=== PATIENT | male | born 1935 | race Caucasian/White ===

== ENCOUNTER → 2016-07-20 | Outpatient (CLI) | payer MEDICARE, OTHER ==
[~2016-07-20] VITALS: Ht 167.6 cm; Wt 78.9 kg
[~2016-07-20] MED LIST: ASPI-892 PO; B 12; CALC-697 PO; CATHETER FLUSH 10 ML SYR IV PRN; CEPH500C; CHOL100011 PO; CHOL20002 PO; CYAN10007 PO; DIPH50CA PO; EZET10TA5; FENO145T2 PO; FISH12002 PO; GARL10002 PO; GARL1500 PO; GARL400T13; GLIP5TAB13 PO; GLUC-144 PO; HCT25T PO; HYDR-3730 PO; HYDR-3812 PO; LISI10TA PO; LISI40TA PO; METF-380; METF-380 PO; METF500T4 PO; MTF500T PO; MULT-974 PO; MULT1TAB PO; MULTIVITAMIN; NAPR220C11 PO; NICOTINIC ACID PO; OMG1KC PO; POTA8CAP9 PO; REGADENOSON 0.4 MG/5 ML SYR (LEXISCAN) IV ONE; SIMV20TA3; SIMV40TA4 PO
--- OUTSIDE RECORDS SUMMARY | 2016-07-20 06:50 | XMS REPORT | Continuity of Care Document ---
Author Author 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 If you do not see the information that you expected, contact Release of Information in the Health Information Management department at [phone] for further assistance in locating additional records.[facility] Active Allergies and Adverse Reactions No Known Allergies Current Medications Prescription Sig. Disp. Refills Start End Date Status Date DOCOSAHEXANOIC ACID/EPA Take 1,200 mg by mouth Active (FISH OIL PO) twice daily. GLUCOSAMINE HCL/CHONDR LEONARDO Take 1 Tab by mouth Active A NA (OSTEO BI-FLEX PO) daily. HYDROcodone/acetaminophen Take 1 Tab by mouth every Active (NORCO) 5/325 mg tablet 8 hours as needed for Pain aspirin 81 mg chewable Chew 81 mg by mouth at Active tablet bedtime daily. Take with food. fenofibrate Take 145 mg by mouth Active nanocrystallized (TRICOR) daily. Take with food. 145 mg tablet glipiZIDE (GLUCOTROL) 5 Take 2.5 mg by mouth Active mg tablet twice daily. lisinopril (PRINIVIL, Take 40 mg by mouth Active ZESTRIL) 40 mg tablet daily. simvastatin (ZOCOR) 40 mg Take 40 mg by mouth at Active tablet bedtime daily. Garlic 1 mg cap Take 1 Cap by mouth Active daily. acetaminophen (TYLENOL) Take 325 mg by mouth Active 325 mg tablet every 4 hours as needed for Pain. metFORMIN (GLUCOPHAGE) Take 1,000 mg by mouth Active 500 mg tablet twice daily. vitamins, multiple tablet Take 1 Tab by mouth Active daily. calcium carbonate/vitamin Take 1 Tab by mouth Active D-3 (OSCAL-500+D) 1250 daily. Calcium Carb mg/200 unit tablet 1250mg delivers 500mg elemental Ca triamcinolone (NASACORT) Apply 2 Sprays to each Active 55 mcg nasal inhaler nostril as directed daily as needed. MULTIVITAMIN WITH IRON Take 1 Tab by mouth 07/05/19 Discontin (MULTIPLE VITAMINS WITH daily. 17 ued IRON PO) metFORMIN (GLUCOPHAGE) Take 1,000 mg by mouth 07/05/19 Discontin 1,000 mg tablet twice daily with meals. 17 ued calcium carbonate Take 1,250 mg by mouth 07/05/19 Discontin (OS-LEANDRO) 1250 mg tablet daily. 17 ued Active Problems Problem Noted Date Personal history of tobacco use 07/05/2016 Diabetes (HCC) Hypertension Low back pain Lung mass Claudication of both lower extremities (HCC) Spinal stenosis Most Recent Encounters Date Type Specialty Providers Description 08/03/2016 [facility] Jania Vargas MD Lung nodule Encounter 07/05/2016 PAC Office Anesthesiology Jania Vargas MD Lung nodule Visit 07/05/2016 Office Visit Cardiothoracic Surgery Jania Vargas MD Lung mass (Primary Dx); Essential hypertension; Type 2 diabetes mellitus without complication, without long-term current use of insulin (HCC); Family history of heart disease; Claudication of both lower extremities (HCC); Personal history of tobacco use; Abnormal blood creatinine level 07/05/2016 Anesthesia Candido Wilson MD Event 07/05/2016 Pre-Admit Anesthesiology Jania Vargas MD Lung nodule ( Primary Dx) Orders Only 07/05/2016 Prep for Case Cardiothoracic Surgery Jania Vargas MD 07/04/2016 Abstract Cardiothoracic Surgery Grace Torres, [place] Type 2 diabetes mellitus without complication, without long-term current use of insulin (HCC) (Primary Dx); Essential hypertension; Chronic low back pain, unspecified back pain laterality, with sciatica presence unspecified; Lung mass; Claudication of both lower extremities (HCC); Spinal stenosis, unspecified spinal region 07/03/2016 Ancillary Radiology Outpatient, Radiologist Diagnosis unknown Orders (Primary Dx) 06/30/2016 Telephone Cardiothoracic Surgery Jania Vargas MD Navigation Assessment 06/21/2016 Hospital Radiology Encounter 06/07/2016 Hospital Radiology Encounter Social History Tobacco Use Types Packs/Day Years Used Date Current Every Day Smoker Cigarettes 1.5 57 Smokeless Tobacco: Never Used Alcohol Use Drinks/Week oz/Week Comments Yes 7 Standard 4.2 drinks or equivalent Last Filed Vital Signs Vital Sign Reading Time Taken Blood Pressure 145/62 07/05/2016 12:01 PM SPECIAL EVENTS MANAGER Pulse 68 07/05/2016 11:43 AM SPECIAL EVENTS MANAGER Temperature 36.7 C (98 F) 07/05/2016 11:43 AM SPECIAL EVENTS MANAGER Respiratory Rate - - Height 1.676 m (5' 6") 07/05/2016 11:43 AM SPECIAL EVENTS MANAGER Weight 78.9 kg (173 lb 15.1 oz) 07/05/2016 11:43 AM SPECIAL EVENTS MANAGER Body Mass Index 28.09 07/05/2016 11:43 AM SPECIAL EVENTS MANAGER Oxygen Saturation 97% 07/05/2016 11:43 AM SPECIAL EVENTS MANAGER Plan of Care Date Type Specialty Providers Description 08/03/2016 Surgery Jania Vargas MD Video Assisted [address] Thoracoscopy, Left Lower [address] [place] [address] [phone] (Fax) Health Maintenance Due Date Last Done Comments Physical (Comprehensive) 01/03/1944 Exam Pertussis Vaccine 01/03/1948 Tetanus Vaccine 1954 Dilated Eye Exam 1955 Foot Exam 1955 Hba1c 1955 Microalbumin 1955 Shingles Vaccine 1997 Prevnar/Pneumovax (#1) 2002 Influenza Vaccine 02/25/2016 Results from Last 3 Months TYPE & SCREEN (NOT CROSSMATCH ELIGIBLE) (07/05/2016 11:57 AM) Component Value Range ABO/RH(D) O POS Antibody Screen NEG Blood Component Type RED CELL GROUP Specimen Blood, venous - Blood PTT (APTT) (07/05/2016 11:57 AM) Component Value Range APTT 29.5 24.0-40.0 SEC Specimen Blood PROTIME INR (PT) (07/05/2016 11:57 AM) Component Value Range INR 1.0 0.8-1.2 Specimen Blood COMPREHENSIVE METABOLIC PANEL (07/05/2016 11:57 AM) Component Value Range Sodium 132 (L) 137-147 MMOL/L Potassium 4.1 3.5-5.1 MMOL/L Chloride 104 98-110 MMOL/L Glucose 103 (H) 70-100 MG/DL Blood Urea Nitrogen 31 (H) 7-25 MG/DL Creatinine 1.75 (H) 0.4-1.24 MG/DL Calcium 10.1 8.5-10.6 MG/DL Total Protein 6.5 6.0-8.0 G/DL Total Bilirubin 0.3 0.3-1.2 MG/DL Albumin 3.8 3.5-5.0 G/DL Alk Phosphatase 31 25-110 U/L AST (SGOT) 24 7-40 U/L CO2 23 21-30 MMOL/L ALT (SGPT) 23 7-56 U/L Anion Gap 5 3-12 eGFR Non 38 (L)Comment: >60 mL/min The eGFR is not validated for use in drug dosing adjustments. Continue to use estimated creatinine clearance per dosing reference text. Please contact the Clinical Pharmacist for questions. eGFR 46 (L)Comment: >60 mL/min The eGFR is not validated for use in drug dosing adjustments. Continue to use estimated creatinine clearance per dosing reference text. Please contact the Clinical Pharmacist for questions. Specimen Blood CBC (07/05/2016 11:57 AM) Component Value Range White Blood Cells 11.6 (H) 4.5-11.0 K/UL RBC 5.20 4.4-5.5 M/UL Hemoglobin 14.9 13.5-16.5 GM/DL Hematocrit 45.9 40-50 % MCV 88.2 80-100 FL MCH 28.7 26-34 PG MCHC 32.6 32.0-36.0 G/DL RDW 14.4 11-15 % Platelet Count 250 150-400 K/UL MPV 8.6 7-11 FL Specimen Blood NM PET/CT EXTERNAL IMAGING (06/21/2016) Narrative This order has been auto finalized and does not contain a result. CT CHEST EXTERNAL IMAGING (06/07/2016) Narrative This order has been auto finalized and does not contain a result.
--- NOTE | 2016-07-20 11:19 | ECHOCARDIOGRAPHY REPORT ---
PROCEDURE PHYSICIAN: LADONNA GALVIN DATE OF PROCEDURE: 07/20/2016 TWO DIMENSIONAL ECHOCARDIOGRAM REPORT PRIMARY PHYSICIAN: OTHER PHYSICIAN: REFERRING PHYSICIAN: Dr. Ayala ORDERING PHYSICIAN: INDICATION FOR THE PROCEDURE: Peripheral arterial disease, hypertension MEASUREMENTS DERIVED VALUES LV DIAMETER (LAX) NORMALS NORMALS Diastolic 4.4 (3.6-5.2) Eject. Fract. 60% (60%+/-6%) Systolic (2.3-3.9) Diastolic Vol. % Shortening (0.22-0.42) Systolic Vol. Aortic Root IVS THICKNESS Diastolic 1. (0.6-1.1) LVPW THICKNESS Diastolic 1. (0.6-1.1) LA DIAMETER Systolic 4. (2.1-3.7) FINDINGS: 1. Technical quality is good. 2. The left ventricle is normal in size with normal contractility. Systolic function appeared to be normal. Estimated ejection fraction 60%. Diastolic dysfunction is suggested by Doppler. 3. The left atrium is in the upper normal limit in size. No clot or thrombus were seen within the left atrium. 4. The right atrium and right ventricle are normal in size. No clot or thrombus were seen within the right side. 5. Mitral valve is normal in morphology with mild mitral regurgitation noted by color Doppler flow. No mitral valve prolapse. No mitral valve stenosis. 6. Aortic valve is trileaflet with normal opening and closing pattern. No significant aortic stenosis or regurgitation was seen. 7. Tricuspid valve is normal in morphology with mild tricuspid regurgitation noted by color Doppler flow. Doppler across tricuspid valve estimated pulmonary artery pressure of 37+ right atrial pressure. 8. Pulmonic valve is functioning normally. 9. No pericardial effusion. CONCLUSION: 1. Normal left ventricular size and systolic function. Estimated ejection fraction 60%. Diastolic dysfunction is suggested by Doppler. 2. Mild mitral and tricuspid regurgitation. 3. Pulmonary hypertension with estimated pulmonary artery pressure of 40 to 45 mmHg. 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
[2016-07-20 13:21] VITALS: BP 186/73
--- NOTE | 2016-07-21 07:44 | STRESS TEST ---
PROCEDURE PHYSICIAN: LADONNA GALVIN DATE OF PROCEDURE: 07/20/2016 LEXISCAN MYOVIEW STRESS TEST REPORT: REFERRING PHYSICIAN: Dr. Ayala BASELINE HEART RATE: 60 BASELINE BLOOD PRESSURE: 186/73 BASELINE EKG: Sinus rhythm with no ischemic changes. IN SUMMARY: The patient was injected with 10.27 mCi of technetium 99 Myoview and the resting images were obtained. Then the patient received 0.4 mg of Lexiscan followed by 32.1 mCi of technetium 99 Myoview. Throughout the test, there were no EKG changes. The resting and stress images were reviewed and compared in the short axis, horizontal long axis, and vertical long axis views. Review of the images showed good radiotracer uptake, no significant ischemia or infarction. SSS is 2, SDS 2, TID value is 1. On the gated images, the left ventricle appeared to be normal size with normal contractility. Calculated ejection fraction 56%. IN CONCLUSION: 1. The patient tolerated Lexiscan well. 2. No ischemia or infarction on SPECT images. 3. Normal left ventricular size with normal contractility. Calculated ejection fraction 56%. 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
== END ==
LOC: CARD 06:46
PROVIDERS: ATTEND Internal Medicine Cardiovascular Disease
DX: I73.9 Peripheral vascular disease, unspecified (principal); I10 Essential (primary) hypertension; R91.8 Other nonspecific abnormal finding of lung field; Z72.0 Tobacco use
CPT/HCPCS: 78452; 93017; 93306

== ENCOUNTER 2016-08-31 05:50 | Outpatient (CLI) | payer MEDICARE, OTHER ==
[~2016-08-31] VITALS: Ht 167.6 cm; Wt 74.8 kg
[~2016-08-31 05:50] MED LIST changes: -AMIO200T2 PO; -CALC-697 PO; -HYDR-3730 PO; -HYDR-3812 PO; -L.AC1CAP6 PO; -METO-333 PO; -ONDA8TAB13 PO; -TRAM50TA2 PO
--- OUTSIDE RECORDS SUMMARY | 2016-08-31 05:55 | XMS REPORT | Continuity of Care Document ---
Author Author [facility] Organization [facility] Address Unknown Phone Unavailable Care Team Providers Care Cook Chill Technician Name Role Phone Yoana Ayala PCP [phone] Source Comments Some departments are not documenting in the electronic medical record. If you do not see the information that you expected, contact Release of Information in the Health Information Management department at [phone] for further assistance in locating additional records.[facility] Active Allergies and Adverse Reactions No Known [...] take 200 mg (1 tab) daily. Fish Oil-[place]-3 Fatty Take by mouth. Active Acids (FISH [...] carcinoma of lung, left (Primary Dx) 08/23/2016 [facility] Radiology Erin Fisher APRN Encounter 08/16/2016 Documentation Cardiothoracic Surgery Grace Torres RN 08/11/2016 Cancer Cardiothoracic Surgery Lucy Coomsb MD Conference 08/03/2016 [facility] Lucy Coombs MD Claudication of both [...] Taken Blood Pressure 126/52 08/23/2016 10:17 AM ADDICTION THERAPIST Pulse 61 08/23/2016 10:17 AM ADDICTION THERAPIST Temperature 36.7 C (98 F) 08/23/2016 10:17 AM ADDICTION THERAPIST Respiratory Rate - - Height 1.676 m (5' 6") 08/23/2016 10:17 AM ADDICTION THERAPIST Weight 75.388 kg (166 lb 3.2 oz) 08/23/2016 10:17 AM ADDICTION THERAPIST Body Mass Index 26.84 08/23/2016 10:17 AM ADDICTION THERAPIST Oxygen Saturation 95% 08/23/2016 10:17 AM ADDICTION THERAPIST Plan of Care Health Maintenance Due Date Last Done Comments Physical (Comprehensive) 01/03/1942 Exam Pertussis Vaccine 01/03/1946 Tetanus Vaccine 1954 Dilated Eye Exam 1955 Foot Exam 1955 Microalbumin 1955 Shingles Vaccine 1997 Prevnar/Pneumovax (#1) 2002 Hba1c 01/31/2017 08/03/2016 Influenza Vaccine 02/24/2017 Procedures from Last 3 Months Procedure Name Priority Date/Time Associated Diagnosis Comments TELEMETRY STRIPS-SCAN 08/19/2016 Results for this 9:16 AM ADDICTION THERAPIST procedure are in the results section. TELEMETRY STRIPS-SCAN 08/12/2016 Results for this 2:43 PM ADDICTION THERAPIST procedure are in the results section. ECG UNCONFIRMED-SCAN 08/12/2016 Results for this 2:15 PM ADDICTION THERAPIST procedure are in the results section. ECG UNCONFIRMED-SCAN 08/12/2016 Results for this 2:15 PM ADDICTION THERAPIST procedure are in the results section. ECG-SCAN 08/06/2016 Results for this 1:42 PM ADDICTION THERAPIST procedure are in the results section. CONSULT IV THERAPY TEAM Routine 08/06/2016 12:24 PM ADDICTION THERAPIST ANESTHESIA ARTERIAL LINE Routine 08/03/2016 Results for this INSERTION 10:38 AM ADDICTION THERAPIST procedure are in the results section. Results [...] - Tue Aug 23, 2016 10:01 AM ADDICTION THERAPIST Chest, 2 views. Clinical history: Status post [...] - Amanda Aug 11, 2016 11:51 AM ADDICTION THERAPIST Procedure: CHEST SINGLE VIEW Clinical Indication: Status [...] Results - MonAug 10, 2016 9:[address] Chest Clinical Indication: Pleural effusion. Technique: [...] - Tue Aug 09, 2016 12:31 PM ADDICTION THERAPIST CHEST IMMEDIATE POST PROCEDURE History: Male, 81 [...] SIDED CHEST TUBE PLACEMENT: CLINICAL INDICATION:Left Pneumothorax. LIFE SCIENCES DIRECTOR:Benjamin Liriano M.D. (fellow) and Dr. Jim Delgado [...] The needle was removed, and a 14 Andorran pigtail all purpose drainage catheter was advanced [...] Results - MonAug 08, 2016 12:16 PM ADDICTION THERAPIST LEFT SIDED CHEST TUBE PLACEMENT: CLINICAL INDICATION: Left Pneumothorax. LIFE SCIENCES DIRECTOR: Benjamin Liriano M.D. (fellow) and Dr. Jim [...] The needle was removed, and a 14 Andorran pigtail all purpose drainage catheter was advanced [...] Color,UA RED Turbidity,UA 2+ (A) CLEAR-CLEAR Specific [place]-Urine 1.017 1.003-1.035 pH,UA 6.0 5.0-8.0 Protein,UA 2+ [...] PM) Component Value Range PATHOLOGY REPORT [facility] [email or web address] Roxanne Chauhan MD, PhD, Director of Anatomic Pathology Department of Pathology and Laboratory Medicine [address] [place] [id number] Surgical Pathology Office: [phone] SURGICAL PATHOLOGY REPORT NAME: LORENZO MCMILLAN SURG PATH #: [id number] MR #: [id number] SPECIMEN CLASS: SR BILLING #: [id number] ALT ID #: LOCATION: [facility] DATE OF PROCEDURE: 08/03/2016 AGE: 81 SEX: [...] status and/or prior pathology. Pursuant to the Security Officer Supervisor Program at the [facility] Pathology Department, selected slides from this [...] 0.4cm The external surface is inked black. Toll Bridge Attendant sections of the specimen are submitted as [...] of Pathology and Laboratory Medicine of the [facility] ([employer]) in compliance with CLIA'88 regulations. Some of these tests rely on the use of "analyte specific reagents" and are subject to specific labeling requirements by the FDA. Known positive and negative control tissues demonstrate appropriate staining. This testing was developed by the Department of Pathology and Laboratory Medicine of the [facility]. It has not been cleared or approved by the FDA. The FDA has determined that such clearance or approval is not necessary. ANESTHESIA ARTERIAL LINE INSERTION (08/03/2016 10:38 AM) TAWNYA Szymanski 08/03/2016 10:38 AM Anesthesia Procedure: Arterial Line Placement A-LINE INSERTION Date/Time: 08/03/2016 9:40 AM Patient location: OR Indications: frequent labs and hemodynamic monitoring Staff Anesthesiologist: MACEY ADAM Resident/MEDICAL BILLING SPECIALIST/SRNA: TERRANCE BROCK Performed by: Resident/MEDICAL BILLING SPECIALIST/SRNA Preprocedure checklist performed: 2 patient identifiers, risks [...]
[2016-09-01] MEDS ORDERED: CALC-697 PO (09:18)
[2016-09-01] MEDS ORDERED: HYDR-3730 PO (10:29)
== END 2016-08-31 12:04 | disposition home or self-care (01) ==
LOC: PREOP 05:50
PROVIDERS: ATTEND Surgery Pediatric Surgery
DX: Z01.818 Encounter for other preprocedural examination (principal); Z11.2 Encounter for screening for other bacterial diseases; C34.92 Malignant neoplasm of unspecified part of left bronchus or lung
CPT/HCPCS: 87081

== ENCOUNTER → 2016-08-31 | Outpatient (CLI) | payer MEDICARE, OTHER ==
[~2016-08-31] MED LIST changes: +AMIO200T2 PO; -CATHETER FLUSH 10 ML SYR IV PRN; +L.AC1CAP6 PO; +METO-333 PO; +ONDA8TAB13 PO; -REGADENOSON 0.4 MG/5 ML SYR (LEXISCAN) IV ONE; +TRAM50TA2 PO
--- OUTSIDE RECORDS SUMMARY | 2016-08-31 10:50 | XMS REPORT | Continuity of Care Document ---
Author Author [facility] Organization [facility] Address Unknown Phone Unavailable Care Team Providers Care Customer Care Representative Name Role Phone Yoana Ayala PCP [phone] Source Comments Some departments are not documenting in the electronic medical record. If you do not see the information that you expected, contact Release of Information in the Health Information Management department at [phone] for further assistance in locating additional records.[facility] Active Allergies and Adverse Reactions No [...] take 200 mg (1 tab) daily. Fish Oil-[place]-3 Fatty Take by mouth. Active Acids (FISH [...] carcinoma of lung, left (Primary Dx) 08/23/2016 [facility] Radiology Erin Fisher APRN Encounter 08/16/2016 Documentation Cardiothoracic Surgery Grace Torres RN 08/11/2016 Cancer Cardiothoracic Surgery Lucy Coombs MD Conference 08/03/2016 [facility] Lucy Coombs MD Claudication of both [...] Taken Blood Pressure 126/52 08/23/2016 10:17 AM BOX OFFICE CLERK Pulse 61 08/23/2016 10:17 AM BOX OFFICE CLERK Temperature 36.7 C (98 F) 08/23/2016 10:17 AM BOX OFFICE CLERK Respiratory Rate - - Height 1.676 m (5' 6") 08/23/2016 10:17 AM BOX OFFICE CLERK Weight 75.388 kg (166 lb 3.2 oz) 08/23/2016 10:17 AM BOX OFFICE CLERK Body Mass Index 26.84 08/23/2016 10:17 AM BOX OFFICE CLERK Oxygen Saturation 95% 08/23/2016 10:17 AM BOX OFFICE CLERK Plan of Care Health Maintenance Due Date Last Done Comments Physical (Comprehensive) 01/03/1942 Exam Pertussis Vaccine 01/03/1948 Tetanus Vaccine 1954 Dilated Eye Exam 1955 Foot Exam 1955 Microalbumin 1955 Shingles Vaccine 1997 Prevnar/Pneumovax (#1) 2002 Hba1c 01/31/2017 08/03/2016 Influenza Vaccine 02/24/2017 Procedures from Last 3 Months Procedure Name Priority Date/Time Associated Diagnosis Comments TELEMETRY STRIPS-SCAN 08/19/2016 Results for this 9:16 AM BOX OFFICE CLERK procedure are in the results section. TELEMETRY STRIPS-SCAN 08/12/2016 Results for this 2:43 PM BOX OFFICE CLERK procedure are in the results section. ECG UNCONFIRMED-SCAN 08/12/2016 Results for this 2:15 PM BOX OFFICE CLERK procedure are in the results section. ECG UNCONFIRMED-SCAN 08/12/2016 Results for this 2:15 PM BOX OFFICE CLERK procedure are in the results section. ECG-SCAN 08/06/2016 Results for this 1:42 PM BOX OFFICE CLERK procedure are in the results section. CONSULT IV THERAPY TEAM Routine 08/06/2016 12:24 PM BOX OFFICE CLERK ANESTHESIA ARTERIAL LINE Routine 08/03/2016 Results for this INSERTION 10:38 AM BOX OFFICE CLERK procedure are in the results section. Results [...] - Tue Aug 23, 2016 10:01 AM BOX OFFICE CLERK Chest, 2 views. Clinical history: Status post [...] - Amanda Aug 11, 2016 11:51 AM BOX OFFICE CLERK Procedure: CHEST SINGLE VIEW Clinical Indication: Status [...] Results - MonAug 10, 2016 9:28 [address] B[address] OFFICE CL[address] CT Chest Clinical Indication: Pleural effusion. Technique: [...] - Tue Aug 09, 2016 12:31 PM BOX OFFICE CLERK CHEST IMMEDIATE POST PROCEDURE History: Male, 81 [...] pleural effusion. Left basilar atelectasis. Approved by Dion Maria M.D. on 08/09/2016 11:00 AM By [...] SIDED CHEST TUBE PLACEMENT: CLINICAL INDICATION:Left Pneumothorax. WAITER/WAITRESS TAVERN:Benjamin Liriano M.D. (fellow) and Dr. Jim Delgado [...] The needle was removed, and a 14 Sudanese pigtail all purpose drainage catheter was advanced [...] Results - MonAug 08, 2016 12:16 PM BOX OFFICE CLERK LEFT SIDED CHEST TUBE PLACEMENT: CLINICAL INDICATION: Left Pneumothorax. WAITER/WAITRESS TAVERN: Benjamin Liriano M.D. (fellow) and Dr. Jim [...] The needle was removed, and a 14 Sudanese pigtail all purpose drainage catheter was advanced [...] Color,UA RED Turbidity,UA 2+ (A) CLEAR-CLEAR Specific [place]-Urine 1.017 1.003-1.035 pH,UA 6.0 5.0-8.0 Protein,UA 2+ [...] PM) Component Value Range PATHOLOGY REPORT THE [facility] [email or web address] Roxanne Chauhan MD, PhD, Director of Anatomic Pathology Department of Pathology and Laboratory Medicine [address] [place] [id number] Surgical Pathology Office: [phone] SURGICAL PATHOLOGY REPORT NAME: LORENZO MCMILLAN SURG PATH #: [id number] MR #: [id number] SPECIMEN CLASS: SR BILLING #: [id number] ALT ID #: LOCATION: [facility] DATE OF PROCEDURE: 08/03/2016 AGE: 81 SEX: [...] status and/or prior pathology. Pursuant to the Mend Worker Program at the [facility] Pathology Department, selected slides from this case [...] 0.4cm The external surface is inked black. Float Tender sections of the specimen are submitted as [...] of Pathology and Laboratory Medicine of the [facility] ([employer]) in compliance with CLIA'88 regulations. Some of these tests rely on the use of "analyte specific reagents" and are subject to specific labeling requirements by the FDA. Known positive and negative control tissues demonstrate appropriate staining. This testing was developed by the Department of Pathology and Laboratory Medicine of the [facility]. It has not been cleared or approved by the FDA. The FDA has determined that such clearance or approval is not necessary. ANESTHESIA ARTERIAL LINE INSERTION (08/03/2016 10:38 AM) TAWNYA Szymanski 08/03/2016 10:38 AM Anesthesia Procedure: Arterial Line Placement A-LINE INSERTION Date/Time: 08/03/2016 9:40 AM Patient location: OR Indications: frequent labs and hemodynamic monitoring Staff Anesthesiologist: MACEY ADAM Resident/AUDITING CODER/SRNA: TERRANCE BROCK Performed by: Resident/AUDITING CODER/SRNA Preprocedure checklist performed: 2 patient identifiers, risks [...]
--- NOTE | 2016-08-31 13:09 | Diagnostic Imaging Report ---
PROCEDURE: CT chest without contrast. TECHNIQUE: Multiple contiguous axial images were obtained through the chest without the use of intravenous contrast. INDICATION: Lung cancer. FINDINGS: The previous CT chest exam performed on 06/07/2016 noted a 1.5 cm spiculated nodule in the left lower lobe. The subsequent PET/CT exam of 06/21/2016 revealed that this nodule was markedly hypermetabolic with a maximum SUV of 9.5. There was no other hypermetabolic activity identified on the PET/CT. In the interval since the previous exam, the patient has undergone a thoroscopic surgical procedure. There are now surgical clips in the left infrahilar region, and the mass identified on the previous study in this area is no longer visualized. There is atelectasis/infiltrate and fluid partially obscuring the left lung base, however. Furthermore, just cephalad to the left infrahilar region and approximately 3 cm caudal to the gisella, there is now a 0.9 x 0.9 cm noncalcified nodule. This was not present on the prior exam, and it is possible that this could be neoplastic in nature. The left upper lung is generally clear. The small irregular parenchymal opacity in the medial aspect of the right upper lobe seen previously is again evident and no different. The right lung is otherwise unremarkable as well. The heart size is stable when compared to the prior exam. The aorta is not abnormally dilated. There is no mediastinal or hilar adenopathy noted, but this exam is limited in evaluation of adenopathy due to the absence of intravenous contrast. The thyroid gland is generally unremarkable. The bone window shows no sign of a fracture or of a destructive lesion. The sections through the upper abdomen fail to show any sign of an acute abnormality or of metastatic disease. IMPRESSION: 1. There are postsurgical changes involving the left lung base. The 1.5 cm spiculated mass in the left infrahilar region seen previously is no longer evident. This area is partially obscured by atelectasis/infiltrate and fluid, however. 2. Approximately 3 cm inferior to the gisella, there is a small roughly 1 cm nodular density in the medial aspect of the left upper lung. This was not present on the prior exam and is worrisome for neoplastic disease. If further imaging is desired, then a short-term (4-6 week) followup CT chest exam should be obtained. 3. There is no acute cardiopulmonary abnormality noted otherwise. 4. These results were discussed with Dr. Rosio Mendez. Dictated by: Dictated on workstation # [id number]
== END ==
LOC: RAD 10:46
PROVIDERS: ATTEND Internal Medicine Hematology & Oncology
DX: C34.92 Malignant neoplasm of unspecified part of left bronchus or lung (principal); R91.8 Other nonspecific abnormal finding of lung field
CPT/HCPCS: 71250

== ENCOUNTER 2016-09-01 08:31 | Day surgery (SDC) | payer MEDICARE, OTHER ==
[~2016-09-01] VITALS: Ht 167.6 cm; Wt 74.8 kg
--- OUTSIDE RECORDS SUMMARY | 2016-09-01 08:35 | XMS REPORT | Continuity of Care Document ---
Author Author [facility] Organization [facility] Address Unknown Phone Unavailable Care Team Providers Care Software Applications Architect Name Role Phone Yoana Ayala PCP [phone] Source Comments Some departments are not documenting in the electronic medical record. If you do not see the information that you expected, contact Release of Information in the Health Information Management department at [phone] for further assistance in locating additional records.[facility] Active Allergies and Adverse Reactions No Known [...] take 200 mg (1 tab) daily. Fish Oil-[place]-3 Fatty Take by mouth. Active Acids (FISH [...] carcinoma of lung, left (Primary Dx) 08/23/2016 [facility] Radiology Erin Fisher APRN Encounter 08/16/2016 Documentation Cardiothoracic Surgery Grace Torres RN 08/11/2016 Cancer Cardiothoracic Surgery Lucy Coombs MD Conference 08/03/2016 [facility] Lucy Coombs MD Claudication of both [...] Taken Blood Pressure 126/52 08/23/2016 10:17 AM WELDING MACHINE OPERATOR PLASMA ARC Pulse 61 08/23/2016 10:17 AM WELDING MACHINE OPERATOR PLASMA ARC Temperature 36.7 C (98 F) 08/23/2016 10:17 AM WELDING MACHINE OPERATOR PLASMA ARC Respiratory Rate - - Height 1.676 m (5' 6") 08/23/2016 10:17 AM WELDING MACHINE OPERATOR PLASMA ARC Weight 75.388 kg (166 lb 3.2 oz) 08/23/2016 10:17 AM WELDING MACHINE OPERATOR PLASMA ARC Body Mass Index 26.84 08/23/2016 10:17 AM WELDING MACHINE OPERATOR PLASMA ARC Oxygen Saturation 95% 08/23/2016 10:17 AM WELDING MACHINE OPERATOR PLASMA ARC Plan of Care Health Maintenance Due Date Last Done Comments Physical (Comprehensive) 01/03/1942 Exam Pertussis Vaccine 01/03/1948 Tetanus Vaccine 1954 Dilated Eye Exam 1955 Foot Exam 1955 Microalbumin 1955 Shingles Vaccine 1997 Prevnar/Pneumovax (#1) 2002 Hba1c 01/31/2017 08/03/2016 Influenza Vaccine 02/24/2017 Procedures from Last 3 Months Procedure Name Priority Date/Time Associated Diagnosis Comments TELEMETRY STRIPS-SCAN 08/19/2016 Results for this 9:16 AM WELDING MACHINE OPERATOR PLASMA ARC procedure are in the results section. TELEMETRY STRIPS-SCAN 08/12/2016 Results for this 2:43 PM WELDING MACHINE OPERATOR PLASMA ARC procedure are in the results section. ECG UNCONFIRMED-SCAN 08/12/2016 Results for this 2:15 PM WELDING MACHINE OPERATOR PLASMA ARC procedure are in the results section. ECG UNCONFIRMED-SCAN 08/12/2016 Results for this 2:15 PM WELDING MACHINE OPERATOR PLASMA ARC procedure are in the results section. ECG-SCAN 08/06/2016 Results for this 1:42 PM WELDING MACHINE OPERATOR PLASMA ARC procedure are in the results section. CONSULT IV THERAPY TEAM Routine 08/06/2016 12:24 PM WELDING MACHINE OPERATOR PLASMA ARC ANESTHESIA ARTERIAL LINE Routine 08/03/2016 Results for this INSERTION 10:38 AM WELDING MACHINE OPERATOR PLASMA ARC procedure are in the results section. Results [...] - Tue Aug 23, 2016 10:01 AM WELDING MACHINE OPERATOR PLASMA ARC Chest, 2 views. Clinical history: Status post [...] - Amanda Aug 11, 2016 11:51 AM WELDING MACHINE OPERATOR PLASMA ARC Procedure: CHEST SINGLE VIEW Clinical Indication: Status [...] Results - MonAug 10, 2016 9:28 AM WELDING MACHINE OPERATOR PLASMA ARC CT Chest Clinical Indication: Pleural effusion. Technique: [...] - Tue Aug 09, 2016 12:31 PM WELDING MACHINE OPERATOR PLASMA ARC CHEST IMMEDIATE POST PROCEDURE History: Male, 81 [...] SIDED CHEST TUBE PLACEMENT: CLINICAL INDICATION:Left Pneumothorax. MEDICAL RECORDS SECRETARY:Benjamin Liriano M.D. (fellow) and Dr. Jim Delgado [...] The needle was removed, and a 14 [place]ic pigtail all purpose drainage catheter was advanced [...] Results - MonAug 08, 2016 12:16 PM WELDING MACHINE OPERATOR PLASMA ARC LEFT SIDED CHEST TUBE PLACEMENT: CLINICAL INDICATION: Left Pneumothorax. MEDICAL RECORDS SECRETARY: Benjamin Liriano M.D. (fellow) and Dr. Jim [...] The needle was removed, and a 14 [place]ic pigtail all purpose drainage catheter was advanced [...] Color,UA RED Turbidity,UA 2+ (A) CLEAR-CLEAR Specific [place]-Urine 1.017 1.003-1.035 pH,UA 6.0 5.0-8.0 Protein,UA 2+ [...] PM) Component Value Range PATHOLOGY REPORT THE [facility] [email or web address] Roxanne Chauhan MD, PhD, Director of Anatomic Pathology Department of Pathology and Laboratory Medicine [address] [place] [phone] Surgical Pathology Office: [phone] SURGICAL PATHOLOGY REPORT NAME: LORENZO MCMILLAN SURG PATH #: [id number] MR #: [id number] SPECIMEN CLASS: SR BILLING #: [id number] ALT ID #: LOCATION: [facility] DATE OF PROCEDURE: 08/03/2016 AGE: 81 [...] status and/or prior pathology. Pursuant to the Car Supplier Program at the [facility] Pathology Department, selected slides from this [...] 0.4cm The external surface is inked black. Video Journalist sections of the specimen are submitted as [...] of Pathology and Laboratory Medicine of the [facility] ([employer]) in compliance with CLIA'88 regulations. Some of these tests rely on the use of "analyte specific reagents" and are subject to specific labeling requirements by the FDA. Known positive and negative control tissues demonstrate appropriate staining. This testing was developed by the Department of Pathology and Laboratory Medicine of the [facility]. It has not been cleared or approved by the FDA. The FDA has determined that such clearance or approval is not necessary. ANESTHESIA ARTERIAL LINE INSERTION (08/03/2016 10:38 AM) TAWNYA Szymanski 08/03/2016 10:38 AM Anesthesia Procedure: Arterial Line Placement A-LINE INSERTION Date/Time: 08/03/2016 9:40 AM Patient location: OR Indications: frequent labs and hemodynamic monitoring Staff Anesthesiologist: MACEY DAAM Resident/NUTRITION WORKER/SRNA: TERRANCE BROCK Performed by: Resident/NUTRITION WORKER/SRNA Preprocedure checklist performed: 2 patient identifiers, risks [...]
--- OUTSIDE RECORDS SUMMARY | 2016-09-01 08:36 | XMS REPORT | Continuity of Care Document ---
Author Author [facility] Organization [facility] Address Unknown Phone Unavailable Care Team Providers Care Timber Spotter Name Role Phone Yoana Ayala PCP [phone] Source Comments Some departments are not documenting in the electronic medical record. If you do not see the information that you expected, contact Release of Information in the Health Information Management department at [phone] for further assistance in locating additional records.[facility] [...] take 200 mg (1 tab) daily. Fish Oil-[place]-3 Fatty Take by mouth. Active Acids (FISH [...] carcinoma of lung, left (Primary Dx) 08/23/2016 [facility] Radiology Erin Fisehr APRN Encounter 08/16/2016 Documentation Cardiothoracic Surgery Grace Torres RN 08/11/2016 Cancer Cardiothoracic Surgery Lucy Coombs MD Conference 08/03/2016 [facility] Lucy Coombs MD Claudication of both [...] Taken Blood Pressure 126/52 08/23/2016 10:17 AM CENTER MEDICAL AND LAB DIRECTOR Pulse 61 08/23/2016 10:17 AM CENTER MEDICAL AND LAB DIRECTOR Temperature 36.7 C (98 F) 08/23/2016 10:17 AM CENTER MEDICAL AND LAB DIRECTOR Respiratory Rate - - Height 1.676 m (5' 6") 08/23/2016 10:17 AM CENTER MEDICAL AND LAB DIRECTOR Weight 75.388 kg (166 lb 3.2 oz) 08/23/2016 10:17 AM CENTER MEDICAL AND LAB DIRECTOR Body Mass Index 26.84 08/23/2016 10:17 AM CENTER MEDICAL AND LAB DIRECTOR Oxygen Saturation 95% 08/23/2016 10:17 AM CENTER MEDICAL AND LAB DIRECTOR Plan of Care Health Maintenance Due Date Last Done Comments Physical (Comprehensive) 01/03/1942 Exam Pertussis Vaccine 01/03/1948 Tetanus Vaccine 1954 Dilated Eye Exam 1955 Foot Exam 1955 Microalbumin 1955 Shingles Vaccine 1997 Prevnar/Pneumovax (#1) 2002 Hba1c 01/31/2017 08/03/2016 Influenza Vaccine 02/24/2017 Procedures from Last 3 Months Procedure Name Priority Date/Time Associated Diagnosis Comments TELEMETRY STRIPS-SCAN 08/19/2016 Results for this 9:16 AM CENTER MEDICAL AND LAB DIRECTOR procedure are in the results section. TELEMETRY STRIPS-SCAN 08/12/2016 Results for this 2:43 PM CENTER MEDICAL AND LAB DIRECTOR procedure are in the results section. ECG UNCONFIRMED-SCAN 08/12/2016 Results for this 2:15 PM CENTER MEDICAL AND LAB DIRECTOR procedure are in the results section. ECG UNCONFIRMED-SCAN 08/12/2016 Results for this 2:15 PM CENTER MEDICAL AND LAB DIRECTOR procedure are in the results section. ECG-SCAN 08/06/2016 Results for this 1:42 PM CENTER MEDICAL AND LAB DIRECTOR procedure are in the results section. CONSULT IV THERAPY TEAM Routine 08/06/2016 12:24 PM CENTER MEDICAL AND LAB DIRECTOR ANESTHESIA ARTERIAL LINE Routine 08/03/2016 Results for this INSERTION 10:38 AM CENTER MEDICAL AND LAB DIRECTOR procedure are in the results section. Results [...] - Tue Aug 23, 2016 10:01 AM CENTER MEDICAL AND LAB DIRECTOR Chest, 2 views. Clinical history: Status post [...] - Amanda Aug 11, 2016 11:51 AM CENTER MEDICAL AND LAB DIRECTOR Procedure: CHEST SINGLE VIEW Clinical Indication: Status [...] Results - MonAug 10, 2016 9:28 AM CENTER MEDICAL AND LAB DIRECTOR CT Chest Clinical Indication: Pleural effusion. Technique: [...] - Tue Aug 09, 2016 12:31 PM CENTER MEDICAL AND LAB DIRECTOR CHEST IMMEDIATE POST PROCEDURE History: Male, 81 [...] SIDED CHEST TUBE PLACEMENT: CLINICAL INDICATION:Left Pneumothorax. AUTOMOTIVE MANUFACTURER:Benjamin Liriano M.D. (fellow) and Dr. Jim Delagdo M.D.. MEDICATIONS: Versed 2 mg IV, morphine [...] The needle was removed, and a 14 [place] pigtail all purpose drainage catheter was advanced [...] Results - MonAug 08, 2016 12:16 PM CENTER MEDICAL AND LAB DIRECTOR LEFT SIDED CHEST TUBE PLACEMENT: CLINICAL INDICATION: Left Pneumothorax. AUTOMOTIVE MANUFACTURER: Benjamin Liriano M.D. (fellow) and Dr. Jim [...] The needle was removed, and a 14 [place] pigtail all purpose drainage catheter was advanced [...] Color,UA RED Turbidity,UA 2+ (A) CLEAR-CLEAR Specific [place]-Urine 1.017 1.003-1.035 pH,UA 6.0 5.0-8.0 Protein,UA 2+ [...] PM) Component Value Range PATHOLOGY REPORT [facility] www.[email or web address] Roxanne Chauhan MD, PhD, Director of Anatomic Pathology Department of Pathology and Laboratory Medicine [address] [place] [phone] Surgical Pathology Office: [phone] SURGICAL PATHOLOGY REPORT NAME: LORENZO MCMILLAN SURG PATH #: [id number] MR #: [id number] SPECIMEN CLASS: SR BILLING #: [id number] ALT ID #: LOCATION: [facility] DATE OF PROCEDURE: 08/03/2016 AGE: 81 SEX: [...] status and/or prior pathology. Pursuant to the Sludge Filtration Operator Program at the [facility] Pathology Department, selected slides from this [...] 0.4cm The external surface is inked black. Hepatology Physician sections of the specimen are submitted as [...] of Pathology and Laboratory Medicine of the [facility] ([employer]) in compliance with CLIA'88 regulations. Some of these tests rely on the use of "analyte specific reagents" and are subject to specific labeling requirements by the FDA. Known positive and negative control tissues demonstrate appropriate staining. This testing was developed by the Department of Pathology and Laboratory Medicine of the [facility]. It has not been cleared or approved by the FDA. The FDA has determined that such clearance or approval is not necessary. ANESTHESIA ARTERIAL LINE INSERTION (08/03/2016 10:38 AM) TAWNYA Szymanski 08/03/2016 10:38 AM Anesthesia Procedure: Arterial Line Placement A-LINE INSERTION Date/Time: 08/03/2016 9:40 AM Patient location: OR Indications: frequent labs and hemodynamic monitoring Staff Anesthesiologist: MACEY ADAM Resident/MATHEMATICS LECTURER/SRNA: TERRANCE BROCK Performed by: Resident/MATHEMATICS LECTURER/SRNA Preprocedure checklist performed: 2 patient identifiers, risks [...]
[2016-09-01] MEDS ORDERED: ceFAZolin 1 GM/NS 50 ML IVPB IV ONE ×2 (08:45)
[2016-09-01] MEDS ORDERED: LIDOCAINE/EPI 1%-1:100,000 (XYLOCAINE) 20ML ONE (09:16)
[2016-09-01] MEDS ORDERED: HEParin (CENTRAL IV FLUSH) 500 UNIT/5 ML SYR ONE (09:16)
[2016-09-01] MEDS ORDERED: CALC-697 PO (09:18)
[2016-09-01] MEDS ORDERED: LACTATED RINGERS 1,000 ML IV PRN (09:25)
--- NOTE | 2016-09-01 09:31 | Progress Note-Pre Operative ---
Pre-Operative Progress Note H&P Reviewed The H&P was reviewed, patient examined and no changes noted. Date H&P Reviewed: Sep 01, 2016 Time H&P Reviewed: 09:00 Pre-Operative Diagnosis: left lung cancer DELMIS FARFAN MD Sep 01, 2016 9:31 am
[2016-09-01 09:36] VITALS: BP 141/90
[2016-09-01] MEDS ORDERED: HYDROcodone/APAP 5 MG/325 MG (LORTAB) TAB PO ONE (09:45)
[2016-09-01] MEDS ORDERED: ONDANSETRON 4 MG/2 ML (SDV) Z0FRAN IVP PRN (09:45)
[2016-09-01] MEDS ORDERED: ACETAMINOPHEN 325 MG TABLET/CAPLET (TYLENOL) PO PRN (09:45)
[2016-09-01] MEDS ORDERED: morphine INJ 10 MG/ML 1ML (SYR OR VIAL) IVP PRN (09:45)
[2016-09-01] MEDS ORDERED: proPOfol 200 MG/20 ML (DIPRIVAN) VIAL IV ONE (10:19)
--- NOTE | 2016-09-01 10:27 | Progress Note-Post Operative ---
Post-Operative Progess Note Ct Scan Special Procedures Technologist adelfo mills SMALL CRAFT OPERATOR Pre-Operative Diagnosis left lung cancer Post-Operative Diagnosis same Post-Op Procedure Note Date of Procedure: Sep 01, 2016 Name of Procedure: right subclavian groshong implantable catheter placement under flouroscopy Anesthesia Type general LMA Estimated blood loss (mL): DELMIS Vaughn MD Sep 01, 2016 10:27 am
[2016-09-01] MEDS ORDERED: HYDR-3730 PO (10:29)
[2016-09-01] MEDS ORDERED: LACTATED RINGERS 1,000 ML IV ONE (10:31)
[2016-09-01] MEDS ORDERED: SEVOFLURANE (ULTANE) 15 ML INHAL SOLN ONE (10:31)
--- NOTE | 2016-09-01 10:31 | Discharge Inst-Surgical ---
D/C Lap Instructions-NAHEED New, Converted, or Re-Newed RX: RX on Chart Follow Up PRN. OK to access and use port at any time. Activity as tolerated No driving for 24 hours No [address] while on pain medications Incentive Spirometry use every 2 hours while awake Regular Diet Symptoms to Report: Fever over 101 degree F, Nausea/Vomiting Infection Signs and Symptoms to report: Increased redness, Foul odor of wound, Increased drainage Bathing instructions: May shower Operative Area Clean/Dry; Keep incision clean/dry If any problems/questions: Contact your physician or go to Emergency Room DELMIS FARFAN MD Sep 01, 2016 10:31 am
[2016-09-01 11:10] VITALS: BP 142/56
[2016-09-01 11:40] VITALS: BP 136/62
--- NOTE | 2016-09-01 11:40 | Diagnostic Imaging Report ---
INDICATION: Postop Study compared to 10/15/15. FINDINGS: There is elevation of the left hemidiaphragm with new medial left basilar opacity associated with some left lung volume loss. This is likely atelectasis at least partially involving the left lower lobe. Followup to confirm its reexpansion recommended. A subclavian catheter via the right has its tip near the cavoatrial junction with no pneumothorax. IMPRESSION: New left basilar opacity associated with volume loss likely left lower lobe atelectasis. Followup recommended. Catheter placed in good position. No pneumothorax. Dictated by: Dictated on workstation # [id number]
[2016-09-01 12:05] VITALS: BP 145/81
--- NOTE | 2016-09-01 12:47 | OPERATIVE REPORT ---
PROCEDURE PHYSICIAN: DELMIS MONREAL DATE OF PROCEDURE: 09/01/2016 ATTENDING PRIMARY CARE PHYSICIAN: Dr. 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 POSTOPERATIVE DIAGNOSIS: Left lung squamous cell cancer. PROCEDURE: Right subclavian Groshong implantable catheter placement under fluoroscopy. SURGEON: Dr. Monreal. AUTOMOTIVE GENERAL MANAGER: Claudio Ozuna APRN. ANESTHESIA: General laryngeal mask airway. ESTIMATED BLOOD LOSS: Minimal. FINDINGS: Catheter tip at superior vena caval/right atrial junction. DISPOSITION: The patient tolerated the procedure well. BRIEF HISTORY: Mr. Osmin Mcmillan is a 81-year-old male who was found to have a left upper lobe nodule, which had been followed. There is a new one identified at the left lower lobe as well. He had a PET scan done where the left lower lobe was found to be hypermetabolic. He then underwent a left lower lobe lobectomy 08/03/2016. Of the pathology specimen it appears that one of 11 ipsilateral mediastinal lymph nodes were positive and the cell type was a squamous cell lung cancer. He has been seen by oncology and will undergo chemotherapy and will require a Groshong implantable catheter. PROCEDURE: The patient was brought to the operating room, laid supine on the table. After adequate IV pain and sedative medications and general laryngeal mask airway intubation, the chest and neck were prepped and draped in standard surgical fashion. 0.5% Marcaine with epinephrine was then used to anesthetize the overlying skin in the left subclavian region. The left subclavian vein was then cannulated withdrawing of venous blood. The guidewire was then inserted using fluoroscopy. Cannulating needle removed and a skin incision made using a 15 blade. The dilator and sheath were then introduced over the guidewire. The dilator and guidewire were then removed and the Groshong implantable catheter was then placed under fluoroscopy until the tip of the catheter was at the superior vena caval/right atrial junction. The sheath was then removed. The inner wire within the catheter was then removed and the catheter cut down to size and a port placed onto the catheter. The right chest subcutaneous reservoir was then created. The skin incision was extended laterally using a 15 blade. A plane was then created between the anterior pectoral fascia as well as the subcutaneous tissue using electrocautery as well as blunt dissection. Good hemostasis was observed. The port was then placed into this reservoir and sutured to the fascia using interrupted 3-0 Vicryl sutures. The subcutaneous tissue was then reapproximated using 3-0 Vicryl interrupted sutures. Skin was closed using 4-0 Monocryl running subcuticular suture. The wound was then cleaned and covered Dermabond. The port was accessed and marci venous blood and heparinized saline pushed in without any resistance. The patient tolerated the procedure well. We will get postprocedure chest x-ray. Once confirmation of placement is verified, the port may be accessed and used at any time. Job ID: [id number] Dictated Date: 09/01/2016 10:36:00 Medical Economics Consultant Date: 09/01/2016 12:36:01 / winter
--- NOTE | 2016-09-01 21:07 | Diagnostic Imaging Report ---
INDICATION: Groshong catheter placement. EXAMINATION: Fluoroscopic assistance was provided for Dr. Monreal during his Groshong catheter placement procedure. 13.3 seconds of fluoroscopy time was utilized. FINDINGS: A single spot film of the thorax was obtained. The tip of the catheter seems to overlie the midportion of the superior vena cava. IMPRESSION: Fluoroscopic assistance was provided for Dr. Monreal during his Groshong catheter placement procedure. A followup chest exam is pending for further evaluation. Dictated by: Dictated on workstation # [id number]
== END 2016-09-01 12:05 | disposition home or self-care (01) ==
LOC: SDC 08:31
PROVIDERS: ATTEND Surgery Pediatric Surgery
DX: C34.92 Malignant neoplasm of unspecified part of left bronchus or lung (principal); E11.9 Type 2 diabetes mellitus without complications; Z79.84 Long term (current) use of oral hypoglycemic drugs
CPT/HCPCS: 71010; 82962

== ENCOUNTER → 2016-09-26 | Outpatient (CLI) | payer MEDICARE, OTHER ==
[~2016-09-26] MED LIST changes: +AMIO200T2 PO; +CALC-697 PO; +CATHETER FLUSH 10 ML SYR IV PRN; +HYDR-3730 PO; +HYDR-3812 PO; +IOHEXOL 350 MG/ML 100 ML (OMNIPAQUE 350) VIAL IV ONE; +L.AC1CAP6 PO; +METO-333 PO; +NS 100 ML (IVPB) BAG IV ONE; +ONDA8TAB13 PO; +TRAM50TA2 PO
--- NOTE | 2016-09-26 16:02 | Diagnostic Imaging Report ---
PROCEDURE: CT chest without contrast. TECHNIQUE: Multiple contiguous axial images were obtained through the chest without the use of intravenous contrast. INDICATION: Lung cancer. COMPARISON: The previous CT chest exam performed on 08/31/2016 noted a 0.9 x 0.9 cm noncalcified nodular density along the medial aspect of the left infrahilar region roughly 3 cm caudal to the gisella. It was not certain whether this finding was neoplastic in nature. That density is not evident on this study. This could have been a small focus of pneumonia/atelectasis which has subsequently resolved in the interval since the prior exam. FINDINGS: The scar formation and postsurgical changes involving the left lung seen previously are again evident and essentially no different. There is no parenchymal lung mass visualized on the left. The right lung remains generally clear. There is a 2 mm nodule in the right midlung (image 26 of 72). This finding was visible on the prior exam and does not seem to have changed. I suspect that this is a benign process. The heart size is within normal limits and stable when compared to the prior study. The aorta is not abnormally dilated. There is no mediastinal or hilar adenopathy although this exam is limited in evaluation of adenopathy due to the absence of intravenous contrast. Thyroid gland is unremarkable. The sections through the upper abdomen fail to show any sign of an acute abnormality. The 2 cm parapelvic cyst on the right kidney noted previously is again evident and no different. Bone windows show no evidence for fracture or for destructive lesion. IMPRESSION: 1. The small parenchymal density in the left lung base seen previously is no longer evident. 2. The postsurgical changes involving the left lung are again visualized and unchanged. There is no acute cardiopulmonary abnormality noted. Dictated by: Dictated on workstation # [id number]
== END ==
LOC: RAD 14:00
PROVIDERS: ATTEND Internal Medicine Hematology & Oncology
DX: R93.8 Abnormal findings on diagnostic imaging of other specified body structures (principal); C34.32 Malignant neoplasm of lower lobe, left bronchus or lung
CPT/HCPCS: 71250

== ENCOUNTER 2016-10-15 21:20 | Emergency (ER) | payer MEDICARE, OTHER ==
[~2016-10-15] VITALS: Ht 167.6 cm; Wt 74.8 kg
[~2016-10-15 21:20] MED LIST changes: -AMIO200T2 PO; -CATHETER FLUSH 10 ML SYR IV PRN; -HYDR-3812 PO; -IOHEXOL 350 MG/ML 100 ML (OMNIPAQUE 350) VIAL IV ONE; -L.AC1CAP6 PO; -METO-333 PO; -NS 100 ML (IVPB) BAG IV ONE; -ONDA8TAB13 PO; -TRAM50TA2 PO
--- NOTE | 2016-10-15 21:43 | ED General ---
General Chief Complaint: General Problems/Pain Stated Complaint: GENERAL PAIN Nursing Triage Note: patient reports L side pain since after a fall. patient reports also having surgery on his lung in june Nursing Sepsis Screen: No Definite Risk Source of Information: Patient Exam Limitations: No Limitations History of Present Illness Time Seen by Provider: 21:42 Initial Comments Patient lost his balance and fell ago. He fell backward. Since then he has been having left-sided chest pain. It is worse with moving, breathing or coughing. Allergies and Home Medications Allergies Coded Allergies: No Known Drug Allergies (Unverified , 08/31/16) Home Medications Aspirin 81 Mg Tablet.dr, 81 MG PO DAILY, (Reported) Calcium Carbonate/Vitamin D3 1 Each Tablet, 1 EACH PO, (Reported) Fenofibrate,Micronized 145 Mg Tablet, 145 MG PO DAILY, (Reported) Fish Oil/Borage/Flax/Om3,6,9#1 1,200 Mg Capsule, 1,200 MG PO BID, (Reported) Glipizide 5 Mg Tablet, 2.5 MG PO BID, (Reported) Glucosamine HCl/Chondr Glez A Na 1 Each Tablet, 1 EACH PO BID, (Reported) Hydrochlorothiazide 25 Mg Tab, 25 MG PO DAILY, (Reported) Hydrocodone/Acetaminophen 1 Each Tablet, 1 EACH PO Q4H, #35 Prescribed by: DELMIS FARFAN on 09/01/16 1029 Lisinopril 40 Mg Tablet, 40 MG PO DAILY, (Reported) Metformin HCl 500 Mg Tablet, 1,000 MG PO BID, (Reported) TAKE 2 (500MG) TABS Multivitamin 1 Each Tablet, 1 EACH PO DAILY, (Reported) Simvastatin 40 Mg Tablet, 40 MG PO HS, (Reported) Constitutional: no symptoms reported Respiratory: No short of breath Cardiovascular: chest pain Skin: no symptoms reported All Other Systems Reviewed Negative Unless Noted: Yes Past Tcezeyt-Ypxheh-Vmhvlp Hx Patient Social History Alcohol Use: Occasionally Uses Recreational Drug Use: No Smoking Status: Former Smoker Type Used: Cigarettes Recent Foreign Travel: No Contact w/Someone Who Travel: No Recent Infectious Disease Expo: No Recent Hopitalizations: No Immunizations Up To Date Date of Pneumonia Vaccine: Jul 07, 2014 Date of Influenza Vaccine: Apr 04, 2016 Seasonal Allergies Seasonal Allergies: No Surgeries HX Surgeries: Yes (SEVERAL SKIN CA REMOVED, HEMORRHOIDECTOMY, LEFT LOWER LOBECTOMY) Surgeries: Appendectomy Respiratory Hx Respiratory Disorders: Yes (LUNG CA) Cardiovascular Hx Cardiac Disorders: Yes Cardiac Disorders: High Cholesterol, Hypertension Neurological Hx Neurological Disorders: Yes Neurological Disorders: TIA Reproductive System Hx Reproductive Disorders: No Sexually Transmitted Disease: No HIV/AIDS: No Genitourinary Hx Genitourinary Disorders: No Gastrointestinal Hx Gastrointestinal Disorders: Yes Gastrointestinal Disorders: Chronic Constipation, Chronic Diarrhea Musculoskeletal Hx Musculoskeletal Disorders: Yes Musculoskeletal Disorders: Back Injury, Chronic Back Pain Endocrine Hx Endocrine Disorders: Yes Endocrine Disorders: Diabetes, Non-Insulin dep HEENT HX ENT Disorders: Yes (GLASSES) Loss of Vision: Bilateral Hearing Impairment: Denies Cancer Hx Cancer: Yes Cancer: Lung, Skin Psychosocial Hx Psychiatric Problems: No Integumentary HX Skin/Integumentary Disorder: Yes (SKIN CA) Blood Transfusions Hx Blood Disorders: No Adverse Reaction to a Blood Tr: No Reviewed Nursing Assessment Reviewed/Agree w Nursing PMH: Yes Physical Exam Vital Signs Vital Sign - Last 12Hours 10/15/16 21:29 Temp 98.7 Pulse 65 Resp 20 B/P (MAP) 163/77 Pulse Ox 96 Capillary Refill : Less Than 3 Seconds General Appearance: No Apparent Distress, WD/WN Eyes: Bilateral Eye EOMI, Bilateral Eye Normal Inspection, Bilateral Eye PERRL HEENT: Pharynx Normal Neck: Supple Respiratory: Lungs Clear, Normal Breath Sounds, Other (point tenderness at left costosternal junction, no bruising, no crepitance) Cardiovascular: Regular Rate, Rhythm Gastrointestinal: Soft Back: Normal Inspection Extremity: Normal Inspection Neurologic/Psychiatric: Alert, No Motor/Sensory Deficits Progress/Results/Core Measures Results/Orders My Orders Orders - AVILA RICKS MD Ribs/Unilateral With Chest (10/15/16 21:40) Vital Signs/I&O Vital Sign - Last 12Hours 10/15/16 21:29 Temp 98.7 Pulse 65 Resp 20 B/P (MAP) 163/77 Pulse Ox 96 Blood Pressure Mean: 105 Diagnostic Imaging Comments X-ray shows nothing acute Departure Impression Impression: Primary Impression: Chest wall contusion Disposition: 01 HOME, SELF-CARE Condition: Stable Departure-Patient Inst. Decision time for Depature: 22:38 Referrals: RAPHAEL ROJAS MD (PCP/Family) Primary Care Physician Patient Instructions: CHEST CONTUSION AVILA RICKS MD Oct 15, 2016 21:43
[2016-10-15] MEDS ORDERED: HYDR-3812 PO (22:40)
[2016-10-15] MEDS ORDERED: HYDROcodone/APAP 5 MG/325 MG (LORTAB) TAB PO ONE (22:45)
[2016-10-15 22:51] VITALS: BP 148/61
--- NOTE | 2016-10-16 09:20 | Diagnostic Imaging Report ---
INDICATION: Left upper rib pain. FINDINGS: PA chest and 3 oblique views of the left ribs do not show any displaced fractures. There is no effusion or pneumothorax. IMPRESSION: Negative chest and left ribs. Dictated by: Dictated on workstation # [id number]
== END 2016-10-15 22:51 | disposition home or self-care (01) ==
LOC: EDUNIT# 21:20 → ER 21:23
DX: S20.212A Contusion of left front wall of thorax, initial encounter (principal); I10 Essential (primary) hypertension; E11.9 Type 2 diabetes mellitus without complications; Z79.84 Long term (current) use of oral hypoglycemic drugs; Z79.2 Long term (current) use of antibiotics; Z79.899 Other long term (current) drug therapy; Z87.891 Personal history of nicotine dependence; W19.XXXA Unspecified fall, initial encounter; Y99.8 Other external cause status
CPT/HCPCS: 71101; 99281

== ENCOUNTER 2016-11-01 10:36 | Outpatient (RCR) | payer MEDICARE, OTHER ==
--- OUTSIDE RECORDS SUMMARY | 2016-08-24 09:33 | XMS REPORT | Continuity of Care Document ---
Author Author [facility] Organization [facility] Address Unknown Phone Unavailable Care Team Providers Care Human Resources Designate Name Role Phone Yoana Ayala PCP [phone] Source Comments Some departments are not documenting in the electronic medical record. If you do not see the information that you expected, contact Release of Information in the Health Information Management department at [phone] for further assistance in locating additional records.[facility] Active Allergies and Adverse Reactions No Known Allergies Current Medications Prescription Sig. Disp. Refills Start End Date Status Date GLUCOSAMINE HCL/CHONDR LEONARDO Take 1 Tab by mouth Active A NA (OSTEO BI-FLEX PO) daily. aspirin 81 mg chewable Chew 81 mg [...] by mouth at Active tablet bedtime daily. metFORMIN (GLUCOPHAGE) Take 1,000 mg by mouth Active 500 mg tablet twice daily. vitamins, multiple tablet Take 1 Tab by mouth Active daily. calcium carbonate/vitamin Take 1 Tab by mouth Active D-3 (OSCAL-500+D) 1250 daily. Calcium Carb mg/200 unit tablet 1250mg delivers 500mg elemental Ca triamcinolone (NASACORT) Apply 2 Sprays to each Active 55 mcg nasal inhaler nostril as directed daily as needed. acidophilus-pectin, Take 1 Cap by mouth Active citrus (PROBIOTIC daily. ACIDOPHILUS-PECTIN) 100 million cell-10 mg cap milk of magnesia (CONC) Take 10 mL by mouth twice 360 mL 08/11/19 Active 2,400 mg/10 mL oral daily as needed for 17 suspension Heartburn or Constipation. senna/docusate Take 2 Tabs by mouth 90 Tab 1 08/11/19 Active (SENOKOT-S) 8.6/50 mg twice daily. 17 tablet HYDROcodone/acetaminophen Take 1-2 Tabs by mouth 45 Tab 0 08/11/19 Active (NORCO) 5/325 mg tablet every 4 hours as needed 17 for Pain Earliest Fill Date: 08/11/16 acetaminophen (TYLENOL) Take 1-2 Tabs by mouth 0 08/11/19 Active 325 mg tablet every 4 hours as needed 17 for Pain. *Maximum Tylenol dose 4000gm in 24 hours.* traMADol (ULTRAM) 50 mg Take 1 Tab by mouth every 30 Tab 0 08/11/19 Active tablet 8 hours as needed. 17 guaiFENesin LA (MUCINEX) Take 1 Tab by mouth twice 180 Tab 0 08/11/19 Active 600 mg tablet daily. 17 tamsulosin (FLOMAX) 0.4 Take 1 Cap by mouth daily 30 Cap 3 08/11/19 Active mg capsule after breakfast. Do not 17 crush, chew or open capsules. Take 30 minutes following the same meal each day. hydroCHLOROthiazide Take 0.5 Tabs by mouth 30 Tab 3 08/11/19 Active (HYDRODIURIL) 12.5 mg daily. 17 tablet amiodarone (CORDARONE) Take 400 mg (2 tabs) 90 Tab 3 08/11/19 Active 200 mg tablet twice daily x1 day. Then 17 take 200 mg (1 tab) twice daily x1 week. Then take 200 mg (1 tab) daily. Fish Oil-Wellington-3 Fatty Take by mouth. Active Acids (FISH OIL) 360-1,200 mg cap alum/mag hydroxide/simeth Take 30 mL by mouth every Active (MYLANTA, MAALOX PLUS) 4 hours as needed. 200/200/20 mg/5 mL susp oral suspension DOCOSAHEXANOIC ACID/EPA Take 1,200 mg by mouth 08/23/19 Discontin (FISH OIL PO) twice daily. 17 ued HYDROcodone/acetaminophen Take 1 Tab by mouth every 08/11/19 Discontin (NORCO) 5/325 mg tablet 8 hours as needed for 17 ued Pain Garlic 1 mg cap Take 1 Cap by mouth 08/11/19 Discontin daily. 17 ued acetaminophen (TYLENOL) Take 325-650 mg by mouth 08/11/19 Discontin 325 mg tablet every 4 hours as needed 17 ued for Pain. amiodarone (PACERONE) 400 Take 1 Tab by mouth twice 90 Tab 3 08/11/19 08/11/19 Discontin mg tablet daily. Take with food. 17 17 ued amiodarone (CORDARONE) Take 1 Tab by mouth twice 90 Tab 3 08/13/19 08/11/19 Discontin 200 mg tablet daily. Take with food. 17 17 ued amiodarone (CORDARONE) Take 1 Tab by mouth 90 Tab 3 08/20/19 Discontin 200 mg tablet daily. Take with food. 17 17 ued Active Problems Problem Noted Date CKD (chronic kidney disease) stage 3, GFR 30-59 ml/min 08/17/2016 Elevated serum creatinine 08/05/2016 Personal history of tobacco use 07/05/2016 Diabetes (HCC) Hypertension Low back pain Claudication of both lower extremities (HCC) Spinal stenosis Resolved Problems Problem Noted Date Resolved Date Urinary retention 08/10/2016 08/11/2016 Lung mass 08/11/2016 Most Recent Encounters Date Type Specialty Providers Description 08/23/2016 Office Visit Cardiothoracic Surgery Lucy Coombs MD Squamous cell carcinoma of lung, left (Primary Dx) 08/23/2016 [facility] Radiology Erin Fisher APRN Arrived Encounter 08/16/2016 Documentation Cardiothoracic Surgery Grace Torres RN 08/11/2016 Cancer Cardiothoracic Surgery Lucy Coombs MD Conference 08/03/2016 [facility] Lucy Coombs MD Claudication of both - Encounter lower extremities (HCC) 08/11/2016 08/03/2016 Surgery Lucy Coombs MD Video Assisted Thoracoscopy, Left Lower Lobectomy 07/05/2016 PAC Office Anesthesiology Lucy Coombs MD Lung nodule Visit 07/05/2016 Office Visit Cardiothoracic Surgery Lucy Coombs MD Lung mass (Primary Dx); Essential hypertension; Type 2 diabetes mellitus without complication, without long-term current use of insulin (HCC); Family history of heart disease; Claudication of both lower extremities (HCC); Personal history of tobacco use; Abnormal blood creatinine level 07/05/2016 Anesthesia Candido Wilson MD Event 07/05/2016 Pre-Admit Anesthesiology Lucy Coombs MD Lung nodule ( Primary Dx) Orders Only 07/05/2016 Prep for Case Cardiothoracic Surgery Lucy Coombs MD 07/04/2016 Abstract Cardiothoracic Surgery Grace Torres, [...] Orders (Primary Dx) 06/30/2016 Telephone Cardiothoracic Surgery Lucy Coombs MD Navigation Assessment 06/21/2016 Hospital Radiology Encounter 06/07/2016 Hospital Radiology Encounter Social History Tobacco Use Types Packs/Day Years Used Date Former Smoker Cigarettes 1.5 57 Quit: 07/10/2016 Smokeless Tobacco: Never Used Alcohol Use Drinks/Week oz/Week Comments Yes 7 Standard 4.2 drinks or equivalent Last Filed Vital Signs Vital Sign Reading Time Taken Blood Pressure 126/52 08/23/2016 10:17 AM CHILD DAY CARE PROVIDER Pulse 61 08/23/2016 10:17 AM CHILD DAY CARE PROVIDER Temperature 36.7 C (98 F) 08/23/2016 10:17 AM CHILD DAY CARE PROVIDER Respiratory Rate - - Height 1.676 m (5' 6") 08/23/2016 10:17 AM CHILD DAY CARE PROVIDER Weight 75.388 kg (166 lb 3.2 oz) 08/23/2016 10:17 AM CHILD DAY CARE PROVIDER Body Mass Index 26.84 08/23/2016 10:17 AM CHILD DAY CARE PROVIDER Oxygen Saturation 95% 08/23/2016 10:17 AM CHILD DAY CARE PROVIDER Plan of Care Health Maintenance Due Date Last Done Comments Physical (Comprehensive) 01/03/1942 Exam Pertussis Vaccine 01/03/1948 Tetanus Vaccine 1954 Dilated Eye Exam 1955 Foot Exam 1955 Microalbumin 1955 Shingles Vaccine 1997 Prevnar/Pneumovax (#1) 2002 Hba1c 01/31/2017 08/03/2016 Influenza Vaccine 02/24/2017 Procedures from Last 3 Months Procedure Name Priority Date/Time Associated Diagnosis Comments TELEMETRY STRIPS-SCAN 08/19/2016 Results for this 9:16 AM CHILD DAY CARE PROVIDER procedure are in the results section. TELEMETRY STRIPS-SCAN 08/12/2016 Results for this 2:43 PM CHILD DAY CARE PROVIDER procedure are in the results section. ECG UNCONFIRMED-SCAN 08/12/2016 Results for this 2:15 PM CHILD DAY CARE PROVIDER procedure are in the results section. ECG UNCONFIRMED-SCAN 08/12/2016 Results for this 2:15 PM CHILD DAY CARE PROVIDER procedure are in the results section. ECG-SCAN 08/06/2016 Results for this 1:42 PM CHILD DAY CARE PROVIDER procedure are in the results section. CONSULT IV THERAPY TEAM Routine 08/06/2016 12:24 PM CHILD DAY CARE PROVIDER ANESTHESIA ARTERIAL LINE Routine 08/03/2016 Results for this INSERTION 10:38 AM CHILD DAY CARE PROVIDER procedure are in the results section. Results from Last 3 Months CHEST 2 VIEWS (08/23/2016 9:47 AM)Only the most recent of 4 results within the time period is included. Impressions 1. Decrease in size of left pleural effusion since 08/11/2016, which may be partially loculated in the left lower lung field. Improved aeration throughout the left lung with mild residual atelectasis. 2. Linear gas density along the anterior lung field on the lateral view, nonspecific but may be from residual loculated anterior gas fluid collection. CT chest recommended for further evaluation if clinically indicated. Finalized by ROBERTO URIBE M.D. on 08/23/2016 9:58 AM. Dictated by ROBERTO URIBE M.D. on 08/23/2016 9:49 AM. Narrative Chest, 2 views. Clinical history: Status post left VATS with left lower lobectomy. Lung nodule. Comparison: Chest x-ray on 08/11/2016. Findings: Previous left lower lobectomy with elevation of the left hemidiaphragm. Heart size and pulmonary vasculature are within normal limits. Atherosclerotic calcification at the aortic arch. Decrease in size of small left pleural effusion, which may be partially loculated in the left lower lung field. Improved aeration throughout the left lung with mild residual left basilar atelectasis. Linear gas density along the anterior lung coleman on the lateral view, nonspecific but may be from residual loculated anterior gas fluid collection. Right lung is relatively clear. Thoracic spondylosis. No pneumothorax. Procedure Note Interface, Radiant Results - Tue Aug 23, 2016 10:01 AM CHILD DAY CARE PROVIDER Chest, 2 views. Clinical history: Status post left VATS with left lower lobectomy. Lung nodule. Comparison: Chest x-ray on 08/11/2016. Findings: Previous left lower lobectomy with elevation of the left hemidiaphragm. Heart size and pulmonary vasculature are within normal limits. Atherosclerotic calcification at the aortic arch. Decrease in size of small left pleural effusion, which may be partially loculated in the left lower lung field. Improved aeration throughout the left lung with mild residual left basilar atelectasis. Linear gas density along the anterior lung coleman on the lateral view, nonspecific but may be from residual loculated anterior gas fluid collection. Right lung is relatively clear. Thoracic spondylosis. No pneumothorax. IMPRESSION 1. Decrease in size of left pleural effusion since 08/11/2016, which may be partially loculated in the left lower lung field. Improved aeration throughout the left lung with mild residual atelectasis. 2. Linear gas density along the anterior lung field on the lateral view, nonspecific but may be from residual loculated anterior gas fluid collection. CT chest recommended for further evaluation if clinically indicated. Finalized by ROBERTO URIBE M.D. on 08/23/2016 9:58 AM. Dictated by ROBERTO URIBE M.D. on 08/23/2016 9:49 AM. TELEMETRY STRIPS-SCAN (08/19/2016 9:16 AM) Narrative Ordered by an unspecified provider. TELEMETRY STRIPS-SCAN (08/12/2016 2:43 PM) Narrative Ordered by an unspecified provider. ECG UNCONFIRMED-SCAN (08/12/2016 2:15 PM) Narrative Ordered by an unspecified provider. ECG UNCONFIRMED-SCAN (08/12/2016 2:15 PM) Narrative Ordered by an unspecified provider. POC GLUCOSE (08/11/2016 11:28 AM)Only the most recent of 39 results within the time period is included. Component Value Range Glucose, POC 176 (H) 70-100 MG/DL CHEST SINGLE VIEW (08/11/2016 6:04 AM)Only the most recent of 12 results within the time period is included. Impressions 1. Interval removal of left pigtail drain with no pneumothorax. 2. Persistent left lower lobe opacification likely atelectasis with pleural effusion. Approved by Robert Garcia M.D. on 08/11/2016 9:31 AM By my electronic signature, I attest that I have personally reviewed the images for this examination and formulated the interpretations and opinions expressed in this report Finalized by Lino Barney M.D. on 08/11/2016 11:48 AM. Dictated by Robert Garcia M.D. on 08/11/2016 8:07 AM. Narrative Procedure: CHEST SINGLE VIEW Clinical Indication: Status post LL lobectomy, chest tube placement. Comparison: Chest radiograph August 10, 2016 Lino Barney M.D. has personally reviewed these images and formulated the interpretations and opinions expressed this report. FINDINGS: Interval removal of left pigtail drain. The heart size is normal. The pulmonary vasculature is unremarkable. Left thoracic volume loss associated with known prior lobectomy. There is no pneumothorax. Persistent left lower lobe opacification likely atelectasis with loculated pleural effusion. Mild right basilar atelectasis. Procedure Note Interface, Radiant Results - Amanda Aug 11, 2016 11:51 AM CHILD DAY CARE PROVIDER Procedure: CHEST SINGLE VIEW Clinical Indication: Status post LL lobectomy, chest tube placement. Comparison: Chest radiograph August 10, 2016 Lino Barney M.D. has personally reviewed these images and formulated the interpretations and opinions expressed this report. FINDINGS: Interval removal of left pigtail drain. The heart size is normal. The pulmonary vasculature is unremarkable. Left thoracic volume loss associated with known prior lobectomy. There is no pneumothorax. Persistent left lower lobe opacification likely atelectasis with loculated pleural effusion. Mild right basilar atelectasis. IMPRESSION 1. Interval removal of left pigtail drain with no pneumothorax. 2. Persistent left lower lobe opacification likely atelectasis with pleural effusion. Approved by Robert Garcia M.D. on 08/11/2016 9:31 AM By my electronic signature, I attest that I have personally reviewed the images for this examination and formulated the interpretations and opinions expressed in this report Finalized by Lino Barney M.D. on 08/11/2016 11:48 AM. Dictated by Robert Garcia M.D. on 08/11/2016 8:07 AM. CBC (08/10/2016 9:30 AM)Only the most recent of 6 results within the time period is included. Component Value Range White Blood Cells 10.7 4.5-11.0 K/UL RBC 4.61 4.4-5.5 M/UL Hemoglobin 13.3 (L) 13.5-16.5 GM/DL Hematocrit 39.3 (L) 40-50 % MCV 85.4 80-100 FL MCH 29.0 26-34 PG MCHC 33.9 32.0-36.0 G/DL RDW 14.4 11-15 % Platelet Count 303 150-400 K/UL MPV 8.6 7-[address] CHEST WO CONTRAST (08/10/2016 9:05 AM) Impressions 1. The left pleural drain does not definitely lie within the left pleural space and a moderate loculated left pleural effusion persists. If drainage of the pleural fluid is desired, repositioning of the pleural drain is recommended. 2. Left lower lobectomy changes with suture and scarring/atelectasis in the left hilar region and left lower lung. No definite residual left lung nodule is appreciated. CT surveillance is suggested. 3. No thoracic lymphadenopathy. 4. There are several small right lung nodules which remain stable and indeterminate. Follow-up chest CT in 6 months is recommended to assess for stability. 5. Left lower lobe interstitial infiltrate may represent postoperative hemorrhage/inflammation, or possibly pneumonia. 6. Small right pleural effusion. Finalized by Jf Cantrell M.D. on 08/10/2016 9:25 AM. Dictated by Jf Cantrell M.D. on 08/10/2016 9:[address] Chest Clinical Indication: Pleural effusion. Technique: Multiple contiguous axial CT images were obtained through the chest without IV contrast.Post processing coronal and sagittal reconstruction images were made from the axial images. Comparison: Outside chest CT dated June 07, 2016. Findings: Axilla, Mediastinum and Jessica: No lymphadenopathy. Heart and Great Vessels: The heart size is normal. There is no pericardial effusion. Lungs and Pleura: Scarring and suture is now seen in the left lower lung with left lower lobectomy changes noted. Consolidation is seen about the left hilum. Interstitial infiltrate is seen throughout the aerated portions of the left lower lung. There is also a moderate loculated left pleural effusion with associated atelectasis. A pleural drain is seen anteriorly which may lie within the paracardial fat, and does not definitely communicate with the pleural space. Trace amount of left pleural gas is also noted, likely related to recent surgery. A small irregular groundglass nodular opacity is again seen in the right upper lobe measuring 0.9 cm on series 3, image 17 which is unchanged. Another tiny nodule is stable in the right upper lobe on image 19. Two tiny right middle lobe nodules are also stable as seen on image 42. There is a small right pleural effusion and right basilar atelectasis. Chest Wall and Osseous Structures: No destructive osseous lesions. Subcutaneous gas is seen in the left chest wall. Visualized Upper Abdomen: There is a stable small right upper pole parapelvic renal cyst. Procedure Note Interface, Radiant Results - MonAug 10, 2016 9:28 AM CHILD DAY CARE PROVIDER CT Chest Clinical Indication: Pleural effusion. Technique: Multiple contiguous axial CT images were obtained through the chest without IV contrast. Post processing coronal and sagittal reconstruction images were made from the axial images. Comparison: Outside chest CT dated June 07, 2016. Findings: Axilla, Mediastinum and Jesscia: No lymphadenopathy. Heart and Great Vessels: The heart size is normal. There is no pericardial effusion. Lungs and Pleura: Scarring and suture is now seen in the left lower lung with left lower lobectomy changes noted. Consolidation is seen about the left hilum. Interstitial infiltrate is seen throughout the aerated portions of the left lower lung. There is also a moderate loculated left pleural effusion with associated atelectasis. A pleural drain is seen anteriorly which may lie within the paracardial fat, and does not definitely communicate with the pleural space. Trace amount of left pleural gas is also noted, likely related to recent surgery. A small irregular groundglass nodular opacity is again seen in the right upper lobe measuring 0.9 cm on series 3, image 17 which is unchanged. Another tiny nodule is stable in the right upper lobe on image 19. Two tiny right middle lobe nodules are also stable as seen on image 42. There is a small right pleural effusion and right basilar atelectasis. Chest Wall and Osseous Structures: No destructive osseous lesions. Subcutaneous gas is seen in the left chest wall. Visualized Upper Abdomen: There is a stable small right upper pole parapelvic renal cyst. IMPRESSION 1. The left pleural drain does not definitely lie within the left pleural space and a moderate loculated left pleural effusion persists. If drainage of the pleural fluid is desired, repositioning of the pleural drain is recommended. 2. Left lower lobectomy changes with suture and scarring/atelectasis in the left hilar region and left lower lung. No definite residual left lung nodule is appreciated. CT surveillance is suggested. 3. No thoracic lymphadenopathy. 4. There are several small right lung nodules which remain stable and indeterminate. Follow-up chest CT in 6 months is recommended to assess for stability. 5. Left lower lobe interstitial infiltrate may represent postoperative hemorrhage/inflammation, or possibly pneumonia. 6. Small right pleural effusion. Finalized by Jf Cantrell M.D. on 08/10/2016 9:25 AM. Dictated by Jf Cantrell M.D. on 08/10/2016 9:12 AM. BASIC METABOLIC PANEL (08/09/2016 9:17 AM)Only the most recent of 9 results within the time period is included. Component Value Range Sodium 133 (L) 137-147 MMOL/L Potassium 4.5 3.5-5.1 MMOL/L Chloride 99 98-110 MMOL/L CO2 27 21-30 MMOL/L Anion Gap 7 3-12 Glucose 172 (H) 70-100 MG/DL Blood Urea Nitrogen 33 (H) 7-25 MG/DL Creatinine 1.41 (H) 0.4-1.24 MG/DL Calcium 9.6 8.5-10.6 MG/DL eGFR Non 48 (L)Comment: >60 mL/min The eGFR is not validated for use in drug dosing adjustments. Continue to use estimated creatinine clearance per dosing reference text. Please contact the Clinical Pharmacist for questions. eGFR 59 (L)Comment: >60 mL/min The eGFR is not validated for use in drug dosing adjustments. Continue to use estimated creatinine clearance per dosing reference text. Please contact the Clinical Pharmacist for questions. Specimen Blood CHEST IMMEDIATE POST PROCEDURE (08/08/2016 10:54 AM) Impressions Left thoracostomy tube placement with interval resolution of left pneumothorax and improvement in left pleural effusion. Left basilar atelectasis. Approved by Dino Maria M.D. on 08/09/2016 11:00 AM By my electronic signature, I attest that I have personally reviewed the images for this examination and formulated the interpretations and opinions expressed in this report Finalized by Lino Barney M.D. on 08/09/2016 12:27 PM. Dictated by Dino Maria M.D. on 08/09/2016 8:44 AM. Narrative CHEST IMMEDIATE POST PROCEDURE History:Male, 81 years old.Post chest tube. Comparison: August 08, 2016 Findings: Interval placement of a left-sided thoracostomy tube. There has been interval resolution of left pneumothorax and improvement in the left pleural effusion with persistent adjacent atelectasis. Small amount of subcutaneous gas is noted again within the left chest wall. Heart is normal in size. The pulmonary vasculature is within normal limits. Procedure Note Interface, Radiant Results - Tue Aug 09, 2016 12:31 PM CHILD DAY CARE PROVIDER CHEST IMMEDIATE POST PROCEDURE History: Male, 81 years old. Post chest tube. Comparison: August 08, 2016 Findings: Interval placement of a left-sided thoracostomy tube. There has been interval resolution of left pneumothorax and improvement in the left pleural effusion with persistent adjacent atelectasis. Small amount of subcutaneous gas is noted again within the left chest wall. Heart is normal in size. The pulmonary vasculature is within normal limits. IMPRESSION Left thoracostomy tube placement with interval resolution of left pneumothorax and improvement in left pleural effusion. Left basilar atelectasis. Approved by Dino Maria M.D. on 08/09/2016 11:00 AM By my electronic signature, I attest that I have personally reviewed the images for this examination and formulated the interpretations and opinions expressed in this report Finalized by Lino Barney M.D. on 08/09/2016 12:27 PM. Dictated by Dino Maria M.D. on 08/09/2016 8:44 AM. IR ASPIRATION/DRAIN (08/08/2016 10:29 AM) Impressions IMPRESSION:Successful placement of a left chest tube for pneumothorax. PLAN:Drainage catheter to Pleurovac. Approved by Benjamin Liriano M.D. on 08/08/2016 12:01 PM IJim M.D., the attending radiologist, was present for the procedure, personally reviewed the images, and formulated the interpretations and opinions expressed in this report. @TT By my electronic signature, I attest that I have personally reviewed the images for this examination and formulated the interpretations and opinions expressed in this report Finalized by Dyllan Delgado M.D. on 08/08/2016 12:12 PM. Dictated by Benjamin Liriano M.D. on 08/08/2016 11:55 AM. Narrative LEFT SIDED CHEST TUBE PLACEMENT: CLINICAL INDICATION:Left Pneumothorax. FAN BLADE TRUER:Benjamin Liriano M.D. (fellow) and Dr. Jim Delgado M.D.. MEDICATIONS: Versed 2 mg IV, morphine 100 mg IV. COMPLICATIONS: None immediate. TECHNIQUE: The left anterior hemithorax was prepped and draped in the usual sterile fashion.At the midclavicular line in the rib interspace between the third and fourth ribs anteriorly, the soft tissues were anesthetized using lidocaine.An 18-gauge micropuncture needle was used to access the pleural air collection.An 0.035" Amplatz wire was advanced through the needle under ultrasound guidance. The needle was removed, and a 14 Surinamese pigtail all purpose drainage catheter was advanced over the wire.The catheter was placed to a Pleurovac drainage system. The catheter was secured with 2-0 Ethilon suture and an occlusive, sterile dressing applied. The patient tolerated the procedure well. FINDINGS:Following aspiration of air after accessing anterior apical pneumothorax, successful placement of pigtail chest tube. Procedure Note Interface, Radiant Results - MonAug 08, 2016 12:16 PM CHILD DAY CARE PROVIDER LEFT SIDED CHEST TUBE PLACEMENT: CLINICAL INDICATION: Left Pneumothorax. FAN BLADE TRUER: Benjamin Liriano M.D. (fellow) and Dr. Jim Delgado M.D.. MEDICATIONS: Versed 2 mg IV, morphine 100 mg IV. COMPLICATIONS: None immediate. TECHNIQUE: The left anterior hemithorax was prepped and draped in the usual sterile fashion. At the midclavicular line in the rib interspace between the third and fourth ribs anteriorly, the soft tissues were anesthetized using lidocaine. An 18-gauge micropuncture needle was used to access the pleural air collection. An 0.035" Amplatz wire was advanced through the needle under ultrasound guidance. The needle was removed, and a 14 Surinamese pigtail all purpose drainage catheter was advanced over the wire. The catheter was placed to a Pleurovac drainage system. The catheter was secured with 2-0 Ethilon suture and an occlusive, sterile dressing applied. The patient tolerated the procedure well. FINDINGS: Following aspiration of air after accessing anterior apical pneumothorax, successful placement of pigtail chest tube. IMPRESSION IMPRESSION: Successful placement of a left chest tube for pneumothorax. PLAN: Drainage catheter to Pleurovac. Approved by Benjamin Liriano M.D. on 08/08/2016 12:01 PM I, Jim Delgado M.D., the attending radiologist, was present for the procedure, personally reviewed the images, and formulated the interpretations and opinions expressed in this report. @TT By my electronic signature, I attest that I have personally reviewed the images for this examination and formulated the interpretations and opinions expressed in this report Finalized by Dyllan Delgado M.D. on 08/08/2016 12:12 PM. Dictated by Benjamin Liriano M.D. on 08/08/2016 11:55 AM. ECG-SCAN (08/06/2016 1:42 PM) Narrative Ordered by an unspecified provider. MAGNESIUM (08/06/2016 4:49 AM)Only the most recent of 2 results within the time period is included. Component Value Range Magnesium 1.8 1.6-2.6 mg/dL Specimen Blood UA REFLEX CULTURE LABEL (08/05/2016 2:44 PM) Component Value Range UA Reflex Culture LAB LABEL Specimen Urine URINALYSIS MICROSCOPIC REFLEX TO CULTURE (08/05/2016 2:44 PM) Component Value Range WBCs,UA 20-50 0-2 /HPF RBCs,UA 20-50 0-3 /HPF Comment,UA Urine submitted for reflex culture if criteria are met:WBC>10, positive nitrite and/or positive leukocyte esterase. If quantity is not sufficient, an addendum will follow. MucousUA TRACE Squamous Epithelial Cells 0-2 0-5 Specimen Urine URINALYSIS DIPSTICK REFLEX TO CULTURE (08/05/2016 2:44 PM) Component Value Range Color,UA RED Turbidity,UA 2+ (A) CLEAR-CLEAR Specific [place]-Urine 1.017 1.003-1.035 pH,UA 6.0 5.0-8.0 Protein,UA 2+ (A) NEG-NEG Glucose,UA NEG NEG-NEG Ketones,UA NEG NEG-NEG Bilirubin,UA NEG NEG-NEG Blood,UA 3+ (A) NEG-NEG Urobilinogen,UA NORMAL NORM-NORMAL Nitrite,UA NEG NEG-NEG Leukocytes,UA 1+ (A) NEG-NEG Urine Ascorbic Acid, UA NEG NEG-NEG Specimen Urine CULTURE-URINE W/SENSITIVITY (08/05/2016 2:44 PM) Component Value Range Battery Name URINE CULTURE Specimen Description URINE Special Requests NONE Culture NO GROWTH Report Status FINAL 08/07/2016 Specimen Urine SODIUM-URINE RANDOM (08/04/2016 5:53 PM) Component Value Range Sodium, Random 31 MMOL/L Specimen Urine CREATININE-URINE RANDOM (08/04/2016 5:53 PM) Component Value Range Creatinine, Random 114 MG/DL Specimen Urine PATHOLOGY INTEROPERATIVE REPORT SCAN (08/03/2016 4:44 PM) Narrative Ordered by an unspecified provider. HEMOGLOBIN A1C (08/03/2016 1:50 PM) Component Value Range Hemoglobin A1C 6.4 (H)Comment: 4.0-6.0 % The ADA recommends that most patients with type 1 and type 2 diabetes maintain an A1c level <7%. Specimen Blood SURGICAL PATHOLOGY (08/03/2016 12:45 PM) Component Value Range PATHOLOGY REPORT [facility] [email or web address] Roxanne Chauhan MD, PhD, Director of Anatomic Pathology Department of Pathology and Laboratory Medicine [address] [place] [id number] Surgical Pathology Office: [phone] SURGICAL PATHOLOGY REPORT NAME: LORENZO MCMILLAN SURG PATH #: [id number] MR #: [id number] SPECIMEN CLASS: SR BILLING #: [id number] ALT ID #: LOCATION: [facility] DATE OF PROCEDURE: 08/03/2016 AGE: 81 SEX: M DATE RECEIVED: 08/03/2016 : 1935 TIME RECEIVED: 12:45 PHYSICIAN: LUCY COOMBS MD DATE OF REPORT: 08/05/2016 COPY TO: DATE OF PRINTIN08/05/2016 ################################################## ###################### Final Diagnosis: A. Lung and lymph nodes (7), "left lower lobe", lobectomy: Lung: Poorly differentiated carcinoma, consistent with squamous cell carcinoma. See comment. Lymph nodes: Metastatic carcinoma in 1 of 7 peribronchial lymph nodes (1/7). Noncaseating granulomas. B. Lymph node (1), "left lung level 9 lymph node", biopsy: There is no evidence of malignancy in one lymph node (0/1). Noncaseating granuloma. C. Lymph node (1), "left lung level 10A lymph node", biopsy: There is no evidence of malignancy in one lymph node (0/1). D. Lymph node (1), "left lung level 10B lymph node", biopsy: There is no evidence of malignancy in one lymph node (0/1). E. Lymph node (1), "left lung level 11A lymph node", biopsy: There is no evidence of malignancy in one lymph node (0/1). F. Lymph node (1), "left lung level 7 lymph node", biopsy: There is no evidence of malignancy in one lymph node (0/1). G. Lymph node (1), "left lung level 5 lymph node", biopsy: There is no evidence of malignancy in one lymph node (0/1). H. Lymph node (1), "left lung level 11B lymph node", biopsy: There is no evidence of malignancy in one lymph node (0/1). Noncaseating granulomas. See comment. Comment: Immunohistochemical stains performed on block A4 show the tumor cells are positive for CK5/6, p63, CK7, and negative for TTF-1, CK20, and Napsin, supporting the above diagnosis. Special stains performed on block H1 are negative for acid-fast bacilli (AFB) and fungal organisms (GMS). LUNG: Resection CAP Version: Lung 3.4.0.0 Specimen Lobe(s) of lung (specify): Procedure Lobectomy Specimen Laterality Left Tumor Site Lower lobe Tumor Size Greatest dimension: 2.9 cm Additional dimensions: 2.4 x 2.4 cm Tumor Focality Unifocal Histologic Type Squamous cell carcinoma Histologic Grade G3: Poorly differentiated Visceral Pleura Invasion Not identified Tumor Extension Not identified Margins If all margins uninvolved by invasive carcinoma: Distance of invasive carcinoma from closest margin: 21 mm Treatment Effect Not applicable Tumor Associated Atelectasis or Obstructive Pneumonitis Not identified Lymph-Vascular Invasion Not identified Pathologic Staging (pTNM) pT1b N1 Mn/a Primary Tumor (pT) pT1b: Tumor greater than 2 cm, but 3 cm or less in greatest dimension, surrounded by lung or visceral pleura, without bronchoscopic evidence of invasion more proximal than the lobar bronchus (ie, not in the main bronchus) Regional Lymph Nodes (pN) pN1: Metastasis in ipsilateral peribronchial and/or ipsilateral hilar lymph nodes, and intrapulmonary nodes, including involvement by direct extension Number of Lymph Nodes Examined Specify: 14 Number of Lymph Nodes Involved Specify: 1 Specify stations examined: Levels 5, 7, 9, 10A, 10B, 11A, 11B Specify stations involved: Peribronchial Extranodal Extension Not applicable Distant Metastasis (pM) (required only if confirmed pathologically in this case) Not applicable Additional Pathologic Findings None identified Ancillary Studies Not performed The pathologic stage assigned here should be regarded as provisional, as it reflects only current pathologic data and does not incorporate full knowledge of the patient's clinical status and/or prior pathology. Pursuant to the Neurology Epilepsy Physician Program at the [facility] Pathology Department, selected slides from this case have been concurrently reviewed by the following pathologist: Dr. Ben Cisneros, who agrees with the final diagnosis. Attestation: By this signature, I attest that I have personally formulated the final interpretation expressed in this report and that the above diagnosis is based upon my examination of the slides and/or other material indicated in this report. +++Electronically Signed Out By+++ leb/08/04/2016 Interpreted by: Leydi Calderon M.D. Resident 08/05/2016 ################################################## ###################### Material Received: A: left lower lobe B: left lung level 9 lymph node C: left lung level 10A lymph node D: left lung level 10B lymph node E: left lung level 11A lymph node F: left lung level 7 lymph node G: left lung level 5 lymph node H: left lung level 11B lymph node History: 81-year-old male with history of lung nodule. Gross Description: A. Fixative: Fresh Labeled: "left lower lobe" Weight: 222 gram Measurement: 20.4 x 11.5 x 5.6 cm Pleural surface: Arango-pink, red-purple and spongy; there is a defect over the nodule measuring 2.4 cm Tumor: 2.9 x 2.4 x 2.4 cm Tumor from pleura: 0.4 cm Tumor from bronchus: 0.1cm to nearest bronchus, 2.1 cm to bronchial and vascular resection margin. Uninvolved lung parenchyma: Arango-pink and spongy Hilar lymph nodes: Yes, multiple ranging from 0.3 x 0.3 x 0.2 cm to 0.6 x 0.6x 0.4cm The external surface is inked black. Secretary Administrative Assistant sections of the specimen are submitted as follows: A1FS Frozen section remnant of mass. A2 Bronchial and vascular margins. A3 Mass to inked pleura. A4-A5 Mass to bronchi. A6-A7 Mass to surrounding lung parenchyma. A8-A10 Remainder of the mass. A11 Uninvolved parenchyma. A12 Hilar lymph nodes. (ads) B. Received in saline, labeled with the patient's name and "left lung level 9 lymph node" is a 0.2 x 0.2 x 0.1 cm brown-black possible lymph node. The specimen is entirely submitted in cassette B1. (ads) C. Received in saline, labeled with the patient's name and "left lung level 10 A lymph node" is a 1.3 x 0.6 x 0.4 cm brown-black possible lymph node. The specimen is entirely submitted in cassette C1. (ads) D. Received in saline, labeled with the patient's name and "left lung level 10 B lymph node" is a 0.9 x 0.7 x 0.6 cm brown-black possible lymph node. The specimen is entirely submitted in cassette D1. (ads) E. Received in saline, labeled with the patient's name and "left lung level 11 A lymph node" is a brown-black possible lymph node measuring 0.7 x 0.6 x 0.6 cm. The specimen is entirely submitted in cassette E1. (ads) F. Received in saline, labeled with the patient's name and "left lung level 7 lymph node" is a 0.6 x 0.4 x 0.4 cm yellow arango possible lymph node. The specimen is entirely submitted in cassette F1. (ads) G. Received in saline, labeled with the patient's name and "level 5 lymph node" are 2 brown-black possible lymph nodes measuring 0.9 x 0.6 x 0.6 cm - 1.1 x 0.7 x 0.6 cm. The specimen is entirely submitted in cassette G1. (ads) H. Received in saline, labeled with the patient's name and "left lung level 11 B lymph node" is a brown-black possible lymph node measuring 1.4 x 0.7 x 0.6 cm. The specimen is entirely submitted in cassette H1. (ads) as/08/03/2016 Danisha Dickey M.D. Resident Intraoperative Consultation: A1FS, lung, "left lower lobe", excision: Non-small cell carcinoma-margins free. Elizabeth Vazquez M.D. If immunohistochemical stains and/or in situ hybridization are cited in this report, the performance characteristics were determined by the Department of Pathology and Laboratory Medicine of the [facility] ([employer]) in compliance with CLIA'88 regulations. Some of these tests rely on the use of "analyte specific reagents" and are subject to specific labeling requirements by the FDA. Known positive and negative control tissues demonstrate appropriate staining. This testing was developed by the Department of Pathology and Laboratory Medicine of the [facility]. It has not been cleared or approved by the FDA. The FDA has determined that such clearance or approval is not necessary. ANESTHESIA ARTERIAL LINE INSERTION (08/03/2016 10:38 AM) TAWNYA Szymanski 08/03/2016 10:38 AM Anesthesia Procedure: Arterial Line Placement A-LINE INSERTION Date/Time: 08/03/2016 9:40 AM Patient location: OR Indications: frequent labs and hemodynamic monitoring Staff Anesthesiologist: MACEY ADAM Resident/VOLUNTEER PATIENT REPRESENTATIVE/SRNA: TERRANCE BROCK Performed by: Resident/VOLUNTEER PATIENT REPRESENTATIVE/SRNA Preprocedure checklist performed: 2 patient identifiers, risks & benefits discussed, patient evaluated, timeout performed, consent obtained and patient being monitored Sterile technique: - Proper hand washing - Cap, mask - Sterile gloves - Skin prep for antisepsis Arterial Line Procedure Patient sedated: yes (see MAR) Sedation type: general; Artery prepped with chlorhexidine; skin prep agent completely dried prior to procedure. Location: radial artery Technique: palpation and anatomical landmarks Needle gauge: 20 G Number of attempts: 1 Procedure Outcome Catheter secured with adhesive dressing applied Events: no complications noted during insertion and skin intact, warm, and dry Observation: pt tolerated well TYPE & CROSSMATCH (08/03/2016 8:03 AM) Component Value Range Units Ordered 0 Crossmatch Expires 08/06/2016 Record Check FOUND ABO/RH(D) O POS Antibody Screen NEG Electronic Crossmatch YES Specimen Blood TYPE & SCREEN (NOT CROSSMATCH ELIGIBLE) (07/05/2016 [...] the Clinical Pharmacist for questions. Specimen Blood NM PET/CT EXTERNAL IMAGING (06/21/2016) Narrative This order has been auto finalized and does not contain a result. CT CHEST EXTERNAL IMAGING (06/07/2016) Narrative This order has been auto finalized and does not contain a result.
[2016-08-24 10:03] LABS: BASOPHILS % (AUTO) 0 % (0-10); EOSINOPHILS # (AUTO) 0.1 10^3/uL (0.0-0.3); EOSINOPHILS % (AUTO) 1 % (0-10); LYMPHOCYTES # (AUTO) 1.7 X 10^3 (1.0-4.0); LYMPHOCYTES % (AUTO) 23 % (12-44); MEAN CORPUSCULAR HEMOGLOBIN 28 PG (25-34); MEAN CORPUSCULAR HGB CONC 33 G/DL (32-36); MEAN CORPUSCULAR VOLUME 86 FL (80-99); MEAN PLATELET VOLUME 9.8 FL (7.4-10.4); MONOCYTES # (AUTO) 0.9 X 10^3 (0.0-1.0); MONOCYTES % (AUTO) 12 % (0-12); NEUTROPHILS # (AUTO) 4.5 X 10^3 (1.8-7.8); NEUTROPHILS % (AUTO) 64 % (42-75); PLATELET COUNT 369 10^3/uL (130-400); RED BLOOD COUNT 4.63 10^6/uL (4.35-5.85); RED CELL DISTRIBUTION WIDTH 14.6 % (10.0-14.5); WHITE BLOOD COUNT 7.1 10^3/uL (4.3-11.0)
[2016-08-24 10:32] LABS: ALBUMIN 3.4 G/DL (3.2-4.5); BILIRUBIN,TOTAL 0.3 MG/DL (0.1-1.0); CALCIUM 9.4 MG/DL (8.5-10.1); CREATININE SERUM 1.78 MG/DL (0.60-1.30); POTASSIUM 4.9 MMOL/L (3.6-5.0); TOTAL PROTEIN 6.1 G/DL (6.4-8.2)
[2016-09-05 10:01] LABS: BASOPHILS % (AUTO) 0 % (0-10); EOSINOPHILS % (AUTO) 0 % (0-10); LYMPHOCYTES # (AUTO) 1.3 X 10^3 (1.0-4.0); LYMPHOCYTES % (AUTO) 8 % (12-44); MEAN CORPUSCULAR HEMOGLOBIN 28 PG (25-34); MEAN CORPUSCULAR HGB CONC 33 G/DL (32-36); MEAN CORPUSCULAR VOLUME 85 FL (80-99); MONOCYTES # (AUTO) 0.1 X 10^3 (0.0-1.0); MONOCYTES % (AUTO) 1 % (0-12); NEUTROPHILS # (AUTO) 14.9 X 10^3 (1.8-7.8); NEUTROPHILS % (AUTO) 91 % (42-75); PLATELET COUNT 319 10^3/uL (130-400); RED BLOOD COUNT 4.51 10^6/uL (4.35-5.85); RED CELL DISTRIBUTION WIDTH 14.7 % (10.0-14.5); WHITE BLOOD COUNT 16.3 10^3/uL (4.3-11.0)
[2016-09-05 10:31] LABS: CALCIUM 9.1 MG/DL (8.5-10.1); CREATININE SERUM 2.03 MG/DL (0.60-1.30); POTASSIUM 4.9 MMOL/L (3.6-5.0)
[2016-09-12 10:01] LABS: BASOPHILS % (AUTO) 0 % (0-10); EOSINOPHILS % (AUTO) 0 % (0-10); LYMPHOCYTES # (AUTO) 0.8 X 10^3 (1.0-4.0); LYMPHOCYTES % (AUTO) 8 % (12-44); MEAN CORPUSCULAR HEMOGLOBIN 28 PG (25-34); MEAN CORPUSCULAR HGB CONC 33 G/DL (32-36); MEAN CORPUSCULAR VOLUME 85 FL (80-99); MEAN PLATELET VOLUME 10.6 FL (7.4-10.4); MONOCYTES % (AUTO) 0 % (0-12); NEUTROPHILS # (AUTO) 9.9 X 10^3 (1.8-7.8); NEUTROPHILS % (AUTO) 92 % (42-75); PLATELET COUNT 318 10^3/uL (130-400); RED BLOOD COUNT 4.21 10^6/uL (4.35-5.85); RED CELL DISTRIBUTION WIDTH 14.9 % (10.0-14.5); WHITE BLOOD COUNT 10.8 10^3/uL (4.3-11.0)
[2016-09-12 10:25] LABS: CALCIUM 8.9 MG/DL (8.5-10.1); CREATININE SERUM 1.52 MG/DL (0.60-1.30); POTASSIUM 4.8 MMOL/L (3.6-5.0)
[2016-09-19 10:06] LABS: BASOPHILS % (AUTO) 0 % (0-10); EOSINOPHILS % (AUTO) 0 % (0-10); LYMPHOCYTES # (AUTO) 0.8 X 10^3 (1.0-4.0); LYMPHOCYTES % (AUTO) 16 % (12-44); MEAN CORPUSCULAR HEMOGLOBIN 28 PG (25-34); MEAN CORPUSCULAR HGB CONC 33 G/DL (32-36); MEAN CORPUSCULAR VOLUME 85 FL (80-99); MEAN PLATELET VOLUME 10.3 FL (7.4-10.4); MONOCYTES % (AUTO) 1 % (0-12); NEUTROPHILS # (AUTO) 4.4 X 10^3 (1.8-7.8); NEUTROPHILS % (AUTO) 83 % (42-75); PLATELET COUNT 319 10^3/uL (130-400); RED BLOOD COUNT 4.17 10^6/uL (4.35-5.85); RED CELL DISTRIBUTION WIDTH 15.3 % (10.0-14.5); WHITE BLOOD COUNT 5.3 10^3/uL (4.3-11.0)
[2016-09-19 10:45] LABS: CALCIUM 8.8 MG/DL (8.5-10.1); CREATININE SERUM 1.66 MG/DL (0.60-1.30); POTASSIUM 4.5 MMOL/L (3.6-5.0)
[2016-09-26 13:39] LABS: BASOPHILS # (AUTO) 0.1 10^3/uL (0.0-0.1); BASOPHILS % (AUTO) 1 % (0-10); EOSINOPHILS # (AUTO) 0.2 10^3/uL (0.0-0.3); EOSINOPHILS % (AUTO) 3 % (0-10); LYMPHOCYTES # (AUTO) 1.8 X 10^3 (1.0-4.0); LYMPHOCYTES % (AUTO) 30 % (12-44); MEAN CORPUSCULAR HEMOGLOBIN 28 PG (25-34); MEAN CORPUSCULAR HGB CONC 33 G/DL (32-36); MEAN CORPUSCULAR VOLUME 85 FL (80-99); MEAN PLATELET VOLUME 9.7 FL (7.4-10.4); MONOCYTES # (AUTO) 0.6 X 10^3 (0.0-1.0); MONOCYTES % (AUTO) 9 % (0-12); NEUTROPHILS # (AUTO) 3.4 X 10^3 (1.8-7.8); NEUTROPHILS % (AUTO) 57 % (42-75); PLATELET COUNT 365 10^3/uL (130-400); RED BLOOD COUNT 4.06 10^6/uL (4.35-5.85); RED CELL DISTRIBUTION WIDTH 15.7 % (10.0-14.5); WHITE BLOOD COUNT 5.9 10^3/uL (4.3-11.0)
[2016-09-26 14:11] LABS: CALCIUM 9.2 MG/DL (8.5-10.1); CREATININE SERUM 1.85 MG/DL (0.60-1.30); POTASSIUM 5.1 MMOL/L (3.6-5.0)
[2016-10-03 13:55] LABS: BASOPHILS # (AUTO) 0.1 10^3/uL (0.0-0.1); BASOPHILS % (AUTO) 1 % (0-10); EOSINOPHILS # (AUTO) 0.1 10^3/uL (0.0-0.3); EOSINOPHILS % (AUTO) 2 % (0-10); LYMPHOCYTES % (AUTO) 25 % (12-44); MEAN CORPUSCULAR HEMOGLOBIN 28 PG (25-34); MEAN CORPUSCULAR HGB CONC 32 G/DL (32-36); MEAN CORPUSCULAR VOLUME 87 FL (80-99); MONOCYTES # (AUTO) 1.1 X 10^3 (0.0-1.0); MONOCYTES % (AUTO) 13 % (0-12); NEUTROPHILS # (AUTO) 4.9 X 10^3 (1.8-7.8); NEUTROPHILS % (AUTO) 60 % (42-75); PLATELET COUNT 339 10^3/uL (130-400); RED BLOOD COUNT 3.77 10^6/uL (4.35-5.85); RED CELL DISTRIBUTION WIDTH 16.8 % (10.0-14.5); WHITE BLOOD COUNT 8.2 10^3/uL (4.3-11.0)
[2016-10-03 14:24] LABS: ALBUMIN 3.2 G/DL (3.2-4.5); BILIRUBIN,TOTAL 0.2 MG/DL (0.1-1.0); CALCIUM 8.4 MG/DL (8.5-10.1); CREATININE SERUM 1.48 MG/DL (0.60-1.30); MAGNESIUM 1.5 MG/DL (1.8-2.4); POTASSIUM 4.4 MMOL/L (3.6-5.0); TOTAL PROTEIN 5.5 G/DL (6.4-8.2)
[2016-10-10 14:15] LABS: BASOPHILS % (AUTO) 0 % (0-10); EOSINOPHILS # (AUTO) 0.1 10^3/uL (0.0-0.3); EOSINOPHILS % (AUTO) 1 % (0-10); LYMPHOCYTES # (AUTO) 1.6 X 10^3 (1.0-4.0); LYMPHOCYTES % (AUTO) 14 % (12-44); MEAN CORPUSCULAR HEMOGLOBIN 28 PG (25-34); MEAN CORPUSCULAR HGB CONC 32 G/DL (32-36); MEAN CORPUSCULAR VOLUME 87 FL (80-99); MEAN PLATELET VOLUME 10.2 FL (7.4-10.4); MONOCYTES # (AUTO) 0.6 X 10^3 (0.0-1.0); MONOCYTES % (AUTO) 5 % (0-12); NEUTROPHILS # (AUTO) 8.7 X 10^3 (1.8-7.8); NEUTROPHILS % (AUTO) 79 % (42-75); PLATELET COUNT 318 10^3/uL (130-400); RED BLOOD COUNT 3.75 10^6/uL (4.35-5.85); RED CELL DISTRIBUTION WIDTH 16.8 % (10.0-14.5)
[2016-10-10 14:48] LABS: CREATININE SERUM 1.88 MG/DL (0.60-1.30); MAGNESIUM 1.6 MG/DL (1.8-2.4); POTASSIUM 4.7 MMOL/L (3.6-5.0)
[2016-10-17 13:57] LABS: BASOPHILS % (AUTO) 1 % (0-10); EOSINOPHILS # (AUTO) 0.2 10^3/uL (0.0-0.3); EOSINOPHILS % (AUTO) 4 % (0-10); LYMPHOCYTES # (AUTO) 1.2 X 10^3 (1.0-4.0); LYMPHOCYTES % (AUTO) 24 % (12-44); MEAN CORPUSCULAR HEMOGLOBIN 28 PG (25-34); MEAN CORPUSCULAR HGB CONC 32 G/DL (32-36); MEAN CORPUSCULAR VOLUME 87 FL (80-99); MEAN PLATELET VOLUME 9.7 FL (7.4-10.4); MONOCYTES # (AUTO) 0.4 X 10^3 (0.0-1.0); MONOCYTES % (AUTO) 8 % (0-12); NEUTROPHILS # (AUTO) 3.3 X 10^3 (1.8-7.8); NEUTROPHILS % (AUTO) 64 % (42-75); PLATELET COUNT 277 10^3/uL (130-400); RED CELL DISTRIBUTION WIDTH 17.1 % (10.0-14.5); WHITE BLOOD COUNT 5.2 10^3/uL (4.3-11.0)
[2016-10-17 14:23] LABS: CALCIUM 8.4 MG/DL (8.5-10.1); CREATININE SERUM 1.59 MG/DL (0.60-1.30); MAGNESIUM 1.3 MG/DL (1.8-2.4); POTASSIUM 4.2 MMOL/L (3.6-5.0)
[2016-10-24 11:33] LABS: BASOPHILS # (AUTO) 0.1 10^3/uL (0.0-0.1); BASOPHILS % (AUTO) 1 % (0-10); EOSINOPHILS # (AUTO) 0.2 10^3/uL (0.0-0.3); EOSINOPHILS % (AUTO) 2 % (0-10); LYMPHOCYTES # (AUTO) 1.7 X 10^3 (1.0-4.0); LYMPHOCYTES % (AUTO) 20 % (12-44); MEAN CORPUSCULAR HEMOGLOBIN 28 PG (25-34); MEAN CORPUSCULAR HGB CONC 32 G/DL (32-36); MEAN CORPUSCULAR VOLUME 87 FL (80-99); MEAN PLATELET VOLUME 9.5 FL (7.4-10.4); MONOCYTES # (AUTO) 0.6 X 10^3 (0.0-1.0); MONOCYTES % (AUTO) 7 % (0-12); NEUTROPHILS # (AUTO) 5.9 X 10^3 (1.8-7.8); NEUTROPHILS % (AUTO) 70 % (42-75); PLATELET COUNT 418 10^3/uL (130-400); RED CELL DISTRIBUTION WIDTH 17.7 % (10.0-14.5); WHITE BLOOD COUNT 8.4 10^3/uL (4.3-11.0)
[2016-10-24 12:04] LABS: CREATININE SERUM 1.64 MG/DL (0.60-1.30); POTASSIUM 4.6 MMOL/L (3.6-5.0)
[2016-10-24 12:05] LABS: CALCIUM 10.1 MG/DL (8.5-10.1); MAGNESIUM 1.2 MG/DL (1.8-2.4)
[~2016-11-01] VITALS: Ht 167.6 cm; Wt 74.8 kg
[~2016-11-01 10:36] MED LIST changes: +CARBOPLATIN IV SCH; +D5W IV SCH; +FAMOTIDINE 20MG/2ML IV (CANCER CTR) IV SCH; +HYDR-3812 PO; +LORazepam 0.5 MG (ATIVAN) TABLET CANCER CTR PO PRN; +MAGNESIUM SULFATE IV ONE; +MAGNESIUM SULFATE IV SCH; +NORMAL SALINE IV SCH; +NS IV 1000 ML (CANCER CTR) IV SCH; +ONDANSETRON 16 MG, DEXAMETHASONE 10 MG/NS 50 ML IVPB IV SCH; +PACLITAXEL 120 MG in NORMAL SALINE (CANCER CENTER) 250 ML IV SCH; +PACLITAXEL IV SCH; +SODIUM CHLORIDE IV ONE; +SODIUM CHLORIDE IV SCH; +diphenhydrAMINE 25 MG TAB (BENADRYL) CANCER CENTER PO SCH; +diphenhydrAMINE 50 MG/ML INJ (CANCER CENTER) IV PRN
[2016-11-01 11:04] LABS: BASOPHILS # (AUTO) 0.1 10^3/uL (0.0-0.1); BASOPHILS % (AUTO) 1 % (0-10); EOSINOPHILS # (AUTO) 0.1 10^3/uL (0.0-0.3); EOSINOPHILS % (AUTO) 2 % (0-10); LYMPHOCYTES # (AUTO) 1.1 X 10^3 (1.0-4.0); LYMPHOCYTES % (AUTO) 15 % (12-44); MEAN CORPUSCULAR HEMOGLOBIN 28 PG (25-34); MEAN CORPUSCULAR HGB CONC 33 G/DL (32-36); MEAN CORPUSCULAR VOLUME 86 FL (80-99); MEAN PLATELET VOLUME 9.7 FL (7.4-10.4); MONOCYTES # (AUTO) 0.9 X 10^3 (0.0-1.0); MONOCYTES % (AUTO) 13 % (0-12); NEUTROPHILS # (AUTO) 5.2 X 10^3 (1.8-7.8); NEUTROPHILS % (AUTO) 70 % (42-75); PLATELET COUNT 329 10^3/uL (130-400); RED BLOOD COUNT 3.76 10^6/uL (4.35-5.85); WHITE BLOOD COUNT 7.3 10^3/uL (4.3-11.0)
[2016-11-01 11:13] LABS: MAGNESIUM 1.5 MG/DL (1.8-2.4)
[2016-11-01] MEDS ORDERED: PACLITAXEL 110 MG in NORMAL SALINE (CANCER CENTER) 250 ML IV SCH (12:00)
[2016-11-01 12:44] LABS: ALBUMIN 3.2 G/DL (3.2-4.5); BILIRUBIN,TOTAL 0.4 MG/DL (0.1-1.0); CALCIUM 9.4 MG/DL (8.5-10.1); CREATININE SERUM 1.58 MG/DL (0.60-1.30); POTASSIUM 4.3 MMOL/L (3.6-5.0); TOTAL PROTEIN 5.8 G/DL (6.4-8.2)
[2016-11-05] MEDS ORDERED: TRAM50TA2 PO (07:59)
[2016-11-05] MEDS ORDERED: L.AC1CAP6 PO (07:59)
[2016-11-05] MEDS ORDERED: ONDA8TAB13 PO (07:59)
[2016-11-05] MEDS ORDERED: AMIO200T2 PO (07:59)
[2016-11-05] MEDS ORDERED: HYDR-3812 PO (08:07)
[2016-11-05] MEDS ORDERED: METO-333 PO (08:09)
[2016-11-07] MEDS ORDERED: METO-270 PO (13:49)
[2016-11-07] MEDS ORDERED: FENO145T20 PO (13:49)
[2016-11-07] MEDS ORDERED: CALC1TAB29 PO (13:49)
[2016-11-07] MEDS ORDERED: ONDA8TAB12 PO (13:49)
[2016-11-07] MEDS ORDERED: LISI40TA PO (13:49)
[2016-11-07] MEDS ORDERED: HYDR-3729 PO (13:49)
[2016-11-07] MEDS ORDERED: ATOR40TA70 PO (13:49)
== END 2016-11-22 | disposition home or self-care (01) ==
LOC: ONC 10:36
PROVIDERS: ATTEND Internal Medicine Hematology & Oncology
DX: Z51.11 Encounter for antineoplastic chemotherapy (principal); C34.32 Malignant neoplasm of lower lobe, left bronchus or lung; E11.22 Type 2 diabetes mellitus with diabetic chronic kidney disease; I12.9 Hypertensive chronic kidney disease with stage 1 through stage 4 chronic kidney disease, or unspecified chronic kidney disease; N18.9 Chronic kidney disease, unspecified; I73.9 Peripheral vascular disease, unspecified; R94.5 Abnormal results of liver function studies; M48.06 Spinal stenosis, lumbar region; Z87.891 Personal history of nicotine dependence; Z79.899 Other long term (current) drug therapy
CPT/HCPCS: 36415; 36591; 80048; 80053; 83036; 83735; 84153; 85025; 96368; 96375; 96413; 96417; 99213; 99214

== ENCOUNTER 2016-11-05 02:28 | Observation (INO) | payer MEDICARE, OTHER ==
[~2016-11-05] VITALS: Ht 167.6 cm; Wt 73.7 kg
[~2016-11-05 02:28] MED LIST changes: -CARBOPLATIN IV SCH; -D5W IV SCH; -FAMOTIDINE 20MG/2ML IV (CANCER CTR) IV SCH; -LORazepam 0.5 MG (ATIVAN) TABLET CANCER CTR PO PRN; -MAGNESIUM SULFATE IV ONE; -MAGNESIUM SULFATE IV SCH; -NORMAL SALINE IV SCH; -NS IV 1000 ML (CANCER CTR) IV SCH; -ONDANSETRON 16 MG, DEXAMETHASONE 10 MG/NS 50 ML IVPB IV SCH; -PACLITAXEL 120 MG in NORMAL SALINE (CANCER CENTER) 250 ML IV SCH; -PACLITAXEL IV SCH; -SODIUM CHLORIDE IV ONE; -SODIUM CHLORIDE IV SCH; -diphenhydrAMINE 25 MG TAB (BENADRYL) CANCER CENTER PO SCH; -diphenhydrAMINE 50 MG/ML INJ (CANCER CENTER) IV PRN
[2016-11-05] MEDS ORDERED: NS IV 500 ML 500 ML IV ONE (02:57)
[2016-11-05 03:02] LABS: BASOPHILS % (AUTO) 0 % (0-10); EOSINOPHILS % (AUTO) 0 % (0-10); LYMPHOCYTES # (AUTO) 1.1 X 10^3 (1.0-4.0); LYMPHOCYTES % (AUTO) 13 % (12-44); MEAN CORPUSCULAR HEMOGLOBIN 27 PG (25-34); MEAN CORPUSCULAR HGB CONC 32 G/DL (32-36); MEAN CORPUSCULAR VOLUME 85 FL (80-99); MEAN PLATELET VOLUME 9.7 FL (7.4-10.4); MONOCYTES # (AUTO) 0.2 X 10^3 (0.0-1.0); MONOCYTES % (AUTO) 2 % (0-12); NEUTROPHILS # (AUTO) 7.4 X 10^3 (1.8-7.8); NEUTROPHILS % (AUTO) 85 % (42-75); PLATELET COUNT 291 10^3/uL (130-400); RED BLOOD COUNT 3.68 10^6/uL (4.35-5.85); RED CELL DISTRIBUTION WIDTH 16.7 % (10.0-14.5); WHITE BLOOD COUNT 8.8 10^3/uL (4.3-11.0)
--- NOTE | 2016-11-05 03:08 | ED Fall/Injury ---
General Chief Complaint: Upper Extremity Stated Complaint: RT SHOULDER PAIN Nursing Triage Note: patient reports R shoulder hurting, patient reports falling often. Source: patient, family Exam Limitations: no limitations History of Present Illness Time seen by provider: 02:33 Initial Comments Here by EMS with report of right shoulder pain. Per the , he has been Progressively weak and they both admit to a few falls recently. He has lung cancer and had partial pneumonectomy in June and has recently started chemotherapy. Did hit his head with a fall tonight. Complains of pain at the area just distal to the shoulder joint. Denies breathing problems currently. No fever or chills. Occurred: this evening Severity: moderate Injuries/Pain Location: head, upper extremity Context: lost balance Loss of Consciousness: no loss of consciousness Associated Symptoms (Fall): No Abdominal Pain, No Chest Pain, No Confusion, No Headache, No Muscle Spasms, No Nausea/Vomiting, No Neck Pain Allergies and Home Medications Allergies Coded Allergies: No Known Drug Allergies (Unverified , 08/31/16) Home Medications Aspirin 81 Mg Tablet.dr, 81 MG PO DAILY, (Reported) Calcium Carbonate/Vitamin D3 1 Each Tablet, 1 EACH PO, (Reported) Fenofibrate,Micronized 145 Mg Tablet, 145 MG PO DAILY, (Reported) Fish Oil/Borage/Flax/Om3,6,9#1 1,200 Mg Capsule, 1,200 MG PO BID, (Reported) Glipizide 5 Mg Tablet, 2.5 MG PO BID, (Reported) Glucosamine HCl/Chondr Glez A Na 1 Each Tablet, 1 EACH PO BID, (Reported) Hydrochlorothiazide 25 Mg Tab, 25 MG PO DAILY, (Reported) Hydrocodone/Acetaminophen 1 Each Tablet, 1 EACH PO Q4H, #35 Prescribed by: DELMIS FARFAN on 09/01/16 1029 Hydrocodone/Acetaminophen 1 Each Tablet, 1 EACH PO Q4H PRN for PAIN, #14 Prescribed by: AVILA RICKS on 10/15/16 2240 Lisinopril 40 Mg Tablet, 40 MG PO DAILY, (Reported) Metformin HCl 500 Mg Tablet, 1,000 MG PO BID, (Reported) TAKE 2 (500MG) TABS Multivitamin 1 Each Tablet, 1 EACH PO DAILY, (Reported) Simvastatin 40 Mg Tablet, 40 MG PO HS, (Reported) Constitutional: see HPI, No chills, No fever, weakness Eyes: No Symptoms Reported Ears, Nose, Mouth, Throat: no symptoms reported Respiratory: No cough, No short of breath, wheezing Cardiovascular: No chest pain, No edema Gastrointestinal: No abdominal pain, diarrhea (loose stool tonight), No nausea , No vomiting Genitourinary: no symptoms reported Musculoskeletal: no symptoms reported Skin: no symptoms reported Psychiatric/Neurological: See HPI, Denies Headache, Weakness All Other Systems Reviewed Negative Unless Noted: Yes Past Eraqqcc-Gsdjuy-Ilnjwe Hx Patient Social History Alcohol Use: Regular Use Recreational Drug Use: No Smoking Status: Current Someday Smoker Type Used: Cigarettes Recent Foreign Travel: No Contact w/Someone Who Travel: No Recent Infectious Disease Expo: No Recent Hopitalizations: No Immunizations Up To Date Date of Pneumonia Vaccine: Jul 07, 2014 Date of Influenza Vaccine: Apr 04, 2016 Seasonal Allergies Seasonal Allergies: No Surgeries HX Surgeries: Yes (SEVERAL SKIN CA REMOVED, HEMORRHOIDECTOMY, LEFT LOWER LOBECTOMY) Surgeries: Appendectomy Respiratory Hx Respiratory Disorders: Yes (LUNG CA) Cardiovascular Hx Cardiac Disorders: Yes Cardiac Disorders: High Cholesterol, Hypertension Neurological Hx Neurological Disorders: Yes Neurological Disorders: TIA Reproductive System Hx Reproductive Disorders: No Sexually Transmitted Disease: No HIV/AIDS: No Genitourinary Hx Genitourinary Disorders: No Gastrointestinal Hx Gastrointestinal Disorders: Yes Gastrointestinal Disorders: Chronic Constipation, Chronic Diarrhea Musculoskeletal Hx Musculoskeletal Disorders: Yes Musculoskeletal Disorders: Back Injury, Chronic Back Pain Endocrine Hx Endocrine Disorders: Yes Endocrine Disorders: Diabetes, Non-Insulin dep HEENT HX ENT Disorders: Yes (GLASSES) Loss of Vision: Bilateral Hearing Impairment: Denies Cancer Hx Cancer: Yes Cancer: Lung, Skin Psychosocial Hx Psychiatric Problems: No Integumentary HX Skin/Integumentary Disorder: Yes (SKIN CA) Blood Transfusions Hx Blood Disorders: No Adverse Reaction to a Blood Tr: No Reviewed Nursing Assessment Reviewed/Agree w Nursing PMH: Yes Family Medical History Significant Family History: No Pertinent Family Hx Physical Exam Vital Signs Vital Sign - Last 12Hours 11/05/16 02:31 Temp 98.2 Pulse 71 Resp 18 B/P (MAP) 178/84 Pulse Ox 94 O2 Delivery Room Air Capillary Refill : Less Than 3 Seconds General Appearance: WD/WN, no apparent distress HEENT: PERRL/EOMI, pharynx normal Neck: full range of motion, supple Cardiovascular: regular rate, rhythm, no murmur Respiratory: no respiratory distress, No accessory muscle use, wheezing (a few scattered) Peripheral Pulses: 2+ Dorsalis Pedis (R), 2+ Left Dors-Pedis (L), 2+ Radial Pulses (R), 2+ Radial Pulses (L) Gastrointestinal: non tender, soft Back: normal inspection, no CVA tenderness, no vertebral tenderness Extremities: no pedal edema, other (tender to the area of the proximal humerus and right shoulder.) Neurologic/Psychiatric: alert, oriented x 3 Skin: normal color, warm/dry Jeanine Coma Score Best Eye Response: (4) Open Spontaneously Best Verbal Response: (5) Oriented Best Motor Response: (6) Obeys Commands Progress/Results/Core Measures Results/Orders Lab Results Laboratory Tests Test 11/05/16 02:50 11/05/16 03:45 Range/Units White Blood Count 8.8 4.3-11.0 10^3/uL Red Blood Count 3.68 L 4.35-5.85 10^6/uL Hemoglobin 10.1 L 13.3-17.7 G/DL Hematocrit 31 L 40-54 % Mean Corpuscular Volume 85 80-99 FL Mean Corpuscular Hemoglobin 27 25-34 PG Mean Corpuscular Hemoglobin Concent 32 32-36 G/DL Red Cell Distribution Width 16.7 H 10.0-14.5 % Platelet Count 291 130-400 10^3/uL Mean Platelet Volume 9.7 7.4-10.4 FL Neutrophils (%) (Auto) 85 H 42-75 % Lymphocytes (%) (Auto) 13 12-44 % Monocytes (%) (Auto) 2 0-12 % Eosinophils (%) (Auto) 0 0-10 % Basophils (%) (Auto) 0 0-10 % Neutrophils # (Auto) 7.4 1.8-7.8 X 10^3 Lymphocytes # (Auto) 1.1 1.0-4.0 X 10^3 Monocytes # (Auto) 0.2 0.0-1.0 X 10^3 Eosinophils # (Auto) 0.0 0.0-0.3 10^3/uL Basophils # (Auto) 0.0 0.0-0.1 10^3/uL Sodium Level 134 L 135-145 MMOL/L Potassium Level 4.9 3.6-5.0 MMOL/L Chloride Level 103 98-107 MMOL/L Carbon Dioxide Level 21 21-32 MMOL/L Anion Gap 10 5-14 MMOL/L Blood Urea Nitrogen 38 H 7-18 MG/DL Creatinine 1.48 H 0.60-1.30 MG/DL Estimat Glomerular Filtration Rate 46 BUN/Creatinine Ratio 26 Glucose Level 133 H 70-105 MG/DL Calcium Level 9.4 8.5-10.1 MG/DL Magnesium Level 1.6 L 1.8-2.4 MG/DL Total Bilirubin 0.4 0.1-1.0 MG/DL Aspartate Amino Transf (AST/SGOT) 29 5-34 U/L Alanine Aminotransferase (ALT/SGPT) 44 0-55 U/L Alkaline Phosphatase 55 40-136 U/L Total Protein 5.7 L 6.4-8.2 G/DL Albumin 3.1 L 3.2-4.5 G/DL Urine Color YELLOW Urine Clarity CLEAR Urine pH 6 5-9 Urine Specific [place] 1.010 L 1.016-1.022 Urine Protein 2+ H NEGATIVE Urine Glucose (UA) NEGATIVE NEGATIVE Urine Ketones NEGATIVE NEGATIVE Urine Nitrite NEGATIVE NEGATIVE Urine Bilirubin NEGATIVE NEGATIVE Urine Urobilinogen NORMAL NORMAL MG/DL Urine Leukocyte Esterase 1+ H NEGATIVE Urine RBC (Auto) NEGATIVE NEGATIVE Urine RBC NONE /HPF Urine WBC 0-2 /HPF Urine Squamous Epithelial Cells RARE /HPF Urine Crystals NONE /LPF Urine Bacteria TRACE /HPF Urine Casts PRESENT /LPF Urine Hyaline Casts RARE /LPF Urine Mucus SMALL H /LPF Urine Culture Indicated NO My Orders Orders - JEANETTE PUGH MD Cbc With Automated Diff (11/05/16 02:57) Comprehensive Metabolic Panel (11/05/16 02:57) Magnesium (11/05/16 02:57) Ua Culture If Indicated (11/05/16 02:57) Saline Lock/Iv-Start (11/05/16 02:57) Ns Iv 500 Ml (Sodium Chloride 0.9%) (11/05/16 02:57) Chest Pa/Lat (2 View) (11/05/16 02:57) Shoulder, Right, 3 Views (11/05/16 02:57) Ct Head Wo (11/05/16 02:57) Medications Given in ED Current Medications Medications Dose Ordered Sig/Humberto Route Start Time Stop Time Status Last Admin Dose Admin Sodium Chloride 500 ml @ 0 mls/hr Q0M ONCE IV 11/05/16 02:57 11/05/16 02:59 DC 11/05/16 03:43 0 MLS/HR Vital Signs/I&O Vital Sign - Last 12Hours 11/05/16 02:31 Temp 98.2 Pulse 71 Resp 18 B/P (MAP) 178/84 Pulse Ox 94 O2 Delivery Room Air Blood Pressure Mean: 115 Progress Note : Progress Note Seen and evaluated. CT head, chest x-ray, right shoulder x-ray, labs, UA and normal saline 500 mL bolus ordered. Monitor patient. 0409: Patient is requiring 2 person assist to get up to help urinate. Patient is still very weak. He lives alone with his who is very frail. No significant findings noted on labs the patient remains very weak and presents a danger to self at home. I did discuss the case with Dr. Owen. We will put him in the hospital in observation status and continue evaluation. Patient and family both requested and were very appreciative of the admission. Diagnostic Imaging Diagonstic Imaging: CT Plain Films/CT/US/NM/MRI: head Comments No evidence acute infarct, hemorrhage, mass or edema. Chronic small vessel ischemic disease and sinus changes. Reviewed: Reviewed Night Corby Study Diagonstic Imaging: Xray Plain Films/CT/US/NM/MRI: chest Comments No acute findings. Reviewed: Reviewed by Me Diagonstic Imaging: Xray Plain Films/CT/US/NM/MRI: other (right shoulder) Comments No acute findings Reviewed: Reviewed by Me Departure Communication Time/Spoke to Admitting Phy: 04:09 Impression Impression: Primary Impression: Weakness Additional Impression: Lung cancer Qualified Codes: C34.32 - Malignant neoplasm of lower lobe, left bronchus or lung Disposition: 09 ADMITTED INPATIENT Condition: Stable Decision to Admit Reason: Admit from ER (General) Decision to Admit/Date: November 05, 2016 Time/Decision to Admit Time: 04:09 Departure-Patient Inst. Referrals: RAPHAEL ROJAS MD (PCP/Family) Primary Care Physician JEANETTE PUGH MD November 05, 2016 03:07
[2016-11-05 03:19] LABS: ALBUMIN 3.1 G/DL (3.2-4.5); BILIRUBIN,TOTAL 0.4 MG/DL (0.1-1.0); CALCIUM 9.4 MG/DL (8.5-10.1); CREATININE SERUM 1.48 MG/DL (0.60-1.30); MAGNESIUM 1.6 MG/DL (1.8-2.4); POTASSIUM 4.9 MMOL/L (3.6-5.0); TOTAL PROTEIN 5.7 G/DL (6.4-8.2)
[2016-11-05 03:51] LABS: BILIRUBIN,URINE NEGATIVE (NEGATIVE); KETONES,URINE NEGATIVE (NEGATIVE); LEUKOCYTE ESTERASE ,URINE 1+ (NEGATIVE); NITRITE,URINE NEGATIVE (NEGATIVE); PH,URINE 6 (5-9); PROTEIN,URINE 2+ (NEGATIVE); UROBILINOGEN,URINE NORMAL (NORMAL)
[2016-11-05 04:00] LABS: HYALINE CASTS, URINE RARE /LPF; SQUAMOUS EPITHELIAL CELL,UR RARE /HPF; WBC,URINE 0-2 /HPF
[2016-11-05] MEDS ORDERED: NS IV 1000 ML 1,000 ML ONE (04:56)
[2016-11-05] MEDS: NS IV 1000 ML 1,000 ML IV SCH ×2 (05:10→18:45)
[2016-11-05] MEDS ORDERED: fentaNYL INJECTION 100 MCG/2 ML AMP IV PRN (07:00)
[2016-11-05] MEDS: inSUlin (REGULAR) HUMAN 1 UNIT/0.01 ML (CHARGE PER UNIT) SC SCH ×4 (07:39→21:27)
--- NOTE | 2016-11-05 07:45 | Diagnostic Imaging Report ---
INDICATION: Fall, pain. COMPARISON: Radiograph of the chest dated September 25, 2015 TECHNIQUE: 4 radiographs of the right shoulder are obtained dated November 05, 2016 FINDINGS: A right-sided Port-A-Cath is in place. There is widening of the right acromioclavicular joint. This appears new since the prior radiographs of the chest from October 15, 2015. However, this was present on the prior exam from September 01, 2016. Mild osteophyte formation about the acromioclavicular joint. No acute fracture or dislocation. No destructive osseous process. Visualized right lung is clear. No suspicious radiopaque foreign body. IMPRESSION: Stable widening of the right acromioclavicular joint and scattered degenerative changes without acute osseous abnormality. Dictated by: Dictated on workstation # [id number]
--- NOTE | 2016-11-05 07:50 | Diagnostic Imaging Report ---
INDICATION: Falls, pain COMPARISON: October 15, 2016 TECHNIQUE: Two radiographs of the chest dated November 05, 2016 FINDINGS: Right-sided Port-A-Cath is again identified with the distal tip at the cavoatrial junction. The cardiac silhouette is within normal limits of size. No significant pulmonary vascular congestion. Mild left basilar opacities are noted with slight obscuration of the medial left hemidiaphragm. Otherwise, the lungs appear clear. No significant pleural effusion. No pneumothorax. Scattered osseous degenerative changes without acute osseous abnormality. IMPRESSION: Mild left basilar atelectasis and/or pneumonitis with partial obscuration of the medial left hemidiaphragm. Dictated by: Dictated on workstation # [id number]
--- NOTE | 2016-11-05 07:54 | Diagnostic Imaging Report ---
PROCEDURE: CT head without contrast. TECHNIQUE: Multiple contiguous axial images were obtained through the brain without the use of intravenous contrast. DATE: November 05, 2016. COMPARISON: None. INDICATION: 81-year-old male, history of falls. FINDINGS: There is proportional prominence of the ventricles and CSF spaces consistent with at least moderate cerebral volume loss. There are areas of reduced attenuation in the. Ventricular and subcortical white matter most compatible with changes of chronic small vessel ischemic disease although not specific. There is no mass effect or midline shift. There is no acute intracranial hemorrhage. There is no abnormal extra-axial fluid collection. There is mucosal thickening of the right maxillary sinus. IMPRESSION: 1. No identified acute intracranial abnormality. 2. At least moderate cerebral volume loss with changes of chronic small vessel ischemic disease. Dictated by: Dictated on workstation # [id number]
[2016-11-05] MEDS ORDERED: TRAM50TA2 PO (07:59)
[2016-11-05] MEDS ORDERED: AMIO200T2 PO (07:59)
[2016-11-05] MEDS ORDERED: L.AC1CAP6 PO (07:59)
[2016-11-05] MEDS ORDERED: ONDA8TAB13 PO (07:59)
[2016-11-05 08:00] VITALS: BP 141/87
[2016-11-05] MEDS ORDERED: HYDR-3812 PO (08:07)
[2016-11-05] MEDS ORDERED: METO-333 PO (08:09)
[2016-11-05 12:00] VITALS: BP 174/76
--- NOTE | 2016-11-05 15:56 | History & Physicial ---
History of Present Illness History of Present Illness Reason for visit/HPI This is a 81 year old male with lung cancer who underwent a pneumonectomy earlier in the year and has recently started chemotherapy. Per his , he has been becoming weaker with more falls. He had a fall prior to arrival hitting his head as well as his right shoulder. In the emergency room, he complained of right shoulder pain. His CT scan of his head was negative and his right shoulder x-ray showed no fracture. It was decided to admit him for observation and PT and possibly consider rehab. Date of Admission November 05, 2016 at 04:30 I consulted on this patient on 11/05/16 15:49 Attending Physician Trish Ayala MD Admitting Physician Trish Ayala MD Consult Allergies and Home Medications Allergies Coded Allergies: No Known Drug Allergies (Unverified , 08/31/16) Home Medications Amiodarone HCl 200 Mg Tablet, 200 MG PO DAILY, (Reported) Aspirin 81 Mg Tablet.dr, 81 MG PO DAILY, (Reported) Calcium Carbonate/Vitamin D3 1 Each Tablet, 1 EACH PO, (Reported) Fenofibrate,Micronized 145 Mg Tablet, 145 MG PO DAILY, (Reported) Fish Oil/Borage/Flax/Om3,6,9#1 1,200 Mg Capsule, 1,200 MG PO BID, (Reported) Glipizide 5 Mg Tablet, 2.5 MG PO BID, (Reported) Glucosamine HCl/Chondr Glez A Na 1 Each Tablet, 1 EACH PO BID, (Reported) Hydrocodone/Acetaminophen 1 Each Tablet, 1-2 EACH PO Q4H PRN for PAIN for 90 Days, #14 Prescribed by: AUSTIN PARKER on 11/05/16 0807 L.acidoph & Paracasei,B.lactis 1 Each Capsule, 1 EACH PO DAILY, (Reported) Lisinopril 40 Mg Tablet, 40 MG PO DAILY, (Reported) Metformin HCl 500 Mg Tablet, 1,000 MG PO BID, (Reported) TAKE 2 (500MG) TABS Metoprolol Tartrate 25 Mg Tablet, 25 MG PO DAILY, (Reported) Multivitamin 1 Each Tablet, 1 EACH PO DAILY, (Reported) Ondansetron 8 Mg Tab.rapdis, 8 MG PO Q8H, (Reported) Simvastatin 40 Mg Tablet, 40 MG PO HS, (Reported) Tramadol HCl 50 Mg Tablet, 50 MG PO TID PRN for PAIN-BREAKTHROUGH, (Reported) Past Nfxzzey-Dfgwko-Fafzlg Hx Patient Social History Alcohol Use: Denies Use Recreational Drug Use: No Smoking Status: Former Smoker Type Used: Cigarettes Physical Abuse Screen: No Sexual Abuse: No Recent Foreign Travel: No Contact w/other who traveled: No Recent Hopitalizations: No Recent Infectious Disease Expo: No Immunizations Up To Date Date of Pneumonia Vaccine: Jul 07, 2014 Date of Influenza Vaccine: Apr 04, 2016 Seasonal Allergies Seasonal Allergies: No Surgeries HX Surgeries: Yes (SEVERAL SKIN CA REMOVED, HEMORRHOIDECTOMY, LEFT LOWER LOBECTOMY) Surgeries: Appendectomy Respiratory Hx Respiratory Disorders: Yes (LUNG CA) Cardiovascular Hx Cardiovascular Disorders: Yes Cardiac Disorders: High Cholesterol, Hypertension Neurological Hx Neurological Disorders: Yes Neurological Disorders: TIA Reproductive System Hx Reproductive Disorders: No Sexually Transmitted Disease: No HIV/AIDS: No Genitourinary Hx Genitourinary Disorders: No Gastrointestinal Hx Gastrointestinal Disorders: Yes Gastrointestinal Disorders: Chronic Constipation, Chronic Diarrhea Musculoskeletal Hx Musculoskeletal Disorders: Yes Musculoskeletal Disorders: Back Injury, Chronic Back Pain Endocrine Hx Endocrine Disorders: Yes Endocrine Disorders: Diabetes, Non-Insulin dep HEENT HX ENT Disorders: Yes (GLASSES) Loss of Vision: Bilateral Hearing Impairment: Hard of Hearing Cancer Hx Cancer: Yes Cancer: Lung, Skin Psychosocial Hx Psychiatric Problems: No Integumentary HX Skin/Integumentary Disorder: Yes (SKIN CA) Blood Transfusions Hx Blood Disorders: No Adverse Reaction to a Blood Tr: No Reviewed Nursing Assessment Reviewed/Agree w Nursing PMH: Yes Family Medical History Significant Family History: No Pertinent Family Hx Family Hx: Diabetes mellitus 19 FATHER G8 BROTHER FH: skin cancer 19 FATHER Constitutional: weakness EENTM: No blurred vision, No dental problems, No double vision, No ear discharge, No ear pain, No epistaxis, No eye pain, No hearing loss, No hoarseness, No mouth pain, No mouth swelling, No no symptoms reported, No nose congestion, No nose pain, No other, No see HPI, No tearing, No throat pain, No throat swelling, No vision loss Respiratory: No no symptoms reported, No see HPI, No cough, No dyspnea on exertion, No hemoptysis, No orthopnea, No phlegm, No short of breath, No stridor , No wheezing, No other Cardiovascular: No no symptoms reported, No see HPI, No chest pain, No edema, No Hx of Intervention, No palpitations, No syncope, No vascular heart diseas, No other Gastrointestinal: No RUQ, No LUQ, No RLQ, No LLQ, No no symptoms reported, No see HPI, No abdominal pain, No constipation, No diarrhea, No dysphagia, No hematemesis, No heartburn, No jaundice, No loss of appetite, No melena, No nausea, No vomiting, No other Genitourinary: No no symptoms reported, No see HPI, No decreased output, No discharge, No dysuria, No frequency, No hematuria, No hesitancy, No incontinence , No nocturia, No pain, No other Musculoskeletal: joint pain (right shoulder), muscle weakness Psychiatric/Neurological: Weakness Physical Exam Vital Signs Vital Sign - Last 12Hours 11/05/16 02:31 Temp 98.2 Pulse 71 Resp 18 B/P (MAP) 178/84 Pulse Ox 94 O2 Delivery Room Air Capillary Refill : Less Than 3 Seconds General Appearance: No Apparent Distress HEENT: Pharynx Normal Neck: Supple Respiratory: Lungs Clear Cardiovascular: Regular Rate, Rhythm, Systolic Murmur Gastrointestinal: Normal Bowel Sounds, Non Tender, Soft Rectal: Deferred Back: No CVA Tenderness Extremity: Non Tender, No Calf Tenderness, No Pedal Edema Neurologic/Psychiatric: Alert, Oriented x3, Motor Weakness (diffuse) Skin: Normal Color, Warm/Dry Assessment/Plan Assessment and Plan 1. Worsening Weakness with Falls--admit and start PT and consider rehab 2. Right shoulder pain--some arthritis on x-ray but likely just contusion from recent fall 3. Lung Cancer--on chemotherapy 4. Hypertension--restart home meds 5. Renal Insufficiency--gentle hydration and monitor BUN/Cr Problems: Clinical Quality Measures DVT/VTE Risk/Contraindication: Risk Factor Score Per Nursin RFS Level Per Nursing on Admit: 3=High PALLAVI ESPOSITO DO November 05, 2016 15:56
[2016-11-05 16:03] VITALS: BP 170/72
[2016-11-05] MEDS: metFORMIN 500 MG (GLUCOPHAGE) TAB PO SCH (16:40)
[2016-11-05 20:02] VITALS: BP 173/70
[2016-11-05] MEDS: HYDROcodone/APAP 5 MG/325 MG (LORTAB) TAB PO PRN (20:05)
[2016-11-05] MEDS: GLUCOSAMINE SULFATE 1000 MG PO SCH (21:27)
[2016-11-06] VITALS: BP 173/81
[2016-11-06 04:00] VITALS: BP 160/88
[2016-11-06] MEDS: inSUlin (REGULAR) HUMAN 1 UNIT/0.01 ML (CHARGE PER UNIT) SC SCH ×4 (05:42→21:29)
[2016-11-06] MEDS: metFORMIN 500 MG (GLUCOPHAGE) TAB PO SCH ×2 (06:43→16:43)
[2016-11-06 08:00] VITALS: BP 174/88
[2016-11-06] MEDS: GLUCOSAMINE SULFATE 1000 MG PO SCH ×2 (08:11→21:32)
[2016-11-06] MEDS: ASPIRIN E.C. 81 MG (ECOTRIN) TAB PO SCH (08:11)
[2016-11-06] MEDS: AMIODARONE 200 MG (CORDARONE) TAB PO SCH (08:11)
[2016-11-06] MEDS: LACTOBACILLUS Acidoph/Bulgar (LACTINEX/FLORANEX) TAB PO SCH (08:12)
[2016-11-06] MEDS: meTOprolol TARTRATE 25 MG (LOPRESSOR) TABLET PO SCH (08:12)
[2016-11-06] MEDS: MULTIVIT W/MINERALS TAB (THERAGRAN M) PO SCH (08:12)
[2016-11-06] MEDS: lisINopril 20 MG (ZESTRIL) TAB PO SCH (08:12)
[2016-11-06] MEDS: NS IV 1000 ML 1,000 ML IV SCH (08:13)
[2016-11-06] MEDS ORDERED: RT-ALBUTEROL/IPRATROPIUM 3 ML (DUONEB) VIAL INH SCH (10:00)
--- NOTE | 2016-11-06 10:02 | Progress Note (SOAP) ---
Subjective Subjective/Events-last exam Fwup weakness with falls, acute renal insufficiency, lung cancer, hypertension, right shoulder pain. Complains of weak and tired. Objective Exam Vital Signs Date Time Temp Pulse Resp B/P (MAP) Pulse Ox O2 Delivery O2 Flow Rate FiO2 11/06/16 08:00 97.4 88 18 174/88 96 11/06/16 04:00 99.1 80 20 160/88 94 11/06/16 00:00 98.8 69 20 173/81 95 11/05/16 20:02 99.4 85 18 173/70 96 11/05/16 16:03 98.8 78 20 170/72 97 11/05/16 12:00 97.2 76 18 174/76 95 I & O 11/06/16 07:00 Intake Total 2420 ml Balance 2420 ml Capillary Refill : Less Than 3 Seconds General Appearance: No Apparent Distress Respiratory: Lungs Clear, Decreased Breath Sounds Cardiovascular: Regular Rate, Rhythm, Systolic Murmur Gastrointestinal: normal bowel sounds, non tender, soft Extremity: Non Tender, No Calf Tenderness, No Pedal Edema Neurologic/Psychiatric: Alert, Oriented x3 Results Lab Laboratory Tests 11/05/16 11:09: Glucometer 257H 11/05/16 15:40: Glucometer 197H 11/05/16 20:46: Glucometer 230H 11/06/16 05:39: Glucometer 119H Assessment/Plan Assessment/Plan Assess & Plan/Chief Complaint 1. Weakness with Falls--start PT and proceed with rehab evaluation 2. Hypertension--home meds restarted 3. Acute Renal Insufficiency--decrease IVF rate, recheck Cr in AM 4. Right Shoulder Pain--stable 5. Lung Cancer with complaint of shortness of air/wheezing--no wheezing on exam --will start SVNs with duoneb and IS Clinical Quality Measures DVT/VTE Risk/Contraindication: Risk Factor Score Per Nursin RFS Level Per Nursing on Admit: 3=High PALLAVI ESPOSITO DO November 06, 2016 10:02 am
[2016-11-06] MEDS: RT-ALBUTEROL/IPRATROPIUM 3 ML (DUONEB) VIAL INH PRN ×3 (10:35→21:16)
[2016-11-06 12:00] VITALS: BP 185/78
[2016-11-06 16:02] VITALS: BP 170/78
[2016-11-06 20:00] VITALS: BP 124/70
[2016-11-06] MEDS: HYDROcodone/APAP 5 MG/325 MG (LORTAB) TAB PO PRN (21:31)
[2016-11-07] VITALS (7 sets, daily range): BP systolic 105–179; BP diastolic 60–80
[2016-11-07] MEDS: NS IV 1000 ML 1,000 ML IV SCH (03:44)
[2016-11-07] MEDS: inSUlin (REGULAR) HUMAN 1 UNIT/0.01 ML (CHARGE PER UNIT) SC SCH ×4 (06:07→21:14)
[2016-11-07] MEDS: metFORMIN 500 MG (GLUCOPHAGE) TAB PO SCH ×2 (06:22→17:16)
[2016-11-07 06:35] LABS: BASOPHILS % (AUTO) 0 % (0-10); EOSINOPHILS # (AUTO) 0.1 10^3/uL (0.0-0.3); EOSINOPHILS % (AUTO) 1 % (0-10); LYMPHOCYTES % (AUTO) 15 % (12-44); MEAN CORPUSCULAR HEMOGLOBIN 28 PG (25-34); MEAN CORPUSCULAR HGB CONC 33 G/DL (32-36); MEAN CORPUSCULAR VOLUME 85 FL (80-99); MEAN PLATELET VOLUME 9.8 FL (7.4-10.4); MONOCYTES # (AUTO) 0.3 X 10^3 (0.0-1.0); MONOCYTES % (AUTO) 4 % (0-12); NEUTROPHILS # (AUTO) 5.6 X 10^3 (1.8-7.8); NEUTROPHILS % (AUTO) 80 % (42-75); PLATELET COUNT 311 10^3/uL (130-400); RED BLOOD COUNT 3.33 10^6/uL (4.35-5.85); RED CELL DISTRIBUTION WIDTH 16.2 % (10.0-14.5)
[2016-11-07 06:50] LABS: ANION GAP 6 MMOL/L (5-14); BLOOD UREA NITROGEN 20 MG/DL (7-18); BUN/CREATININE RATIO 17; CALCIUM 8.5 MG/DL (8.5-10.1); CARBON DIOXIDE 22 MMOL/L (21-32); CHLORIDE 110 MMOL/L (98-107); CREATININE SERUM 1.16 MG/DL (0.60-1.30); GFR ESTIMATED > 60; GLUCOSE 143 MG/DL (70-105); POTASSIUM 4.1 MMOL/L (3.6-5.0); SODIUM 138 MMOL/L (135-145)
[2016-11-07] MEDS: RT-ALBUTEROL/IPRATROPIUM 3 ML (DUONEB) VIAL INH PRN ×2 (08:55→19:34)
--- NOTE | 2016-11-07 09:25 | Progress Note (SOAP) ---
Subjective Subjective/Events-last exam PT COMPLAINS OF CONTINUED WEAKNESS, COUGH, DYSPNEA ON EXERTION. FAMILY WONDERING ABOUT REPEATING THE CHEST CT SCAN SINCE HE IS AN INPATIENT AND WILL NEED THIS CT SCAN DONE IN ABOUT 10 DAYS. Review of Systems General: Fatigue, Malaise HEENT: No Head Aches Pulmonary: Dyspnea, Cough Cardiovascular: No: Chest Pain, Palpitations Gastrointestinal: No: Abdominal Pain, Constipation, Nausea Genitourinary: No Dysuria Neurological: Weakness, No: Confusion Objective Exam Vital Signs Date Time Temp Pulse Resp B/P (MAP) Pulse Ox O2 Delivery O2 Flow Rate FiO2 11/07/16 08:00 101.0 90 36 179/78 92 11/07/16 04:00 98.5 67 18 160/80 96 11/07/16 00:00 98.4 84 16 158/66 95 11/06/16 21:16 95 11/06/16 20:00 98.4 91 18 124/70 94 11/06/16 17:32 93 11/06/16 16:02 98.6 63 18 170/78 95 11/06/16 12:00 97.2 63 18 185/78 97 11/06/16 10:35 95 I & O 11/07/16 07:00 Intake Total 2080 ml Balance 2080 ml Capillary Refill : Less Than 3 Seconds General Appearance: WD/WN, Mild Distress HEENT: PERRL/EOMI, Pharynx Normal Neck: Full Range of Motion, Supple Respiratory: Decreased Breath Sounds, Wheezing Cardiovascular: Regular Rate, Rhythm Gastrointestinal: normal bowel sounds, non tender, soft, no organomegaly, no pulsatile mass Extremity: Normal Capillary Refill, Non Tender, No Calf Tenderness, No Pedal Edema Neurologic/Psychiatric: Alert, Oriented x3, associate sales manager II-XII Norm as Tested Skin: Warm/Dry Lymphatic: No Adenopathy Results Lab Laboratory Tests 11/06/16 11:23: Glucometer 227H 11/06/16 15:40: Glucometer 130H 11/06/16 21:16: Glucometer 194H 11/07/16 05:43: Glucometer 148H 11/07/16 06:23: White Blood Count 7.0, Red Blood Count 3.33L, Hemoglobin 9.4L, Hematocrit 28L, Mean Corpuscular Volume 85, Mean Corpuscular Hemoglobin 28, Mean Corpuscular Hemoglobin Concent 33, Red Cell Distribution Width 16.2H, Platelet Count 311, Mean Platelet Volume 9.8, Neutrophils (%) (Auto) 80H, Lymphocytes (%) (Auto) 15 , Monocytes (%) (Auto) 4, Eosinophils (%) (Auto) 1, Basophils (%) (Auto) 0, Neutrophils # (Auto) 5.6, Lymphocytes # (Auto) 1.0, Monocytes # (Auto) 0.3, Eosinophils # (Auto) 0.1, Basophils # (Auto) 0.0, Sodium Level 138, Potassium Level 4.1, Chloride Level 110H, Carbon Dioxide Level 22, Anion Gap 6, Blood Urea Nitrogen 20H, Creatinine 1.16, Estimat Glomerular Filtration Rate > 60, BUN /Creatinine Ratio 17, Glucose Level 143H, Calcium Level 8.5 Assessment/Plan Assessment/Plan Assess & Plan/Chief Complaint LUNG CANCER COPD WEAKNESS FALLING EPISODES AT HOME ARF LUNG CANCER WITH COPD - REPEAT CT SCAN, MONITOR SYMPTOMS, CONTINUE WITH BREATHING TREATMENTS, SUPPORTIVE CARE, AND WILL CONSIDER CONSULTATION TO ONCOLOGIST DEPENDING ON CT SCAN. WEAKNESS - WITH FALLING EPISODES AT HOME - PHYSICAL THERAPY TO EVAL PATIENT - WILL ALSO HAVE HIM EVALUATED FOR INPATIENT REHAB HE MAY QUALIFY FOR ADMISSION AND THERAPY. FAMILY REPORTS THAT THEY WILL NOT HAVE HIM GO BACK TO A [facility] DUE TO HOW HE WAS TREATED AT THE LAST FACILITY. ARF - IMPROVED. Clinical Quality Measures DVT/VTE Risk/Contraindication: Risk Factor Score Per Nursin RFS Level Per Nursing on Admit: 3=High RAPHAEL ROJAS MD November 07, 2016 09:25
[2016-11-07] MEDS: GLUCOSAMINE SULFATE 1000 MG PO SCH ×2 (09:28→21:14)
[2016-11-07] MEDS: ASPIRIN E.C. 81 MG (ECOTRIN) TAB PO SCH (09:29)
[2016-11-07] MEDS: LACTOBACILLUS Acidoph/Bulgar (LACTINEX/FLORANEX) TAB PO SCH (09:29)
[2016-11-07] MEDS: meTOprolol TARTRATE 25 MG (LOPRESSOR) TABLET PO SCH (09:29)
[2016-11-07] MEDS: MULTIVIT W/MINERALS TAB (THERAGRAN M) PO SCH (09:29)
[2016-11-07] MEDS: AMIODARONE 200 MG (CORDARONE) TAB PO SCH (09:30)
[2016-11-07] MEDS: lisINopril 20 MG (ZESTRIL) TAB PO SCH (09:30)
[2016-11-07] MEDS: HYDROcodone/APAP 5 MG/325 MG (LORTAB) TAB PO PRN (09:30)
--- NOTE | 2016-11-07 09:43 | Physical Therapy Evaluation ---
PT Evaluation-General Medical Diagnosis Admission Date November 05, 2016 at 04:30 Medical Diagnosis: lung cancer Onset Date: November 05, 2016 Therapy Diagnosis Therapy Diagnosis: generalized weakness and debility Height/Weight Height (Feet): 5 Height (Inches): 6.00 Weight (Pounds): 162 Weight (Ounces): 7.0 Precautions Precautions/Isolations: Fall Prevention, Standard Precautions Referral Physician: Lexie Reason for Referral: Evaluation/Treatment Medical History Pertinent Medical History: DM, HTN, Renal Insufficiency, Smoking (current everyday) Additional Medical History current everyday smoker; lung cancer diagnosis ~ 5 months ago Current History EMS with right shoulder pain after a fall; progressive weakness since taken chemo. Reviewed History: Yes Social History Home: Single Level Current Living Status: Spouse Entry Into Home: Stairs With Railing PT Steps Into Home: 5 Prior/Core FIM Prior Level of Function Functional [place] Measure 0=Not Assessed/NA 4=Minimal Assistance 1=Total Assistance 5=Supervision or Setup 2=Maximal Assistance 6=Modified [place] 3=Moderate Assistance 7=Complete [place] Bed Mobility: 6 Transfers (B,C,W/C) (FIM): 6 Gait: [address]; uses cane with ambulation PT Evaluation-Current Subjective Patient reluctantly agrees to PT. Patient states he is tired and wants to be "left alone". Pain Numeric Pain Scale: 5-Moderate Pain Location: Medial, Upper, Lower Location Body Site: Back Pain Description: Pressure Pt/Family Goals return to home with spouse Objective Patient Orientation: Normal For Age Problem Solving: Fair Attachments: IV ROM/Strength ROM Lower Extremities bilateral LE WFL Strenght Lower Extremities right knee flexion/extension 4-/5; hip flexion 4-/5; ankle dorsi/plantarflexion 4-/5 left knee flexion/extension 4+/5; hip flexion 4+/5; ankle dorsi/plantarflexion 4 +/5 Integumentary/Posture Integumentary refer to nursing notes Bowel Incontinence: No Bladder Incontinence: Yes Posture WNL Neuromuscular (Tone, Coordination, Reflexes) diminished coordination due to fatigued disposition Sensory Vision: Functional Hearing: Functional Sensation Right Lower Extremit: Impaired Sensation Left Lower Extremity: Impaired Transfers Functional [place] Measure 0=Not Assessed/NA 4=Minimal Assistance 1=Total Assistance 5=Supervision or Setup 2=Maximal Assistance 6=Modified [place] 3=Moderate Assistance 7=Complete [place] Transfers (B, C, W/C) (FIM): 4 Scootin Rollin Supine to/from Sit: 5 Sit to/from Stand: 4 CGA with gait belt use for FWW Gait Mode of Locomotion: Walk Anticipated Mode of Locomotion: Walk Gait (FIM): 4 Distance (FIM): 3=150 ft Distance: 150' Gait Level of Assist: 4 Gait Persons Needed: 1 Gait Assistive Device: FWW Comments/Gait Description very slow, unsteady gait sequence with 3 episodes of LOB with PT correction with use of gait belt Balance Sitting Static: Fair Sitting Dynamic: Fair Standing Static: Fair Standing Dynamic: Fair Treatment Ambulate with FWW CGA x 150' with skilled verbal instruction for body placement in FWW and fair balance. Patient requires time to complete all gross motor skills due to fatigue. Assessment/Needs 81 y.o. male, will benefit from skilled PT to address functional strength and mobility to improve current LOF. Patient is very limited with functional mobility due to overall weakness/fatigue and motivation. Rehab Potential: Guarded Post Rehab Potential-Barriers: lung cancer/compliance PT Fdc Goals Photographic Spotter Goals PT Photographic Spotter Goals Time Frame: November 21, 2016 Transfers (B,C,W/C) (FIM): 6 Gait (FIM): 6 Gait distance (FIM): 3=150 ft Distance: 250' Gait Level of Assist: 6 Gait Assistive Device: None, FWW Stairs (FIM): 2 # of Steps: 5 Stairs Level Of Assist: 5 PT Plan Problem List Problem List: Activity Tolerance, Functional Strength, Safety, Balance, Gait, Transfer Treatment/Plan Treatment Plan: Continue Plan of Care Treatment Plan: Bed Mobility, Education, Functional Activity Amanda, Functional Strength, Gait, Safety, Therapeutic Exercise, Transfers Treatment Duration: November 21, 2016 # of days/week 6 Visits Per Week: 6-11 Pt/Family Agrees w/Plan: Yes Safety Risks/Education Patient Education: Safety Issues Teaching Recipient: Patient, Family Teaching Methods: Discussion Response to Teaching: Verbalize Understanding Discharge Recommendations Therapy D/C Recommendations: Home w/ Family Support, Halfway (TCU/NH) Equpiment Recommendations-D/C: Front Wheeled Walker Time/GCodes Time In: 906 Time Out: 931 Total Billed Treatment Time: 25 Total Billed Treatment 1 visit EVH 10 min GT 15 min G Codes Necessary: Yes PT/OT Therapy GCodes Therapy Functional Limitation: Physical Therapy Test(s)/Tool used to determine: Level of Assistance Scale Functional Limitation-Current Charge Code: LINDA Modifier: CK Functional Limitation-Goal Charge Code: VICENTA Modifier: MCKINLEY SMITH PT November 07, 2016 09:43
--- NOTE | 2016-11-07 13:21 | Physical Therapy Daily Note ---
PT Daily Note-Current Subjective Patient is in recliner and agrees to PT. Pain Numeric Pain Scale: 0-No Pain Location: No Pain Reported Mental Status Patient Orientation: Person, Place, Situation Transfers Functional [place] Measure 0=Not Assessed/NA 4=Minimal Assistance 1=Total Assistance 5=Supervision or Setup 2=Maximal Assistance 6=Modified [place] 3=Moderate Assistance 7=Complete IndependenceIRFPAI Quality Coding Scale 6 Independent with activity with or without an assistive device 5 Patient requires set up or clean up by helper. Patient completes activity by themselves 4 Supervision or touching assist (CGA). [place] provide cues , steadying assist 3 The helper provides less than half the effort to complete the activity 2 The helper provides more than half the effort to complete the activity 1 Dependent. The helper does all the effort to complete an activity 7 Patient refused to complete or attempt activity 9 The patient did not perform the activity before the current illness or injury 88 Not attempted due to Medical conditions or safety concerns Transfers (B, C, W/C) (FIM): 5 Scootin Sit to/from Stand: 5 Gait Training Gait (FIM): 4 Distance (FIM): 3=150 ft Distance: 325' Gait Level of Assist: 4 Gait Persons Needed: 1 Gait Assistive Device: FWW very slow, unsteady gait sequence. Patient appears very lethargic and fatigued. Assessment Patient is up in recliner with family present. PT to increase activity as tolerated by patient. Family states, patient is to have CT this p.m. to determine is cancer has "spread". PT Detention Goals Detention Goals PT Cripple Worker Goals Time Frame: November 21, 2016 Transfers (B,C,W/C) (FIM): 6 Gait (FIM): 6 Gait distance (FIM): 3=150 ft Distance: 250' Gait Level of Assist: 6 Gait Assistive Device: None, FWW Stairs (FIM): 2 # of Steps: 5 Stairs Level Of Assist: 5 PT Plan Treatment/Plan Treatment Plan: Continue Plan of Care Treatment Plan: Bed Mobility, Education, Functional Activity Amanda, Functional Strength, Gait, Safety, Therapeutic Exercise, Transfers Treatment Duration: November 21, 2016 Visits Per Week: 6-11 Time/GCodes Time In: 1300 Time Out: 1315 Total Billed Treatment Time: 15 Total Billed Treatment 1 visit GT 15 min PT/OT Therapy GCodes Therapy Functional Limitation: Physical Therapy Test(s)/Tool used to determine: Level of Assistance Scale Functional Limitation-Current Charge Code: MOBCUR Modifier: CK Functional Limitation-Goal Charge Code: MOBGOAL Modifier: MCKINLEY SMITH PT November 07, 2016 13:21
[2016-11-07] MEDS ORDERED: IOHEXOL 350 MG/ML 150 ML (OMNIPAQUE 350) VIAL IV ONE (13:45)
[2016-11-07] MEDS ORDERED: NS 100 ML (IVPB) BAG IV ONE (13:45)
[2016-11-07] MEDS ORDERED: LISI40TA PO (13:49)
[2016-11-07] MEDS ORDERED: METO-270 PO (13:49)
[2016-11-07] MEDS ORDERED: HYDR-3729 PO (13:49)
[2016-11-07] MEDS ORDERED: FENO145T20 PO (13:49)
[2016-11-07] MEDS ORDERED: ONDA8TAB12 PO (13:49)
[2016-11-07] MEDS ORDERED: CALC1TAB29 PO (13:49)
[2016-11-07] MEDS ORDERED: ATOR40TA70 PO (13:49)
--- NOTE | 2016-11-07 14:44 | Diagnostic Imaging Report ---
PROCEDURE: CT angiography of the chest with contrast. TECHNIQUE: Multiple contiguous axial images were obtained through the chest after uneventful bolus administration of intravenous contrast. Reconstructed CTA MIP acquisitions were also performed. INDICATION: Previous lung resection, left lower lobe for carcinoma one month ago. Hemoptysis. Weakness. Comparison with 09/26/2016. FINDINGS: There has been development of diffuse alveolar infiltrate throughout the left upper lobe and lingula. Mild infiltrate also present in the left lower lobe along the lung base anteriorly. The right lung is well aerated with mild patchy infiltrate noted along the anterolateral aspect of the right lower lobe and along the fissure in the right upper lobe. Small nodule previously measured in the anterior aspect of the right upper lobe is unchanged measuring approximately 2 mm. There is good opacification of the aorta and pulmonary arteries. Aorta is densely calcified. No evidence of aneurysm. Pulmonary arteries are well opacified with no filling defects. No mediastinal or hilar adenopathy of pathologic size. There has been development of small left pleural effusion. IMPRESSION: 1. Development of considerable infiltrate in the left upper lobe and lingula. Mild alveolar infiltrate in the left lower lobe. Also mild patchy infiltrate in the right upper and lower lobe. 2. Development of small left basilar effusion. These findings may well be secondary to aspiration pneumonia. Dictated by: Dictated on workstation # [id number]
--- NOTE | 2016-11-07 16:25 | Occupational Therapy Eval ---
OT Evaluation-General/PLF Medical Diagnosis Admission Date November 05, 2016 at 05:05 Medical Diagnosis: lung cancer, weakness, recent falls Onset Date: November 05, 2016 Therapy Diagnosis Therapy Diagnosis: weakness, decr self care, decr funct mobility, decr activity tolerance Height/Weight Height (Feet): 5 Height (Inches): 6.00 Weight (Pounds): 162 Weight (Ounces): 7.0 Precautions Precautions/Isolations: Fall Prevention, Standard Precautions Safety Interventions: Reorient-PRN Referral Physician: Lexie Referral Reason: Evaluation/Treatment Medical History Pertinent Medical History: DM, HTN, Renal Insufficiency, Smoking (current everyday) Additional Medical History Lung cancer, with partial pneumonectomy in June 2016, recent chemotherapy. Skin cancer, TIA after surgery in June, with weakness L side, chronic constipation, chronic diarrhea. Old rotator cuff injury R with possible reinjury with fall. Current History Admitted through ED with weakness, R shoulder pain, recent fall, lung CA with surgery and chemotherapy Reviewed History: Yes Social History Home: Single Level (mobile home) Current Living Status: Spouse Entry Into Home: Stairs With Railing Steps Into Home: 5 ADL-Prior Level of Function ADL PLOF Comments Pt and family reported that he previously could manage most of his own ADLs. His helped him get in and out of the shower (he has a shower chair but does not use it). He can drive but hasn't driven more that about 3 clocks since his surgery. 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. Drive Self: Yes (limited) OT Current Status Subjective Pt seen in room, up in recliner, agreeable to OT. Reported pain R shoulder 5-6 at times. Appearance Alert, cooperative. Has some unusual tremors or movements with UEs. Mental Status/Objective Patient Orientation: Person, Place, Time (Knew year with cues), Situation Attachments: IV Current Glasses/Contacts: Yes Hearing Aids: No ("No, but I need them!") Dentures/Partials: Yes (partial) Hand Dominance: Right Upper Extremity ROM Grossly WFL except R shoulder flexion/abd unable to do against gravity past about 60 degrees Upper Extremity Sensation Pt reported occasional numbness in hands Upper Extremity Strength Grossly 4/5 except R shoulder 3-/5 (can hold position once placed) ADL-Treatment ADL-Current Pt was able to set up his own lunch. Has been up out of chair with CGA, FWW with PT. Did not use ADL for ambulation prior to admission Functional [place] Measure 0=Not Assessed/NA 4=Minimal Assistance 1=Total Assistance 5=Supervision or Setup 2=Maximal Assistance 6=Modified [place] 3=Moderate Assistance 7=Complete IndependenceIRFPAI Quality Coding Scale 6 Independent with activity with or without an assistive device 5 Patient requires set up or clean up by helper. Patient completes activity by themselves 4 Supervision or touching assist (CGA). [place] provide cues , steadying assist 3 The helper provides less than half the effort to complete the activity 2 The helper provides more than half the effort to complete the activity 1 Dependent. The helper does all the effort to complete an activity 7 Patient refused to complete or attempt activity 9 The patient did not perform the activity before the current illness or injury 88 Not attempted due to Medical conditions or safety concerns Education OT Patient Education: Purpose of tx/functional activities, Rehab process Teaching Recipient: Patient, Family Teaching Methods: Discussion Response to Teaching: Verbalize Understanding OT Hot Tar Roofer Helper Goals Hot Tar Roofer Helper Goals Time Frame: Nov 28, 2016 Eating (FIM): 6 Grooming(FIM): 6 Bathing(FIM): 6 Upper Body Dressing(FIM): 6 Lower Body Dressing(FIM): 6 Toileting(FIM): 6 Toilet/Commode Transfer(FIM): 6 Shower Transfer(FIM): 6 Additional Goals: 2-Verbalize Understanding, 3-ImproveStrength/Amanda 1=Demonstrate adherence to instructed precautions during ADL tasks. 2=Patient will verbalize/demonstrate understanding of assistive devices/ modifications for ADL. 3=Patient will improve strength/tolerance for activity to enable patient to perform ADL's. OT Education/Plan Problem List/Assessment Assessment: Decreased Activ Tolerance, Decreased UE Strength, Impaired Funct Balance, Impaired Self-Care Skills, Restricted Funct UE ROM Pt would benefit from skilled OT to increase his independence in basic self care to allow him to safely return home with family and decrease caregiver burden. Discharge Recommendations Plan/Recommendations: Continue POC Treatment Plan/Plan of Care Treatment,Training & Education: Yes Patient would benefit from OT for education, treatment and training to promote independence in ADL's, mobility, safety and/or upper extremity function for ADL' s. Plan of Care: ADL Retraining, Functional Mobility, UE Funct Exercise/Act, UE Neuromus Re-Ed/Coord Treatment Duration: Nov 28, 2016 # of days/week 5 Visits Per Week: 5 Agreement: Yes Rehab Potential: Fair Time/GCodes Start Time: 14:20 Stop Time: 14:40 Total Time Billed (hr/min): 20 Billed Treatment Time visit, 20 minutes evaluation moderate intensity PT/OT Therapy GCodes Therapy Functional Limitation: Occupational Therapy Functional Limitation-Current Charge Code: SELFCUR Modifier: CK Functional Limitation-Goal Charge Code: SELFGOAL Modifier: BERNARDA CHEUNG OT November 07, 2016 16:25
[2016-11-08] MEDS: NS IV 1000 ML 1,000 ML IV SCH (00:16)
[2016-11-08 03:58] VITALS: BP 132/62
[2016-11-08 05:15] LABS: MEAN PLATELET VOLUME 9.7 FL (7.4-10.4); RED BLOOD COUNT 3.09 10^6/uL (4.35-5.85); RED CELL DISTRIBUTION WIDTH 16.4 % (10.0-14.5); WHITE BLOOD COUNT 7.9 10^3/uL (4.3-11.0)
[2016-11-08] MEDS: inSUlin (REGULAR) HUMAN 1 UNIT/0.01 ML (CHARGE PER UNIT) SC SCH (05:19)
[2016-11-08 05:37] LABS: ALBUMIN 2.6 G/DL (3.2-4.5); BILIRUBIN,TOTAL 0.3 MG/DL (0.1-1.0); CALCIUM 8.6 MG/DL (8.5-10.1); CREATININE SERUM 1.17 MG/DL (0.60-1.30); POTASSIUM 4.2 MMOL/L (3.6-5.0); TOTAL PROTEIN 4.9 G/DL (6.4-8.2)
[2016-11-08] MEDS: metFORMIN 500 MG (GLUCOPHAGE) TAB PO SCH (06:38)
[2016-11-08 08:00] VITALS: BP 182/84
[2016-11-08] MEDS: ASPIRIN E.C. 81 MG (ECOTRIN) TAB PO SCH (08:19)
[2016-11-08] MEDS: lisINopril 20 MG (ZESTRIL) TAB PO SCH (08:19)
[2016-11-08] MEDS: LACTOBACILLUS Acidoph/Bulgar (LACTINEX/FLORANEX) TAB PO SCH (08:19)
[2016-11-08] MEDS: AMIODARONE 200 MG (CORDARONE) TAB PO SCH (08:19)
[2016-11-08] MEDS: MULTIVIT W/MINERALS TAB (THERAGRAN M) PO SCH (08:20)
[2016-11-08] MEDS: GLUCOSAMINE SULFATE 1000 MG PO SCH (08:20)
[2016-11-08] MEDS: HYDROcodone/APAP 5 MG/325 MG (LORTAB) TAB PO PRN (08:20)
[2016-11-08] MEDS ORDERED: CEFEPIME 2 GM/NS 50 ML IVPB IV SCH ×2 (09:00)
--- NOTE | 2016-11-08 09:24 | Discharge Summary ---
Diagnosis/Chief Complaint Date of Admission November 05, 2016 at 05:05 Date of Discharge Admission Diagnosis Admission Diagnosis 1. Worsening Weakness with Falls--admit and start PT and consider rehab 2. Right shoulder pain--some arthritis on x-ray but likely just contusion from recent fall 3. Lung Cancer--on chemotherapy 4. Hypertension--restart home meds 5. Renal Insufficiency--gentle hydration and monitor BUN/Cr Discharge Summary Discharge Physical Examination Allergies: Coded Allergies: No Known Drug Allergies (Unverified , 08/31/16) Vitals & I&Os Vital Signs Date Time Temp Pulse Resp B/P (MAP) Pulse Ox O2 Delivery O2 Flow Rate FiO2 11/08/16 08:00 98.6 73 20 182/84 93 11/05/16 02:31 Room Air Hospital Course Pending Labs Laboratory Tests 11/08/16 05:00: White Blood Count 7.9, Red Blood Count 3.09, Hemoglobin 8.6, Hematocrit 26, Mean Corpuscular Volume 85, Mean Corpuscular Hemoglobin 28, Mean Corpuscular Hemoglobin Concent 33, Red Cell Distribution Width 16.4, Platelet Count 295, Mean Platelet Volume 9.7, Sodium Level 137, Potassium Level 4.2, Chloride Level 110, Carbon Dioxide Level 21, Anion Gap 6, Blood Urea Nitrogen 23, Creatinine 1.17, Estimat Glomerular Filtration Rate 60, BUN/Creatinine Ratio 20, Glucose Level 143, Calcium Level 8.6, Total Bilirubin 0.3, Aspartate Amino Transf (AST/ SGOT) 43, Alanine Aminotransferase (ALT/SGPT) 56, Alkaline Phosphatase 49, Total Protein 4.9, Albumin 2.6 11/08/16 05:08: Glucometer 151 Discharge Instructions to patient/family Please see electonic discharge instructions given to patient. Discharge Medications Reviewed and agree with Discharge Medication list on patient's Discharge Instruction sheet Clinical Quality Measures DVT/VTE Risk/Contraindication: Risk Factor Score Per Nursin RFS Level Per Nursing on Admit: 3=High RAPHAEL ROJAS MD November 08, 2016 09:24
[2016-11-08 10:15] VITALS: BP 148/72
== END 2016-11-08 09:24 ==
LOC: EDUNIT# 02:28 → ER 02:29 → 4TH 04:30 → UNDOADMOB 04:30 → 4TH 05:05 → ENPENDDIS 11-08 09:30
PROVIDERS: ADMIT Family Medicine; ATTEND Family Medicine
DX: S40.011A Contusion of right shoulder, initial encounter (principal); M19.011 Primary osteoarthritis, right shoulder; N28.9 Disorder of kidney and ureter, unspecified; R91.8 Other nonspecific abnormal finding of lung field; C34.32 Malignant neoplasm of lower lobe, left bronchus or lung; I10 Essential (primary) hypertension; E11.9 Type 2 diabetes mellitus without complications; R29.6 Repeated falls; Z79.84 Long term (current) use of oral hypoglycemic drugs; Z79.82 Long term (current) use of aspirin; Z79.899 Other long term (current) drug therapy; Z87.891 Personal history of nicotine dependence; Z90.2 Acquired absence of lung [part of]; W01.0XXA Fall on same level from slipping, tripping and stumbling without subsequent striking against object, initial encounter; Y92.009 Unspecified place in unspecified non-institutional (private) residence as the place of occurrence of the external cause; Y99.8 Other external cause status
CPT/HCPCS: 36415; 70450; 71020; 71275; 73030; 80048; 80053; 81000; 82962; 83735; 85025; 85027; 94640; 94664; 94760; 96360; G0378

== ENCOUNTER 2016-11-08 09:44 | Inpatient (IN) | payer MEDICARE, OTHER ==
[~2016-11-08] VITALS: Ht 170.2 cm; Wt 73.2 kg
[~2016-11-08 09:44] MED LIST changes: +AMIO200T2 PO; +ATOR40TA70 PO; +CALC1TAB29 PO; +FENO145T20 PO; +HYDR-3729 PO; +L.AC1CAP6 PO; +METO-270 PO; +METO-333 PO; +ONDA8TAB12 PO; +ONDA8TAB13 PO; +TRAM50TA2 PO
--- NOTE | 2016-11-08 11:39 | Physical Therapy Evaluation ---
PT Evaluation-General Medical Diagnosis Admission Date November 08, 2016 at 10:48 Medical Diagnosis: lung cancer Onset Date: November 05, 2016 Therapy Diagnosis Therapy Diagnosis: impaired mobility, strength, balance, endurance Height/Weight Height (Feet): 5 Height (Inches): 6.00 Weight (Pounds): 162 Weight (Ounces): 7.0 Referral Physician: Osbaldo Reason for Referral: Evaluation/Treatment Medical History Pertinent Medical History: DM, HTN, Renal Insufficiency, Smoking Additional Medical History current everyday smoker; lung cancer diagnosis ~ 5 months ago Current History EMS with right shoulder pain after a fall; progressive weakness since taken chemo. Reviewed History: Yes Social History Home: Single Level Current Living Status: Spouse Entry Into Home: Stairs With Railing PT Steps Into Home: 5 one railing, uses a wall on the other side Prior/Core FIM Prior Level of Function Functional [place] Measure 0=Not Assessed/NA 4=Minimal Assistance 1=Total Assistance 5=Supervision or Setup 2=Maximal Assistance 6=Modified [place] 3=Moderate Assistance 7=Complete [place] Bed Mobility: 6 Transfers (B,C,W/C) (FIM): 6 Gait: 6 uses single point cane PT Evaluation-Current Subjective Patient in bed sleeping pre tx, agrees reluctantly to PT. Patient has been admitted to rehab and PT will transport him down there during his evaluation. Patient has no complaints of pain. Pt/Family Goals "to get out of here" Objective Patient Orientation: Person, Place, Situation Attachments: IV ROM/Strength ROM Lower Extremities WNL Strenght Lower Extremities left lower extremity (hip flexion 4/5, knee flexion 5/5, knee extension 5/5, dorsiflexion 5/5), right lower extremity (hip flexion 4/5, knee flexion 4/5, knee extension 4/5, dorsiflexion 4/5) Integumentary/Posture Bowel Incontinence: No Bladder Incontinence: No Neuromuscular (Tone, Coordination, Reflexes) Patient has decreased coordination of the right leg observed during ambulation Sensory Vision: Wears Glasses Hearing: Impaired Sensation Right Lower Extremit: Intact Sensation Left Lower Extremity: Intact Sensation Lower Extremities Patient has no complaints of numbness or tingling in his legs. Transfers Functional [place] Measure 0=Not Assessed/NA 4=Minimal Assistance 1=Total Assistance 5=Supervision or Setup 2=Maximal Assistance 6=Modified [place] 3=Moderate Assistance 7=Complete IndependenceIRFPAI Quality Coding Scale 6 Independent with activity with or without an assistive device 5 Patient requires set up or clean up by helper. Patient completes activity by themselves 4 Supervision or touching assist (CGA). [place] provide cues , steadying assist 3 The helper provides less than half the effort to complete the activity 2 The helper provides more than half the effort to complete the activity 1 Dependent. The helper does all the effort to complete an activity 7 Patient refused to complete or attempt activity 9 The patient did not perform the activity before the current illness or injury 88 Not attempted due to Medical conditions or safety concerns Transfers (B, C, W/C) (FIM): 4 Scootin Rollin Roll Left to Right (QC): 4 Supine to/from Sit: 5 Sit to/from Stand: 4 Sit to Lying (QC): 4 Lying to Sitting/Side of Bed(Q: 4 Sit to Stand (QC): 4 Car Transfer (QC): 88 Patient performs bed mobility with SBA and transfers with CGA, he is unsteady immediately upon standing but has not lost his balance at this time, patient needs cues for hand placement Gait Does the Patient Walk?: Yes Mode of Locomotion: Walk Anticipated Mode of Locomotion: Walk Gait (FIM): 4 Walk 10 feet (QC): 4 Walk 50 ft with 2 Turns(QC): 4 Walk 150 ft (QC): 4 Walking 10ft/uneven surface-QC: 4 Distance: 200'x2, 150' Gait Level of Assist: 4 Gait Persons Needed: 1 Gait Assistive Device: FWW Comments/Gait Description Patient can ambulate 200' with a rolling walker with CGA (including 50' with at least 2 turns of 90 degrees and 10' over an uneven surface). He is unsteady and his right leg tends to drift to midline and occasionally he will lean to the right side and the left wheels of the walker with come off the floor. They quickly go back down and as of yet patient has not lost his balance without recovering himself. Wheelchair Training Does the Pt Use a Wheelchair?: No Stairs Stairs (FIM): 1 #of Steps: 1 Level of Assist: 4 1 Step (curb) (QC): 4 4 Steps (QC): 88 Assistive Device: Walker 12 Steps (QC): 88 CGA, cues for foot placement Balance Sitting Static: Good Sitting Dynamic: Good Standing Static: Poor Standing Dynamic: Poor Picking up an Object (QC): 88 Special Test Comments Tinetti Assessment Tool score 14/28. Assessment/Needs Patient has impairments in mobility, endurance, strength, and balance. He has weakness mostly in the right leg and his score of 14/28 on the Tinetti puts him at a high fall risk. Rehab Potential: Fair PT Short Term Goals Short Term Goals Time Frame: November 15, 2016 Transfers (B,C,W/C) (FIM): 5 Gait (FIM): 5 Gait Distance Comment: 300' Gait Level of Assist: 5 Gait Assistive Device: FWW PT Retirement Goals Retirement Goals PT Retirement Goals Time Frame: Nov 29, 2016 Transfers (B,C,W/C) (FIM): 6 Sit to Lying (QC): 6 Lying-Sitting on Side/Bed(QC): 6 Sit to Stand (QC): 6 Rollin Roll Left to Right (QC): 6 Car Transfer (QC): 4 Gait (FIM): 6 Distance: 400' Walk 10 feet (QC): 6 Walk 10ft-Uneven Surface(QC): 6 Walk 50ft with 2 Turns (QC): 6 Walk 150 ft (QC): 6 Gait Assistive Device: FWW Stairs (FIM): 5 # of Steps: 12 1 Step (curb) (QC): 4 4 Steps (QC): 4 12 Steps (QC): 4 Stairs Level Of Assist: 5 Picking up an Object (QC): 4 PT Plan Problem List Problem List: Activity Tolerance, Functional Strength, Safety, Balance, Gait, Transfer, Bed Mobility Treatment/Plan Treatment Plan: Continue Plan of Care Treatment Plan: Bed Mobility, Education, Functional Activity Amanda, Functional Strength, Group Therapy, Gait, Safety, Therapeutic Exercise, Transfers Treatment Duration: Nov 29, 2016 # of days/week 5-6 Visits Per Week: 10-11 Minutes/Day (M-F): 60-90 Minutes/Day (Sat/Glez): 15-30 Pt/Family Agrees w/Plan: Yes Safety Risks/Education Patient Education: Gait Training, Transfer Techniques, Steps, Correct Positioning, Safety Issues Teaching Recipient: Patient Teaching Methods: Demonstration, Discussion Response to Teaching: Reinforcement Needed Discharge Recommendations Plan Patient will perform bed mobility and transfer training, balance and endurance training, functional strengthening, stair training, gait training, and education , to improve functional mobility and independence at home. Therapy D/C Recommendations: Home w/ Family Support, Long Term (TCU/NH) Time/GCodes Time In: 1040 Time Out: 1140 Total Billed Treatment Time: 60 Total Billed Treatment 1 visit YASEMIN 15' FA 15' GT 30' ANGELINA GALAVIZ PT November 08, 2016 11:39
[2016-11-08 12:21] VITALS: BP 143/76
--- NOTE | 2016-11-08 13:28 | ST Cognitive Linguistic Eval ---
Speech Evaluation-General Medical Diagnosis Debility s/p Lobectomy (Lung CA) Onset Date: November 05, 2016 Therapy Diagnosis Therapy Diagnosis: Cognitive Linguistic Function Grossly WNL Precautions Precautions/Isolations: Fall Prevention, Standard Precautions Referral Referring Physician: Dr. Curly Roblero Cognitive Linguistic Evaluation Medical History Pertinent Medical History: DM, HTN, Renal Insufficiency, Smoking Reviewed History: Yes Social History Current Living Status: Spouse Speech PLF-Current Status Prior Level of Function The patient (and family members present) denied prior challenges with language, cognition, or speech. Additionally the patient (and family members) did not report observation of changes in language, cognition, or speech following the patient's recent procedure. Per patient, he is currently functioning at baseline level (family agrees with this statement). Subjective The patient was recently admitted to [facility] with a diagnosis of debility following a lobectomy (secondary to lung cancer). The patient greeted the clinician appropriately and agreed to participate in the cognitive linguistic evaluation. Language Eval: Auditory Comprehends Simple Yes/No Ques: Functional Indent/Objects Multiple [place]: Functional Ident/Pics in Multiple [place]: Functional Follows 1-Step Commands: Functional (a) Follows Complex Directions: Functional Follows General Conversations: Functional Language Eval: Verbal Language Completes Spontaneous Greeting: Functional Produces Auto, Serial Info: Functional Imitates Simple Words/Phrases: Functional Word Finding: Mild Requests Basic Needs: Functional States Basic Personal Info: Functional Cognitive Patient Orientation The patient is oriented to month, location, and city. The patient required mild verbal prompting for identification of day and date. Objective Cognitive Domain Attention: WNL Memory: Mild Problem Solving: Functional Objective Impression The patient demonstrated cognitive linguistic skills grossly within normal limits and appropriate for completion of ADL's. Communication/Social Cognition Comprehension: 5 Expression: 5 Social Interaction: 6 Problem Solvin Memory: 4 Speech Patient Assess Expression of Ideas/Wants: Expression (4) Understanding [place] Content: Understands (4) Brief Interview-Mental Status: Yes Repetition of Three Words: Three (3) Temporal Orientation: Year: Correct (3) Temporal Orientation: Month: Accurate within 5 days(2) Temporal Orientation: Day: Incorrect or No Answer(0) Recall : Wear to say "Sock": No, could not recall (0) Recall : Color: No, could not recall (0) Recall : Bed: Yes,after cueing (1) Speech-Plan Treatment Plan Speech Therapy Treatment Plan: Discontinue ST Evaluation, only. Rehab Potential: Fair Safety Risks/Education Teaching Recipient: Patient, Family, Significant Other Teaching Methods: Discussion Response to Teaching: Verbalize Understanding Education Topics Provided: Results, Recommendations, Plan of Care Time Speech Therapy Time In: 11:40 Speech Therapy Time Out: 11:55 Total Billed Time: 15 Billed Treatment Time 1, KATHERYN BO November 08, 2016 13:28
--- NOTE | 2016-11-08 13:42 | Occupational Therapy Eval ---
OT Evaluation-General/PLF Medical Diagnosis Admission Date November 08, 2016 at 10:48 Medical Diagnosis: lung cancer, weakness, falls Onset Date: November 05, 2016 Therapy Diagnosis Therapy Diagnosis: weakness, decr self care, decr funct mobility, decr activity tolerance Height/Weight Height (Feet): 5 Height (Inches): 7.00 Weight (Pounds): 165 Weight (Ounces): 0.0 Precautions Precautions/Isolations: Fall Prevention, Standard Precautions Weight Bear Status Location Restriction: LE Bilateral Referral Physician: Osbaldo Referral Reason: Evaluation/Treatment Medical History Pertinent Medical History: DM, HTN, Renal Insufficiency, Smoking Additional Medical History Lung cancer, with partial pneumonectomy in June 2016, recent chemotherapy. Skin cancer, TIA after surgery in June, with L sided weakness, chronic constipation, chronic diarrhea. Old rotator cuff injury R with possible reinjury with fall. Current History Admitted through ED with weakness, R shoulder pain, recent fall, lung CA with surgery and chemotherapy. Pt said he quit smoking a month ago Reviewed History: Yes Social History Home: Single Level (mobile home) Current Living Status: Spouse Entry Into Home: Stairs With Railing Steps Into Home: 5 ADL-Prior Level of Function ADL PLOF Comments Pt and family reported that he previously could manage most of his own ADLs. His helps him get in and out of the shower (he has a shower chair but does not use it). he can drive but hasn't driven more than about 3 blocks since his surgery. 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 Did not use a device for ambulation prior to hospitalization DME/Equipment: Bath Chair Drive Self: Yes (limited) OT Current Status Subjective Pt seen in room, in bed, agreeable to OT. No pain reported specifically, just fatigue. Appearance Alert, cooperative, fatigued and needs very frequent recovery periods Mental Status/Objective Patient Orientation: Person, Place, Situation (generalities) With cues, knew it was 2016 but not the month Attachments: Central Line, IV Current Glasses/Contacts: Yes ("No, but I need them!") Hearing Aids: No (?No, but I need them!") Dentures/Partials: Yes (partial) Hand Dominance: Right Upper Extremity ROM Grossly WFL except R shoulder flex/abd -unable to move against gravity past about 60 degrees Upper Extremity Coordination Fine motor coordination impaired with buttons Upper Extremity Sensation pt reported occasional numbness in hands Upper Extremity Strength Grossly 4/5 except R shoulder 3-/5 (can hold position once placed) ADL-Treatment ADL-Current Pt picked a scab off L knee after being encouraged to leave it alone. Attempted to pick scab on dorsum of L hand Functional [place] Measure 0=Not Assessed/NA 4=Minimal Assistance 1=Total Assistance 5=Supervision or Setup 2=Maximal Assistance 6=Modified [place] 3=Moderate Assistance 7=Complete IndependenceIRFPAI Quality Coding Scale 6 Independent with activity with or without an assistive device 5 Patient requires set up or clean up by helper. Patient completes activity by themselves 4 Supervision or touching assist (CGA). [place] provide cues , steadying assist 3 The helper provides less than half the effort to complete the activity 2 The helper provides more than half the effort to complete the activity 1 Dependent. The helper does all the effort to complete an activity 7 Patient refused to complete or attempt activity 9 The patient did not perform the activity before the current illness or injury 88 Not attempted due to Medical conditions or safety concerns Eating (FIM): 5 (Setup. Can get food to his mouth and hold utensils) Eating (QC): 5 (setup) Grooming (FIM): 5 (Washed face and hands with setup during shower) Bathing (FIM): 5 (Able to wash and dry all parts with SBA when standing, supervision. Cues to wash feet. Frequent LOB toward L when sitting EOB, nathaniel when crossing legs to wash feet) Shower/Bathe Self (QC): 4 (supervision) Upper Body Dressing (FIM): 5 (Setup. SBA when standing to put shirt on. Some difficulty with buttons on shirt but could fasten them) Upper Body Dressing (QC): 4 (SBA, supervision) Lower Body Dressing (FIM): 5 (setup, SBA for standing. LOB toward L side when crossing legs to put socks on, supervision. Could not unfasten button on pants but able to put them on. Stood to step out of pants with no LOB but attempted to balance with rolling bedside table) Lower Body Dressing (QC): 4 (SBA, supervision) On/Off Footwear (QC): 4 (SBA, supervision) Transfers (B, C, W/C) (FIM): 5 (SBA sit to stand and stand to sit from EOB.) All ADLs took longer than usual due to frequent recovery periods lasting 2-3 minutes due to short of air and fatigue. Needed to lie down at least once Education OT Patient Education: Purpose of tx/functional activities, Rehab process, Safety issues, Transfer techniques Teaching Recipient: Patient Teaching Methods: Demonstration, Discussion Response to Teaching: Verbalize Understanding, Return Demonstration, Reinforcement Needed OT Short Term Goals Short Term Goals Time Frame: November 22, 2016 Lower Body Dressing(FIM): 5 Shower Transfer(FIM): 5 Additional Short Term Goals: 2-Verbalize Understanding, 3-ImproveStrength/Amanda 1=Demonstrate adherence to instructed precautions during ADL tasks. 2=Patient will verbalize/demonstrate understanding of assistive devices/ modifications for ADL. 3=Patient will improve strength/tolerance for activity to enable patient to perform ADL's. OT Manager Leasing Goals [facility] Goals Time Frame: Nov 29, 2016 Eating (FIM): 6 Eating (QC): 6 Groomin Oral Hygiene (QC): 6 Bathing(FIM): 6 Shower/Bathe Self (QC): 6 Upper Body Dressing(FIM): 6 Upper Body Dressing (QC): 6 Lower Body Dressing(FIM): 6 Lower Body Dressing (QC): 6 On/Off Footwear (QC): 6 Toileting(FIM): 6 Toileting Hygiene (QC): 6 Toilet/Commode Transfer(FIM): 6 Toilet/Commode Transfer (QC): 6 Shower Transfer(FIM): 6 Additional Goals: 2-Verbalize Understanding, 3-ImproveStrength/Amanda 1=Demonstrate adherence to instructed precautions during ADL tasks. 2=Patient will verbalize/demonstrate understanding of assistive devices/ modifications for ADL. 3=Patient will improve strength/tolerance for activity to enable patient to perform ADL's. OT Education/Plan Problem List/Assessment Assessment: Decreased Activ Tolerance, Decreased UE Strength, Impaired Coordination, Impaired Funct Balance, Impaired Self-Care Skills Pt would benefit from skilled OT to increase his independence with basic self care to allow him to safely return home to live with his and to decrease caregiver burden. Discharge Recommendations Plan/Recommendations: Continue POC Barriers to Progress side effects from chemotherapy Target Placement home Treatment Plan/Plan of Care Treatment,Training & Education: Yes Patient would benefit from OT for education, treatment and training to promote independence in ADL's, mobility, safety and/or upper extremity function for ADL' s. Plan of Care: ADL Retraining, Functional Mobility, Group Exercise/Act as Ind ( education, exercise, activ tolerance, socialization, funct activities), UE Funct Exercise/Act, UE Neuromus Re-Ed/Coord Treatment Duration: Nov 29, 2016 # of days/week 5-6 Visits Per Week: 10-11 Minutes/Day (M-F): 75-90 Minutes/Day (Sat/Glez): PRN Agreement: Yes Rehab Potential: Fair Time/GCodes Start Time: 12:40 (1325) Stop Time: 13:25 Total Time Billed (hr/min): 45 Billed Treatment Time visit, evaluation medium intensity 15 minutes, ADL 30 minutes BERNARDA GTZ OT November 08, 2016 13:42
--- NOTE | 2016-11-08 14:05 | Occupational Ther Daily Note ---
OT Current Status-Daily Note Subjective Pt alert, lying in bed. Pt agreed to therapy. No c/o pain at this time. Mental Status/Objective Patient Orientation: Person, Place, Time, Situation Functional [place] Measure 0=Not Assessed/NA 4=Minimal Assistance 1=Total Assistance 5=Supervision or Setup 2=Maximal Assistance 6=Modified [place] 3=Moderate Assistance 7=Complete [place] Attachments: IV ADL-Treatment Pt used bed rails and HOB slightly elevated for pt to go from supine to sitting EOB. Pt ambulated to bathroom then stood at sink to complete grooming skills. Pt was able to stand at sink with close SBA, 1 LOB. Pt fatigued and required a rest break. Pt then stood at toilet to urinate, voided on pant leg. Pt turned around and sat on toilet using grabbars and FWW. Pt then doffed pants and donned new ones with SBA to hike pants over hips. Pt required recovery breaks after threading each leg through pants. Pt ambulated to sink to wash hands. Pt demonstrated frustration and required cues to ambulate with FWW, he would push away and attempt to grab onto other surfaces. Pt then ambulated back to room and transferred into bed with SBA. Functional [place] Measure 0=Not Assessed/NA 4=Minimal Assistance 1=Total Assistance 5=Supervision or Setup 2=Maximal Assistance 6=Modified [place] 3=Moderate Assistance 7=Complete IndependenceIRFPAI Quality Coding Scale 6 Independent with activity with or without an assistive device 5 Patient requires set up or clean up by helper. Patient completes activity by themselves 4 Supervision or touching assist (CGA). [place] provide cues , steadying assist 3 The helper provides less than half the effort to complete the activity 2 The helper provides more than half the effort to complete the activity 1 Dependent. The helper does all the effort to complete an activity 7 Patient refused to complete or attempt activity 9 The patient did not perform the activity before the current illness or injury 88 Not attempted due to Medical conditions or safety concerns Grooming (FIM): 4 Oral Hygiene (QC): 5 Lower Body Dressing (FIM): 5 Lower Body Dressing (QC): 4 Toileting (FIM): 5 Toileting Hygiene (QC): 4 Toilet/Commode Transfer (FIM): 5 Other Treatment Pt educated on energy conservation techniques during UE exercises and breathing techniques. Pt quickly frustrated when he didn't get it the first time. Pt demonstrated good ROM though pain and tightness in R shldr. Pt stated that he has tub/shower at home with some grabbars. After therapy, pt lying in bed with call light/phone in reach. All needs met in room. Education OT Patient Education: Energy conservation Teaching Recipient: Patient Teaching Methods: Demonstration, Discussion Response to Teaching: Verbalize Understanding, Reinforcement Needed OT Short Term Goals Short Term Goals Transfers (B,C,W/C) (FIM): 5 1=Demonstrate adherence to instructed precautions during ADL tasks. 2=Patient will verbalize/demonstrate understanding of assistive devices/ modifications for ADL. 3=Patient will improve strength/tolerance for activity to enable patient to perform ADL's. OT Detention Goals Detention Goals Eating (FIM): 6 Toileting(FIM): 6 1=Demonstrate adherence to instructed precautions during ADL tasks. 2=Patient will verbalize/demonstrate understanding of assistive devices/ modifications for ADL. 3=Patient will improve strength/tolerance for activity to enable patient to perform ADL's. OT Education/Plan Discharge Recommendations Plan/Recommendations: Continue POC Treatment Plan/Plan of Care Patient would benefit from OT for education, treatment and training to promote independence in ADL's, mobility, safety and/or upper extremity function for ADL' s. Treatment Duration: Nov 29, 2016 Visits Per Week: 10-11 Rehab Potential: Fair Time/GCodes Start Time: 13:25 Stop Time: 14:10 Total Time Billed (hr/min): 45 Billed Treatment Time 1 visit-ADL 2 (35 min) FA 1 (10min) ISABELA CAM November 08, 2016 14:05
--- NOTE | 2016-11-08 14:33 | Physical Therapy Daily Note ---
PT Daily Note-Current Subjective Patient in bed pre tx, agrees to PT, no complaints of pain. Appearance Patient sitting on the edge of the bed post tx with another healthcare worker, family in the room. Mental Status Patient Orientation: Person, Place, Situation Attachments: IV Transfers Functional [place] Measure 0=Not Assessed/NA 4=Minimal Assistance 1=Total Assistance 5=Supervision or Setup 2=Maximal Assistance 6=Modified [place] 3=Moderate Assistance 7=Complete IndependenceIRFPAI Quality Coding Scale 6 Independent with activity with or without an assistive device 5 Patient requires set up or clean up by helper. Patient completes activity by themselves 4 Supervision or touching assist (CGA). [place] provide cues , steadying assist 3 The helper provides less than half the effort to complete the activity 2 The helper provides more than half the effort to complete the activity 1 Dependent. The helper does all the effort to complete an activity 7 Patient refused to complete or attempt activity 9 The patient did not perform the activity before the current illness or injury 88 Not attempted due to Medical conditions or safety concerns Transfers (B, C, W/C) (FIM): 4 Scootin Rollin Supine to/from Sit: 5 Sit to/from Stand: 4 cues for hand placement when sitting or standing Gait Training Gait (FIM): 4 Distance: 150'x2 Gait Level of Assist: 4 Gait Persons Needed: 1 Gait Assistive Device: FWW poor coordination, patient did have one instance of tipping the walker to the right but no LOB Exercises NuStep Minutes: 10 NuStep Workload: 4 Treatments bed mobility and transfers, ambulation, functional strengthening Assessment Current Status: Fair Progress improving endurance PT Short Term Goals Short Term Goals Time Frame: November 15, 2016 Gait (FIM): 5 Gait Distance Comment: 300' Gait Level of Assist: 5 Gait Assistive Device: FWW PT Correction Goals Correction Goals PT Medical Doctor Goals Time Frame: Nov 29, 2016 Transfers (B,C,W/C) (FIM): 6 Sit to Lying (QC): 6 Lying-Sitting on Side/Bed(QC): 6 Sit to Stand (QC): 6 Rollin Roll Left to Right (QC): 6 Car Transfer (QC): 4 Gait (FIM): 6 Distance: 400' Walk 10 feet (QC): 6 Walk 10ft-Uneven Surface(QC): 6 Walk 50ft with 2 Turns (QC): 6 Walk 150 ft (QC): 6 Gait Assistive Device: FWW Stairs (FIM): 5 # of Steps: 12 1 Step (curb) (QC): 4 4 Steps (QC): 4 12 Steps (QC): 4 Stairs Level Of Assist: 5 Picking up an Object (QC): 4 PT Plan Problem List Problem List: Activity Tolerance, Functional Strength, Safety, Balance, Gait, Transfer, Bed Mobility, ROM Treatment/Plan Treatment Plan: Continue Plan of Care Treatment Plan: Bed Mobility, Education, Functional Activity Amanda, Functional Strength, Group Therapy, Gait, Safety, Therapeutic Exercise, Transfers Treatment Duration: Nov 29, 2016 Visits Per Week: 10-11 Minutes/Day (M-F): 60-90 Minutes/Day (Sat/Glez): 15-30 Safety Risks/Education Patient Education: Gait Training, Transfer Techniques, Correct Positioning, Safety Issues Teaching Recipient: Patient Teaching Methods: Demonstration, Discussion Response to Teaching: Reinforcement Needed Time/GCodes Time In: 1410 Time Out: 1430 Total Billed Treatment Time: 20 Total Billed Treatment 1 visit GT 20' ANGELINA GALAVIZ PT November 08, 2016 14:33
[2016-11-08] MEDS: ONDANSETRON 8 MG (ZOFRAN) ORAL DISSOLVE TAB PO SCH (16:56)
[2016-11-08] MEDS: OMEGA 3 (FISH OIL) 1000 MG CAP PO SCH (16:57)
[2016-11-08] MEDS: glipiZIDE 5 MG (GLUCOTROL) TAB PO SCH (16:57)
[2016-11-08] MEDS: HYDROcodone/APAP 5 MG/325 MG (LORTAB) TAB PO PRN (16:58)
[2016-11-08] MEDS: inSUlin (REGULAR) HUMAN 1 UNIT/0.01 ML (CHARGE PER UNIT) SC SCH ×2 (16:58→20:50)
[2016-11-08] MEDS: metFORMIN 500 MG (GLUCOPHAGE) TAB PO SCH (17:00)
[2016-11-08 18:31] VITALS: BP 127/71
[2016-11-08] MEDS: FENOFIBRATE 134 MG (LOFIBRA) CAPSULE PO SCH (20:24)
[2016-11-08] MEDS: GLUCOSAMINE 1000 MG PO SCH (20:24)
[2016-11-08] MEDS: ATORVASTATIN 40 MG (LIPITOR) TABLET PO SCH (20:24)
[2016-11-08] MEDS ORDERED: NON-FORMULARY MEDICATION 1 EA EA PO SCH ×2 (21:00)
--- NOTE | 2016-11-08 21:35 | HISTORY AND PHYSICAL ---
DATE OF SERVICE: 11/08/2016 CHIEF COMPLAINT: Difficulty with walking. 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 The patient was admitted to [facility]. Therapy has begun and patient was felt to be appropriate for inpatient rehabilitation unit. Currently he is min assist for ambulation with a walker. He has limited endurance. He requires assistance for his ADLs and mobility skills. He is Min assist for dressing He is set up for eating. He has a supportive family, and had been independent prior to this, and living with his family in [place], [place]. His PCP is Dr. Ayala. PAST MEDICAL HISTORY: Stage IV lung CA, status post left lower lobe lobectomy and chemotherapy, hypercholesterolemia, hypertension, TIA, chronic constipation, chronic back pain, diabetes mellitus, skin cancer. PAST SURGICAL HISTORY: As per above and appendectomy, skin cancer excision, hemorrhoidectomy. ALLERGIES: No known medication allergies. FAMILY HISTORY: Noncontributory. SOCIAL HISTORY: Retired, has supportive family. He had a CT of the head on 11/05/2016, showing no acute intracranial abnormality. CT of the chest and thorax on 11/07/2016, showed considerable infiltrate in the left upper lobe and lingula, development of small left base pleural effusion. The patient is placed on IV antibiotics for presumably for pneumonia. REVIEW OF SYSTEMS: A 10-point review of systems is significant for numbness, weakness in the legs, shortness of breath, chronic back pain. MEDICATIONS: Amiodarone 300 mg p.o. daily, ASA 81 mg p.o. daily, lisinopril 40 mg p.o. daily, Toprol 25 mg p.o. daily, cefepime IV daily, calcium and vitamin D 600 mg p.o. daily, multivitamins with minerals 1000 p.o. daily, Lipitor 40 mg p.o. nightly, Low Fiber 134 mg p.o. nightly, metformin 1000 mg p.o. b.i.d., fish oil 1000 mg p.o. b.i.d. with meals, glipizide 2.5 mg p.o. b.i.d., Zofran 8 mg p.o. q. 8 hours, sliding scale insulin regimen A, DuoNeb treatments q. 2 hours p.r.n. shortness of breath, Lortab generic 5/325 one to two tablets p.o. q. 4 hours p.r.n. moderate pain, tramadol 50 mg p.o. t.i.d. p.r.n. mild pain. PHYSICAL EXAMINATION: GENERAL: An elderly male appearing stated age, lying in bed, no acute distress. VITAL SIGNS: Temperature is 99.2, pulse 71, respirations 18, blood pressure 143/76, O2 sat 95%. HEENT: Vision, speech, hearing grossly intact, no oral lesions noted. NECK: Supple without mass. HEART: Regular rate and rhythm. LUNGS: A few crackles at left base. ABDOMEN: Soft, nontender, bowel sounds present. EXTREMITIES: No leg edema. No calf tenderness. MUSCULOSKELETAL: The patient has functional passive range of motion of all 4 extremities. NEUROLOGIC: The patient has good strength RLE and 4/5 strength prox LLE and 5/ 5 distal. Both upper extremities with functional parts room clerk strength. Both uppper limbs grossly 4/5 with the exception of rt shoulder 3/5 . Fine motor coordination impaired in Both Upper limbs. Sensation is grossly intact, transiently reports some numbness in his feet and hands. He has impaired dynamic standing balance.He has impaired coordination in the rt leg with ambulation.Cognition groosly intact IMPRESSION: 1. Ambulatory dysfunction secondary to chemotherapy induced polyneuropathy with weakness, numbness in legs. 2. Stage IV lung cancer status post lobectomy, status post chemotherapy on outpatient basis. 3. Pneumonia, under treatment. 4. Hypertension, controlled on medication. 5. Chronic back pain on meds. 6. Diabetes mellitus, controlled on medication. 7. Shoulder pain PLAN: The patient will have a comprehensive program of inpatient rehabilitation with goal of maximizing level of function independence prior to discharge home with family. The patient will have PT and OT 90 minutes per day each discipline, 5 days a week for 2 weeks for gait, strength, conditioning, balance, ADLs,energy conservation as well as family, caregiver training as necessary, adaptive equipment training as necessary. Speech therapy to do cognitive assessment and treat as indicated. Rehabilitation nursing to assist with bowel, bladder, skin care, medication administration, pain management. oil well services superintendent to assist with discharge planning, community re-entry. Followup with Dr. Ayala and medical oncology as per their schedule. Estimated length of stay 2 weeks. PROGNOSIS: Prognosis appears good, at least short term for a goal of discharging home with family, modified independent to supervision for ADLs and mobility skills. DIET: Regular. CODE STATUS: To be determined-Patient requests DNR status. SCDs for DVT prophylaxis, incentive spirometry q. 2 hours, respiratory therapy to assist with O2 administration and maintain sats more than 92%. Patient placed on 15 hours therapy per 7-day schedule due to his chemotherapy induced polyneuropathy and respiratory insufficiency and other comorbidities. Job ID: [id number] DocumentID: [id number] Dictated Date: 11/08/2016 14:30:53 Director Of Child Welfare Services Date: 11/08/2016 15:54:26 Dictated By: JAREK MOCK MD MTDD
[2016-11-09] MEDS: ONDANSETRON 8 MG (ZOFRAN) ORAL DISSOLVE TAB PO SCH ×3 (00:49→17:03)
[2016-11-09] MEDS: HYDROcodone/APAP 5 MG/325 MG (LORTAB) TAB PO PRN ×3 (01:30→14:43)
[2016-11-09] MEDS: inSUlin (REGULAR) HUMAN 1 UNIT/0.01 ML (CHARGE PER UNIT) SC SCH ×4 (05:21→20:55)
[2016-11-09 05:34] VITALS: BP 125/61
[2016-11-09] MEDS: metFORMIN 500 MG (GLUCOPHAGE) TAB PO SCH ×2 (06:44→17:02)
[2016-11-09] MEDS: CALCIUM CARB + VIT D 600 MG (CALCARB + D) TAB PO SCH (06:44)
[2016-11-09] MEDS: OMEGA 3 (FISH OIL) 1000 MG CAP PO SCH ×2 (06:44→17:02)
[2016-11-09] MEDS: MULTIVIT W/MINERALS TAB (THERAGRAN M) PO SCH (06:44)
[2016-11-09] MEDS: glipiZIDE 5 MG (GLUCOTROL) TAB PO SCH ×2 (06:44→17:02)
[2016-11-09] MEDS: RT-ALBUTEROL/IPRATROPIUM 3 ML (DUONEB) VIAL INH PRN (07:41)
[2016-11-09] MEDS: CEFEPIME INJECTION 2,000 MG in NS (IVPB) 50 ML IV SCH (08:20)
[2016-11-09] MEDS: AMIODARONE 200 MG (CORDARONE) TAB PO SCH (08:20)
[2016-11-09] MEDS: ASPIRIN E.C. 81 MG (ECOTRIN) TAB PO SCH (08:20)
[2016-11-09] MEDS: lisINopril 20 MG (ZESTRIL) TAB PO SCH (08:20)
[2016-11-09] MEDS ORDERED: NON-FORMULARY MEDICATION 1 EA EA PO SCH (09:00)
--- NOTE | 2016-11-09 09:28 | PM&R Post Admission Assessment ---
Post Admission Physician Asses The preadmission screen agrees with the post admission assessment that the patient is a good candidate for inpatient rehabilitation. The patient will have a comprehensive program of inpatient rehabilitation with a goal of maximizing level of functional independence prior to discharge home with family. The patient will have PT/OT ninety minutes per day, each discipline, five days a week for 2 weeks for gait strengthening, conditioning, balance, ADLs, any patient/family/caregiver training necessary. Speech therapy to do cognitive assessment and treat as indicted. Rehabilitation nursing to assist with bowel, bladder, skin, wound care, medication administration, pain management. Staffing Mgr to assist with discharge planning, community reentry. SCD's for DVT prophylaxis. He appears to be well motivated to participate in three hours of therapy a day. He should be able to tolerate three hours of therapy a day from a medical standpoint. He should benefit from the three hours of therapy a day. He has a reasonable discharge plan, reasonable discharge rehabilitation goals and a supportive family. He has various comorbidities that need to be closely monitored with medications and treatments adjusted on a daily basis as needed. These include: Pneumonia Stage IV Lung CA DM Chronic back pain Chemotherapy induced Polyneuropathy with weakness and numbness Barriers to discharge for this patient who had been independent prior to this are for him to be modified independent to supervision for ADLs and mobility skills prior to discharge home with [family], so as to lessen the burden of the caregivers. Risks for this patient include: 1. Fall 2. Fracture 3. DVT 4. Pulmonary embolism 5. Wound infection 6. Skin breakdown 7. Contractures 8. Poorly controlled pain 9. Urinary retention 10. UTI 11. Worsening Respiratory infection 12. Aspiration 13. Worsening Neuropathy 14. Poorly controlled DM Estimated Length of Stay: 14 days Prognosis: Rehab prognosis (SHORT TERM) appears good for goal of discharge home with family modified independent to supervision for ADLs and mobility skills. JAREK MOCK MD November 09, 2016 09:28
--- NOTE | 2016-11-09 10:01 | Occupational Ther Daily Note ---
OT Current Status-Daily Note Subjective Pt. does not report pain, but does state, "I'm just so tired. All I want to do is sleep." Appearance Pt. in bed when OT enters room. Declines showering but agrees to spongebathe and dress. Mental Status/Objective Patient Orientation: Person, Place Functional [place] Measure 0=Not Assessed/NA 4=Minimal Assistance 1=Total Assistance 5=Supervision or Setup 2=Maximal Assistance 6=Modified [place] 3=Moderate Assistance 7=Complete [place] ADL-Treatment Functional [place] Measure 0=Not Assessed/NA 4=Minimal Assistance 1=Total Assistance 5=Supervision or Setup 2=Maximal Assistance 6=Modified [place] 3=Moderate Assistance 7=Complete IndependenceIRFPAI Quality Coding Scale 6 Independent with activity with or without an assistive device 5 Patient requires set up or clean up by helper. Patient completes activity by themselves 4 Supervision or touching assist (CGA). [place] provide cues , steadying assist 3 The helper provides less than half the effort to complete the activity 2 The helper provides more than half the effort to complete the activity 1 Dependent. The helper does all the effort to complete an activity 7 Patient refused to complete or attempt activity 9 The patient did not perform the activity before the current illness or injury 88 Not attempted due to Medical conditions or safety concerns Grooming (FIM): 5 (Pt. requires SBA to brush teeth. This task takes him time, as he continues to stop and rest throughout it.) Oral Hygiene (QC): 4 Bathing (FIM): 4 (Pt. needs constant CGA in stance to wash abhishek areas.) Shower/Bathe Self (QC): 4 Upper Body (FIM): 3 (Mod assist to doff/don shirt. Pt. had difficulty getting one arm into shirt, and buttoning buttons.) Upper Body Dressing (QC): 3 Lower Body Dressing (FIM): 3 (Pt. is able to doff underwear, pants, and socks. Requires assist to don socks, and to pull up pants over hips.) Lower Body Dressing (QC): 3 On/Off Footwear (QC): 2 (Pt. can take off socks by using the opposite foot, but needs assist to put them on.) Toileting (FIM): 4 (Pt. requires CGA in stance at toilet to urinate. Noted that pt. urinated all over the floor and toilet.) Transfers (B, C, W/C) (FIM): 4 Pt. demonstrates decreased activity tolerance with most tasks. Very lethargic and wants frequent rest breaks. Requires CGA in stance and ambulation due to fatigue. Somewhat "wobbly" with movements. Pt. educated on activity schedule for the day. Verbalizes understanding of need for rehab. Education OT Patient Education: Correct positioning, Modified ADL techniques, Progress toward Goal/Update tx plan, Purpose of tx/functional activities, Reviewed precautions, Rehab process, Transfer techniques Teaching Recipient: Patient Teaching Methods: Demonstration, Discussion Response to Teaching: Verbalize Understanding, Return Demonstration OT Short Term Goals Short Term Goals Time Frame: November 22, 2016 Lower Body Dressing(FIM): 5 Shower Transfer(FIM): 5 Additional Short Term Goals: 2-Verbalize Understanding, 3-ImproveStrength/Amanda 1=Demonstrate adherence to instructed precautions during ADL tasks. 2=Patient will verbalize/demonstrate understanding of assistive devices/ modifications for ADL. 3=Patient will improve strength/tolerance for activity to enable patient to perform ADL's. OT Residential Goals Driver'S License Reviewing Officer Goals Time Frame: Nov 29, 2016 Eating (FIM): 6 Eating (QC): 6 Groomin Oral Hygiene (QC): 6 Bathing(FIM): 6 Shower/Bathe Self (QC): 6 Upper Body Dressing(FIM): 6 Upper Body Dressing (QC): 6 Lower Body Dressing(FIM): 6 Lower Body Dressing (QC): 6 On/Off Footwear (QC): 6 Toileting(FIM): 6 Toileting Hygiene (QC): 6 Toilet/Commode Transfer(FIM): 6 Toilet/Commode Transfer (QC): 6 Shower Transfer(FIM): 6 Additional Goals: 2-Verbalize Understanding, 3-ImproveStrength/Amanda 1=Demonstrate adherence to instructed precautions during ADL tasks. 2=Patient will verbalize/demonstrate understanding of assistive devices/ modifications for ADL. 3=Patient will improve strength/tolerance for activity to enable patient to perform ADL's. OT Education/Plan Problem List/Assessment Assessment: Decreased Activ Tolerance, Decreased Safety Aware, Decreased UE Strength, Dependent Transfers, Impaired Bed Mobility, Impaired Funct Balance, Impaired I ADL's, Impaired Self-Care Skills Pt would benefit from skilled OT to increase his independence with basic self care to allow him to safely return home to live with his and to decrease caregiver burden. Discharge Recommendations Plan/Recommendations: Continue POC Therapy D/C Recommendations: Home w/ Family Support, Occupational Therapy Home Care, Scheduled Assistance Barriers to Progress Weakness and lethargy Treatment Plan/Plan of Care Treatment,Training & Education: Yes Patient would benefit from OT for education, treatment and training to promote independence in ADL's, mobility, safety and/or upper extremity function for ADL' s. Plan of Care: ADL Retraining, Functional Mobility, Group Exercise/Act as Ind ( education, exercise, activ tolerance, socialization, funct activities), UE Funct Exercise/Act, UE Neuromus Re-Ed/Coord Treatment Duration: Nov 29, 2016 Visits Per Week: 10-11 Minutes/Day (M-F): 75-90 Minutes/Day (Sat/Glez): PRN Agreement: Yes Rehab Potential: Fair Time/GCodes Start Time: 08:45 Stop Time: 09:45 Total Time Billed (hr/min): 60 Billed Treatment Time 1, ADL x 4 CLIFFORD MCNALLY OT November 09, 2016 10:01
--- NOTE | 2016-11-09 11:05 | Physical Therapy Daily Note ---
PT Daily Note-Current Subjective Pt. asleep in bed on his side , difficult to awaken and very lethargic when he did awaken. Daughter present and supportive. C/o being sleepy only Pain Numeric Pain Scale: 0-No Pain Mental Status Patient Orientation: Person Transfers Functional [place] Measure 0=Not Assessed/NA 4=Minimal Assistance 1=Total Assistance 5=Supervision or Setup 2=Maximal Assistance 6=Modified [place] 3=Moderate Assistance 7=Complete IndependenceIRFPAI Quality Coding Scale 6 Independent with activity with or without an assistive device 5 Patient requires set up or clean up by helper. Patient completes activity by themselves 4 Supervision or touching assist (CGA). [place] provide cues , steadying assist 3 The helper provides less than half the effort to complete the activity 2 The helper provides more than half the effort to complete the activity 1 Dependent. The helper does all the effort to complete an activity 7 Patient refused to complete or attempt activity 9 The patient did not perform the activity before the current illness or injury 88 Not attempted due to Medical conditions or safety concerns Transfers (B, C, W/C) (FIM): 4 Scootin Rollin Supine to/from Sit: 4 Sit to/from Stand: 4 Bed to/from Chair: 4 pt. staggers a bit with TRFs and needs cuing for safety and use of hands Gait Training Does the Patient Walk?: Yes Gait (FIM): 2 Distance (FIM): 9=038-88 ft Gait Level of Assist: 4 Gait Persons Needed: 1 Gait Assistive Device: FWW pt. c/o of some dizziness, during gait pt. nearly lifts FWW off the ground instead of wt bearing into it. crossovers noted and general weakness and need for min assist and short bouts of gait for safety Exercises Supine Ex: Bridging, Ankle pumps, Quad Set, Rolling, Glut sets, Heel Slides, Short Arc Quads, Scooting, Straight leg raise, Hip abd/add Supine Reps: 12 Seated Therapy Exercises: Sit to stand Seated Reps: 10 NuStep Minutes: 10 NuStep Workload: 2 Treatments pt. needed redirection for all . slow response Assessment Current Status: Fair Progress PT Short Term Goals Short Term Goals Time Frame: November 15, 2016 Gait (FIM): 5 Gait Distance Comment: 300' Gait Level of Assist: 5 Gait Assistive Device: FWW PT Fdc Goals Fdc Goals PT Fdc Goals Time Frame: Nov 29, 2016 Transfers (B,C,W/C) (FIM): 6 Sit to Lying (QC): 6 Lying-Sitting on Side/Bed(QC): 6 Sit to Stand (QC): 6 Rollin Roll Left to Right (QC): 6 Car Transfer (QC): 4 Gait (FIM): 6 Distance: 400' Walk 10 feet (QC): 6 Walk 10ft-Uneven Surface(QC): 6 Walk 50ft with 2 Turns (QC): 6 Walk 150 ft (QC): 6 Gait Assistive Device: FWW Stairs (FIM): 5 # of Steps: 12 1 Step (curb) (QC): 4 4 Steps (QC): 4 12 Steps (QC): 4 Stairs Level Of Assist: 5 Picking up an Object (QC): 4 PT Plan Treatment/Plan Treatment Plan: Continue Plan of Care Treatment Plan: Bed Mobility, Education, Functional Activity Amanda, Functional Strength, Group Therapy, Gait, Safety, Therapeutic Exercise, Transfers Treatment Duration: Nov 29, 2016 Visits Per Week: 10-11 Minutes/Day (M-F): 60-90 Minutes/Day (Sat/Glez): 15-30 Safety Risks/Education Patient Education: Gait Training, Transfer Techniques, Correct Positioning, Safety Issues Teaching Recipient: Patient Teaching Methods: Demonstration, Discussion Response to Teaching: Reinforcement Needed Time/GCodes Time In: 1000 Time Out: 1100 Total Billed Treatment Time: 60 Total Billed Treatment 1,FA20m,GT15m,EX25m G Codes Necessary: ESTHELA Dalton MIXING PLANT OPERATOR November 09, 2016 11:05
--- NOTE | 2016-11-09 14:30 | Physical Therapy Daily Note ---
PT Daily Note-Current Subjective Pts and daughter present. states she opes he gets strong enough to go on an [employer] cruise. Pt. requests to go to bathroom to urinate but stands at toilet using hand held urinal. c/o many times during Rx that he is so very tired and could just sleep all day and all night Pain Numeric Pain Scale: 0-No Pain Transfers Functional [place] Measure 0=Not Assessed/NA 4=Minimal Assistance 1=Total Assistance 5=Supervision or Setup 2=Maximal Assistance 6=Modified [place] 3=Moderate Assistance 7=Complete IndependenceIRFPAI Quality Coding Scale 6 Independent with activity with or without an assistive device 5 Patient requires set up or clean up by helper. Patient completes activity by themselves 4 Supervision or touching assist (CGA). [place] provide cues , steadying assist 3 The helper provides less than half the effort to complete the activity 2 The helper provides more than half the effort to complete the activity 1 Dependent. The helper does all the effort to complete an activity 7 Patient refused to complete or attempt activity 9 The patient did not perform the activity before the current illness or injury 88 Not attempted due to Medical conditions or safety concerns emphasis this pm on sup to sit TRFs as it has been noted that pt. uses rocking momentum to rock up from supine vs sidelying. Pt demonstrated x3 that he can roll to side and come up using UEs to push etc..Sit to stand needs cues for using UEs properly on arms of chair etc Gait Training Does the Patient Walk?: Yes Gait (FIM): 4 Distance (FIM): 3=150 ft (x2) Gait Level of Assist: 4 Gait Persons Needed: 1 Gait Assistive Device: FWW pt. has tendency to take corners with narrow PATRICK, picking FWW up off floor on 2 wheels and unsafely with cross over stepping requiring min to mod to recover from some LOB Exercises Supine Ex: Ankle pumps, Quad Set, Rolling, Heel Slides, Scooting, Straight leg raise, Hip abd/add Supine Reps: 12 Assessment Current Status: Fair Progress so very fatigued, puts off rx secondary to frequent rest breaks PT Short Term Goals Short Term Goals Time Frame: November 15, 2016 Gait (FIM): 5 Gait Distance Comment: 300' Gait Level of Assist: 5 Gait Assistive Device: FWW PT Animal Husbandry Professor Goals Animal Husbandry Professor Goals PT Animal Husbandry Professor Goals Time Frame: Nov 29, 2016 Transfers (B,C,W/C) (FIM): 6 Sit to Lying (QC): 6 Lying-Sitting on Side/Bed(QC): 6 Sit to Stand (QC): 6 Rollin Roll Left to Right (QC): 6 Car Transfer (QC): 4 Gait (FIM): 6 Distance: 400' Walk 10 feet (QC): 6 Walk 10ft-Uneven Surface(QC): 6 Walk 50ft with 2 Turns (QC): 6 Walk 150 ft (QC): 6 Gait Assistive Device: FWW Stairs (FIM): 5 # of Steps: 12 1 Step (curb) (QC): 4 4 Steps (QC): 4 12 Steps (QC): 4 Stairs Level Of Assist: 5 Picking up an Object (QC): 4 PT Plan Treatment/Plan Treatment Plan: Continue Plan of Care Treatment Plan: Bed Mobility, Education, Functional Activity Amanda, Functional Strength, Group Therapy, Gait, Safety, Therapeutic Exercise, Transfers Treatment Duration: Nov 29, 2016 Visits Per Week: 10-11 Minutes/Day (M-F): 60-90 Minutes/Day (Sat/Glez): 15-30 Safety Risks/Education Patient Education: Gait Training, Transfer Techniques Teaching Recipient: Patient Teaching Methods: Demonstration, Discussion Response to Teaching: Reinforcement Needed Time/GCodes Time In: 1355 Time Out: 1425 Total Billed Treatment Time: 30 Total Billed Treatment 1,GT15,FA15 G Codes Necessary: ESTHELA Dalton DRAFTER DIRECTIONAL SURVEY November 09, 2016 14:30
--- NOTE | 2016-11-09 14:55 | Occupational Ther Daily Note ---
OT Current Status-Daily Note Subjective No pain reported. Appearance Pt. up in recliner. Agrees to work with OT. Mental Status/Objective Patient Orientation: Person, Place Functional [place] Measure 0=Not Assessed/NA 4=Minimal Assistance 1=Total Assistance 5=Supervision or Setup 2=Maximal Assistance 6=Modified [place] 3=Moderate Assistance 7=Complete [place] ADL-Treatment Functional [place] Measure 0=Not Assessed/NA 4=Minimal Assistance 1=Total Assistance 5=Supervision or Setup 2=Maximal Assistance 6=Modified [place] 3=Moderate Assistance 7=Complete IndependenceIRFPAI Quality Coding Scale 6 Independent with activity with or without an assistive device 5 Patient requires set up or clean up by helper. Patient completes activity by themselves 4 Supervision or touching assist (CGA). [place] provide cues , steadying assist 3 The helper provides less than half the effort to complete the activity 2 The helper provides more than half the effort to complete the activity 1 Dependent. The helper does all the effort to complete an activity 7 Patient refused to complete or attempt activity 9 The patient did not perform the activity before the current illness or injury 88 Not attempted due to Medical conditions or safety concerns Other Treatment Pt. agrees to bilateral UE strengthening tasks. OT brings in armbike to room. Pt. sits in chair, and is able to complete 5 minutes on armbike. Never becomes short of breath, but takes a break. Completes another 5 minutes with several rest break. Spoke with daughter in depth regarding pt's progress. Daughter states that she hopes for him to regain strength and endurance, but understands that he may not. All needs are met in pt's room, and daughter comes back into room. Education OT Patient Education: Correct positioning, Exercise program, Modified ADL techniques Teaching Recipient: Patient Teaching Methods: Demonstration, Discussion Response to Teaching: Verbalize Understanding, Return Demonstration OT Short Term Goals Short Term Goals Time Frame: November 22, 2016 Lower Body Dressing(FIM): 5 Shower Transfer(FIM): 5 Additional Short Term Goals: 2-Verbalize Understanding, 3-ImproveStrength/Amanda 1=Demonstrate adherence to instructed precautions during ADL tasks. 2=Patient will verbalize/demonstrate understanding of assistive devices/ modifications for ADL. 3=Patient will improve strength/tolerance for activity to enable patient to perform ADL's. OT Division Head Goals Division Head Goals Time Frame: Nov 29, 2016 Eating (FIM): 6 Eating (QC): 6 Groomin Oral Hygiene (QC): 6 Bathing(FIM): 6 Shower/Bathe Self (QC): 6 Upper Body Dressing(FIM): 6 Upper Body Dressing (QC): 6 Lower Body Dressing(FIM): 6 Lower Body Dressing (QC): 6 On/Off Footwear (QC): 6 Toileting(FIM): 6 Toileting Hygiene (QC): 6 Toilet/Commode Transfer(FIM): 6 Toilet/Commode Transfer (QC): 6 Shower Transfer(FIM): 6 Additional Goals: 2-Verbalize Understanding, 3-ImproveStrength/Amanda 1=Demonstrate adherence to instructed precautions during ADL tasks. 2=Patient will verbalize/demonstrate understanding of assistive devices/ modifications for ADL. 3=Patient will improve strength/tolerance for activity to enable patient to perform ADL's. OT Education/Plan Problem List/Assessment Assessment: Decreased Activ Tolerance, Decreased UE Strength, Dependent Transfers, Impaired Coordination, Impaired Funct Balance, Impaired I ADL's, Impaired Self-Care Skills, Restricted Funct UE ROM Pt would benefit from skilled OT to increase his independence with basic self care to allow him to safely return home to live with his and to decrease caregiver burden. Discharge Recommendations Plan/Recommendations: Continue POC Therapy D/C Recommendations: Home w/ Family Support, Scheduled Assistance Treatment Plan/Plan of Care Treatment,Training & Education: Yes Patient would benefit from OT for education, treatment and training to promote independence in ADL's, mobility, safety and/or upper extremity function for ADL' s. Plan of Care: ADL Retraining, Functional Mobility, Group Exercise/Act as Ind ( education, exercise, activ tolerance, socialization, funct activities), UE Funct Exercise/Act, UE Neuromus Re-Ed/Coord Treatment Duration: Nov 29, 2016 Visits Per Week: 10-11 Minutes/Day (M-F): 75-90 Minutes/Day (Sat/Glez): PRN Agreement: Yes Rehab Potential: Fair Time/GCodes Start Time: 11:20 Stop Time: 11:50 Total Time Billed (hr/min): 30 Billed Treatment Time 1, EX x 2 CLIFFORD MCNALLY OT November 09, 2016 14:55
[2016-11-09 17:28] VITALS: BP 135/70
--- NOTE | 2016-11-09 19:08 | PM & R (SOAP) Progress Note ---
Subjective Subjective/Events-last exam Patient was seen in his room earlier today Adjusting well to unit but fatiques easily.Patient min assist for transfers and Dressing Reports some tingling in hands.Accuchecks noted Review of Systems Neurological: Incoordination, Numbness, Weakness Objective Exam Last Set of Vital Signs Vital Signs Date Time Temp Pulse Resp B/P (MAP) Pulse Ox O2 Delivery O2 Flow Rate FiO2 11/09/16 17:28 99.0 72 135/70 93 11/09/16 05:34 18 Capillary Refill : I&O Bad tableGeneral: Alert, Oriented X3, Cooperative, No Acute Distress HEENT: Atraumatic, PERRLA, EOMI, Mucous Memb Moist/[place] Neck: Supple, No JVD Lungs: Other (few crackles left base) Heart: Regular Rate Abdomen: Normal Bowel Sounds, Soft, No Tenderness Extremities: No Edema Skin: Other (skin tear rt forearm) Neuro: Other (Tingling in hands Limited AROM rt shoulder to 90- degrees decreased coordination rt leg with gait Strength RLE 4/5 Left 4/5 proximal and 5 /5 distal) Results Lab Laboratory Tests 11/08/16 16:10: Glucometer 164H 11/08/16 20:37: Glucometer 128H 11/09/16 04:48: Glucometer 93 11/09/16 10:49: Glucometer 154H 11/09/16 15:45: Glucometer 132H Assessment/Plan Assessment 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 JAREK MOCK MD November 09, 2016 19:08
[2016-11-09] MEDS: ATORVASTATIN 40 MG (LIPITOR) TABLET PO SCH (21:39)
[2016-11-09] MEDS: FENOFIBRATE 134 MG (LOFIBRA) CAPSULE PO SCH (21:39)
[2016-11-09] MEDS: GLUCOSAMINE 1000 MG PO SCH (21:40)
[2016-11-10] MEDS: ONDANSETRON 8 MG (ZOFRAN) ORAL DISSOLVE TAB PO SCH ×3 (00:03→15:32)
[2016-11-10 05:47] LABS: BASOPHILS % (AUTO) 0 % (0-10); EOSINOPHILS # (AUTO) 0.1 10^3/uL (0.0-0.3); EOSINOPHILS % (AUTO) 2 % (0-10); LYMPHOCYTES # (AUTO) 1.2 X 10^3 (1.0-4.0); LYMPHOCYTES % (AUTO) 17 % (12-44); MEAN CORPUSCULAR HEMOGLOBIN 28 PG (25-34); MEAN CORPUSCULAR HGB CONC 32 G/DL (32-36); MEAN CORPUSCULAR VOLUME 86 FL (80-99); MEAN PLATELET VOLUME 9.8 FL (7.4-10.4); MONOCYTES # (AUTO) 0.6 X 10^3 (0.0-1.0); MONOCYTES % (AUTO) 8 % (0-12); NEUTROPHILS % (AUTO) 72 % (42-75); PLATELET COUNT 356 10^3/uL (130-400); RED BLOOD COUNT 3.23 10^6/uL (4.35-5.85); RED CELL DISTRIBUTION WIDTH 16.5 % (10.0-14.5); WHITE BLOOD COUNT 6.9 10^3/uL (4.3-11.0)
[2016-11-10 06:00] VITALS: BP 134/72
[2016-11-10] MEDS: inSUlin (REGULAR) HUMAN 1 UNIT/0.01 ML (CHARGE PER UNIT) SC SCH ×4 (06:04→21:36)
[2016-11-10 06:08] LABS: ALBUMIN 2.7 G/DL (3.2-4.5); BILIRUBIN,TOTAL 0.4 MG/DL (0.1-1.0); CALCIUM 9.1 MG/DL (8.5-10.1); CREATININE SERUM 1.4 MG/DL (0.60-1.30); POTASSIUM 4.3 MMOL/L (3.6-5.0); TOTAL PROTEIN 5.2 G/DL (6.4-8.2)
[2016-11-10] MEDS: glipiZIDE 5 MG (GLUCOTROL) TAB PO SCH ×2 (07:00→17:26)
[2016-11-10] MEDS: OMEGA 3 (FISH OIL) 1000 MG CAP PO SCH ×2 (07:01→17:27)
[2016-11-10] MEDS: CALCIUM CARB + VIT D 600 MG (CALCARB + D) TAB PO SCH (07:01)
[2016-11-10] MEDS: metFORMIN 500 MG (GLUCOPHAGE) TAB PO SCH ×2 (07:01→17:26)
[2016-11-10] MEDS: MULTIVIT W/MINERALS TAB (THERAGRAN M) PO SCH (07:01)
[2016-11-10] MEDS: HYDROcodone/APAP 5 MG/325 MG (LORTAB) TAB PO PRN (08:29)
[2016-11-10] MEDS: AMIODARONE 200 MG (CORDARONE) TAB PO SCH (08:30)
[2016-11-10] MEDS: lisINopril 20 MG (ZESTRIL) TAB PO SCH (08:30)
[2016-11-10] MEDS: CEFEPIME INJECTION 2,000 MG in NS (IVPB) 50 ML IV SCH (08:30)
[2016-11-10] MEDS: ASPIRIN E.C. 81 MG (ECOTRIN) TAB PO SCH (08:30)
--- NOTE | 2016-11-10 09:45 | Physical Therapy Daily Note ---
PT Daily Note-Current Subjective Patient in bed pre tx, agrees to PT, states he just has some mild discomfort in his right shoulder. Appearance Patient in recliner post tx with legs elevated, has nurse call, phone, tray, all needs met. Mental Status Patient Orientation: Person, Place, Situation Attachments: IV Transfers Functional [place] Measure 0=Not Assessed/NA 4=Minimal Assistance 1=Total Assistance 5=Supervision or Setup 2=Maximal Assistance 6=Modified [place] 3=Moderate Assistance 7=Complete IndependenceIRFPAI Quality Coding Scale 6 Independent with activity with or without an assistive device 5 Patient requires set up or clean up by helper. Patient completes activity by themselves 4 Supervision or touching assist (CGA). [place] provide cues , steadying assist 3 The helper provides less than half the effort to complete the activity 2 The helper provides more than half the effort to complete the activity 1 Dependent. The helper does all the effort to complete an activity 7 Patient refused to complete or attempt activity 9 The patient did not perform the activity before the current illness or injury 88 Not attempted due to Medical conditions or safety concerns Transfers (B, C, W/C) (FIM): 4 Scootin Rollin Supine to/from Sit: 5 Sit to/from Stand: 4 Patient needs cues for safety and hand placement, will try to pull up from walker every time when standing. Gait Training Gait (FIM): 4 Distance: 150', 75'x2 Gait Level of Assist: 4 Gait Persons Needed: 1 Gait Assistive Device: FWW Slow, patient fatigues quickly, needs occasional standing or sitting rest breaks. Patient is pretty unsteady and will occasionally lose balance to the right needing min assist to correct. Exercises Seated Therapy Exercises: Ankle pumps, Hip flexion Seated Reps: 20 LAQ alternating for 5 min NuStep Minutes: 15 NuStep Workload: 4 Treatments bed mobility and transfers, ambulation, functional strengthening Assessment Current Status: Fair Progress Patient fatigues very quickly, needs rest breaks often. PT Short Term Goals Short Term Goals Time Frame: November 15, 2016 Gait (FIM): 5 Gait Distance Comment: 300' Gait Level of Assist: 5 Gait Assistive Device: FWW PT Editorial Cartoonist Goals Editorial Cartoonist Goals PT [facility] Goals Time Frame: Nov 29, 2016 Transfers (B,C,W/C) (FIM): 6 Sit to Lying (QC): 6 Lying-Sitting on Side/Bed(QC): 6 Sit to Stand (QC): 6 Rollin Roll Left to Right (QC): 6 Car Transfer (QC): 4 Gait (FIM): 6 Distance: 400' Walk 10 feet (QC): 6 Walk 10ft-Uneven Surface(QC): 6 Walk 50ft with 2 Turns (QC): 6 Walk 150 ft (QC): 6 Gait Assistive Device: FWW Stairs (FIM): 5 # of Steps: 12 1 Step (curb) (QC): 4 4 Steps (QC): 4 12 Steps (QC): 4 Stairs Level Of Assist: 5 Picking up an Object (QC): 4 PT Plan Problem List Problem List: Activity Tolerance, Functional Strength, Safety, Balance, Gait, Transfer, Bed Mobility Treatment/Plan Treatment Plan: Continue Plan of Care Treatment Plan: Bed Mobility, Education, Functional Activity Amanda, Functional Strength, Group Therapy, Gait, Safety, Therapeutic Exercise, Transfers Treatment Duration: Nov 29, 2016 Visits Per Week: 10-11 Minutes/Day (M-F): 60-90 Minutes/Day (Sat/Glez): 15-30 Safety Risks/Education Patient Education: Gait Training, Transfer Techniques, Correct Positioning, Safety Issues Teaching Recipient: Patient Teaching Methods: Demonstration, Discussion Response to Teaching: Reinforcement Needed Time/GCodes Time In: 845 Time Out: 945 Total Billed Treatment Time: 60 Total Billed Treatment 1 visit GT 30' EX 30' ANGELINA GALAVIZ PT November 10, 2016 09:45
--- NOTE | 2016-11-10 11:35 | PM & R (SOAP) Progress Note ---
Subjective Subjective/Events-last exam Patient was seen in his room earlier today Patients spouse reports urinary frequency and foul smelling urine and requests U/A.Patient min to mod assist depending on fatique level Current meds reviewed.Discussed case with RN U/A to be obtained Review of Systems Genitourinary: Frequency Objective Exam Last Set of Vital Signs Vital Signs Date Time Temp Pulse Resp B/P (MAP) Pulse Ox O2 Delivery O2 Flow Rate FiO2 11/10/16 06:00 98.4 74 20 134/72 94 Capillary Refill : I&O Intake and Output 11/10/16 00:00 Intake Total 1175 ml Output Total 800 ml Balance 375 ml Intake Oral 1175 ml Output Urine Total 800 ml General: Alert, Oriented X3, Cooperative, No Acute Distress HEENT: Atraumatic, PERRLA, EOMI, Mucous Memb Moist/[place] Neck: Supple, No JVD Lungs: Other (few crackles left base) Heart: Regular Rate Abdomen: Normal Bowel Sounds, Soft, No Tenderness Extremities: No Edema Skin: Other (skin tear rt forearm) Neuro: Other (Tingling in hands Limited AROM rt shoulder to 90- degrees decreased coordination rt leg with gait Strength RLE 4/5 Left 4/5 proximal and 5 /5 distal) Results Lab Laboratory Tests 11/08/16 16:10: Glucometer 164H 11/08/16 20:37: Glucometer 128H 11/09/16 04:48: Glucometer 93 11/09/16 10:49: Glucometer 154H 11/09/16 15:45: Glucometer 132H 11/09/16 20:30: Glucometer 155H 11/10/16 05:34: Glucometer 96 11/10/16 05:35: White Blood Count 6.9, Red Blood Count 3.23L, Hemoglobin 8.9L, Hematocrit 28L, Mean Corpuscular Volume 86, Mean Corpuscular Hemoglobin 28, Mean Corpuscular Hemoglobin Concent 32, Red Cell Distribution Width 16.5H, Platelet Count 356, Mean Platelet Volume 9.8, Neutrophils (%) (Auto) 72, Lymphocytes (%) (Auto) 17, Monocytes (%) (Auto) 8, Eosinophils (%) (Auto) 2, Basophils (%) (Auto) 0, Neutrophils # (Auto) 5.0, Lymphocytes # (Auto) 1.2, Monocytes # (Auto) 0.6, Eosinophils # (Auto) 0.1, Basophils # (Auto) 0.0, Sodium Level 136, Potassium Level 4.3, Chloride Level 108H, Carbon Dioxide Level 23, Anion Gap 5, Blood Urea Nitrogen 20H, Creatinine 1.40H, Estimat Glomerular Filtration Rate 49, BUN/ Creatinine Ratio 14, Glucose Level 94, Calcium Level 9.1, Total Bilirubin 0.4, Aspartate Amino Transf (AST/SGOT) 58H, Alanine Aminotransferase (ALT/SGPT) 86H, Alkaline Phosphatase 51, Total Protein 5.2L, Albumin 2.7L 11/10/16 10:56: Glucometer 141H Assessment/Plan Assessment 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 Check U/A-See orders. JAREK MOCK MD November 10, 2016 11:35
--- NOTE | 2016-11-10 12:36 | Occupational Ther Daily Note ---
OT Current Status-Daily Note Subjective Pt alert, sitting in recliner. Pt's in room. Pt agreed to therapy. No c/ o pain at this time. Mental Status/Objective Patient Orientation: Person, Place, Time, Situation Functional [place] Measure 0=Not Assessed/NA 4=Minimal Assistance 1=Total Assistance 5=Supervision or Setup 2=Maximal Assistance 6=Modified [place] 3=Moderate Assistance 7=Complete [place] [facility] ADL-Treatment CGA to ambulate with FWW into bathroom. CGA using shower bench, grabbar and FWW to transfer into shower. Pt is easily SOA and needs frequent recovery breaks throughout ADLs. Pt tends to want to stand up in shower, DUM[place] attempted to educate pt that he would conserve energy to sit and complete bathing. CGA for bathing due to pt wanting to stand throughout shower. Pt was able to dry self. After set up, pt was able to don all clothing except socks. As ADLs progressed pt became more SOA and required longer recovery breaks. Pt ambulated to sit EOB with CGA using FWW then attempted to don socks, became frustrated when unable to complete. After therapy, pt lying in bed with call light/phone in reach. All needs met in room. Functional [place] Measure 0=Not Assessed/NA 4=Minimal Assistance 1=Total Assistance 5=Supervision or Setup 2=Maximal Assistance 6=Modified [place] 3=Moderate Assistance 7=Complete IndependenceIRFPAI Quality Coding Scale 6 Independent with activity with or without an assistive device 5 Patient requires set up or clean up by helper. Patient completes activity by themselves 4 Supervision or touching assist (CGA). [place] provide cues , steadying assist 3 The helper provides less than half the effort to complete the activity 2 The helper provides more than half the effort to complete the activity 1 Dependent. The helper does all the effort to complete an activity 7 Patient refused to complete or attempt activity 9 The patient did not perform the activity before the current illness or injury 88 Not attempted due to Medical conditions or safety concerns Bathing (FIM): 4 Bathing Location: L Arm, R Arm, L Upper Leg, R Upper Leg, L Lower Leg ( including foot), R Lower Leg (including foot), Chest, Abdomen, Buttocks, Perineal Area Upper Body (FIM): 5 Lower Body Dressing (FIM): 4 Transfers (B, C, W/C) (FIM): 4 Shower Transfer(FIM): 4 Pt tended to get frustrated quickly when he fatigued or could not complete tasks. Pt is able to complete bed mobility by self. Education OT Patient Education: Energy conservation Teaching Recipient: Patient Teaching Methods: Discussion Response to Teaching: Reinforcement Needed OT Short Term Goals Short Term Goals Time Frame: November 22, 2016 Lower Body Dressing(FIM): 5 Shower Transfer(FIM): 5 Additional Short Term Goals: 2-Verbalize Understanding, 3-ImproveStrength/Amanda 1=Demonstrate adherence to instructed precautions during ADL tasks. 2=Patient will verbalize/demonstrate understanding of assistive devices/ modifications for ADL. 3=Patient will improve strength/tolerance for activity to enable patient to perform ADL's. OT Communications Tower Technician Goals Jail Goals Time Frame: Nov 29, 2016 Eating (FIM): 6 Eating (QC): 6 Groomin Oral Hygiene (QC): 6 Bathing(FIM): 6 Shower/Bathe Self (QC): 6 Upper Body Dressing(FIM): 6 Upper Body Dressing (QC): 6 Lower Body Dressing(FIM): 6 Lower Body Dressing (QC): 6 On/Off Footwear (QC): 6 Toileting(FIM): 6 Toileting Hygiene (QC): 6 Toilet/Commode Transfer(FIM): 6 Toilet/Commode Transfer (QC): 6 Shower Transfer(FIM): 6 Additional Goals: 2-Verbalize Understanding, 3-ImproveStrength/Amanda 1=Demonstrate adherence to instructed precautions during ADL tasks. 2=Patient will verbalize/demonstrate understanding of assistive devices/ modifications for ADL. 3=Patient will improve strength/tolerance for activity to enable patient to perform ADL's. OT Education/Plan Problem List/Assessment Pt would benefit from skilled OT to increase his independence with basic self care to allow him to safely return home to live with his and to decrease caregiver burden. Discharge Recommendations Plan/Recommendations: Continue POC Treatment Plan/Plan of Care Patient would benefit from OT for education, treatment and training to promote independence in ADL's, mobility, safety and/or upper extremity function for ADL' s. Plan of Care: ADL Retraining, Functional Mobility, Group Exercise/Act as Ind ( education, exercise, activ tolerance, socialization, funct activities), UE Funct Exercise/Act, UE Neuromus Re-Ed/Coord Treatment Duration: Nov 29, 2016 Visits Per Week: 10-11 Minutes/Day (M-F): 75-90 Minutes/Day (Sat/Glez): PRN Agreement: Yes Rehab Potential: Fair Time/GCodes Start Time: 11:45 Stop Time: 12:45 Total Time Billed (hr/min): 60 Billed Treatment Time 1 visit-ADL 4 (60 min) ISABELA CAM November 10, 2016 12:36
--- NOTE | 2016-11-10 13:10 | Occupational Ther Daily Note ---
OT Current Status-Daily Note Subjective Pt.'s spouse states that he was up all night trying to "pee." States that she got no sleep as well, and that he was unable to go. States that she feels that he might have a UTI. Reported this to nursing. Appearance Pt. up in chair. Agrees to treatment. Mental Status/Objective Patient Orientation: Person Functional [place] Measure 0=Not Assessed/NA 4=Minimal Assistance 1=Total Assistance 5=Supervision or Setup 2=Maximal Assistance 6=Modified [place] 3=Moderate Assistance 7=Complete [place] ADL-Treatment Functional [place] Measure 0=Not Assessed/NA 4=Minimal Assistance 1=Total Assistance 5=Supervision or Setup 2=Maximal Assistance 6=Modified [place] 3=Moderate Assistance 7=Complete IndependenceIRFPAI Quality Coding Scale 6 Independent with activity with or without an assistive device 5 Patient requires set up or clean up by helper. Patient completes activity by themselves 4 Supervision or touching assist (CGA). [place] provide cues , steadying assist 3 The helper provides less than half the effort to complete the activity 2 The helper provides more than half the effort to complete the activity 1 Dependent. The helper does all the effort to complete an activity 7 Patient refused to complete or attempt activity 9 The patient did not perform the activity before the current illness or injury 88 Not attempted due to Medical conditions or safety concerns Other Treatment Pt. stood out of chair with CGA. Ambulated with wheeled walker to therapy gym. Required CGA, as pt. was somewhat "wobbly" and would veer off on his walker. Required increased time to ambulate to the gym,as he would stop to rest. Once in gym, pt. completed 10 minutes on the armbike to increase overall strength and endurance. This fatigued pt, and it was noted several times during session that he would close his eyes and stop pedaling. When asked if he was tired, he states that he is very tired. Ambulated back to room. All needs met back in chair. OT to come back later to assist him with shower. Education OT Patient Education: Correct positioning, Exercise program, Progress toward Goal/Update tx plan, Purpose of tx/functional activities, Reviewed precautions, Rehab process, Transfer techniques Teaching Recipient: Patient Teaching Methods: Demonstration, Discussion Response to Teaching: Verbalize Understanding, Return Demonstration OT Short Term Goals Short Term Goals Time Frame: November 22, 2016 Lower Body Dressing(FIM): 5 Shower Transfer(FIM): 5 Additional Short Term Goals: 2-Verbalize Understanding, 3-ImproveStrength/Amanda 1=Demonstrate adherence to instructed precautions during ADL tasks. 2=Patient will verbalize/demonstrate understanding of assistive devices/ modifications for ADL. 3=Patient will improve strength/tolerance for activity to enable patient to perform ADL's. OT Alf Goals Process Control Operator Goals Time Frame: Nov 29, 2016 Eating (FIM): 6 Eating (QC): 6 Groomin Oral Hygiene (QC): 6 Bathing(FIM): 6 Shower/Bathe Self (QC): 6 Upper Body Dressing(FIM): 6 Upper Body Dressing (QC): 6 Lower Body Dressing(FIM): 6 Lower Body Dressing (QC): 6 On/Off Footwear (QC): 6 Toileting(FIM): 6 Toileting Hygiene (QC): 6 Toilet/Commode Transfer(FIM): 6 Toilet/Commode Transfer (QC): 6 Shower Transfer(FIM): 6 Additional Goals: 2-Verbalize Understanding, 3-ImproveStrength/Amanda 1=Demonstrate adherence to instructed precautions during ADL tasks. 2=Patient will verbalize/demonstrate understanding of assistive devices/ modifications for ADL. 3=Patient will improve strength/tolerance for activity to enable patient to perform ADL's. OT Education/Plan Problem List/Assessment Assessment: Decreased Activ Tolerance, Decreased Safety Aware, Dependent Transfers, Impaired Cognition, Impaired Funct Balance, Impaired I ADL's, Impaired Self-Care Skills Pt would benefit from skilled OT to increase his independence with basic self care to allow him to safely return home to live with his and to decrease caregiver burden. Discharge Recommendations Plan/Recommendations: Continue POC Therapy D/C Recommendations: Home w/ Family Support, Scheduled Assistance Treatment Plan/Plan of Care Treatment,Training & Education: Yes Patient would benefit from OT for education, treatment and training to promote independence in ADL's, mobility, safety and/or upper extremity function for ADL' s. Plan of Care: ADL Retraining, Functional Mobility, Group Exercise/Act as Ind ( education, exercise, activ tolerance, socialization, funct activities), UE Funct Exercise/Act, UE Neuromus Re-Ed/Coord Treatment Duration: Nov 29, 2016 Visits Per Week: 10-11 Minutes/Day (M-F): 75-90 Minutes/Day (Sat/Glez): PRN Agreement: Yes Rehab Potential: Fair Time/GCodes Start Time: 10:25 Stop Time: 10:55 Total Time Billed (hr/min): 30 Billed Treatment Time 1, EX x 2 CLIFFORD MCNALLY OT November 10, 2016 13:10
[2016-11-10 18:34] VITALS: BP 169/67
[2016-11-10 18:56] LABS: BILIRUBIN,URINE NEGATIVE (NEGATIVE); KETONES,URINE 1+ (NEGATIVE); LEUKOCYTE ESTERASE ,URINE 1+ (NEGATIVE); NITRITE,URINE NEGATIVE (NEGATIVE); PH,URINE 5 (5-9); PROTEIN,URINE 2+ (NEGATIVE); UROBILINOGEN,URINE NORMAL (NORMAL)
[2016-11-10] MEDS: ATORVASTATIN 40 MG (LIPITOR) TABLET PO SCH (20:45)
[2016-11-10] MEDS: GLUCOSAMINE 1000 MG PO SCH (20:45)
[2016-11-10] MEDS: FENOFIBRATE 134 MG (LOFIBRA) CAPSULE PO SCH (20:45)
--- NOTE | 2016-11-10 22:10 | Individualized Plan of Care ---
Individualized Plan of Care Rehab Nursing IPOC Order Admission Date November 08, 2016 at 10:48 Current Orders Orders Ua Culture If Indicated (11/10/16 18:37) Patient Visit (11/10/16 ) Gait Training, Ea 15 Min (11/10/16 ) Exercise Therap, Ea 15 Min (11/10/16 ) Patient Visit (11/10/16 ) Gait Training, Ea 15 Min (11/10/16 ) Toilet every (bladder): (hrs): 2 hours while awake prn PT IPOC Problem List: Activity Tolerance, Functional Strength, Safety, Balance, Gait, Transfer, Bed Mobility Treatment Plan: Continue Plan of Care Bed Mobility, Education, Functional Activity Amanda, Functional Strength, Group Therapy, Gait, Safety, Therapeutic Exercise, Transfers Treatment Duration: Nov 29, 2016 Visits Per Week: 10-11 Minutes/Day (M-F): 60-90 Minutes/Day (Sat/Glez): 15-30 OT IPOC Problems: Decreased Activ Tolerance, Decreased Safety Aware, Dependent Transfers, Impaired Cognition, Impaired Funct Balance, Impaired I ADL's, Impaired Self-Care Skills OT Problems Pt would benefit from skilled OT to increase his independence with basic self care to allow him to safely return home to live with his and to decrease caregiver burden. 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 Pneumonia Urinary frequency Anemia Medical Issues: Bowel/Bladder Function, DVT Prophylaxis, Falls Precautions, Fluid/Electrolyte/Nutrition Balance, Infection Protection, Pain Management, Other (List) (as per above) Brief Synthesis of Preadmission Screen, Post-Admission Evaluation, and Therapy Evaluations: 81 yo male who developed Post chemo polyneuropathy with resulting weakness and numbness and falls associated with a decline of functional [place] Patient has Stage IV Lung CA and is s/p Lobectomy and Chemo followed by [facility].Patient request DNR status Patient has a supportive spouse and had been Independent until recently Just recently stopped smoking.PCP DR Ayala C/O Urinary frequency U/A negative Has DM with Blood glucoses controlled Currently receiving IV antibiotics for Pneumonia Medical Prognosis: Good(Short-Term) Anticipated Length of Stay: 11/29/16 Rehab Goals Modified Independent for adls and mobility skills Anticipated discharge destinat: Home with spouse and [facility] JAREK MOCK MD November 10, 2016 22:10
[2016-11-11] MEDS: ONDANSETRON 8 MG (ZOFRAN) ORAL DISSOLVE TAB PO SCH ×3 (00:14→16:33)
[2016-11-11] MEDS: HYDROcodone/APAP 5 MG/325 MG (LORTAB) TAB PO PRN (03:06)
[2016-11-11 05:00] VITALS: BP 144/66
[2016-11-11] MEDS: inSUlin (REGULAR) HUMAN 1 UNIT/0.01 ML (CHARGE PER UNIT) SC SCH ×4 (06:10→21:07)
[2016-11-11] MEDS: OMEGA 3 (FISH OIL) 1000 MG CAP PO SCH ×2 (06:48→18:06)
[2016-11-11] MEDS: metFORMIN 500 MG (GLUCOPHAGE) TAB PO SCH ×2 (06:49→18:06)
[2016-11-11] MEDS: glipiZIDE 5 MG (GLUCOTROL) TAB PO SCH ×2 (06:49→16:33)
[2016-11-11] MEDS: MULTIVIT W/MINERALS TAB (THERAGRAN M) PO SCH (06:49)
[2016-11-11] MEDS: CALCIUM CARB + VIT D 600 MG (CALCARB + D) TAB PO SCH (06:49)
[2016-11-11] MEDS: ASPIRIN E.C. 81 MG (ECOTRIN) TAB PO SCH (07:47)
[2016-11-11] MEDS: CEFEPIME INJECTION 2,000 MG in NS (IVPB) 50 ML IV SCH (07:47)
[2016-11-11] MEDS: AMIODARONE 200 MG (CORDARONE) TAB PO SCH (07:47)
[2016-11-11] MEDS: lisINopril 20 MG (ZESTRIL) TAB PO SCH (07:47)
[2016-11-11] MEDS: ONDANSETRON 4 MG (ZOFRAN) ORAL DISSOLVE TAB PO PRN ×2 (07:48→23:21)
--- NOTE | 2016-11-11 08:12 | PM & R (SOAP) Progress Note ---
Subjective Subjective/Events-last exam Patient was seen in his room this AM Slept [place] Endurance slowly improving Patient min assist for transfers Labs noted Objective Exam Last Set of Vital Signs Vital Signs Date Time Temp Pulse Resp B/P (MAP) Pulse Ox O2 Delivery O2 Flow Rate FiO2 11/11/16 07:09 93 11/11/16 05:00 99.1 80 18 144/66 Capillary Refill : I&O Intake and Output 11/11/16 00:00 Intake Total 800 ml Output Total 100 ml Balance 700 ml Intake Oral 800 ml Output Urine Total 100 ml # Voids 6 # Bowel Movements 1 General: Alert, Oriented X3, Cooperative, No Acute Distress HEENT: Atraumatic, PERRLA, EOMI, Mucous Memb Moist/[place] Neck: Supple, No JVD Lungs: Other (few crackles left base) Heart: Regular Rate Abdomen: Normal Bowel Sounds, Soft, No Tenderness Extremities: No Edema Skin: Other (skin tear rt forearm) Neuro: Other (Tingling in hands Limited AROM rt shoulder to 90- degrees decreased coordination rt leg with gait Strength RLE 4/5 Left 4/5 proximal and 5 /5 distal) Results Lab Laboratory Tests 11/08/16 16:10: Glucometer 164H 11/08/16 20:37: Glucometer 128H 11/09/16 04:48: Glucometer 93 11/09/16 10:49: Glucometer 154H 11/09/16 15:45: Glucometer 132H 11/09/16 20:30: Glucometer 155H 11/10/16 05:34: Glucometer 96 11/10/16 05:35: White Blood Count 6.9, Red Blood Count 3.23L, Hemoglobin 8.9L, Hematocrit 28L, Mean Corpuscular Volume 86, Mean Corpuscular Hemoglobin 28, Mean Corpuscular Hemoglobin Concent 32, Red Cell Distribution Width 16.5H, Platelet Count 356, Mean Platelet Volume 9.8, Neutrophils (%) (Auto) 72, Lymphocytes (%) (Auto) 17, Monocytes (%) (Auto) 8, Eosinophils (%) (Auto) 2, Basophils (%) (Auto) 0, Neutrophils # (Auto) 5.0, Lymphocytes # (Auto) 1.2, Monocytes # (Auto) 0.6, Eosinophils # (Auto) 0.1, Basophils # (Auto) 0.0, Sodium Level 136, Potassium Level 4.3, Chloride Level 108H, Carbon Dioxide Level 23, Anion Gap 5, Blood Urea Nitrogen 20H, Creatinine 1.40H, Estimat Glomerular Filtration Rate 49, BUN/ Creatinine Ratio 14, Glucose Level 94, Calcium Level 9.1, Total Bilirubin 0.4, Aspartate Amino Transf (AST/SGOT) 58H, Alanine Aminotransferase (ALT/SGPT) 86H, Alkaline Phosphatase 51, Total Protein 5.2L, Albumin 2.7L 11/10/16 10:56: Glucometer 141H 11/10/16 16:01: Glucometer 111H 11/10/16 17:15: Urine Color YELLOW, Urine Clarity CLEAR, Urine pH 5, Urine Specific [place] 1.020, Urine Protein 2+H, Urine Glucose (UA) NEGATIVE, Urine Ketones 1+H, Urine Nitrite NEGATIVE, Urine Bilirubin NEGATIVE, Urine Urobilinogen NORMAL, Urine Leukocyte Esterase 1+H, Urine RBC (Auto) NEGATIVE, Urine RBC NONE, Urine WBC 2-5 , Urine Crystals NONE, Urine Bacteria NONE, Urine Casts NONE, Urine Mucus TRACE , Urine Culture Indicated NO 11/10/16 21:36: Glucometer 111H 11/11/16 05:52: Glucometer 80 Assessment/Plan Assessment 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 Check U/A-See orders-done negative. JAREK MOCK MD November 11, 2016 08:12
--- NOTE | 2016-11-11 09:52 | Occupational Ther Daily Note ---
OT Current Status-Daily Note Subjective Pt lying in bed sleeping. Woke pt with name. Pt had difficulty waking. Pt stated he just wanted to sleep. stated that he had slept all night. No c/ o pain only fatigue. Mental Status/Objective Patient Orientation: Person, Place, Situation Functional [place] Measure 0=Not Assessed/NA 4=Minimal Assistance 1=Total Assistance 5=Supervision or Setup 2=Maximal Assistance 6=Modified [place] 3=Moderate Assistance 7=Complete [place] [facility] ADL-Treatment Pt had difficulty motivating self to get out of bed. Pt is able to go from supine to sitting EOB by self. Then ambulated with CGA using FWW to bathroom, 1 LOB. Pt stood at toilet with SBA and was able to void and complete toileting with SBA. Pt transferred to chair to sit in front of sink to complete ADLs. Pt took multiple recovery breaks during ADLs. Pt required recovery breaks after threading each leg into a pant leg. Pt stood at sink to complete grooming/oral care with SBA. Pt required assist to don shirt. Functional [place] Measure 0=Not Assessed/NA 4=Minimal Assistance 1=Total Assistance 5=Supervision or Setup 2=Maximal Assistance 6=Modified [place] 3=Moderate Assistance 7=Complete IndependenceIRFPAI Quality Coding Scale 6 Independent with activity with or without an assistive device 5 Patient requires set up or clean up by helper. Patient completes activity by themselves 4 Supervision or touching assist (CGA). [place] provide cues , steadying assist 3 The helper provides less than half the effort to complete the activity 2 The helper provides more than half the effort to complete the activity 1 Dependent. The helper does all the effort to complete an activity 7 Patient refused to complete or attempt activity 9 The patient did not perform the activity before the current illness or injury 88 Not attempted due to Medical conditions or safety concerns Grooming (FIM): 5 Bathing (FIM): 5 Upper Body (FIM): 4 Lower Body Dressing (FIM): 4 Toileting (FIM): 5 Transfers (B, C, W/C) (FIM): 4 Toilet/Commode Transfer (FIM): 5 Other Treatment Pt ambulated with CGA using FWW to therapy gym, 2 recovery breaks. Pt then completed arm bike duration 15 min at 5 hernández resistance with 2 breaks to increase strength and activity tolerance for daily functional tasks. Pt then completed resistive clothes pins to increase strength and dexterity in fingers. Pt fatigued quickly with each exercise and requires lengthy recovery breaks. After therapy, pt left in care of PT at therapy gym. All needs met. OT Short Term Goals Short Term Goals Time Frame: November 22, 2016 Lower Body Dressing(FIM): 5 Shower Transfer(FIM): 5 Additional Short Term Goals: 2-Verbalize Understanding, 3-ImproveStrength/Amanda 1=Demonstrate adherence to instructed precautions during ADL tasks. 2=Patient will verbalize/demonstrate understanding of assistive devices/ modifications for ADL. 3=Patient will improve strength/tolerance for activity to enable patient to perform ADL's. OT Group Home Goals Group Home Goals Time Frame: Nov 29, 2016 Eating (FIM): 6 Eating (QC): 6 Groomin Oral Hygiene (QC): 6 Bathing(FIM): 6 Shower/Bathe Self (QC): 6 Upper Body Dressing(FIM): 6 Upper Body Dressing (QC): 6 Lower Body Dressing(FIM): 6 Lower Body Dressing (QC): 6 On/Off Footwear (QC): 6 Toileting(FIM): 6 Toileting Hygiene (QC): 6 Toilet/Commode Transfer(FIM): 6 Toilet/Commode Transfer (QC): 6 Shower Transfer(FIM): 6 Additional Goals: 2-Verbalize Understanding, 3-ImproveStrength/Amanda 1=Demonstrate adherence to instructed precautions during ADL tasks. 2=Patient will verbalize/demonstrate understanding of assistive devices/ modifications for ADL. 3=Patient will improve strength/tolerance for activity to enable patient to perform ADL's. OT Education/Plan Problem List/Assessment Pt would benefit from skilled OT to increase his independence with basic self care to allow him to safely return home to live with his and to decrease caregiver burden. Discharge Recommendations Plan/Recommendations: Continue POC Treatment Plan/Plan of Care Patient would benefit from OT for education, treatment and training to promote independence in ADL's, mobility, safety and/or upper extremity function for ADL' s. Plan of Care: ADL Retraining, Functional Mobility, Group Exercise/Act as Ind ( education, exercise, activ tolerance, socialization, funct activities), UE Funct Exercise/Act, UE Neuromus Re-Ed/Coord Treatment Duration: Nov 29, 2016 Visits Per Week: 10-11 Minutes/Day (M-F): 75-90 Minutes/Day (Sat/Glez): PRN Agreement: Yes Rehab Potential: Fair Time/GCodes Start Time: 08:30 Stop Time: 10:00 Total Time Billed (hr/min): 90 Billed Treatment Time 1 visit-ADL 4 (60 min) EX 2 (30 min) ISABELA CAM November 11, 2016 09:52
--- NOTE | 2016-11-11 10:01 | Physical Therapy Daily Note ---
PT Daily Note-Current Subjective Agreeable to PT. Reports he feels tired. Mental Status Patient Orientation: Person, Confused, Place, Situation Transfers Functional [place] Measure 0=Not Assessed/NA 4=Minimal Assistance 1=Total Assistance 5=Supervision or Setup 2=Maximal Assistance 6=Modified [place] 3=Moderate Assistance 7=Complete IndependenceIRFPAI Quality Coding Scale 6 Independent with activity with or without an assistive device 5 Patient requires set up or clean up by helper. Patient completes activity by themselves 4 Supervision or touching assist (CGA). [place] provide cues , steadying assist 3 The helper provides less than half the effort to complete the activity 2 The helper provides more than half the effort to complete the activity 1 Dependent. The helper does all the effort to complete an activity 7 Patient refused to complete or attempt activity 9 The patient did not perform the activity before the current illness or injury 88 Not attempted due to Medical conditions or safety concerns Treatments Pt is CGa with bed mobility and transfers. Pt ambulated 150 ft x 2 with FWW with CGA, narrow PATRICK and unsteady at times, specifically with turning, requiring min assist to steady. Ambulation across a curb step and on uneven surface to emcompass 50 ft -- did this 3 reps with FWW with min assist for balance and safety. Pt toileted with CGA for static balance while standing and min assist with turning in his bathroom. Pt in bed after treatment with needs met. Assessment Current Status: Good Progress Unsteady gait with LOB episodes that require min assist to recover. Narrow PATRICK with gait noted. Pt has demonstrated improved dionisio and speed. PT Short Term Goals Short Term Goals Time Frame: November 15, 2016 Gait (FIM): 5 Gait Distance Comment: 300' Gait Level of Assist: 5 Gait Assistive Device: FWW PT Shelter Goals Shelter Goals PT Welding Machine Operator Ultrasonic Goals Time Frame: Nov 29, 2016 Transfers (B,C,W/C) (FIM): 6 Sit to Lying (QC): 6 Lying-Sitting on Side/Bed(QC): 6 Sit to Stand (QC): 6 Rollin Roll Left to Right (QC): 6 Car Transfer (QC): 4 Gait (FIM): 6 Distance: 400' Walk 10 feet (QC): 6 Walk 10ft-Uneven Surface(QC): 6 Walk 50ft with 2 Turns (QC): 6 Walk 150 ft (QC): 6 Gait Assistive Device: FWW Stairs (FIM): 5 # of Steps: 12 1 Step (curb) (QC): 4 4 Steps (QC): 4 12 Steps (QC): 4 Stairs Level Of Assist: 5 Picking up an Object (QC): 4 PT Plan Problem List Problem List: Activity Tolerance, Functional Strength, Safety, Balance, Gait, Transfer, Bed Mobility Treatment/Plan Treatment Plan: Continue Plan of Care Treatment Plan: Bed Mobility, Education, Functional Activity Amanda, Functional Strength, Group Therapy, Gait, Safety, Therapeutic Exercise, Transfers Treatment Duration: Nov 29, 2016 Visits Per Week: 10-11 Minutes/Day (M-F): 60-90 Minutes/Day (Sat/Glez): 15-30 Safety Risks/Education Patient Education: Safety Issues Teaching Recipient: Patient Teaching Methods: Discussion Response to Teaching: Reinforcement Needed Time/GCodes Time In: 1400 Time Out: 1430 Total Billed Treatment Time: 30 Total Billed Treatment This note is a late entry for 11/10/16 visit GT 30 ISABELA MORAN PT November 11, 2016 10:01
--- NOTE | 2016-11-11 11:02 | Physical Therapy Daily Note ---
PT Daily Note-Current Subjective Patient in chair in therapy gym pre tx, just got through with OT, has no complaints of pain. Appearance Patient BTB post tx with nurse call, phone, tray, family in the room. Mental Status Patient Orientation: Person, Place, Situation Transfers Functional [place] Measure 0=Not Assessed/NA 4=Minimal Assistance 1=Total Assistance 5=Supervision or Setup 2=Maximal Assistance 6=Modified [place] 3=Moderate Assistance 7=Complete IndependenceIRFPAI Quality Coding Scale 6 Independent with activity with or without an assistive device 5 Patient requires set up or clean up by helper. Patient completes activity by themselves 4 Supervision or touching assist (CGA). [place] provide cues , steadying assist 3 The helper provides less than half the effort to complete the activity 2 The helper provides more than half the effort to complete the activity 1 Dependent. The helper does all the effort to complete an activity 7 Patient refused to complete or attempt activity 9 The patient did not perform the activity before the current illness or injury 88 Not attempted due to Medical conditions or safety concerns Transfers (B, C, W/C) (FIM): 4 Scootin Rollin Supine to/from Sit: 6 Sit to/from Stand: 4 sit to stand CGA, needs cues for hand placement, will always pull up from walker to stand Gait Training Gait (FIM): 4 Distance: 200'x2, 150' Gait Level of Assist: 4 Gait Persons Needed: 1 Gait Assistive Device: FWW very slow, patient takes many standing rest breaks to catch his breath, attempted to use a single point cane but patient was having a lot of left hip and leg pain so he switched back to the walker Exercises Seated Therapy Exercises: Ankle pumps, Hip flexion Seated Reps: 20 LAQ alternating for 5 min NuStep Minutes: 15 NuStep Workload: 5 Treatments bed mobility and transfer training, gait training, functional strengthening Assessment Current Status: Fair Progress Patient needs many rest breaks due to fatigue. PT Short Term Goals Short Term Goals Time Frame: November 15, 2016 Gait (FIM): 5 Gait Distance Comment: 300' Gait Level of Assist: 5 Gait Assistive Device: FWW PT Manager Lvn Goals Manager Lvn Goals PT Manager Lvn Goals Time Frame: Nov 29, 2016 Transfers (B,C,W/C) (FIM): 6 Sit to Lying (QC): 6 Lying-Sitting on Side/Bed(QC): 6 Sit to Stand (QC): 6 Rollin Roll Left to Right (QC): 6 Car Transfer (QC): 4 Gait (FIM): 6 Distance: 400' Walk 10 feet (QC): 6 Walk 10ft-Uneven Surface(QC): 6 Walk 50ft with 2 Turns (QC): 6 Walk 150 ft (QC): 6 Gait Assistive Device: FWW Stairs (FIM): 5 # of Steps: 12 1 Step (curb) (QC): 4 4 Steps (QC): 4 12 Steps (QC): 4 Stairs Level Of Assist: 5 Picking up an Object (QC): 4 PT Plan Problem List Problem List: Activity Tolerance, Functional Strength, Safety, Balance, Gait, Transfer, Bed Mobility Treatment/Plan Treatment Plan: Continue Plan of Care Treatment Plan: Bed Mobility, Education, Functional Activity Amanda, Functional Strength, Group Therapy, Gait, Safety, Therapeutic Exercise, Transfers Treatment Duration: Nov 29, 2016 Visits Per Week: 10-11 Minutes/Day (M-F): 60-90 Minutes/Day (Sat/Glez): 15-30 Safety Risks/Education Patient Education: Gait Training, Transfer Techniques, Correct Positioning, Safety Issues Teaching Recipient: Patient Teaching Methods: Demonstration, Discussion Response to Teaching: Reinforcement Needed Time/GCodes Time In: 1000 Time Out: 1100 Total Billed Treatment Time: 60 Total Billed Treatment 1 visit GT 30' EX 30' ANGELINA GALVAIZ PT November 11, 2016 11:02
--- NOTE | 2016-11-11 14:04 | Therapy Group Daily Note ---
Therapy Daily Group Note Patient Education Topic Exercises (patient led exercises with written, illustrated cards) Exercises LE Seated Exercise, UE Exercise Other/Notes Patient ambulated with FWW CGA to and from Group activity. He required redirection and reinforcement to actively participated with Group Therapy and was was somewhat social with patients and staff. Patient was able to demonstrate and read the exercise cards to the Group as they performed each exercise. During the Group activity, PT educated the group on the benefits of exercise and mobility to promote healing and increase circulation. Start Time: 13:00 Stop Time: 13:40 Total Billed Treatment Time: 40 Total Billed Treatment 1 visit GRP 40 min MCKINLEY DOMÍNGUEZ PT November 11, 2016 14:04
--- NOTE | 2016-11-11 14:55 | Diagnostic Imaging Report ---
INDICATION: Fall one month ago. Pain. History of lungs CA. FINDINGS: AP pelvis shows SI joints symmetrical with moderate sclerosis bilaterally. Pubic symphysis is in good alignment. Femoral heads show normal articulation with moderate degenerative changes. This is more severe on the right. There is sclerosis with subcortical cystic change noted along the superior femoral head and the acetabulum. No fractures are demonstrated. There are no destructive bony lesions. There is noted advanced degenerative disc disease in the lumbosacral spine. IMPRESSION: Diffuse degenerative changes of the lumbosacral spine, SI joints, and hips. No acute abnormalities. Dictated by: Dictated on workstation # [id number]
[2016-11-11 18:00] VITALS: BP 159/74
[2016-11-11] MEDS: GLUCOSAMINE 1000 MG PO SCH (20:59)
[2016-11-11] MEDS: ATORVASTATIN 40 MG (LIPITOR) TABLET PO SCH (20:59)
[2016-11-11] MEDS: FENOFIBRATE 134 MG (LOFIBRA) CAPSULE PO SCH (20:59)
[2016-11-12] MEDS: ONDANSETRON 8 MG (ZOFRAN) ORAL DISSOLVE TAB PO SCH ×4 (00:12→23:04)
[2016-11-12 03:20] VITALS: BP 169/72
[2016-11-12] MEDS: inSUlin (REGULAR) HUMAN 1 UNIT/0.01 ML (CHARGE PER UNIT) SC SCH ×4 (05:45→21:00)
[2016-11-12] MEDS: OMEGA 3 (FISH OIL) 1000 MG CAP PO SCH ×2 (06:43→17:09)
[2016-11-12] MEDS: CALCIUM CARB + VIT D 600 MG (CALCARB + D) TAB PO SCH (06:43)
[2016-11-12] MEDS: metFORMIN 500 MG (GLUCOPHAGE) TAB PO SCH ×2 (06:43→17:09)
[2016-11-12] MEDS: MULTIVIT W/MINERALS TAB (THERAGRAN M) PO SCH (06:43)
[2016-11-12] MEDS: glipiZIDE 5 MG (GLUCOTROL) TAB PO SCH ×2 (06:43→17:09)
[2016-11-12] MEDS: lisINopril 20 MG (ZESTRIL) TAB PO SCH (08:55)
[2016-11-12] MEDS: AMIODARONE 200 MG (CORDARONE) TAB PO SCH (08:55)
[2016-11-12] MEDS: ASPIRIN E.C. 81 MG (ECOTRIN) TAB PO SCH (08:55)
[2016-11-12] MEDS: CEFEPIME INJECTION 2,000 MG in NS (IVPB) 50 ML IV SCH (08:57)
[2016-11-12] MEDS: HYDROcodone/APAP 5 MG/325 MG (LORTAB) TAB PO PRN ×2 (10:05→17:44)
[2016-11-12] MEDS ORDERED: LOPERAMIDE 2 MG (IMODIUM) CAP PO PRN (10:15)
--- NOTE | 2016-11-12 11:10 | Physical Therapy Daily Note ---
PT Daily Note-Current Subjective Pt. says he is "fair", agrees to therapy stating "I guess." Pt. has no c/o pain. Transfers Functional [place] Measure 0=Not Assessed/NA 4=Minimal Assistance 1=Total Assistance 5=Supervision or Setup 2=Maximal Assistance 6=Modified [place] 3=Moderate Assistance 7=Complete IndependenceIRFPAI Quality Coding Scale 6 Independent with activity with or without an assistive device 5 Patient requires set up or clean up by helper. Patient completes activity by themselves 4 Supervision or touching assist (CGA). [place] provide cues , steadying assist 3 The helper provides less than half the effort to complete the activity 2 The helper provides more than half the effort to complete the activity 1 Dependent. The helper does all the effort to complete an activity 7 Patient refused to complete or attempt activity 9 The patient did not perform the activity before the current illness or injury 88 Not attempted due to Medical conditions or safety concerns Transfers (B, C, W/C) (FIM): 6 Supine to/from Sit: 6 Sit to/from Stand: 6 Gait Training Does the Patient Walk?: Yes Gait (FIM): 4 Distance (FIM): 3=150 ft Distance: 250 ft Gait Level of Assist: 4 Gait Persons Needed: 1 Gait Assistive Device: FWW CGA needed, occasional min A due to occasional deviations in gait path and unsteadiness Treatments gait Assessment Current Status: Good Progress, Fair Progress Pt. has somber affect during session, unsteady during gait requiring CGA/ occasional min A. Pt. stopped briefly during gait but was able to continue without seated rest. Pt. returned to room in bed post session, call light in reach and all needs met. PT Short Term Goals Short Term Goals Time Frame: November 15, 2016 Gait (FIM): 5 Gait Distance Comment: 300' Gait Level of Assist: 5 Gait Assistive Device: FWW PT Neurology Stroke Physician Goals Shelter Goals PT Neurology Stroke Physician Goals Time Frame: Nov 29, 2016 Transfers (B,C,W/C) (FIM): 6 Sit to Lying (QC): 6 Lying-Sitting on Side/Bed(QC): 6 Sit to Stand (QC): 6 Rollin Roll Left to Right (QC): 6 Car Transfer (QC): 4 Gait (FIM): 6 Distance: 400' Walk 10 feet (QC): 6 Walk 10ft-Uneven Surface(QC): 6 Walk 50ft with 2 Turns (QC): 6 Walk 150 ft (QC): 6 Gait Assistive Device: FWW Stairs (FIM): 5 # of Steps: 12 1 Step (curb) (QC): 4 4 Steps (QC): 4 12 Steps (QC): 4 Stairs Level Of Assist: 5 Picking up an Object (QC): 4 PT Plan Treatment/Plan Treatment Plan: Continue Plan of Care Treatment Plan: Bed Mobility, Education, Functional Activity Amanda, Functional Strength, Group Therapy, Gait, Safety, Therapeutic Exercise, Transfers Treatment Duration: Nov 29, 2016 Visits Per Week: 10-11 Minutes/Day (M-F): 60-90 Minutes/Day (Sat/Glez): 15-30 Time/GCodes Time In: 930 Time Out: 945 Total Billed Treatment Time: 15 Total Billed Treatment 1, GT 15' FITZ SHELTON PT November 12, 2016 11:09
[2016-11-12 18:40] VITALS: BP 161/68
[2016-11-12] MEDS: FENOFIBRATE 134 MG (LOFIBRA) CAPSULE PO SCH (20:18)
[2016-11-12] MEDS: ATORVASTATIN 40 MG (LIPITOR) TABLET PO SCH (20:18)
[2016-11-12] MEDS: GLUCOSAMINE 1000 MG PO SCH (20:18)
[2016-11-13 06:15] VITALS: BP 168/74
[2016-11-13] MEDS: inSUlin (REGULAR) HUMAN 1 UNIT/0.01 ML (CHARGE PER UNIT) SC SCH ×4 (06:22→21:34)
[2016-11-13] MEDS: OMEGA 3 (FISH OIL) 1000 MG CAP PO SCH ×2 (06:22→16:37)
[2016-11-13] MEDS: CALCIUM CARB + VIT D 600 MG (CALCARB + D) TAB PO SCH (06:22)
[2016-11-13] MEDS: metFORMIN 500 MG (GLUCOPHAGE) TAB PO SCH (06:23)
[2016-11-13] MEDS: glipiZIDE 5 MG (GLUCOTROL) TAB PO SCH (06:23)
[2016-11-13] MEDS: MULTIVIT W/MINERALS TAB (THERAGRAN M) PO SCH (06:23)
[2016-11-13] MEDS: CEFEPIME INJECTION 2,000 MG in NS (IVPB) 50 ML IV SCH (07:43)
[2016-11-13] MEDS: ONDANSETRON 8 MG (ZOFRAN) ORAL DISSOLVE TAB PO SCH ×3 (07:43→23:10)
[2016-11-13] MEDS: AMIODARONE 200 MG (CORDARONE) TAB PO SCH (07:44)
[2016-11-13] MEDS: ASPIRIN E.C. 81 MG (ECOTRIN) TAB PO SCH (07:44)
[2016-11-13] MEDS: HYDROcodone/APAP 5 MG/325 MG (LORTAB) TAB PO PRN ×2 (07:44→20:45)
[2016-11-13] MEDS: lisINopril 20 MG (ZESTRIL) TAB PO SCH (07:44)
[2016-11-13] MEDS ORDERED: BISACODYL 10 MG SUPP (DULCOLAX) ONE (15:35)
[2016-11-13 17:41] VITALS: BP 165/75
[2016-11-13] MEDS: GLUCOSAMINE 1000 MG PO SCH (20:43)
[2016-11-13] MEDS: FENOFIBRATE 134 MG (LOFIBRA) CAPSULE PO SCH (20:43)
[2016-11-13] MEDS: ATORVASTATIN 40 MG (LIPITOR) TABLET PO SCH (20:43)
[2016-11-13] MEDS: CATHETER FLUSH 10 ML SYR IV PRN (20:49)
[2016-11-14 04:00] VITALS: BP 160/48
[2016-11-14] MEDS: inSUlin (REGULAR) HUMAN 1 UNIT/0.01 ML (CHARGE PER UNIT) SC SCH ×4 (05:16→20:33)
[2016-11-14] MEDS: MULTIVIT W/MINERALS TAB (THERAGRAN M) PO SCH (06:48)
[2016-11-14] MEDS: CALCIUM CARB + VIT D 600 MG (CALCARB + D) TAB PO SCH (06:48)
[2016-11-14] MEDS: OMEGA 3 (FISH OIL) 1000 MG CAP PO SCH ×2 (06:48→16:26)
[2016-11-14] MEDS: ASPIRIN E.C. 81 MG (ECOTRIN) TAB PO SCH (08:27)
[2016-11-14] MEDS: AMIODARONE 200 MG (CORDARONE) TAB PO SCH (08:27)
[2016-11-14] MEDS: lisINopril 20 MG (ZESTRIL) TAB PO SCH (08:27)
[2016-11-14] MEDS: CEFEPIME INJECTION 2,000 MG in NS (IVPB) 50 ML IV SCH (08:27)
[2016-11-14] MEDS: ONDANSETRON 8 MG (ZOFRAN) ORAL DISSOLVE TAB PO SCH ×3 (08:36→23:24)
--- NOTE | 2016-11-14 09:47 | Physical Therapy Daily Note ---
PT Daily Note-Current Subjective Patient in recliner pre tx, agrees to PT, states he has a general body ache. Appearance Patient in recliner post tx with nurse call, phone, tray, family in the room. Mental Status Patient Orientation: Person, Place, Situation Attachments: IV Transfers Functional [place] Measure 0=Not Assessed/NA 4=Minimal Assistance 1=Total Assistance 5=Supervision or Setup 2=Maximal Assistance 6=Modified [place] 3=Moderate Assistance 7=Complete IndependenceIRFPAI Quality Coding Scale 6 Independent with activity with or without an assistive device 5 Patient requires set up or clean up by helper. Patient completes activity by themselves 4 Supervision or touching assist (CGA). [place] provide cues , steadying assist 3 The helper provides less than half the effort to complete the activity 2 The helper provides more than half the effort to complete the activity 1 Dependent. The helper does all the effort to complete an activity 7 Patient refused to complete or attempt activity 9 The patient did not perform the activity before the current illness or injury 88 Not attempted due to Medical conditions or safety concerns Transfers (B, C, W/C) (FIM): 4 Sit to/from Stand: 4 Patient occasionally needs min assist when turning to sit due to balance impairments. He needs cues for hand placement during sit to stand because he will almost always pull up from the walker. He gets very angry at his when she tells him about this. Gait Training Gait (FIM): 4 Distance: 300', 200', 150' Gait Level of Assist: 4 Gait Persons Needed: 1 Gait Assistive Device: FWW Patient needs min assist due to balance impairments, he has very uncoordinated stepping and tipping walker to the right side. Occasionally he will have intense right shoulder pain, mostly likely due to rotator cuff. Stair Training Stair Training: Handrails/: 2 handrails Stairs (FIM): 2 #of Steps: 4 Stairs: Pattern: Reciprocal Level of Assist: 4 min assist, needs cues for step to pattern but he will not do it, unsafe without another person Exercises NuStep Minutes: 15 NuStep Workload: 4 Treatments transfers, ambulation, functional strengthening, stair training Assessment Current Status: Poor Progress Patient's balance seems to have not improved and maybe is a little worse. Unsafe transfers, high fall risk. Patient fatigues quickly and needs rest breaks often. PT Short Term Goals Short Term Goals Time Frame: November 15, 2016 Gait (FIM): 5 Gait Distance Comment: 300' Gait Level of Assist: 5 Gait Assistive Device: FWW PT Warehouse Material Handler Goals [place] Goals PT Warehouse Material Handler Goals Time Frame: Nov 29, 2016 Transfers (B,C,W/C) (FIM): 6 Sit to Lying (QC): 6 Lying-Sitting on Side/Bed(QC): 6 Sit to Stand (QC): 6 Rollin Roll Left to Right (QC): 6 Car Transfer (QC): 4 Gait (FIM): 6 Distance: 400' Walk 10 feet (QC): 6 Walk 10ft-Uneven Surface(QC): 6 Walk 50ft with 2 Turns (QC): 6 Walk 150 ft (QC): 6 Gait Assistive Device: FWW Stairs (FIM): 5 # of Steps: 12 1 Step (curb) (QC): 4 4 Steps (QC): 4 12 Steps (QC): 4 Stairs Level Of Assist: 5 Picking up an Object (QC): 4 PT Plan Problem List Problem List: Activity Tolerance, Functional Strength, Safety, Balance, Gait, Transfer Treatment/Plan Treatment Plan: Continue Plan of Care Treatment Plan: Bed Mobility, Education, Functional Activity Amanda, Functional Strength, Group Therapy, Gait, Safety, Therapeutic Exercise, Transfers Treatment Duration: Nov 29, 2016 Visits Per Week: 10-11 Minutes/Day (M-F): 60-90 Minutes/Day (Sat/Glez): 15-30 Safety Risks/Education Patient Education: Gait Training, Transfer Techniques, Steps, Correct Positioning, Safety Issues Teaching Recipient: Patient Teaching Methods: Demonstration, Discussion Response to Teaching: Reinforcement Needed Time/GCodes Time In: 845 Time Out: 945 Total Billed Treatment Time: 60 Total Billed Treatment 1 visit EX 15' GT 45' ANGELINA GALAVIZ PT November 14, 2016 09:47
[2016-11-14] MEDS: HYDROcodone/APAP 5 MG/325 MG (LORTAB) TAB PO PRN ×2 (09:50→19:15)
--- NOTE | 2016-11-14 09:53 | PM & R (SOAP) Progress Note ---
Subjective Subjective/Events-last exam Patient was seen in his room this AM Patient spouse has questions re f/u of treatment of Resp infection RN indicates that DR Ayala will be by to see Will check F/U CXR see orders Breath sounds diminished at left base but that is where he had Lobectomy for Stage IV Lung CA Patient min assist for transfers and gait. Review of Systems Pulmonary: Dyspnea Neurological: Weakness Objective Exam Last Set of Vital Signs Vital Signs Date Time Temp Pulse Resp B/P (MAP) Pulse Ox O2 Delivery O2 Flow Rate FiO2 11/14/16 06:54 98.0 11/14/16 04:00 67 20 160/48 92 Capillary Refill : I&O Intake and Output 11/14/16 00:00 Intake Total 1350 ml Balance 1350 ml Intake Oral 1350 ml # Voids 7 # Bowel Movements 1 General: Alert, Oriented X3, Cooperative, No Acute Distress HEENT: Atraumatic, PERRLA, EOMI, Mucous Memb Moist/[place] Neck: Supple, No JVD Lungs: Other ( diminished breath sounds left base) Heart: Regular Rate Abdomen: Normal Bowel Sounds, Soft, No Tenderness Extremities: No Edema Skin: Other (skin tear rt forearm) Neuro: Other (Tingling in hands Limited AROM rt shoulder to 90- degrees decreased coordination rt leg with gait Strength RLE 4/5 Left 4/5 proximal and 5 /5 distal) Results Lab Laboratory Tests 11/11/16 10:58: Glucometer 118H 11/11/16 16:20: Glucometer 79 11/11/16 21:04: Glucometer 166H 11/12/16 05:37: Glucometer 130H 11/12/16 11:43: Glucometer 125H 11/12/16 16:16: Glucometer 163H 11/12/16 20:45: Glucometer 196H 11/13/16 06:03: Glucometer 102 11/13/16 11:18: Glucometer 53*L 11/13/16 13:58: Glucometer 196H 11/13/16 16:31: Glucometer 180H 11/13/16 21:25: Glucometer 125H 11/14/16 04:26: Glucometer 107 Assessment/Plan Assessment 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 Check U/A-See orders-done negative. Next Team Conference 11/16/16 Dr Higginbotham covereing my service while I am away from 11/15/16 til 11/24/16 Recheck CXR -See orders JAREK MOCK MD November 14, 2016 09:53
--- NOTE | 2016-11-14 10:59 | Occupational Ther Daily Note ---
OT Current Status-Daily Note Subjective Pt alert, sitting in recliner. Pt's family present in room. Pt stated that he was tired and his stated that he wanted to go back to bed but she wouldn't let him. Pt agreed to therapy. No c/o pain. asked to [place] to keep track of pt's O2. Pt's O2 hasn't dropped lower than 90%. Mental Status/Objective Patient Orientation: Person, Place, Time, Situation Functional [place] Measure 0=Not Assessed/NA 4=Minimal Assistance 1=Total Assistance 5=Supervision or Setup 2=Maximal Assistance 6=Modified [place] 3=Moderate Assistance 7=Complete [place] PICC ADL-Treatment Pt declined having sponge bath or shower today. Pt did agree to grooming. Pt stood at sink to complete grooming, 1 LOB. Pt demonstrated SOA during task and required multiple recovery breaks, 1x laid head down on the sink. Functional [place] Measure 0=Not Assessed/NA 4=Minimal Assistance 1=Total Assistance 5=Supervision or Setup 2=Maximal Assistance 6=Modified [place] 3=Moderate Assistance 7=Complete IndependenceIRFPAI Quality Coding Scale 6 Independent with activity with or without an assistive device 5 Patient requires set up or clean up by helper. Patient completes activity by themselves 4 Supervision or touching assist (CGA). [place] provide cues , steadying assist 3 The helper provides less than half the effort to complete the activity 2 The helper provides more than half the effort to complete the activity 1 Dependent. The helper does all the effort to complete an activity 7 Patient refused to complete or attempt activity 9 The patient did not perform the activity before the current illness or injury 88 Not attempted due to Medical conditions or safety concerns Grooming (FIM): 4 (Had to be stabilized, not able to catch self with LOB.) Other Treatment Pt ambulated with FWW to therapy gym with CGA. Pt required 1 recovery break between room and therapy gym, O2 sats 90%. Pt complete arm bike duration 15 min at 10 hernández resistance with lengthy recovery breaks (4x's), O2 sats 96-98%. Arm bike complete to increase strength and activity tolerance for daily functional tasks. Pt then completed resistive pegs with 1/2# wt on each wrist. Pt took increased time to complete task, stating that he was falling asleep and that his R shldr hurt. Pt ambulated back to room, unsteady gait. After therapy, pt lying in bed with call light/phone in reach. All needs met in room. OT Short Term Goals Short Term Goals Time Frame: November 22, 2016 Lower Body Dressing(FIM): 5 Shower Transfer(FIM): 5 Additional Short Term Goals: 2-Verbalize Understanding, 3-ImproveStrength/Amanda 1=Demonstrate adherence to instructed precautions during ADL tasks. 2=Patient will verbalize/demonstrate understanding of assistive devices/ modifications for ADL. 3=Patient will improve strength/tolerance for activity to enable patient to perform ADL's. OT Business Analytics Analyst Goals Business Analytics Analyst Goals Time Frame: Nov 29, 2016 Eating (FIM): 6 Eating (QC): 6 Groomin Oral Hygiene (QC): 6 Bathing(FIM): 6 Shower/Bathe Self (QC): 6 Upper Body Dressing(FIM): 6 Upper Body Dressing (QC): 6 Lower Body Dressing(FIM): 6 Lower Body Dressing (QC): 6 On/Off Footwear (QC): 6 Toileting(FIM): 6 Toileting Hygiene (QC): 6 Toilet/Commode Transfer(FIM): 6 Toilet/Commode Transfer (QC): 6 Shower Transfer(FIM): 6 Additional Goals: 2-Verbalize Understanding, 3-ImproveStrength/Amanda 1=Demonstrate adherence to instructed precautions during ADL tasks. 2=Patient will verbalize/demonstrate understanding of assistive devices/ modifications for ADL. 3=Patient will improve strength/tolerance for activity to enable patient to perform ADL's. OT Education/Plan Problem List/Assessment Pt would benefit from skilled OT to increase his independence with basic self care to allow him to safely return home to live with his and to decrease caregiver burden. Discharge Recommendations Plan/Recommendations: Continue POC Treatment Plan/Plan of Care Patient would benefit from OT for education, treatment and training to promote independence in ADL's, mobility, safety and/or upper extremity function for ADL' s. Plan of Care: ADL Retraining, Functional Mobility, Group Exercise/Act as Ind ( education, exercise, activ tolerance, socialization, funct activities), UE Funct Exercise/Act, UE Neuromus Re-Ed/Coord Treatment Duration: Nov 29, 2016 Visits Per Week: 10-11 Minutes/Day (M-F): 75-90 Minutes/Day (Sat/Glez): PRN Agreement: Yes Rehab Potential: Fair Time/GCodes Start Time: 10:00 Stop Time: 11:30 Total Time Billed (hr/min): 90 Billed Treatment Time 1 visit-FA 2 (37 min) EX 4 (53 min) ISABELA CAM November 14, 2016 10:59
--- NOTE | 2016-11-14 14:16 | Diagnostic Imaging Report ---
PA and lateral views of the chest. INDICATION: Followup left lower lobe infiltrate. COMPARISON: Chest x-ray of 11/05/2016. FINDINGS: There is worsening of left lower lobe infiltrate with mild right lower lobe involvement. The left cardiac margin is obscured by infiltrate. There is suggestion of a small left effusion. No pneumothorax. The mediastinum and teagan appear unremarkable. IMPRESSION: Worsening predominantly left lower lobe infiltrates. Dictated by: Dictated on workstation # [id number]
--- NOTE | 2016-11-14 14:32 | Physical Therapy Daily Note ---
PT Daily Note-Current Subjective Patient in bed pre tx, agrees to PT, has pain of 6/10 in right shoulder. Appearance Patient in recliner post tx with nurse call, phone, tray, family in the room. Mental Status Patient Orientation: Person, Place, Situation Transfers Functional [place] Measure 0=Not Assessed/NA 4=Minimal Assistance 1=Total Assistance 5=Supervision or Setup 2=Maximal Assistance 6=Modified [place] 3=Moderate Assistance 7=Complete IndependenceIRFPAI Quality Coding Scale 6 Independent with activity with or without an assistive device 5 Patient requires set up or clean up by helper. Patient completes activity by themselves 4 Supervision or touching assist (CGA). [place] provide cues , steadying assist 3 The helper provides less than half the effort to complete the activity 2 The helper provides more than half the effort to complete the activity 1 Dependent. The helper does all the effort to complete an activity 7 Patient refused to complete or attempt activity 9 The patient did not perform the activity before the current illness or injury 88 Not attempted due to Medical conditions or safety concerns Transfers (B, C, W/C) (FIM): 4 Scootin Rollin Supine to/from Sit: 5 Sit to/from Stand: 4 Patient had some difficulty with supine to sit but he was able to perform it without assist Gait Training Gait (FIM): 4 Distance: 150'x2 Gait Level of Assist: 4 Gait Persons Needed: 1 Gait Assistive Device: FWW min assist due to balance and uncoordinated lower extremities Exercises Seated Therapy Exercises: Ankle pumps, Hip flexion, Hip abd/add Seated Reps: 20 LAQ alternating for 5 min with 2# ankle weights, seated hip abduction with RTB x20 Treatments bed mobility and transfers, ambulation, functional strengthening Assessment Current Status: Poor Progress no change in mobility PT Short Term Goals Short Term Goals Time Frame: November 15, 2016 Gait (FIM): 5 Gait Distance Comment: 300' Gait Level of Assist: 5 Gait Assistive Device: FWW PT Record Librarian Goals Record Librarian Goals PT Record Librarian Goals Time Frame: Nov 29, 2016 Transfers (B,C,W/C) (FIM): 6 Sit to Lying (QC): 6 Lying-Sitting on Side/Bed(QC): 6 Sit to Stand (QC): 6 Rollin Roll Left to Right (QC): 6 Car Transfer (QC): 4 Gait (FIM): 6 Distance: 400' Walk 10 feet (QC): 6 Walk 10ft-Uneven Surface(QC): 6 Walk 50ft with 2 Turns (QC): 6 Walk 150 ft (QC): 6 Gait Assistive Device: FWW Stairs (FIM): 5 # of Steps: 12 1 Step (curb) (QC): 4 4 Steps (QC): 4 12 Steps (QC): 4 Stairs Level Of Assist: 5 Picking up an Object (QC): 4 PT Plan Problem List Problem List: Activity Tolerance, Functional Strength, Safety, Balance, Gait, Transfer, Bed Mobility Treatment/Plan Treatment Plan: Continue Plan of Care Treatment Plan: Bed Mobility, Education, Functional Activity Amanda, Functional Strength, Group Therapy, Gait, Safety, Therapeutic Exercise, Transfers Treatment Duration: Nov 29, 2016 Visits Per Week: 10-11 Minutes/Day (M-F): 60-90 Minutes/Day (Sat/Glez): 15-30 Safety Risks/Education Patient Education: Gait Training, Transfer Techniques, Safety Issues Teaching Recipient: Patient Teaching Methods: Demonstration, Discussion Response to Teaching: Reinforcement Needed Time/GCodes Time In: 1400 Time Out: 1430 Total Billed Treatment Time: 30 Total Billed Treatment 1 visit EX 15' GT 15' ANGELINA GALAVIZ PT November 14, 2016 14:32
[2016-11-14 18:00] VITALS: BP 150/52
--- NOTE | 2016-11-14 18:36 | Consultation ---
History of Present Illness History of Present Illness Patient Consulted On(humberto/time) 11/14/16 18:36 Date of Admission Reason for Visit: pneumonia, weakness, lung cancer History of Present Illness PT IS A 81 Y/O MALE WHO IS KNOWN TO ME FROM CLINIC WITH DIAGNOSIS OF PNEUMONIA AND LUNG CANCER. HE WAS ADMITTED TO THE HOSPITAL UNDER OBSERVATION, THEN TRANSFERRED TO INPATIENT REHAB FOR STRENGTHENING AND THERAPIES. THE PATIENT REPORTS THAT HE FEELS A LITTLE BIT BETTER, BUT HAVING QUITE A BIT OF SHOULDER PAIN ON THE RIGHT. HIS DAUGHTERS ARE WONDERING IF HIS PNEUMONIA MAY BE DUE TO HIS LUNG CANCER WORSENING. HE HAS MENTIONED THAT IF THE CANCER IS WORSE, HE IS DONE WITH CHEMOTHERAPY AND WANTS TO "GO HOME TO " AND HIS FAMILY WOULD BE INTERESTED IN HOSPICE FOR THEIR FATHER IF THAT IS THE CASE. Allergies and Home Medications Allergies Coded Allergies: No Known Drug Allergies (Unverified , 11/08/16) Home Medications Amiodarone HCl 200 Mg Tablet, 200 MG PO DAILY, (Reported) Aspirin 81 Mg Tablet.dr, 81 MG PO DAILY, (Reported) Atorvastatin Calcium 40 Mg Tablet, 40 MG PO HS, (Reported) Calcium Carbonate/Vitamin D3 1 Each Tablet, 1 TAB PO DAILY, (Reported) Fenofibrate Nanocrystallized 145 Mg Tablet, 145 MG PO DAILY, (Reported) Fish Oil/Borage/Flax/Om3,6,9#1 1,200 Mg Capsule, 1,200 MG PO BID, (Reported) Glipizide 5 Mg Tablet, 2.5 MG PO BID, (Reported) TAKES 1/2 OF A (5 MG) TABLET Glucosamine HCl/Chondr Glez A Na 1 Each Tablet, 1 TAB PO HS, (Reported) Hydrocodone/Acetaminophen 1 Each Tablet, 1-2 TAB PO EVERY 4-6 HOURS PRN for PAIN -MODERATE, (Reported) Lisinopril 40 Mg Tablet, 40 MG PO DAILY, (Reported) Metformin HCl 500 Mg Tablet, 1,000 MG PO BID, (Reported) TAKE 2 (500MG) TABS Metoprolol Succinate 25 Mg Tab.er.24h, 25 MG PO DAILY, (Reported) Multivitamin 1 Each Tablet, 1 TAB PO DAILY, (Reported) Ondansetron HCl 8 Mg Tablet, 8 MG PO Q8H PRN for NAUSEA/VOMITING-1ST LINE, ( Reported) Tramadol HCl 50 Mg Tablet, 50 MG PO TID PRN for PAIN-BREAKTHROUGH, (Reported) Past Cjwrbrq-Thiyzy-Ukzjjf Hx Patient Social History Alcohol Use: Rarely Uses Recreational Drug Use: No Smoking Status: Former Smoker Type Used: Cigarettes Recent Foreign Travel: No Contact w/Someone Who Travel: No Recent Infectious Disease Expo: No Recent Hopitalizations: No Physical Abuse Screen: No Sexual Abuse: No Immunizations Up To Date PED Vaccines UTD: Yes Date of Pneumonia Vaccine: Jul 07, 2014 Date of Influenza Vaccine: Apr 04, 2016 Seasonal Allergies Seasonal Allergies: No Surgeries HX Surgeries: Yes (SEVERAL SKIN CA REMOVED, HEMORRHOIDECTOMY, LEFT LOWER LOBECTOMY) Surgeries: Appendectomy, Lobectomy (PARTIAL LEFT LOWER LOBE) Respiratory Hx Respiratory Disorders: Yes (LUNG CA) Respiratory Disorders: Asthma, COPD Cardiovascular Hx Cardiac Disorders: Yes Cardiac Disorders: High Cholesterol, Hypertension Neurological Hx Neurological Disorders: Yes Neurological Disorders: TIA Reproductive System Hx Reproductive Disorders: No Sexually Transmitted Disease: No HIV/AIDS: No Genitourinary Hx Genitourinary Disorders: No Gastrointestinal Hx Gastrointestinal Disorders: Yes Gastrointestinal Disorders: Chronic Constipation, Chronic Diarrhea Musculoskeletal Hx Musculoskeletal Disorders: Yes Musculoskeletal Disorders: Back Injury, Chronic Back Pain Endocrine Hx Endocrine Disorders: Yes Endocrine Disorders: Diabetes, Non-Insulin dep HEENT HX ENT Disorders: Yes (GLASSES) Loss of Vision: Bilateral Hearing Impairment: Hard of Hearing Cancer Hx Cancer: Yes Cancer: Lung, Skin Psychosocial Hx Psychiatric Problems: No Integumentary HX Skin/Integumentary Disorder: Yes (SKIN CA) Blood Transfusions Hx Blood Disorders: No Adverse Reaction to a Blood Tr: No Reviewed Nursing Assessment Reviewed/Agree w Nursing PMH: Yes Family Medical History Significant Family History: Heart Disease, Diabetes, Hypertension Family Medial History: Diabetes mellitus 19 FATHER G8 BROTHER FH: skin cancer 19 FATHER Review of Systems-General Constitutional: No chills, No fever, malaise, weakness EENTM: No hoarseness, No mouth pain, No mouth swelling, No throat pain, No throat swelling Respiratory: cough, dyspnea on exertion, short of breath Cardiovascular: No chest pain, No palpitations Gastrointestinal: No abdominal pain, No loss of appetite, No nausea, No vomiting Genitourinary: no symptoms reported Musculoskeletal: back pain, joint pain (RIGHT SHOULDER) Psychiatric/Neurological: Denies Anxiety, Denies Depressed All Other Systems Reviewed Negative Unless Noted: Yes Physical Exam-General Problems Physical Exam Vital Signs Vital Sign - Last 12Hours 11/08/16 12:21 Temp 99.2 Pulse 71 Resp 18 B/P (MAP) 143/76 Pulse Ox 95 Capillary Refill : General Appearance: WD/WN Eyes: Bilateral Eye EOMI, Bilateral Eye Normal Inspection, Bilateral Eye PERRL HEENT: PERRL/EOMI, pharynx normal Neck: non-tender, full range of motion, supple, normal inspection Respiratory: chest non-tender, decreased breath sounds, crackles Cardiovascular: regular rate, rhythm Gastrointestinal: normal bowel sounds, non tender, soft, no organomegaly, no pulsatile mass Rectal: deferred Back: normal inspection Extremities: normal capillary refill, other (TTP OVER ANTERIOR HEAD OF BICEP TENDON) Neurologic/Psychiatric: statistics manager II-XII nml as tested, no motor/sensory deficits, alert, normal mood/affect, oriented x 3 Skin: warm/dry Lymphatic: no adenopathy Assessment/Plan Assessment/Plan Admission Diagnosis/Plan PNEUMONIA LUNG CANCER COPD WEAKNESS FALLING EPISODES AT HOME ARF RIGHT SHOULDER PAIN PNEUMONIA WITH LUNG CANCER WITH COPD - REPEAT CT SCAN WAS INCONCLUSIVE, WILL NEED TO REPEAT THE SCAN ON 11/21, CHANGE ANTIBIOTICS TO LEVAQUIN TODAY, MONITOR SYMPTOMS, CONTINUE WITH BREATHING TREATMENTS, SUPPORTIVE CARE. WEAKNESS - WITH FALLING EPISODES AT HOME - PHYSICAL THERAPY TO CONTINUE WITH TREATMENT, STRENGTHENING WITH PLANS FOR PATIENT TO GO HOME WITH HIS FAMILY THE FAMILY REPORTS THAT THEY WILL NOT HAVE HIM GO BACK TO A RESIDENTIAL DUE TO HOW HE WAS TREATED AT THE LAST FACILITY. ARF - IMPROVED. - REPEAT LABS TOMORROW MORNING. RIGHT SHOULDER PAIN - CONTINUE WITH PAIN MEDICATIONS, AND USE VOLTAREN GEL TO SHOULDER. HE HAS MENTIONED THAT IF THE CANCER IS WORSE, HE IS DONE WITH CHEMOTHERAPY AND WANTS TO "GO HOME TO " AND HIS FAMILY WOULD BE INTERESTED IN HOSPICE FOR THEIR FATHER IF THAT IS THE CASE. Clinical Quality Measures DVT/VTE Risk/Contraindication: Risk Factor Score Per Nursin RFS Level Per Nursing on Admit: 3=High RAPHAEL ROJAS MD November 14, 2016 6:36 pm
[2016-11-14] MEDS ORDERED: LEVOFLOXACIN 500 MG/100 ML IV 100 ML IV SCH (18:45)
[2016-11-14] MEDS: CATHETER FLUSH 10 ML SYR IV PRN (19:30)
[2016-11-14] MEDS: LEVOFLOXACIN 750 MG/150 ML IV 150 ML IV SCH (19:30)
[2016-11-14] MEDS: DICLOFENAC 1% GEL 100 GM (VOLTAREN) TUBE TOP SCH (20:32)
[2016-11-14] MEDS: ATORVASTATIN 40 MG (LIPITOR) TABLET PO SCH (20:32)
[2016-11-14] MEDS: GLUCOSAMINE 1000 MG PO SCH (20:32)
[2016-11-14] MEDS: FENOFIBRATE 134 MG (LOFIBRA) CAPSULE PO SCH (20:32)
[2016-11-14] MEDS ORDERED: DICLOFENAC 1% GEL 100 GM (VOLTAREN) TUBE TOP SCH (21:00)
[2016-11-15 05:10] VITALS: BP 149/80
[2016-11-15] MEDS: inSUlin (REGULAR) HUMAN 1 UNIT/0.01 ML (CHARGE PER UNIT) SC SCH ×4 (05:13→20:45)
[2016-11-15] MEDS: MULTIVIT W/MINERALS TAB (THERAGRAN M) PO SCH (06:11)
[2016-11-15] MEDS: CALCIUM CARB + VIT D 600 MG (CALCARB + D) TAB PO SCH (06:11)
[2016-11-15] MEDS: LACTOBACILLUS Acidoph/Bulgar (LACTINEX/FLORANEX) TAB PO SCH ×3 (06:11→16:24)
[2016-11-15] MEDS: OMEGA 3 (FISH OIL) 1000 MG CAP PO SCH ×2 (06:11→16:24)
[2016-11-15 06:37] LABS: MEAN PLATELET VOLUME 9.3 FL (7.4-10.4); RED BLOOD COUNT 3.37 10^6/uL (4.35-5.85); RED CELL DISTRIBUTION WIDTH 16.8 % (10.0-14.5); WHITE BLOOD COUNT 4.2 10^3/uL (4.3-11.0)
[2016-11-15 07:00] LABS: ALBUMIN 2.5 G/DL (3.2-4.5); BILIRUBIN,TOTAL 0.4 MG/DL (0.1-1.0); CALCIUM 9.3 MG/DL (8.5-10.1); CREATININE SERUM 1.52 MG/DL (0.60-1.30); POTASSIUM 4.5 MMOL/L (3.6-5.0); TOTAL PROTEIN 5.3 G/DL (6.4-8.2)
[2016-11-15] MEDS: AMIODARONE 200 MG (CORDARONE) TAB PO SCH (08:40)
[2016-11-15] MEDS: HYDROcodone/APAP 5 MG/325 MG (LORTAB) TAB PO PRN ×2 (08:40→19:23)
[2016-11-15] MEDS: ASPIRIN E.C. 81 MG (ECOTRIN) TAB PO SCH (08:40)
[2016-11-15] MEDS: ONDANSETRON 8 MG (ZOFRAN) ORAL DISSOLVE TAB PO SCH ×2 (08:40→16:24)
[2016-11-15] MEDS: lisINopril 20 MG (ZESTRIL) TAB PO SCH (08:40)
[2016-11-15] MEDS: DICLOFENAC 1% GEL 100 GM (VOLTAREN) TUBE TOP SCH ×4 (08:41→20:31)
--- NOTE | 2016-11-15 08:58 | Physical Therapy Daily Note ---
PT Daily Note-Current Subjective Patient in recliner pre tx, agrees to PT reluctantly, patient is very tired, has no pain but states he is just kind of sore all over. Appearance Patient in recliner post tx with nurse call, phone, tray, all needs met. Mental Status Patient Orientation: Normal For Age Transfers Functional [place] Measure 0=Not Assessed/NA 4=Minimal Assistance 1=Total Assistance 5=Supervision or Setup 2=Maximal Assistance 6=Modified [place] 3=Moderate Assistance 7=Complete IndependenceIRFPAI Quality Coding Scale 6 Independent with activity with or without an assistive device 5 Patient requires set up or clean up by helper. Patient completes activity by themselves 4 Supervision or touching assist (CGA). [place] provide cues , steadying assist 3 The helper provides less than half the effort to complete the activity 2 The helper provides more than half the effort to complete the activity 1 Dependent. The helper does all the effort to complete an activity 7 Patient refused to complete or attempt activity 9 The patient did not perform the activity before the current illness or injury 88 Not attempted due to Medical conditions or safety concerns Transfers (B, C, W/C) (FIM): 4 Sit to/from Stand: 4 cues for hand placement, will often pull up from the walker to stand Gait Training Gait (FIM): 4 Distance: 150'x2 Gait Level of Assist: 4 Gait Persons Needed: 1 Gait Assistive Device: FWW min assist for balance, patient is very fatigued and needs many standing rest breaks to catch his breath Exercises Seated Therapy Exercises: Ankle pumps, Hip flexion, Hip abd/add Seated Reps: 20 LAQ alternating for 5 min, patient needed many rest breaks on the NuStep due to fatigue NuStep Minutes: 15 NuStep Workload: 5 Treatments transfers, ambulation, functional strengthening Assessment Current Status: Poor Progress no change in mobility, patient was very fatigued and required more time to rest and catch his breath this morning PT Short Term Goals Short Term Goals Time Frame: November 15, 2016 Gait (FIM): 5 Gait Distance Comment: 300' Gait Level of Assist: 5 Gait Assistive Device: FWW PT College [employer] Faculty Member Goals [employer] Faculty Member Goals PT Mcfp Goals Time Frame: Nov 29, 2016 Transfers (B,C,W/C) (FIM): 6 Sit to Lying (QC): 6 Lying-Sitting on Side/Bed(QC): 6 Sit to Stand (QC): 6 Rollin Roll Left to Right (QC): 6 Car Transfer (QC): 4 Gait (FIM): 6 Distance: 400' Walk 10 feet (QC): 6 Walk 10ft-Uneven Surface(QC): 6 Walk 50ft with 2 Turns (QC): 6 Walk 150 ft (QC): 6 Gait Assistive Device: FWW Stairs (FIM): 5 # of Steps: 12 1 Step (curb) (QC): 4 4 Steps (QC): 4 12 Steps (QC): 4 Stairs Level Of Assist: 5 Picking up an Object (QC): 4 PT Plan Problem List Problem List: Activity Tolerance, Functional Strength, Safety, Balance, Gait, Transfer, Bed Mobility Treatment/Plan Treatment Plan: Continue Plan of Care Treatment Plan: Bed Mobility, Education, Functional Activity Amanda, Functional Strength, Group Therapy, Gait, Safety, Therapeutic Exercise, Transfers Treatment Duration: Nov 29, 2016 Visits Per Week: 10-11 Minutes/Day (M-F): 60-90 Minutes/Day (Sat/Glez): 15-30 Safety Risks/Education Patient Education: Gait Training, Transfer Techniques, Correct Positioning, Safety Issues Teaching Recipient: Patient Teaching Methods: Demonstration, Discussion Response to Teaching: Reinforcement Needed Time/GCodes Time In: 800 Time Out: 900 Total Billed Treatment Time: 60 Total Billed Treatment 1 visit GT 30' EX 30' ANGELINA GALAVIZ PT November 15, 2016 08:58
--- NOTE | 2016-11-15 09:30 | Diagnostic Imaging Report ---
PA and lateral views of the chest. COMPARISON: 11/14/2016. INDICATION: Followup pneumonia and lung cancer. FINDINGS: Extensive left lower lobe infiltrates are seen similar to 11/14/2016. There is suggestion of mild improvement in the aeration of the left lower lobe laterally. The right lung also demonstrates improvement of aeration in the base. The heart size is normal. No effusion or pneumothorax. The mediastinum and teagan appear unremarkable. IMPRESSION: Extensive left lower lobe infiltrate improving compared to 11/14/2016. Dictated by: Dictated on workstation # [id number]
--- NOTE | 2016-11-15 12:56 | Occupational Ther Daily Note ---
OT Current Status-Daily Note Subjective Pt sitting in chair, states he is very tired today. Agrees to treatment with encouragement. Pt reports6/10 right shoulder pain. Mental Status/Objective Functional [place] Measure 0=Not Assessed/NA 4=Minimal Assistance 1=Total Assistance 5=Supervision or Setup 2=Maximal Assistance 6=Modified [place] 3=Moderate Assistance 7=Complete [place] ADL-Treatment Pt agrees to shower this morning. Sit to stand from chair with supervision. Gait to restroom with FWW, cues for safety. Transfer to walk in shower with CGA for balance, using grab bars. Pt doffed clothing with SBA and increased time. Seated bathing completed with hand held shower. Port covered during shower. Pt able to wash all areas with frequent rest breaks. Stood with CGA for balance while washing buttocks. Don pullover shirt with set up. Pt donned underwear and pants with CGA for balance during standing for pant hike. Don socks with set up. Pt stood at toilet to urinate. Able to manage clothing with SBA. Pt declined grooming at this time. Pt requires increased time for all ADL tasks. Frequent rest breaks taken secondary to fatigue. Transfer to EOB with CGA. Sit to supine with supervision. Functional [place] Measure 0=Not Assessed/NA 4=Minimal Assistance 1=Total Assistance 5=Supervision or Setup 2=Maximal Assistance 6=Modified [place] 3=Moderate Assistance 7=Complete IndependenceIRFPAI Quality Coding Scale 6 Independent with activity with or without an assistive device 5 Patient requires set up or clean up by helper. Patient completes activity by themselves 4 Supervision or touching assist (CGA). [place] provide cues , steadying assist 3 The helper provides less than half the effort to complete the activity 2 The helper provides more than half the effort to complete the activity 1 Dependent. The helper does all the effort to complete an activity 7 Patient refused to complete or attempt activity 9 The patient did not perform the activity before the current illness or injury 88 Not attempted due to Medical conditions or safety concerns Bathing (FIM): 4 (CGA) Shower/Bathe Self (QC): 4 Upper Body (FIM): 5 Upper Body Dressing (QC): 5 Lower Body Dressing (FIM): 4 Lower Body Dressing (QC): 4 (CGA) On/Off Footwear (QC): 5 Shower Transfer(FIM): 4 Other Treatment Pt completed bilateral UE activity to promote increased strength and activity tolerance. Pt completed graded clothespin task with bilateral hands with much increased time and frequent rest breaks. Pt has mild difficulty with max resistance clothespins, but does not require assist to complete task. Pt in bed with needs met and daughter present after session. OT Short Term Goals Short Term Goals Time Frame: November 22, 2016 Lower Body Dressing(FIM): 5 Shower Transfer(FIM): 5 Additional Short Term Goals: 2-Verbalize Understanding, 3-ImproveStrength/Amanda 1=Demonstrate adherence to instructed precautions during ADL tasks. 2=Patient will verbalize/demonstrate understanding of assistive devices/ modifications for ADL. 3=Patient will improve strength/tolerance for activity to enable patient to perform ADL's. OT Dosimetrist Goals Snf Goals Time Frame: Nov 29, 2016 Eating (FIM): 6 Eating (QC): 6 Groomin Oral Hygiene (QC): 6 Bathing(FIM): 6 Shower/Bathe Self (QC): 6 Upper Body Dressing(FIM): 6 Upper Body Dressing (QC): 6 Lower Body Dressing(FIM): 6 Lower Body Dressing (QC): 6 On/Off Footwear (QC): 6 Toileting(FIM): 6 Toileting Hygiene (QC): 6 Toilet/Commode Transfer(FIM): 6 Toilet/Commode Transfer (QC): 6 Shower Transfer(FIM): 6 Additional Goals: 2-Verbalize Understanding, 3-ImproveStrength/Amanda 1=Demonstrate adherence to instructed precautions during ADL tasks. 2=Patient will verbalize/demonstrate understanding of assistive devices/ modifications for ADL. 3=Patient will improve strength/tolerance for activity to enable patient to perform ADL's. OT Education/Plan Problem List/Assessment Pt would benefit from skilled OT to increase his independence with basic self care to allow him to safely return home to live with his and to decrease caregiver burden. Discharge Recommendations Plan/Recommendations: Continue POC Treatment Plan/Plan of Care Patient would benefit from OT for education, treatment and training to promote independence in ADL's, mobility, safety and/or upper extremity function for ADL' s. Plan of Care: ADL Retraining, Functional Mobility, Group Exercise/Act as Ind ( education, exercise, activ tolerance, socialization, funct activities), UE Funct Exercise/Act, UE Neuromus Re-Ed/Coord Treatment Duration: Nov 29, 2016 Visits Per Week: 10-11 Minutes/Day (M-F): 75-90 Minutes/Day (Sat/Glez): PRN Agreement: Yes Rehab Potential: Fair Time/GCodes Start Time: 09:30 Stop Time: 11:00 Total Time Billed (hr/min): 90 Billed Treatment Time 1 visit, ADLx4(65minutes), EXx2(25minutes) FUNMILAYO BAIRD OT November 15, 2016 12:56
--- NOTE | 2016-11-15 14:05 | Physical Therapy Daily Note ---
PT Daily Note-Current Subjective Patient and family agrees to PT. Pain Numeric Pain Scale: 0-No Pain Location: No Pain Reported Mental Status Patient Orientation: Confused Transfers Functional [place] Measure 0=Not Assessed/NA 4=Minimal Assistance 1=Total Assistance 5=Supervision or Setup 2=Maximal Assistance 6=Modified [place] 3=Moderate Assistance 7=Complete IndependenceIRFPAI Quality Coding Scale 6 Independent with activity with or without an assistive device 5 Patient requires set up or clean up by helper. Patient completes activity by themselves 4 Supervision or touching assist (CGA). [place] provide cues , steadying assist 3 The helper provides less than half the effort to complete the activity 2 The helper provides more than half the effort to complete the activity 1 Dependent. The helper does all the effort to complete an activity 7 Patient refused to complete or attempt activity 9 The patient did not perform the activity before the current illness or injury 88 Not attempted due to Medical conditions or safety concerns Transfers (B, C, W/C) (FIM): 5 Scootin Sit to/from Stand: 5 Sit to Stand (QC): 5 close SBA with gait belt in place for possible LOB Gait Training Does the Patient Walk?: Yes Gait (FIM): 4 Distance (FIM): 3=150 ft Distance: 300' x 3; 150' x 2 Walk 10 feet (QC): 4 Walk 50 ft with 2 Turns(QC): 4 Walk 150 ft (QC): 4 Walking 10ft/uneven surface-QC: 4 Gait Level of Assist: 4 Gait Persons Needed: 1 Gait Assistive Device: FWW multiple episodes LOB with inability to self correct; family present Assessment Patient requires recovery periods secondary to SOA and overall fatigue. PT Short Term Goals Short Term Goals Time Frame: November 15, 2016 Gait (FIM): 5 Gait Distance Comment: 300' Gait Level of Assist: 5 Gait Assistive Device: FWW PT Long-Term Goals Safety Officer Goals PT Safety Officer Goals Time Frame: Nov 29, 2016 Transfers (B,C,W/C) (FIM): 6 Sit to Lying (QC): 6 Lying-Sitting on Side/Bed(QC): 6 Sit to Stand (QC): 6 Rollin Roll Left to Right (QC): 6 Car Transfer (QC): 4 Gait (FIM): 6 Distance: 400' Walk 10 feet (QC): 6 Walk 10ft-Uneven Surface(QC): 6 Walk 50ft with 2 Turns (QC): 6 Walk 150 ft (QC): 6 Gait Assistive Device: FWW Stairs (FIM): 5 # of Steps: 12 1 Step (curb) (QC): 4 4 Steps (QC): 4 12 Steps (QC): 4 Stairs Level Of Assist: 5 Picking up an Object (QC): 4 PT Plan Treatment/Plan Treatment Plan: Continue Plan of Care Treatment Plan: Bed Mobility, Education, Functional Activity Amanda, Functional Strength, Group Therapy, Gait, Safety, Therapeutic Exercise, Transfers Treatment Duration: Nov 29, 2016 Visits Per Week: 10-11 Minutes/Day (M-F): 60-90 Minutes/Day (Sat/Glez): 15-30 Time/GCodes Time In: 1330 Time Out: 1400 Total Billed Treatment Time: 30 Total Billed Treatment 1 visit GT x 2 30 min MCKINLEY DOMÍNGUEZ PT November 15, 2016 14:05
[2016-11-15 18:23] VITALS: BP 119/50
[2016-11-15] MEDS: GLUCOSAMINE 1000 MG PO SCH (20:30)
[2016-11-15] MEDS: FENOFIBRATE 134 MG (LOFIBRA) CAPSULE PO SCH (20:30)
[2016-11-15] MEDS: ATORVASTATIN 40 MG (LIPITOR) TABLET PO SCH (20:30)
[2016-11-16] MEDS: ONDANSETRON 8 MG (ZOFRAN) ORAL DISSOLVE TAB PO SCH ×3 (00:40→16:00)
[2016-11-16 06:00] VITALS: BP 147/76
[2016-11-16] MEDS: OMEGA 3 (FISH OIL) 1000 MG CAP PO SCH ×2 (06:08→18:20)
[2016-11-16] MEDS: CALCIUM CARB + VIT D 600 MG (CALCARB + D) TAB PO SCH (06:08)
[2016-11-16] MEDS: MULTIVIT W/MINERALS TAB (THERAGRAN M) PO SCH (06:08)
[2016-11-16] MEDS: LACTOBACILLUS Acidoph/Bulgar (LACTINEX/FLORANEX) TAB PO SCH ×4 (06:08→18:20)
[2016-11-16] MEDS: inSUlin (REGULAR) HUMAN 1 UNIT/0.01 ML (CHARGE PER UNIT) SC SCH ×4 (06:33→20:43)
[2016-11-16] MEDS: RT-ALBUTEROL/IPRATROPIUM 3 ML (DUONEB) VIAL INH PRN (06:48)
--- NOTE | 2016-11-16 07:43 | Diagnostic Imaging Report ---
INDICATION: Shortness of air. Pneumonia. COMPARISON: 11/15/2016 FINDINGS: Frontal and lateral radiographic views of the chest were obtained and show stable aeration with infiltrate in the left mid and lower lung field. There appears to be associated small left effusion. Right lung is relatively clear. No large effusion is seen on the right. No pneumothorax is identified on either side. Cardiac silhouette and pulmonary vasculature are within normal limits. There is aortic atherosclerosis. Right subclavian Port-A-Cath is present with tip in the right atrium. IMPRESSION: 1. Stable exam of the chest showing left-sided infiltrates and probable small effusion. Continued followup is recommended. Dictated by: Dictated on workstation # [id number]
--- NOTE | 2016-11-16 09:16 | Physical Therapy Daily Note ---
PT Daily Note-Current Subjective Pt is side lying on L side upon arrival. Pt/sp reports sleeping better last night although pt is tired due to breathing tx and Xray already this morning. Pt reports feeling tired. Pt agrees to PT. Pain Location: No Pain Reported Mental Status Patient Orientation: Person, Place Transfers Functional [place] Measure 0=Not Assessed/NA 4=Minimal Assistance 1=Total Assistance 5=Supervision or Setup 2=Maximal Assistance 6=Modified [place] 3=Moderate Assistance 7=Complete IndependenceIRFPAI Quality Coding Scale 6 Independent with activity with or without an assistive device 5 Patient requires set up or clean up by helper. Patient completes activity by themselves 4 Supervision or touching assist (CGA). [place] provide cues , steadying assist 3 The helper provides less than half the effort to complete the activity 2 The helper provides more than half the effort to complete the activity 1 Dependent. The helper does all the effort to complete an activity 7 Patient refused to complete or attempt activity 9 The patient did not perform the activity before the current illness or injury 88 Not attempted due to Medical conditions or safety concerns Scootin Rollin Roll Left to Right (QC): 5 Supine to/from Sit: 5 Sit to/from Stand: 4 Sit to Stand (QC): 4 Weight Bearing Weight Bearing Restriction: Full Weight Bearing Location Restriction: LE Bilateral Gait Training Does the Patient Walk?: Yes Distance (FIM): 3=150 ft Distance: 225' Walk 10 feet (QC): 4 Walk 50 ft with 2 Turns(QC): 4 Walk 150 ft (QC): 4 Gait Level of Assist: 4 Gait Persons Needed: 1 Gait Assistive Device: FWW Pt drifts to the R while walking. Pt is Min A while walking due to needing support for balance/LOB although no falls. Pt fatigues easy. Wheelchair Training Does the Pt Use a Wheelchair?: No Exercises Seated Therapy Exercises: Ankle pumps, Long arc quads, Hip flexion, Kicking activity Seated Reps: 15 NuStep Minutes: 12 NuStep Workload: 5 Treatments Pt rolls from L to R in bed then transfers from Supine to EOB to Standing using FWW at SBA. Pt then ambulates using FWW at Min A for balance/support. Pt uses NuStep for 12m at Workload 5 and Seated Ex for strengthening and endurance to aid with balance. Pt ambulates in Therapy Commons before returning to room to rest. Wound Care Nurse checks pressure areas with no issues found. Pt returns to sitting in recliner at end of tx with all needs met. Assessment Current Status: Fair Progress Pt requires frequent rest breaks during ambulation and EX due to fatigue. Pt is getting stronger but fatigue and balance with upright activity continue to be a struggle. PT Short Term Goals Short Term Goals Time Frame: November 15, 2016 Gait (FIM): 5 Gait Distance Comment: 300' Gait Level of Assist: 5 Gait Assistive Device: FWW PT Esol Teacher Goals Esol Teacher Goals PT Esol Teacher Goals Time Frame: Nov 29, 2016 Transfers (B,C,W/C) (FIM): 6 Sit to Lying (QC): 6 Lying-Sitting on Side/Bed(QC): 6 Sit to Stand (QC): 6 Rollin Roll Left to Right (QC): 6 Car Transfer (QC): 4 Gait (FIM): 6 Distance: 400' Walk 10 feet (QC): 6 Walk 10ft-Uneven Surface(QC): 6 Walk 50ft with 2 Turns (QC): 6 Walk 150 ft (QC): 6 Gait Assistive Device: FWW Stairs (FIM): 5 # of Steps: 12 1 Step (curb) (QC): 4 4 Steps (QC): 4 12 Steps (QC): 4 Stairs Level Of Assist: 5 Picking up an Object (QC): 4 PT Plan Problem List Problem List: Activity Tolerance, Functional Strength, Safety, Balance, Gait, Transfer Treatment/Plan Treatment Plan: Continue Plan of Care Treatment Plan: Bed Mobility, Education, Functional Activity Amanda, Functional Strength, Group Therapy, Gait, Safety, Therapeutic Exercise, Transfers Treatment Duration: Nov 29, 2016 Visits Per Week: 10-11 Minutes/Day (M-F): 60-90 Minutes/Day (Sat/Glez): 15-30 Safety Risks/Education Patient Education: Gait Training, Transfer Techniques, Correct Positioning, Safety Issues Teaching Recipient: Patient Teaching Methods: Discussion Response to Teaching: Verbalize Understanding Time/GCodes Time In: 815 Time Out: 915 Total Billed Treatment Time: 60 Total Billed Treatment visit, EX X2 (30m), GT (15m) & FA (15m) JERICA MESSER PTA November 16, 2016 09:16
[2016-11-16] MEDS: ASPIRIN E.C. 81 MG (ECOTRIN) TAB PO SCH (09:41)
[2016-11-16] MEDS: AMIODARONE 200 MG (CORDARONE) TAB PO SCH (09:41)
[2016-11-16] MEDS: lisINopril 20 MG (ZESTRIL) TAB PO SCH (09:41)
[2016-11-16] MEDS: HYDROcodone/APAP 5 MG/325 MG (LORTAB) TAB PO PRN ×3 (09:42→18:32)
[2016-11-16] MEDS: DICLOFENAC 1% GEL 100 GM (VOLTAREN) TUBE TOP SCH ×4 (09:50→20:36)
--- NOTE | 2016-11-16 09:53 | Progress Note (SOAP) ---
Subjective Subjective/Events-last exam PT REPORTS THAT HE IS FEELING FATIGUED, WEAK, AND HAVING A COUGH. Review of Systems General: Fatigue, Malaise Pulmonary: Dyspnea, Cough Cardiovascular: No: Chest Pain Neurological: Weakness Objective Exam Vital Signs Date Time Temp Pulse Resp B/P (MAP) Pulse Ox O2 Delivery O2 Flow Rate FiO2 11/16/16 06:48 92 11/16/16 06:00 98.0 64 22 147/76 95 11/15/16 18:23 98.4 68 14 119/50 96 I & O 11/16/16 07:00 Intake Total 860 ml Output Total 200 ml Balance 660 ml Capillary Refill : General Appearance: WD/WN HEENT: PERRL/EOMI Neck: Full Range of Motion, Supple Respiratory: Chest Non Tender, Crackles, Decreased Breath Sounds Cardiovascular: Regular Rate, Rhythm Gastrointestinal: normal bowel sounds, non tender, soft Extremity: No Pedal Edema Neurologic/Psychiatric: Alert, Oriented x3, No Motor/Sensory Deficits Skin: Warm/Dry Lymphatic: No Adenopathy Results Lab Laboratory Tests 11/15/16 10:53: Glucometer 282H 11/15/16 15:57: Glucometer 183H 11/15/16 20:25: Glucometer 176H 11/16/16 06:27: Glucometer 135H Assessment/Plan Assessment/Plan Assess & Plan/Chief Complaint PNEUMONIA LUNG CANCER COPD WEAKNESS FALLING EPISODES AT HOME ARF RIGHT SHOULDER PAIN PNEUMONIA WITH LUNG CANCER WITH COPD - REPEAT CT SCAN WAS INCONCLUSIVE, WILL NEED TO REPEAT THE SCAN, CHANGE ANTIBIOTICS TO LEVAQUIN TODAY, MONITOR SYMPTOMS , CONTINUE WITH BREATHING TREATMENTS, SUPPORTIVE CARE. WEAKNESS - WITH FALLING EPISODES AT HOME - PHYSICAL THERAPY TO CONTINUE WITH TREATMENT, STRENGTHENING WITH PLANS FOR PATIENT TO GO HOME WITH HIS FAMILY THE FAMILY REPORTS THAT THEY WILL NOT HAVE HIM GO BACK TO A [facility] DUE TO HOW HE WAS TREATED AT THE LAST FACILITY. ARF - IMPROVED. - REPEAT LABS TOMORROW MORNING. RIGHT SHOULDER PAIN - CONTINUE WITH PAIN MEDICATIONS, AND USE VOLTAREN GEL TO SHOULDER. HE HAS MENTIONED THAT IF THE CANCER IS WORSE, HE IS DONE WITH CHEMOTHERAPY AND WANTS TO "GO HOME TO " AND HIS FAMILY WOULD BE INTERESTED IN HOSPICE FOR THEIR FATHER IF THAT IS THE CASE. Clinical Quality Measures DVT/VTE Risk/Contraindication: Risk Factor Score Per Nursin RFS Level Per Nursing on Admit: 3=High RAPHAEL ROJAS MD November 16, 2016 09:53
--- NOTE | 2016-11-16 10:26 | Occupational Ther Daily Note ---
OT Current Status-Daily Note Subjective Pt sitting in chair, states he is tired today. Pt agrees to therapy. Reports 6/ 10 right shoulder pain. RN was notified and provided pain medication. Mental Status/Objective Functional [place] Measure 0=Not Assessed/NA 4=Minimal Assistance 1=Total Assistance 5=Supervision or Setup 2=Maximal Assistance 6=Modified [place] 3=Moderate Assistance 7=Complete [place] ADL-Treatment Pt agreed to sponge bath and dressing this morning. Doffed shirt with SBA. Pt able to wash upper body with set up and increased time. Don pullover shirt with minimal assistance secondary to right shoulder pain. Pt doffed pants and underwear with SBA. Able to wash lower body with SBA. Don underwear and pants with close supervision for standing balance during pant hike. Sit to stand with supervision. Gait to restroom with FWW and cues for safety. Pt transferred to toilet with close supervision for balance. Pt able to complete toileting hygiene and clothing management with SBA. Stood at sink to wash hands and brush teeth. Pt able to complete tasks with supervision for standing balance. Pt fatigues quickly and requires multiple seated rest breaks during ADL tasks. Increased time required for all activities. Pt requests to return to bed after session. Sit to supine with SBA. Pt able to reposition self in bed. Pt in bed with needs met after session. Functional [place] Measure 0=Not Assessed/NA 4=Minimal Assistance 1=Total Assistance 5=Supervision or Setup 2=Maximal Assistance 6=Modified [place] 3=Moderate Assistance 7=Complete IndependenceIRFPAI Quality Coding Scale 6 Independent with activity with or without an assistive device 5 Patient requires set up or clean up by helper. Patient completes activity by themselves 4 Supervision or touching assist (CGA). [place] provide cues , steadying assist 3 The helper provides less than half the effort to complete the activity 2 The helper provides more than half the effort to complete the activity 1 Dependent. The helper does all the effort to complete an activity 7 Patient refused to complete or attempt activity 9 The patient did not perform the activity before the current illness or injury 88 Not attempted due to Medical conditions or safety concerns Grooming (FIM): 5 Oral Hygiene (QC): 5 Bathing (FIM): 5 Upper Body (FIM): 4 Lower Body Dressing (FIM): 5 Lower Body Dressing (QC): 4 Toileting (FIM): 5 Toileting Hygiene (QC): 4 Toilet/Commode Transfer (FIM): 5 Toilet Transfer (QC): 4 OT Short Term Goals Short Term Goals Time Frame: November 22, 2016 Lower Body Dressing(FIM): 5 Shower Transfer(FIM): 5 Additional Short Term Goals: 2-Verbalize Understanding, 3-ImproveStrength/Amanda 1=Demonstrate adherence to instructed precautions during ADL tasks. 2=Patient will verbalize/demonstrate understanding of assistive devices/ modifications for ADL. 3=Patient will improve strength/tolerance for activity to enable patient to perform ADL's. OT Chcf Goals Radiographer Goals Time Frame: Nov 29, 2016 Eating (FIM): 6 Eating (QC): 6 Groomin Oral Hygiene (QC): 6 Bathing(FIM): 6 Shower/Bathe Self (QC): 6 Upper Body Dressing(FIM): 6 Upper Body Dressing (QC): 6 Lower Body Dressing(FIM): 6 Lower Body Dressing (QC): 6 On/Off Footwear (QC): 6 Toileting(FIM): 6 Toileting Hygiene (QC): 6 Toilet/Commode Transfer(FIM): 6 Toilet/Commode Transfer (QC): 6 Shower Transfer(FIM): 6 Additional Goals: 2-Verbalize Understanding, 3-ImproveStrength/Amanda 1=Demonstrate adherence to instructed precautions during ADL tasks. 2=Patient will verbalize/demonstrate understanding of assistive devices/ modifications for ADL. 3=Patient will improve strength/tolerance for activity to enable patient to perform ADL's. OT Education/Plan Problem List/Assessment Pt would benefit from skilled OT to increase his independence with basic self care to allow him to safely return home to live with his and to decrease caregiver burden. Discharge Recommendations Plan/Recommendations: Continue POC Treatment Plan/Plan of Care Patient would benefit from OT for education, treatment and training to promote independence in ADL's, mobility, safety and/or upper extremity function for ADL' s. Plan of Care: ADL Retraining, Functional Mobility, Group Exercise/Act as Ind ( education, exercise, activ tolerance, socialization, funct activities), UE Funct Exercise/Act, UE Neuromus Re-Ed/Coord Treatment Duration: Nov 29, 2016 Visits Per Week: 10-11 Minutes/Day (M-F): 75-90 Minutes/Day (Sat/Glez): PRN Agreement: Yes Rehab Potential: Fair Time/GCodes Start Time: 09:30 Stop Time: 10:30 Total Time Billed (hr/min): 60 Billed Treatment Time 1 visit, ADLx4(60minutes) FUNMILAYO BAIRD OT November 16, 2016 10:26
--- NOTE | 2016-11-16 12:00 | Occupational Ther Daily Note ---
OT Current Status-Daily Note Subjective Pt in bed, agrees to treatment. Mental Status/Objective Functional [place] Measure 0=Not Assessed/NA 4=Minimal Assistance 1=Total Assistance 5=Supervision or Setup 2=Maximal Assistance 6=Modified [place] 3=Moderate Assistance 7=Complete [place] ADL-Treatment Functional [place] Measure 0=Not Assessed/NA 4=Minimal Assistance 1=Total Assistance 5=Supervision or Setup 2=Maximal Assistance 6=Modified [place] 3=Moderate Assistance 7=Complete IndependenceIRFPAI Quality Coding Scale 6 Independent with activity with or without an assistive device 5 Patient requires set up or clean up by helper. Patient completes activity by themselves 4 Supervision or touching assist (CGA). [place] provide cues , steadying assist 3 The helper provides less than half the effort to complete the activity 2 The helper provides more than half the effort to complete the activity 1 Dependent. The helper does all the effort to complete an activity 7 Patient refused to complete or attempt activity 9 The patient did not perform the activity before the current illness or injury 88 Not attempted due to Medical conditions or safety concerns Other Treatment Supine to sit with supervision. Pt donned shoes with set up while seated EOB. Sit to stand with supervision. Gait to therapy gym with FWW. Pt require CGA for balance and cues for walker safety. One standing rest break required. Pt completed peg activity with bilateral hands to promote reaching, strength, and coordination. Pt moves slowly and requires increased time for task. Occasional rest breaks taken. Pt returned to room with one rest break secondary to fatigue. Pt sit to supine with supervision. Pt requires increased time for tasks and takes rest breaks throughout treatment. Pt resting in bed with needs met after session. OT Short Term Goals Short Term Goals Time Frame: November 22, 2016 Lower Body Dressing(FIM): 5 Shower Transfer(FIM): 5 Additional Short Term Goals: 2-Verbalize Understanding, 3-ImproveStrength/Amanda 1=Demonstrate adherence to instructed precautions during ADL tasks. 2=Patient will verbalize/demonstrate understanding of assistive devices/ modifications for ADL. 3=Patient will improve strength/tolerance for activity to enable patient to perform ADL's. OT Shelter Goals Shelter Goals Time Frame: Nov 29, 2016 Eating (FIM): 6 Eating (QC): 6 Groomin Oral Hygiene (QC): 6 Bathing(FIM): 6 Shower/Bathe Self (QC): 6 Upper Body Dressing(FIM): 6 Upper Body Dressing (QC): 6 Lower Body Dressing(FIM): 6 Lower Body Dressing (QC): 6 On/Off Footwear (QC): 6 Toileting(FIM): 6 Toileting Hygiene (QC): 6 Toilet/Commode Transfer(FIM): 6 Toilet/Commode Transfer (QC): 6 Shower Transfer(FIM): 6 Additional Goals: 2-Verbalize Understanding, 3-ImproveStrength/Amanda 1=Demonstrate adherence to instructed precautions during ADL tasks. 2=Patient will verbalize/demonstrate understanding of assistive devices/ modifications for ADL. 3=Patient will improve strength/tolerance for activity to enable patient to perform ADL's. OT Education/Plan Problem List/Assessment Pt would benefit from skilled OT to increase his independence with basic self care to allow him to safely return home to live with his and to decrease caregiver burden. Discharge Recommendations Plan/Recommendations: Continue POC Treatment Plan/Plan of Care Patient would benefit from OT for education, treatment and training to promote independence in ADL's, mobility, safety and/or upper extremity function for ADL' s. Plan of Care: ADL Retraining, Functional Mobility, Group Exercise/Act as Ind ( education, exercise, activ tolerance, socialization, funct activities), UE Funct Exercise/Act, UE Neuromus Re-Ed/Coord Treatment Duration: Nov 29, 2016 Visits Per Week: 10-11 Minutes/Day (M-F): 75-90 Minutes/Day (Sat/Glez): PRN Agreement: Yes Rehab Potential: Fair Time/GCodes Start Time: 11:30 Stop Time: 12:00 Total Time Billed (hr/min): 30 Billed Treatment Time 1 visit, FAx2(30minutes) FUNMILAYO BAIRD OT November 16, 2016 12:00
--- NOTE | 2016-11-16 13:22 | Physical Therapy Daily Note ---
PT Daily Note-Current Subjective Pt laying supine in bed upon arrival. Pt agreed to PT. Pain Location: No Pain Reported Mental Status Patient Orientation: Person, Place Transfers Functional [place] Measure 0=Not Assessed/NA 4=Minimal Assistance 1=Total Assistance 5=Supervision or Setup 2=Maximal Assistance 6=Modified [place] 3=Moderate Assistance 7=Complete IndependenceIRFPAI Quality Coding Scale 6 Independent with activity with or without an assistive device 5 Patient requires set up or clean up by helper. Patient completes activity by themselves 4 Supervision or touching assist (CGA). [place] provide cues , steadying assist 3 The helper provides less than half the effort to complete the activity 2 The helper provides more than half the effort to complete the activity 1 Dependent. The helper does all the effort to complete an activity 7 Patient refused to complete or attempt activity 9 The patient did not perform the activity before the current illness or injury 88 Not attempted due to Medical conditions or safety concerns Scootin Rollin Roll Left to Right (QC): 5 Supine to/from Sit: 5 Exercises Supine Ex: Rolling (Side to Side) Seated Therapy Exercises: Ankle pumps, Long arc quads, Hip flexion, Kicking activity, Hip abd/add Seated Reps: 15 Treatments PT assisted pt with finding what pt would like to eat since he couldn't decide( problem solving, sequencing). Pt then completed Seated Ex at EOB. Pt needed a couple of rest breaks due to fatigue. Pt is sitting at EOB waiting for lunch to arrive at end of tx with all needs met. Assessment Current Status: Fair Progress Pt fatigues easy and isn't always safe when completing a task. Pt needs frequent rest breaks due to fatigue. PT Short Term Goals Short Term Goals Time Frame: November 15, 2016 Gait (FIM): 5 Gait Distance Comment: 300' Gait Level of Assist: 5 Gait Assistive Device: FWW PT Longterm Goals Equipment Processer Storage Goals PT Longterm Goals Time Frame: Nov 29, 2016 Transfers (B,C,W/C) (FIM): 6 Sit to Lying (QC): 6 Lying-Sitting on Side/Bed(QC): 6 Sit to Stand (QC): 6 Rollin Roll Left to Right (QC): 6 Car Transfer (QC): 4 Gait (FIM): 6 Distance: 400' Walk 10 feet (QC): 6 Walk 10ft-Uneven Surface(QC): 6 Walk 50ft with 2 Turns (QC): 6 Walk 150 ft (QC): 6 Gait Assistive Device: FWW Stairs (FIM): 5 # of Steps: 12 1 Step (curb) (QC): 4 4 Steps (QC): 4 12 Steps (QC): 4 Stairs Level Of Assist: 5 Picking up an Object (QC): 4 PT Plan Problem List Problem List: Activity Tolerance, Functional Strength, Safety, Balance, Gait, Transfer Treatment/Plan Treatment Plan: Continue Plan of Care Treatment Plan: Bed Mobility, Education, Functional Activity Amanda, Functional Strength, Group Therapy, Gait, Safety, Therapeutic Exercise, Transfers Treatment Duration: Nov 29, 2016 Visits Per Week: 10-11 Minutes/Day (M-F): 60-90 Minutes/Day (Sat/Glez): 15-30 Safety Risks/Education Patient Education: Transfer Techniques, Correct Positioning, Safety Issues Teaching Recipient: Patient Teaching Methods: Discussion Response to Teaching: Verbalize Understanding Time/GCodes Time In: 1250 Time Out: 1320 Total Billed Treatment Time: 30 Total Billed Treatment visit, FA (10m) & EX (20m) JERICA MESSER COTTON MACHINE OPERATOR November 16, 2016 13:22
[2016-11-16 17:57] VITALS: BP 148/67
[2016-11-16] MEDS: LEVOFLOXACIN 750 MG/150 ML IV 150 ML IV SCH (19:29)
[2016-11-16] MEDS: FENOFIBRATE 134 MG (LOFIBRA) CAPSULE PO SCH (20:35)
[2016-11-16] MEDS: ATORVASTATIN 40 MG (LIPITOR) TABLET PO SCH (20:35)
[2016-11-16] MEDS: GLUCOSAMINE 1000 MG PO SCH (20:36)
[2016-11-17] MEDS: ONDANSETRON 8 MG (ZOFRAN) ORAL DISSOLVE TAB PO SCH ×3 (00:09→15:46)
[2016-11-17 05:00] VITALS: BP 129/68
[2016-11-17] MEDS: inSUlin (REGULAR) HUMAN 1 UNIT/0.01 ML (CHARGE PER UNIT) SC SCH ×4 (05:53→20:21)
[2016-11-17] MEDS: CALCIUM CARB + VIT D 600 MG (CALCARB + D) TAB PO SCH (06:46)
[2016-11-17] MEDS: OMEGA 3 (FISH OIL) 1000 MG CAP PO SCH ×2 (06:46→17:38)
[2016-11-17] MEDS: MULTIVIT W/MINERALS TAB (THERAGRAN M) PO SCH (06:46)
[2016-11-17] MEDS: HYDROcodone/APAP 5 MG/325 MG (LORTAB) TAB PO PRN ×2 (07:36→15:44)
[2016-11-17] MEDS: DICLOFENAC 1% GEL 100 GM (VOLTAREN) TUBE TOP SCH ×4 (07:37→20:17)
[2016-11-17] MEDS: ASPIRIN E.C. 81 MG (ECOTRIN) TAB PO SCH (09:51)
[2016-11-17] MEDS: lisINopril 20 MG (ZESTRIL) TAB PO SCH (09:52)
[2016-11-17] MEDS: AMIODARONE 200 MG (CORDARONE) TAB PO SCH (09:52)
--- NOTE | 2016-11-17 10:20 | Physical Therapy Daily Note ---
PT Daily Note-Current Subjective Pt is laying Supine in bed upon arrival. Pt reports sleeping well but tired/ fatigued today. Pt agrees to PT. Pain Location: No Pain Reported Mental Status Patient Orientation: Person, Place Transfers Functional [place] Measure 0=Not Assessed/NA 4=Minimal Assistance 1=Total Assistance 5=Supervision or Setup 2=Maximal Assistance 6=Modified [place] 3=Moderate Assistance 7=Complete IndependenceIRFPAI Quality Coding Scale 6 Independent with activity with or without an assistive device 5 Patient requires set up or clean up by helper. Patient completes activity by themselves 4 Supervision or touching assist ([facility]). [place] provide cues , steadying assist 3 The helper provides less than half the effort to complete the activity 2 The helper provides more than half the effort to complete the activity 1 Dependent. The helper does all the effort to complete an activity 7 Patient refused to complete or attempt activity 9 The patient did not perform the activity before the current illness or injury 88 Not attempted due to Medical conditions or safety concerns Scootin Rollin Roll Left to Right (QC): 5 Supine to/from Sit: 4 Sit to/from Stand: 5 Sit to Stand (QC): 5 Weight Bearing Weight Bearing Restriction: Full Weight Bearing Location Restriction: LE Bilateral Gait Training Does the Patient Walk?: Yes Distance (FIM): 3=150 ft Distance: 200' Walk 10 feet (QC): 4 Walk 50 ft with 2 Turns(QC): 4 Walk 150 ft (QC): 4 Gait Level of Assist: 4 Gait Persons Needed: 1 Gait Assistive Device: FWW Pt walks with slow dionisio and fatigues easy, needing rest breaks. Wheelchair Training Does the Pt Use a Wheelchair?: No Stair Training Stair Training: Handrails/: 2 handrails #of Steps: 8 1 Step (curb) (QC): 5 4 Steps (QC): 4 Stairs: Pattern: Step to Level of Assist: 4 Exercises Seated Therapy Exercises: Ankle pumps, Long arc quads, Hip flexion, Kicking activity Seated Reps: 20 NuStep Minutes: 15 NuStep Workload: 5 Treatments Pt transferred supine to EOB at Min A/DIE CASTING MACHINE OPERATOR then EOB to standing using FWW at [facility]. Pt ambulated using FWW at [facility] for unsteadiness/balance. Pt used NuStep for 15m at Workload 5 with several rest breaks and Seated Ex in chair to increase strength, activity tolerance and balance. Pt ambulated 2 sets of 4 stairs using L handrail at SBA like pt would have at home. Pt returned to room to rest but had to stop to rest in a chair on the way. OT arrived and took over tx. PT left pt with all needs met at end of tx. Assessment Current Status: Fair Progress Pt continues to fatigue easy and need frequent rest breaks. PT Short Term Goals Short Term Goals Time Frame: November 15, 2016 Gait (FIM): 5 Gait Distance Comment: 300' Gait Level of Assist: 5 Gait Assistive Device: FWW PT Sales Order Coordinator Goals Sales Order Coordinator Goals PT Sales Order Coordinator Goals Time Frame: Nov 29, 2016 Transfers (B,C,W/C) (FIM): 6 Sit to Lying (QC): 6 Lying-Sitting on Side/Bed(QC): 6 Sit to Stand (QC): 6 Rollin Roll Left to Right (QC): 6 Car Transfer (QC): 4 Gait (FIM): 6 Distance: 400' Walk 10 feet (QC): 6 Walk 10ft-Uneven Surface(QC): 6 Walk 50ft with 2 Turns (QC): 6 Walk 150 ft (QC): 6 Gait Assistive Device: FWW Stairs (FIM): 5 # of Steps: 12 1 Step (curb) (QC): 4 4 Steps (QC): 4 12 Steps (QC): 4 Stairs Level Of Assist: 5 Picking up an Object (QC): 4 PT Plan Problem List Problem List: Activity Tolerance, Functional Strength, Safety, Balance, Gait, Transfer Treatment/Plan Treatment Plan: Continue Plan of Care Treatment Plan: Bed Mobility, Education, Functional Activity Amanda, Functional Strength, Group Therapy, Gait, Safety, Therapeutic Exercise, Transfers Treatment Duration: Nov 29, 2016 Visits Per Week: 10-11 Minutes/Day (M-F): 60-90 Minutes/Day (Sat/Glez): 15-30 Safety Risks/Education Patient Education: Gait Training, Transfer Techniques, Steps, Correct Positioning, Safety Issues Teaching Recipient: Patient Teaching Methods: Discussion Response to Teaching: Verbalize Understanding Time/GCodes Time In: 815 Time Out: 915 Total Billed Treatment Time: 60 Total Billed Treatment visit, FA (15m), EX X2 (30m) & GT (15m) JERICA MESSER COAL CRUSHER OPERATOR November 17, 2016 10:20
[2016-11-17] MEDS: LACTOBACILLUS Acidoph/Bulgar (LACTINEX/FLORANEX) TAB PO SCH ×2 (11:14→15:43)
--- NOTE | 2016-11-17 11:53 | Occupational Ther Daily Note ---
OT Current Status-Daily Note Subjective Pt seen in commons area after PT, agreeable to OT. No pain mentioned but pt reported he was sleepy. Appearance Alert, cooperative Mental Status/Objective Functional [place] Measure 0=Not Assessed/NA 4=Minimal Assistance 1=Total Assistance 5=Supervision or Setup 2=Maximal Assistance 6=Modified [place] 3=Moderate Assistance 7=Complete [place] ADL-Treatment Functional [place] Measure 0=Not Assessed/NA 4=Minimal Assistance 1=Total Assistance 5=Supervision or Setup 2=Maximal Assistance 6=Modified [place] 3=Moderate Assistance 7=Complete IndependenceIRFPAI Quality Coding Scale 6 Independent with activity with or without an assistive device 5 Patient requires set up or clean up by helper. Patient completes activity by themselves 4 Supervision or touching assist (CGA). [place] provide cues , steadying assist 3 The helper provides less than half the effort to complete the activity 2 The helper provides more than half the effort to complete the activity 1 Dependent. The helper does all the effort to complete an activity 7 Patient refused to complete or attempt activity 9 The patient did not perform the activity before the current illness or injury 88 Not attempted due to Medical conditions or safety concerns Other Treatment Cues for hand placement with sit to stand. Pt walked CGA, FWW to gym (tends to fish bait picker walker and is also unsteady). Pt did 15 minutes bilat UE exercise with arm bike set at 12-15W resistance, taking several recovery breaks. Also did tabletop nuts and bolts activity with 1# weight on each hand. Struggled a little at times to get nut started on bolt and moved slower than usual, taking extra time and with breaks. Exercise to strengthen arms to help with transfers and steadying for ADLs. Pt walked back to his room, stopping for brief standing break. Remains unsteady and requiring CGA. Pt got into bed without help and was left up in bed, 3 rails up, all needs met. Education OT Patient Education: Exercise program, Progress toward Goal/Update tx plan, Purpose of tx/functional activities Teaching Recipient: Patient Teaching Methods: Discussion Response to Teaching: Verbalize Understanding, Reinforcement Needed OT Short Term Goals Short Term Goals Time Frame: November 22, 2016 Lower Body Dressing(FIM): 5 Shower Transfer(FIM): 5 Additional Short Term Goals: 2-Verbalize Understanding, 3-ImproveStrength/Amanda 1=Demonstrate adherence to instructed precautions during ADL tasks. 2=Patient will verbalize/demonstrate understanding of assistive devices/ modifications for ADL. 3=Patient will improve strength/tolerance for activity to enable patient to perform ADL's. OT Home Energy Inspector Goals Snf Goals Time Frame: Nov 29, 2016 Eating (FIM): 6 Eating (QC): 6 Groomin Oral Hygiene (QC): 6 Bathing(FIM): 6 Shower/Bathe Self (QC): 6 Upper Body Dressing(FIM): 6 Upper Body Dressing (QC): 6 Lower Body Dressing(FIM): 6 Lower Body Dressing (QC): 6 On/Off Footwear (QC): 6 Toileting(FIM): 6 Toileting Hygiene (QC): 6 Toilet/Commode Transfer(FIM): 6 Toilet/Commode Transfer (QC): 6 Shower Transfer(FIM): 6 Additional Goals: 2-Verbalize Understanding, 3-ImproveStrength/Amanda 1=Demonstrate adherence to instructed precautions during ADL tasks. 2=Patient will verbalize/demonstrate understanding of assistive devices/ modifications for ADL. 3=Patient will improve strength/tolerance for activity to enable patient to perform ADL's. OT Education/Plan Problem List/Assessment Pt would benefit from skilled OT to increase his independence with basic self care to allow him to safely return home to live with his and to decrease caregiver burden. Discharge Recommendations Plan/Recommendations: Continue POC Treatment Plan/Plan of Care Patient would benefit from OT for education, treatment and training to promote independence in ADL's, mobility, safety and/or upper extremity function for ADL' s. Plan of Care: ADL Retraining, Functional Mobility, Group Exercise/Act as Ind ( education, exercise, activ tolerance, socialization, funct activities), UE Funct Exercise/Act, UE Neuromus Re-Ed/Coord Treatment Duration: Nov 29, 2016 Visits Per Week: 10-11 Minutes/Day (M-F): 75-90 Minutes/Day (Sat/Glez): PRN Agreement: Yes Rehab Potential: Fair Time/GCodes Start Time: 09:15 Stop Time: 10:15 Total Time Billed (hr/min): 60 Billed Treatment Time visit, 60 minutes exercise BERNARDA GTZ OT November 17, 2016 11:53
--- NOTE | 2016-11-17 15:13 | Occupational Ther Daily Note ---
OT Current Status-Daily Note Subjective Pt seen in room, up in bed, agreeable to OT. No pain mentioned. Appearance Alert, cooperative Mental Status/Objective Functional [place] Measure 0=Not Assessed/NA 4=Minimal Assistance 1=Total Assistance 5=Supervision or Setup 2=Maximal Assistance 6=Modified [place] 3=Moderate Assistance 7=Complete [place] ADL-Treatment Pt walked CGA, FWW to bathroom and stood to urinate. He had difficulty managing balance while concentrating on urinating so was encouraged to sit to urinate. He became very wobbly when standing unsupported at toilet but was able to catch his balance with grab bar. Walked CGA, FWW to gym. Skilled cues to reach back when sitting, for safety. Pt did reps bilat UE ex with red (medium) theraband and was able to do 10 reps elbow extension and 5 reps horizontal abd but elbow flexion, int/ext rotation caused increased pain in R shoulder. He was able to do 5 reps bilat AROM with hands together, reaching to ceiling, to maintain ROM at R shoulder. Pt required frequent recovery periods after exercises to catch his breath. Skilled cues for hand placement for sit to stand Pt walked back to room with CGA, FWW and got into bed with SBA. 4 rails up, bed alarm on, all needs met. Functional [place] Measure 0=Not Assessed/NA 4=Minimal Assistance 1=Total Assistance 5=Supervision or Setup 2=Maximal Assistance 6=Modified [place] 3=Moderate Assistance 7=Complete IndependenceIRFPAI Quality Coding Scale 6 Independent with activity with or without an assistive device 5 Patient requires set up or clean up by helper. Patient completes activity by themselves 4 Supervision or touching assist (CGA). [place] provide cues , steadying assist 3 The helper provides less than half the effort to complete the activity 2 The helper provides more than half the effort to complete the activity 1 Dependent. The helper does all the effort to complete an activity 7 Patient refused to complete or attempt activity 9 The patient did not perform the activity before the current illness or injury 88 Not attempted due to Medical conditions or safety concerns Toileting (FIM): 4 (CGA for standing for clothing management. Tall toilet, grab bar) Toilet/Commode Transfer (FIM): 4 (CGA, grab bar, to get on/off tall toilet) Education OT Patient Education: Exercise program, Modified ADL techniques, Progress toward Goal/Update tx plan, Safety issues, Transfer techniques Teaching Recipient: Patient Response to Teaching: Verbalize Understanding, Return Demonstration, Reinforcement Needed OT Short Term Goals Short Term Goals Time Frame: November 22, 2016 Lower Body Dressing(FIM): 5 Shower Transfer(FIM): 5 Additional Short Term Goals: 2-Verbalize Understanding, 3-ImproveStrength/Amanda 1=Demonstrate adherence to instructed precautions during ADL tasks. 2=Patient will verbalize/demonstrate understanding of assistive devices/ modifications for ADL. 3=Patient will improve strength/tolerance for activity to enable patient to perform ADL's. OT Usp Goals Usp Goals Time Frame: Nov 29, 2016 Eating (FIM): 6 Eating (QC): 6 Groomin Oral Hygiene (QC): 6 Bathing(FIM): 6 Shower/Bathe Self (QC): 6 Upper Body Dressing(FIM): 6 Upper Body Dressing (QC): 6 Lower Body Dressing(FIM): 6 Lower Body Dressing (QC): 6 On/Off Footwear (QC): 6 Toileting(FIM): 6 Toileting Hygiene (QC): 6 Toilet/Commode Transfer(FIM): 6 Toilet/Commode Transfer (QC): 6 Shower Transfer(FIM): 6 Additional Goals: 2-Verbalize Understanding, 3-ImproveStrength/Amanda 1=Demonstrate adherence to instructed precautions during ADL tasks. 2=Patient will verbalize/demonstrate understanding of assistive devices/ modifications for ADL. 3=Patient will improve strength/tolerance for activity to enable patient to perform ADL's. OT Education/Plan Problem List/Assessment Pt would benefit from skilled OT to increase his independence with basic self care to allow him to safely return home to live with his and to decrease caregiver burden. Discharge Recommendations Plan/Recommendations: Continue POC Treatment Plan/Plan of Care Patient would benefit from OT for education, treatment and training to promote independence in ADL's, mobility, safety and/or upper extremity function for ADL' s. Plan of Care: ADL Retraining, Functional Mobility, Group Exercise/Act as Ind ( education, exercise, activ tolerance, socialization, funct activities), UE Funct Exercise/Act, UE Neuromus Re-Ed/Coord Treatment Duration: Nov 29, 2016 Visits Per Week: 10-11 Minutes/Day (M-F): 75-90 Minutes/Day (Sat/Glez): PRN Agreement: Yes Rehab Potential: Fair Time/GCodes Start Time: 13:30 Stop Time: 14:00 Total Time Billed (hr/min): 30 Billed Treatment Time visit, 10 minutes ADL, 20 minutes exercise BERNARDA GTZ OT November 17, 2016 15:13
--- NOTE | 2016-11-17 15:16 | Physical Therapy Daily Note ---
PT Daily Note-Current Subjective Pt laying Supine in bed upon arrival. Social Work arrives to visit with pt and explain discharge plan for Monday. Pt reluctantly agrees to participate in PT. Pain Numeric Pain Scale: 7 Location: Right Location Body Site: Shoulder Pain Description: Ache Mental Status Patient Orientation: Person, Place Transfers Functional [place] Measure 0=Not Assessed/NA 4=Minimal Assistance 1=Total Assistance 5=Supervision or Setup 2=Maximal Assistance 6=Modified [place] 3=Moderate Assistance 7=Complete IndependenceIRFPAI Quality Coding Scale 6 Independent with activity with or without an assistive device 5 Patient requires set up or clean up by helper. Patient completes activity by themselves 4 Supervision or touching assist (CGA). [place] provide cues , steadying assist 3 The helper provides less than half the effort to complete the activity 2 The helper provides more than half the effort to complete the activity 1 Dependent. The helper does all the effort to complete an activity 7 Patient refused to complete or attempt activity 9 The patient did not perform the activity before the current illness or injury 88 Not attempted due to Medical conditions or safety concerns Weight Bearing Weight Bearing Restriction: Full Weight Bearing Location Restriction: LE Bilateral Wheelchair Training Does the Pt Use a Wheelchair?: No Exercises Supine Ex: Ankle pumps, Rolling, Heel Slides, Straight leg raise, Hip abd/add Supine Reps: 15 Treatments Pt completes Supine Ex in bed due to hard to keep pt awake. PT continues to have to wake pt during tx. Pt discusses and signs paperwork for SW. Pt stays supine in bed at end of tx with all needs met. Assessment Current Status: Fair Progress Difficult to keep pt awake during tx. Pt is not as motivated to participate in tx this afternoon. PT Short Term Goals Short Term Goals Time Frame: November 15, 2016 Gait (FIM): 5 Gait Distance Comment: 300' Gait Level of Assist: 5 Gait Assistive Device: FWW PT Technology Infusion Specialist Goals Technology Infusion Specialist Goals PT Fpc Goals Time Frame: Nov 29, 2016 Transfers (B,C,W/C) (FIM): 6 Sit to Lying (QC): 6 Lying-Sitting on Side/Bed(QC): 6 Sit to Stand (QC): 6 Rollin Roll Left to Right (QC): 6 Car Transfer (QC): 4 Gait (FIM): 6 Distance: 400' Walk 10 feet (QC): 6 Walk 10ft-Uneven Surface(QC): 6 Walk 50ft with 2 Turns (QC): 6 Walk 150 ft (QC): 6 Gait Assistive Device: FWW Stairs (FIM): 5 # of Steps: 12 1 Step (curb) (QC): 4 4 Steps (QC): 4 12 Steps (QC): 4 Stairs Level Of Assist: 5 Picking up an Object (QC): 4 PT Plan Problem List Problem List: Activity Tolerance, Functional Strength, Safety, Balance, Gait, Transfer Treatment/Plan Treatment Plan: Continue Plan of Care Treatment Plan: Bed Mobility, Education, Functional Activity Amanda, Functional Strength, Group Therapy, Gait, Safety, Therapeutic Exercise, Transfers Treatment Duration: Nov 29, 2016 Visits Per Week: 10-11 Minutes/Day (M-F): 60-90 Minutes/Day (Sat/Glez): 15-30 Safety Risks/Education Patient Education: Transfer Techniques, Correct Positioning, Safety Issues Teaching Recipient: Patient Teaching Methods: Discussion Response to Teaching: Verbalize Understanding Time/GCodes Time In: 1300 Time Out: 1330 Total Billed Treatment Time: 30 Total Billed Treatment visit, FA (15m) & EX (15m) JERICA MESSER SEED BUYER November 17, 2016 15:16
[2016-11-17 18:05] VITALS: BP 147/77
[2016-11-17] MEDS: GLUCOSAMINE 1000 MG PO SCH (20:17)
[2016-11-17] MEDS: ATORVASTATIN 40 MG (LIPITOR) TABLET PO SCH (20:17)
[2016-11-17] MEDS: FENOFIBRATE 134 MG (LOFIBRA) CAPSULE PO SCH (20:17)
[2016-11-18] MEDS: ONDANSETRON 8 MG (ZOFRAN) ORAL DISSOLVE TAB PO SCH ×4 (01:13→23:21)
[2016-11-18 06:00] VITALS: BP 149/64
[2016-11-18] MEDS: inSUlin (REGULAR) HUMAN 1 UNIT/0.01 ML (CHARGE PER UNIT) SC SCH ×4 (06:22→20:24)
[2016-11-18] MEDS: CALCIUM CARB + VIT D 600 MG (CALCARB + D) TAB PO SCH (06:22)
[2016-11-18] MEDS: OMEGA 3 (FISH OIL) 1000 MG CAP PO SCH ×2 (06:22→17:05)
[2016-11-18] MEDS: MULTIVIT W/MINERALS TAB (THERAGRAN M) PO SCH (06:22)
[2016-11-18] MEDS: LACTOBACILLUS Acidoph/Bulgar (LACTINEX/FLORANEX) TAB PO SCH ×3 (06:22→16:41)
[2016-11-18] MEDS: lisINopril 20 MG (ZESTRIL) TAB PO SCH (08:17)
[2016-11-18] MEDS: AMIODARONE 200 MG (CORDARONE) TAB PO SCH (08:17)
[2016-11-18] MEDS: ASPIRIN E.C. 81 MG (ECOTRIN) TAB PO SCH (08:17)
[2016-11-18] MEDS: DICLOFENAC 1% GEL 100 GM (VOLTAREN) TUBE TOP SCH ×4 (08:19→20:24)
[2016-11-18] MEDS: HYDROcodone/APAP 5 MG/325 MG (LORTAB) TAB PO PRN ×2 (08:21→17:14)
--- NOTE | 2016-11-18 09:50 | Physical Therapy Daily Note ---
PT Daily Note-Current Subjective Pt is sidelying in bed upon arrival. Pt is again not very motivated to participate and just wants to go home. Pt agrees to PT. Pain Location: Right Location Body Site: Shoulder Pain Description: Ache Comment: Pt doesn't rate pain, just reports having it. Mental Status Patient Orientation: Person, Place, Situation Transfers Functional [place] Measure 0=Not Assessed/NA 4=Minimal Assistance 1=Total Assistance 5=Supervision or Setup 2=Maximal Assistance 6=Modified [place] 3=Moderate Assistance 7=Complete IndependenceIRFPAI Quality Coding Scale 6 Independent with activity with or without an assistive device 5 Patient requires set up or clean up by helper. Patient completes activity by themselves 4 Supervision or touching assist (CGA). [place] provide cues , steadying assist 3 The helper provides less than half the effort to complete the activity 2 The helper provides more than half the effort to complete the activity 1 Dependent. The helper does all the effort to complete an activity 7 Patient refused to complete or attempt activity 9 The patient did not perform the activity before the current illness or injury 88 Not attempted due to Medical conditions or safety concerns Scootin Rollin Roll Left to Right (QC): 5 Supine to/from Sit: 4 Sit to/from Stand: 5 Sit to Lying (QC): 5 Sit to Stand (QC): 5 Weight Bearing Weight Bearing Restriction: Full Weight Bearing Location Restriction: LE Bilateral Gait Training Does the Patient Walk?: Yes Distance (FIM): 8=520-13 ft Distance: 125' Walk 10 feet (QC): 4 Walk 50 ft with 2 Turns(QC): 4 Walk 150 ft (QC): 4 Gait Level of Assist: 4 Gait Persons Needed: 1 Gait Assistive Device: FWW Pt has moments of unsteadiness/LOB but pt recovers by self. Pt needs VC to remind about safety and keeping FWW close. Wheelchair Training Does the Pt Use a Wheelchair?: No Stair Training Stair Training: Handrails/: 1 handrail #of Steps: 4 1 Step (curb) (QC): 5 4 Steps (QC): 5 12 Steps (QC): 88 Stairs: Pattern: Step to Level of Assist: 5 Pt fatigues easy and PT stays close for balance support. Exercises Seated Therapy Exercises: Ankle pumps, Long arc quads, Hip flexion, Kicking activity Seated Reps: 15 NuStep Minutes: 15 NuStep Workload: 5 Treatments Pt transfers from Supine to EOB at Min A/ANIMAL FEEDER then EOB to Standing at SBA. Pt ambulated using FWW at [facility] for balance/support. Pt used NuStep for 15m at Workload 5 with several rest breaks and Seated Ex in chair to increase strength , activity tolerance and balance. Pt returned to room to rest in bed at end of Ex. Pt transferred to sidelying to rest. PT gave pt education to pt and daughter over pt's progress and what PT has focused on balance improvement and safety with transfers and ambulation. Pt is resting at end of tx with all needs met. Assessment Current Status: Fair Progress Pt is ready to discharge and not as motivated to participate in PT. Pt needs VC for safety concerns with keeping FWW on ground, balance, keeping FWW close when transferring. PT Short Term Goals Short Term Goals Time Frame: November 15, 2016 Gait (FIM): 5 Gait Distance Comment: 300' Gait Level of Assist: 5 Gait Assistive Device: FWW PT Halfway Goals Rolling Machine Operator Automatic Goals PT Halfway Goals Time Frame: Nov 29, 2016 Transfers (B,C,W/C) (FIM): 6 Sit to Lying (QC): 6 Lying-Sitting on Side/Bed(QC): 6 Sit to Stand (QC): 6 Rollin Roll Left to Right (QC): 6 Car Transfer (QC): 4 Gait (FIM): 6 Distance: 400' Walk 10 feet (QC): 6 Walk 10ft-Uneven Surface(QC): 6 Walk 50ft with 2 Turns (QC): 6 Walk 150 ft (QC): 6 Gait Assistive Device: FWW Stairs (FIM): 5 # of Steps: 12 1 Step (curb) (QC): 4 4 Steps (QC): 4 12 Steps (QC): 4 Stairs Level Of Assist: 5 Picking up an Object (QC): 4 PT Plan Problem List Problem List: Activity Tolerance, Safety, Balance, Gait, Transfer Treatment/Plan Treatment Plan: Continue Plan of Care Treatment Plan: Bed Mobility, Education, Functional Activity Amanda, Functional Strength, Group Therapy, Gait, Safety, Therapeutic Exercise, Transfers Treatment Duration: Nov 29, 2016 Visits Per Week: 10-11 Minutes/Day (M-F): 60-90 Minutes/Day (Sat/Glez): 15-30 Safety Risks/Education Patient Education: Gait Training, Transfer Techniques, Correct Positioning, Safety Issues Teaching Recipient: Patient, Family Teaching Methods: Discussion Response to Teaching: Verbalize Understanding Time/GCodes Time In: 830 Time Out: 930 Total Billed Treatment Time: 60 Total Billed Treatment visit, EX X2 (30m), GT (15m) & FA (15m) JERICA MESSER POWER LINEMAN TECHNICIAN November 18, 2016 09:50
[2016-11-18] MEDS: MUPIROCIN 2% OINT 22 GM (BACTROBAN) TUBE TOP SCH ×2 (10:24→20:24)
--- NOTE | 2016-11-18 14:33 | Therapy Group Daily Note ---
Therapy Daily Group Note Patient Education Topic Home Safety, Fall Prevention Exercises LE Seated Exercise, UE Exercise Other/Notes Pt was an active participant in OT/PT group. He contributed to group discussion education on home safety and fall prevention - he could not think of any changes to make at home now but recalled many things he wished he'd done differently in the past to be safe. He did seated UE and LE exercises and modified the UE ones as needed due to his sore R shoulder. He walked back to his room with CGA, FWW and got into bed without assistance. Pt left up in room, 4 rails up, family present. Start Time: 13:00 Stop Time: 14:10 Total Billed Treatment Time: 70 Total Billed Treatment visit, 70 minutes group BERNARDA GTZ OT November 18, 2016 14:33
[2016-11-18 15:06] LABS: MEAN PLATELET VOLUME 9.4 FL (7.4-10.4); RED BLOOD COUNT 3.56 10^6/uL (4.35-5.85); RED CELL DISTRIBUTION WIDTH 17.3 % (10.0-14.5); WHITE BLOOD COUNT 7.4 10^3/uL (4.3-11.0)
--- NOTE | 2016-11-18 15:07 | Occupational Ther Daily Note ---
OT Current Status-Daily Note Subjective Pt seen in room, up in bed, reluctantly agreeable to OT. No pain mentioned but pt reported he was tired. Appearance Alert, cooperative, looks fatigued Mental Status/Objective Functional [place] Measure 0=Not Assessed/NA 4=Minimal Assistance 1=Total Assistance 5=Supervision or Setup 2=Maximal Assistance 6=Modified [place] 3=Moderate Assistance 7=Complete [place] ADL-Treatment Pt was unsteady when standing, especially if he did not have a hand on grab bar or FWW. He needed cueing to sit to do ADLs and stood to step out of his pants at the toilet, refusing to sit down (CGA provided then). He also needed cues to sit to shower, for his safety. Functional [place] Measure 0=Not Assessed/NA 4=Minimal Assistance 1=Total Assistance 5=Supervision or Setup 2=Maximal Assistance 6=Modified [place] 3=Moderate Assistance 7=Complete IndependenceIRFPAI Quality Coding Scale 6 Independent with activity with or without an assistive device 5 Patient requires set up or clean up by helper. Patient completes activity by themselves 4 Supervision or touching assist (CGA). [place] provide cues , steadying assist 3 The helper provides less than half the effort to complete the activity 2 The helper provides more than half the effort to complete the activity 1 Dependent. The helper does all the effort to complete an activity 7 Patient refused to complete or attempt activity 9 The patient did not perform the activity before the current illness or injury 88 Not attempted due to Medical conditions or safety concerns Bathing (FIM): 4 (Pt required CGA when standing due to unsteadiness. HE washed and dried all parts but needed cues to do them seated. Shower bench, grab bars, hand held shower. Required frequent recovery breaks throughout. O2 sats 95% but HR down to 48. Nursing notified) Upper Body (FIM): 4 (Stood to don shirt with SBA/CGA. Needed help with buttons) Lower Body Dressing (FIM): 4 (CGA when standing to pull pants up and when standing to step out of pants. ) Toileting (FIM): 4 (CGA for clothing management. Able to manage hygiene. Tall toilet, grab bar) Toilet/Commode Transfer (FIM): 4 (CGA, FWW grab bar, tall toilet) Pt picked at scabs on legs and arms during shower and dressing and bandaids applied. Nursing notified. Frequent rest/recovery periods required during ADLs. O2 sats 95% and above. Pt left up in bed, 4 rails up, all needs met. Education OT Patient Education: Modified ADL techniques, Purpose of tx/functional activities, Safety issues, Transfer techniques Teaching Recipient: Patient Response to Teaching: Reinforcement Needed OT Short Term Goals Short Term Goals Time Frame: November 22, 2016 Lower Body Dressing(FIM): 5 Shower Transfer(FIM): 5 Additional Short Term Goals: 2-Verbalize Understanding, 3-ImproveStrength/Amanda 1=Demonstrate adherence to instructed precautions during ADL tasks. 2=Patient will verbalize/demonstrate understanding of assistive devices/ modifications for ADL. 3=Patient will improve strength/tolerance for activity to enable patient to perform ADL's. OT Skilled Nursing Goals Performance Makeup Artist Goals Time Frame: Nov 29, 2016 Eating (FIM): 6 Eating (QC): 6 Groomin Oral Hygiene (QC): 6 Bathing(FIM): 6 Shower/Bathe Self (QC): 6 Upper Body Dressing(FIM): 6 Upper Body Dressing (QC): 6 Lower Body Dressing(FIM): 6 Lower Body Dressing (QC): 6 On/Off Footwear (QC): 6 Toileting(FIM): 6 Toileting Hygiene (QC): 6 Toilet/Commode Transfer(FIM): 6 Toilet/Commode Transfer (QC): 6 Shower Transfer(FIM): 6 Additional Goals: 2-Verbalize Understanding, 3-ImproveStrength/Amanda 1=Demonstrate adherence to instructed precautions during ADL tasks. 2=Patient will verbalize/demonstrate understanding of assistive devices/ modifications for ADL. 3=Patient will improve strength/tolerance for activity to enable patient to perform ADL's. OT Education/Plan Problem List/Assessment Pt would benefit from skilled OT to increase his independence with basic self care to allow him to safely return home to live with his and to decrease caregiver burden. Discharge Recommendations Plan/Recommendations: Continue POC Treatment Plan/Plan of Care Patient would benefit from OT for education, treatment and training to promote independence in ADL's, mobility, safety and/or upper extremity function for ADL' s. Plan of Care: ADL Retraining, Functional Mobility, Group Exercise/Act as Ind ( education, exercise, activ tolerance, socialization, funct activities), UE Funct Exercise/Act, UE Neuromus Re-Ed/Coord Treatment Duration: Nov 29, 2016 Visits Per Week: 10-11 Minutes/Day (M-F): 75-90 Minutes/Day (Sat/Glez): PRN Agreement: Yes Rehab Potential: Fair Time/GCodes Start Time: 09:30 Stop Time: 10:30 Total Time Billed (hr/min): 60 Billed Treatment Time visit, 60 minutes ADL BERNARDA GTZ OT November 18, 2016 15:07
[2016-11-18 15:20] LABS: ALBUMIN 2.8 G/DL (3.2-4.5); BILIRUBIN,TOTAL 0.3 MG/DL (0.1-1.0); CALCIUM 9.6 MG/DL (8.5-10.1); CREATININE SERUM 1.96 MG/DL (0.60-1.30); POTASSIUM 4.4 MMOL/L (3.6-5.0); TOTAL PROTEIN 5.6 G/DL (6.4-8.2)
[2016-11-18] MEDS ORDERED: NS IV 500 ML 500 ML IV ONE (17:00)
[2016-11-18 18:00] VITALS: BP 143/60
[2016-11-18] MEDS: LEVOFLOXACIN 750 MG/150 ML IV 150 ML IV SCH (18:53)
[2016-11-18] MEDS: FENOFIBRATE 134 MG (LOFIBRA) CAPSULE PO SCH (20:23)
[2016-11-18] MEDS: GLUCOSAMINE 1000 MG PO SCH (20:23)
[2016-11-18] MEDS: ATORVASTATIN 40 MG (LIPITOR) TABLET PO SCH (20:23)
[2016-11-19] MEDS: CALCIUM CARB + VIT D 600 MG (CALCARB + D) TAB PO SCH (05:44)
[2016-11-19] MEDS: MULTIVIT W/MINERALS TAB (THERAGRAN M) PO SCH (05:44)
[2016-11-19] MEDS: OMEGA 3 (FISH OIL) 1000 MG CAP PO SCH ×2 (05:44→16:12)
[2016-11-19] MEDS: inSUlin (REGULAR) HUMAN 1 UNIT/0.01 ML (CHARGE PER UNIT) SC SCH ×4 (05:44→20:19)
[2016-11-19] MEDS: LACTOBACILLUS Acidoph/Bulgar (LACTINEX/FLORANEX) TAB PO SCH ×3 (05:44→16:12)
[2016-11-19 06:00] VITALS: BP 176/74
[2016-11-19 06:41] LABS: ALBUMIN 2.6 G/DL (3.2-4.5); BILIRUBIN,TOTAL 0.3 MG/DL (0.1-1.0); CALCIUM 8.8 MG/DL (8.5-10.1); CREATININE SERUM 1.71 MG/DL (0.60-1.30); POTASSIUM 4.4 MMOL/L (3.6-5.0); TOTAL PROTEIN 5.1 G/DL (6.4-8.2)
[2016-11-19 08:32] VITALS: BP 164/73
[2016-11-19] MEDS: AMIODARONE 200 MG (CORDARONE) TAB PO SCH (08:34)
[2016-11-19] MEDS: ASPIRIN E.C. 81 MG (ECOTRIN) TAB PO SCH (08:34)
[2016-11-19] MEDS: lisINopril 20 MG (ZESTRIL) TAB PO SCH (08:34)
[2016-11-19] MEDS: ONDANSETRON 8 MG (ZOFRAN) ORAL DISSOLVE TAB PO SCH ×3 (08:39→23:08)
[2016-11-19] MEDS: HYDROcodone/APAP 5 MG/325 MG (LORTAB) TAB PO PRN (08:39)
[2016-11-19] MEDS: MUPIROCIN 2% OINT 22 GM (BACTROBAN) TUBE TOP SCH ×2 (08:40→20:22)
[2016-11-19] MEDS: DICLOFENAC 1% GEL 100 GM (VOLTAREN) TUBE TOP SCH ×4 (08:40→20:22)
[2016-11-19] MEDS ORDERED: NS IV 500 ML 500 ML IV ONE (10:45)
--- NOTE | 2016-11-19 12:48 | Physical Therapy Daily Note ---
PT Daily Note-Current Subjective Pt and present. encourages pt. to participate and practice steps. Pt. reluctant and stalls, states he is always so tired Pain Numeric Pain Scale: 0-No Pain Mental Status Patient Orientation: Normal For Age Transfers Functional [place] Measure 0=Not Assessed/NA 4=Minimal Assistance 1=Total Assistance 5=Supervision or Setup 2=Maximal Assistance 6=Modified [place] 3=Moderate Assistance 7=Complete IndependenceIRFPAI Quality Coding Scale 6 Independent with activity with or without an assistive device 5 Patient requires set up or clean up by helper. Patient completes activity by themselves 4 Supervision or touching assist (CGA). [place] provide cues , steadying assist 3 The helper provides less than half the effort to complete the activity 2 The helper provides more than half the effort to complete the activity 1 Dependent. The helper does all the effort to complete an activity 7 Patient refused to complete or attempt activity 9 The patient did not perform the activity before the current illness or injury 88 Not attempted due to Medical conditions or safety concerns Transfers (B, C, W/C) (FIM): 5 Scootin Rollin Supine to/from Sit: 5 Sit to/from Stand: 5 Bed to/from Chair: 5 Gait Training Does the Patient Walk?: Yes Gait (FIM): 4 Distance (FIM): 3=150 ft (x2) Gait Level of Assist: 4 Gait Persons Needed: 1 Gait Assistive Device: FWW slow, wants to stop to rest frequently Stair Training Stair Training: Handrails/: 2 handrails Stairs (FIM): 2 #of Steps: 4 Stairs: Pattern: Reciprocal Level of Assist: 4 Exercises Seated Therapy Exercises: Ankle pumps, Sit to stand, Long arc quads, Hip flexion Seated Reps: 10 Assessment Current Status: Good Progress PT Short Term Goals Short Term Goals Time Frame: November 15, 2016 Gait (FIM): 5 Gait Distance Comment: 300' Gait Level of Assist: 5 Gait Assistive Device: FWW PT Respiratory Therapy Assistant Goals Respiratory Therapy Assistant Goals PT Jail Goals Time Frame: Nov 29, 2016 Transfers (B,C,W/C) (FIM): 6 Sit to Lying (QC): 6 Lying-Sitting on Side/Bed(QC): 6 Sit to Stand (QC): 6 Rollin Roll Left to Right (QC): 6 Car Transfer (QC): 4 Gait (FIM): 6 Distance: 400' Walk 10 feet (QC): 6 Walk 10ft-Uneven Surface(QC): 6 Walk 50ft with 2 Turns (QC): 6 Walk 150 ft (QC): 6 Gait Assistive Device: FWW Stairs (FIM): 5 # of Steps: 12 1 Step (curb) (QC): 4 4 Steps (QC): 4 12 Steps (QC): 4 Stairs Level Of Assist: 5 Picking up an Object (QC): 4 PT Plan Treatment/Plan Treatment Plan: Continue Plan of Care Treatment Plan: Bed Mobility, Education, Functional Activity Amanda, Functional Strength, Group Therapy, Gait, Safety, Therapeutic Exercise, Transfers Treatment Duration: Nov 29, 2016 Visits Per Week: 10-11 Minutes/Day (M-F): 60-90 Minutes/Day (Sat/Glez): 15-30 Safety Risks/Education Patient Education: Gait Training, Transfer Techniques, Steps, Correct Positioning, Safety Issues Teaching Recipient: Patient Teaching Methods: Demonstration, Discussion Response to Teaching: Verbalize Understanding, Return Demonstration, Reinforcement Needed Time/GCodes Time In: 1000 Time Out: 1030 Total Billed Treatment Time: 30 Total Billed Treatment 1,GT30m G Codes Necessary: ESTHELA Dalton PACKING ROOM SUPERVISOR November 19, 2016 12:48
[2016-11-19 17:34] VITALS: BP 144/69
[2016-11-19] MEDS: ATORVASTATIN 40 MG (LIPITOR) TABLET PO SCH (20:20)
[2016-11-19] MEDS: FENOFIBRATE 134 MG (LOFIBRA) CAPSULE PO SCH (20:21)
[2016-11-19] MEDS: GLUCOSAMINE 1000 MG PO SCH (20:22)
[2016-11-20 06:09] VITALS: BP 168/67
[2016-11-20 06:26] LABS: CALCIUM 9.5 MG/DL (8.5-10.1); CREATININE SERUM 1.71 MG/DL (0.60-1.30); POTASSIUM 4.8 MMOL/L (3.6-5.0)
[2016-11-20] MEDS: CALCIUM CARB + VIT D 600 MG (CALCARB + D) TAB PO SCH (06:28)
[2016-11-20] MEDS: OMEGA 3 (FISH OIL) 1000 MG CAP PO SCH ×2 (06:28→16:04)
[2016-11-20] MEDS: inSUlin (REGULAR) HUMAN 1 UNIT/0.01 ML (CHARGE PER UNIT) SC SCH ×4 (06:28→21:09)
[2016-11-20] MEDS: MULTIVIT W/MINERALS TAB (THERAGRAN M) PO SCH (06:28)
[2016-11-20] MEDS: LACTOBACILLUS Acidoph/Bulgar (LACTINEX/FLORANEX) TAB PO SCH ×3 (06:28→16:04)
[2016-11-20 08:11] VITALS: BP 166/69
[2016-11-20] MEDS: ASPIRIN E.C. 81 MG (ECOTRIN) TAB PO SCH (08:12)
[2016-11-20] MEDS: ONDANSETRON 8 MG (ZOFRAN) ORAL DISSOLVE TAB PO SCH ×3 (08:13→23:47)
[2016-11-20] MEDS: DICLOFENAC 1% GEL 100 GM (VOLTAREN) TUBE TOP SCH ×4 (08:13→21:15)
[2016-11-20] MEDS: lisINopril 20 MG (ZESTRIL) TAB PO SCH (08:13)
[2016-11-20] MEDS: MUPIROCIN 2% OINT 22 GM (BACTROBAN) TUBE TOP SCH ×2 (08:13→21:15)
[2016-11-20] MEDS: AMIODARONE 200 MG (CORDARONE) TAB PO SCH (08:13)
[2016-11-20] MEDS: LEVOFLOXACIN 750 MG/150 ML IV 150 ML IV SCH (17:32)
[2016-11-20 17:50] VITALS: BP 144/61
[2016-11-20] MEDS: DOCUSATE SODIUM 100 MG (COLACE) CAP PO SCH (21:10)
[2016-11-20] MEDS: GLUCOSAMINE 1000 MG PO SCH (21:15)
[2016-11-20] MEDS: FENOFIBRATE 134 MG (LOFIBRA) CAPSULE PO SCH (21:15)
[2016-11-20] MEDS: ATORVASTATIN 40 MG (LIPITOR) TABLET PO SCH (21:15)
[2016-11-21 06:15] VITALS: BP 157/84
[2016-11-21] MEDS: LACTOBACILLUS Acidoph/Bulgar (LACTINEX/FLORANEX) TAB PO SCH ×3 (06:42→16:09)
[2016-11-21] MEDS: OMEGA 3 (FISH OIL) 1000 MG CAP PO SCH ×2 (06:42→16:09)
[2016-11-21] MEDS: MULTIVIT W/MINERALS TAB (THERAGRAN M) PO SCH (06:42)
[2016-11-21] MEDS: CALCIUM CARB + VIT D 600 MG (CALCARB + D) TAB PO SCH (06:42)
[2016-11-21] MEDS: inSUlin (REGULAR) HUMAN 1 UNIT/0.01 ML (CHARGE PER UNIT) SC SCH ×4 (06:43→20:37)
[2016-11-21] MEDS: DOCUSATE SODIUM 100 MG (COLACE) CAP PO SCH ×2 (08:31→20:37)
[2016-11-21] MEDS: ASPIRIN E.C. 81 MG (ECOTRIN) TAB PO SCH (08:31)
[2016-11-21] MEDS: AMIODARONE 200 MG (CORDARONE) TAB PO SCH (08:31)
[2016-11-21] MEDS: ONDANSETRON 8 MG (ZOFRAN) ORAL DISSOLVE TAB PO SCH ×2 (08:31→16:09)
[2016-11-21] MEDS: lisINopril 20 MG (ZESTRIL) TAB PO SCH (08:32)
[2016-11-21] MEDS: MUPIROCIN 2% OINT 22 GM (BACTROBAN) TUBE TOP SCH ×2 (08:33→20:37)
[2016-11-21] MEDS: DICLOFENAC 1% GEL 100 GM (VOLTAREN) TUBE TOP SCH ×4 (08:33→20:37)
--- NOTE | 2016-11-21 10:17 | Physical Therapy Daily Note ---
PT Daily Note-Current Subjective Pt sidelying on L side upon arrival. Pt reports wanting to go home and is tired this morning although daughter reports pt slept well last night. Pt agrees to PT since current discharge is scheduled for tomorrow. Pain Location: No Pain Reported Mental Status Patient Orientation: Person, Place, Situation Transfers Functional [place] Measure 0=Not Assessed/NA 4=Minimal Assistance 1=Total Assistance 5=Supervision or Setup 2=Maximal Assistance 6=Modified [place] 3=Moderate Assistance 7=Complete IndependenceIRFPAI Quality Coding Scale 6 Independent with activity with or without an assistive device 5 Patient requires set up or clean up by helper. Patient completes activity by themselves 4 Supervision or touching assist (CGA). [place] provide cues , steadying assist 3 The helper provides less than half the effort to complete the activity 2 The helper provides more than half the effort to complete the activity 1 Dependent. The helper does all the effort to complete an activity 7 Patient refused to complete or attempt activity 9 The patient did not perform the activity before the current illness or injury 88 Not attempted due to Medical conditions or safety concerns Scootin Rollin Roll Left to Right (QC): 5 Supine to/from Sit: 5 Sit to/from Stand: 5 Sit to Lying (QC): 5 Sit to Stand (QC): 5 Chair/Bib-ab-Umfzo Xfer(QC): 5 Bed to/from Chair: 5 Weight Bearing Weight Bearing Restriction: Full Weight Bearing Location Restriction: LE Bilateral Gait Training Does the Patient Walk?: Yes Gait (FIM): 4 Distance (FIM): 3=150 ft Distance: 150' Walk 10 feet (QC): 5 Walk 50 ft with 2 Turns(QC): 5 Walk 150 ft (QC): 5 Walking 10ft/uneven surface-QC: 5 Gait Level of Assist: 5 Gait Persons Needed: 1 Gait Assistive Device: FWW Pt tends to drift toward R side when walking but will self-correct. Pt will occasionally have LOB and stumble but doesn't fall, self-corrects. PT gives VC for safety to keep FWW on ground. Wheelchair Training Does the Pt Use a Wheelchair?: No Stair Training Stair Training: Handrails/: 1 handrail #of Steps: 12 1 Step (curb) (QC): 5 4 Steps (QC): 5 12 Steps (QC): 5 Stairs: Pattern: Reciprocal Level of Assist: 5 PT is SBA for safety. PT fatigues but able to recover quickly with standing rest and complete the series of steps. Balance Picking up an Object (QC): 88 Special Test Comments Didn't attempt due to safety concerns with balance. Exercises NuStep Minutes: 7 NuStep Workload: 5 Treatments Pt transfers from Sidelying in bed to sitting EOB to Standing using FWW at A for safety. PT uses restroom before ambulating to Therapy Gym. Pt ambulates using FWW at [facility] with VC for safety with AD. Pt completes gait and balance activities including stairs, walking on varying surface for at least 10', ambulation of at least 150' but did not attempt tile picker object off floor due to safety concern with balance. Assessment Current Status: Fair Progress Pt has improved with strength and activity tolerance but continues to have difficulties with balance and safety with keeping FWW on ground while ambulating. PT Short Term Goals Short Term Goals Time Frame: November 15, 2016 Gait (FIM): 5 Gait Distance Comment: 300' Gait Level of Assist: 5 Gait Assistive Device: FWW PT Chemical Project Engineer Goals Chemical Project Engineer Goals PT Chemical Project Engineer Goals Time Frame: Nov 29, 2016 Transfers (B,C,W/C) (FIM): 6 Sit to Lying (QC): 6 Lying-Sitting on Side/Bed(QC): 6 Sit to Stand (QC): 6 Rollin Roll Left to Right (QC): 6 Car Transfer (QC): 4 Gait (FIM): 6 Distance: 400' Walk 10 feet (QC): 6 Walk 10ft-Uneven Surface(QC): 6 Walk 50ft with 2 Turns (QC): 6 Walk 150 ft (QC): 6 Gait Assistive Device: FWW Stairs (FIM): 5 # of Steps: 12 1 Step (curb) (QC): 4 4 Steps (QC): 4 12 Steps (QC): 4 Stairs Level Of Assist: 5 Picking up an Object (QC): 4 PT Plan Problem List Problem List: Activity Tolerance, Safety, Balance, Gait Treatment/Plan Treatment Plan: Continue Plan of Care Treatment Plan: Bed Mobility, Education, Functional Activity [place], Functional Strength, Group Therapy, Gait, Safety, Therapeutic Exercise, Transfers Treatment Duration: Nov 29, 2016 Visits Per Week: 10-11 Minutes/Day (M-F): 60-90 Minutes/Day (Sat/Glez): 15-30 Safety Risks/Education Patient Education: Gait Training, Transfer Techniques, Steps, Correct Positioning, Safety Issues Teaching Recipient: Patient, Family Teaching Methods: Discussion Response to Teaching: Verbalize Understanding Time/GCodes Time In: 815 Time Out: 915 Total Billed Treatment Time: 60 Total Billed Treatment visit, FA X 2 (30m), EX (15m) & GT (15m) JERICA MESSER EXCAVATING CONTRACTOR November 21, 2016 10:16
--- NOTE | 2016-11-21 11:13 | Diagnostic Imaging Report ---
INDICATION: Followup pneumonia. COMPARISON: 11/16/2016. FINDINGS: Two views of the chest are obtained. Heart size and pulmonary vasculature appear stable. There has been interval increase in extent of infiltrate opacities in the left mid and lower lung likely secondary to worsening pneumonia. Suspect a small left effusion as well. Right lung remains fairly well expanded and aerated. No pneumothorax is seen. The osseous structures appear unremarkable. IMPRESSION: Increasing consolidation/airspace disease on the left when compared to the recent prior study. Continued followup is suggested. Dictated by: Dictated on workstation # [id number]
--- NOTE | 2016-11-21 11:24 | Occupational Ther Daily Note ---
OT Current Status-Daily Note Subjective Pt lying in bed with eyes closed. Pt's present stated she was talking to him to try and keep him awake. Pt agreed to therapy. No c/o pain. Mental Status/Objective Patient Orientation: Person, Place, Time, Situation Functional [place] Measure 0=Not Assessed/NA 4=Minimal Assistance 1=Total Assistance 5=Supervision or Setup 2=Maximal Assistance 6=Modified [place] 3=Moderate Assistance 7=Complete [place] PICC ADL-Treatment Functional [place] Measure 0=Not Assessed/NA 4=Minimal Assistance 1=Total Assistance 5=Supervision or Setup 2=Maximal Assistance 6=Modified [place] 3=Moderate Assistance 7=Complete IndependenceIRFPAI Quality Coding Scale 6 Independent with activity with or without an assistive device 5 Patient requires set up or clean up by helper. Patient completes activity by themselves 4 Supervision or touching assist (CGA). [place] provide cues , steadying assist 3 The helper provides less than half the effort to complete the activity 2 The helper provides more than half the effort to complete the activity 1 Dependent. The helper does all the effort to complete an activity 7 Patient refused to complete or attempt activity 9 The patient did not perform the activity before the current illness or injury 88 Not attempted due to Medical conditions or safety concerns Eating (FIM): 6 (Dentures. Pt able to complete own set up and use utensils to cook and eat food.) Eating (QC): 6 (Dentures. Pt able to complete own set up and use utensils to cook and eat food.) Grooming (FIM): 5 (Pt is SBA when standing at the sink to complete grooming due to unsteadiness. Pt able to manipulate all grooming tools independently.) Oral Hygiene (QC): 6 (Pt able to complete oral care.) Bathing (FIM): 4 (Using grabbars, shower bench and hand held shower pt is able to bath self after set up. Pt is unsteady when standing to bathe abhishek area and buttocks and LOB x1.) Bathing Location: L Arm, R Arm, L Upper Leg, R Upper Leg, L Lower Leg ( including foot), R Lower Leg (including foot), Chest, Abdomen, Buttocks, Perineal Area Shower/Bathe Self (QC): 4 (Using grabbars, shower bench and hand held shower pt is able to bath self after set up. Pt is unsteady when standing to bathe abhishek area and buttocks and LOB x1.) Upper Body (FIM): 5 (Pt's retrieves clothing for pt. Pt is able to complete own dressing.) Upper Body Dressing (QC): 5 (Pt's retrieves clothing for pt. Pt is able to complete own dressing.) Lower Body Dressing (FIM): 5 (Pt's retrieves clothing for pt. Pt is able to complete own dressing. Close SBA when standing to hike pants over hips for safety.) Lower Body Dressing (QC): 4 (Pt's retrieves clothing for pt. Pt is able to complete own dressing. Close SBA when standing to hike pants over hips for safety.) On/Off Footwear (QC): 5 (After set up, pt is able to complete by self.) Toileting (FIM): 5 (Using FWW, pt is able to stand at toilet and void with SBA. Pt is able to manipulate clothing and cleanse self.) Toileting Hygiene (QC): 4 (Using FWW, pt is able to stand at toilet and void with SBA. Pt is able to manipulate clothing and cleanse self.) Transfers (B, C, W/C) (FIM): 5 (Using FWW, pt is able to complete transfers with SBA.) Toilet/Commode Transfer (FIM): 5 (Using FWW and grabbars, pt is able to complete transfers with SBA.) Toilet Transfer (QC): 4 (Using FWW, pt is able to complete transfers with SBA.) Shower Transfer(FIM): 5 (Using FWW, grabbars and shower bench, pt is able to complete transfers with SBA.) Pt takes increased time to complete any tasks. Pt requires multiple lengthy recovery breaks during tasks, fatigues easily. Discussed with pt and about tub bench transfers. Pt has tub/shower in home and is very narrow and unable to use tub seat. Pt transported to large shower room via w/c to work on tub transfers. Pt was able to use FWW to transfer onto tub bench then swing legs over ledge into and out of tub. Pt required close SBA with transfer using FWW and tub transfer bench. After therapy, pt sitting in recliner with nrsg present. Call light/phone in reach. All needs met in room. OT Short Term Goals Short Term Goals Time Frame: November 22, 2016 Lower Body Dressing(FIM): 5 Shower Transfer(FIM): 5 Additional Short Term Goals: 2-Verbalize Understanding, 3-ImproveStrength/Amanda 1=Demonstrate adherence to instructed precautions during ADL tasks. 2=Patient will verbalize/demonstrate understanding of assistive devices/ modifications for ADL. 3=Patient will improve strength/tolerance for activity to enable patient to perform ADL's. OT Correction Goals Cyber Security Engineer Goals Time Frame: Nov 29, 2016 Eating (FIM): 6 Eating (QC): 6 Groomin Oral Hygiene (QC): 6 Bathing(FIM): 6 Shower/Bathe Self (QC): 6 Upper Body Dressing(FIM): 6 Upper Body Dressing (QC): 6 Lower Body Dressing(FIM): 6 Lower Body Dressing (QC): 6 On/Off Footwear (QC): 6 Toileting(FIM): 6 Toileting Hygiene (QC): 6 Toilet/Commode Transfer(FIM): 6 Toilet/Commode Transfer (QC): 6 Shower Transfer(FIM): 6 Additional Goals: 2-Verbalize Understanding, 3-ImproveStrength/Amanda 1=Demonstrate adherence to instructed precautions during ADL tasks. 2=Patient will verbalize/demonstrate understanding of assistive devices/ modifications for ADL. 3=Patient will improve strength/tolerance for activity to enable patient to perform ADL's. OT Education/Plan Problem List/Assessment Pt would benefit from skilled OT to increase his independence with basic self care to allow him to safely return home to live with his and to decrease caregiver burden. Discharge Recommendations Plan/Recommendations: Continue POC Treatment Plan/Plan of Care Patient would benefit from OT for education, treatment and training to promote independence in ADL's, mobility, safety and/or upper extremity function for ADL' s. Plan of Care: ADL Retraining, Functional Mobility, Group Exercise/Act as Ind ( education, exercise, activ tolerance, socialization, funct activities), UE Funct Exercise/Act, UE Neuromus Re-Ed/Coord Treatment Duration: Nov 29, 2016 Visits Per Week: 10-11 Minutes/Day (M-F): 75-90 Minutes/Day (Sat/Glez): PRN Agreement: Yes Rehab Potential: Fair Time/GCodes Start Time: 10:00 Stop Time: 11:30 Total Time Billed (hr/min): 90 Billed Treatment Time 1 visit-ADL 4 (60 min) FA 2 (30 min) ISABELA CAM November 21, 2016 11:24
--- NOTE | 2016-11-21 11:59 | Physical Therapy Daily Note ---
PT Daily Note-Current Subjective Patient and spouse agree to PT. Pain Numeric Pain Scale: 0-No Pain Location: No Pain Reported Mental Status Patient Orientation: Confused Transfers Functional [place] Measure 0=Not Assessed/NA 4=Minimal Assistance 1=Total Assistance 5=Supervision or Setup 2=Maximal Assistance 6=Modified [place] 3=Moderate Assistance 7=Complete IndependenceIRFPAI Quality Coding Scale 6 Independent with activity with or without an assistive device 5 Patient requires set up or clean up by helper. Patient completes activity by themselves 4 Supervision or touching assist (CGA). [place] provide cues , steadying assist 3 The helper provides less than half the effort to complete the activity 2 The helper provides more than half the effort to complete the activity 1 Dependent. The helper does all the effort to complete an activity 7 Patient refused to complete or attempt activity 9 The patient did not perform the activity before the current illness or injury 88 Not attempted due to Medical conditions or safety concerns Transfers (B, C, W/C) (FIM): 5 Scootin Rollin Roll Left to Right (QC): 5 Supine to/from Sit: 6 Sit to/from Stand: 5 Sit to Lying (QC): 5 Sit to Stand (QC): 5 Chair/Ggd-ej-Pzmyk Xfer(QC): 5 Bed to/from Chair: 5 Car Transfer (QC): 5 close SBA for safety Gait Training Does the Patient Walk?: Yes Gait (FIM): 5 Distance (FIM): 3=150 ft Distance: 300' x 4 Walk 10 feet (QC): 5 Walk 50 ft with 2 Turns(QC): 5 Walk 150 ft (QC): 5 Walking 10ft/uneven surface-QC: 5 Gait Level of Assist: 5 Gait Persons Needed: 1 Gait Assistive Device: FWW close SBA for safety; multiple episodes LOB with self correct and PT correct x 1 Assessment Patient does fatigue with activity and requires recovery periods due to SOA. Patient continues to be unaware of safety concerns, however, this is not new. Patient returned to room with spouse and is up in recliner with needs met. PT Short Term Goals Short Term Goals Time Frame: November 15, 2016 Gait (FIM): 5 Gait Distance Comment: 300' Gait Level of Assist: 5 Gait Assistive Device: FWW PT Gore Stitcher Goals Gore Stitcher Goals PT Usp Goals Time Frame: Nov 29, 2016 Transfers (B,C,W/C) (FIM): 6 Sit to Lying (QC): 6 Lying-Sitting on Side/Bed(QC): 6 Sit to Stand (QC): 6 Rollin Roll Left to Right (QC): 6 Car Transfer (QC): 4 Gait (FIM): 6 Distance: 400' Walk 10 feet (QC): 6 Walk 10ft-Uneven Surface(QC): 6 Walk 50ft with 2 Turns (QC): 6 Walk 150 ft (QC): 6 Gait Assistive Device: FWW Stairs (FIM): 5 # of Steps: 12 1 Step (curb) (QC): 4 4 Steps (QC): 4 12 Steps (QC): 4 Stairs Level Of Assist: 5 Picking up an Object (QC): 4 PT Plan Treatment/Plan Treatment Plan: Continue Plan of Care Treatment Plan: Bed Mobility, Education, Functional Activity Amanda, Functional Strength, Group Therapy, Gait, Safety, Therapeutic Exercise, Transfers Treatment Duration: Nov 29, 2016 Visits Per Week: 10-11 Minutes/Day (M-F): 60-90 Minutes/Day (Sat/Glez): 15-30 Time/GCodes Time In: 1125 Time Out: 1155 Total Billed Treatment Time: 30 Total Billed Treatment 1 visit GT x 2 30 min MCKINLEY DOMÍNGUEZ PT November 21, 2016 11:59
[2016-11-21] MEDS: HYDROcodone/APAP 5 MG/325 MG (LORTAB) TAB PO PRN (17:16)
[2016-11-21 18:13] VITALS: BP 140/81
[2016-11-21] MEDS: GLUCOSAMINE 1000 MG PO SCH (20:36)
[2016-11-21] MEDS: ATORVASTATIN 40 MG (LIPITOR) TABLET PO SCH (20:37)
[2016-11-21] MEDS: FENOFIBRATE 134 MG (LOFIBRA) CAPSULE PO SCH (20:37)
[2016-11-22] MEDS: ONDANSETRON 8 MG (ZOFRAN) ORAL DISSOLVE TAB PO SCH ×3 (00:25→17:45)
[2016-11-22] MEDS: HYDROcodone/APAP 5 MG/325 MG (LORTAB) TAB PO PRN ×2 (00:29→10:59)
[2016-11-22 05:20] VITALS: BP 161/63
[2016-11-22] MEDS: inSUlin (REGULAR) HUMAN 1 UNIT/0.01 ML (CHARGE PER UNIT) SC SCH ×4 (06:15→21:32)
[2016-11-22] MEDS: MULTIVIT W/MINERALS TAB (THERAGRAN M) PO SCH (06:16)
[2016-11-22] MEDS: CALCIUM CARB + VIT D 600 MG (CALCARB + D) TAB PO SCH (06:16)
[2016-11-22] MEDS: OMEGA 3 (FISH OIL) 1000 MG CAP PO SCH ×2 (06:16→09:56)
[2016-11-22] MEDS: LACTOBACILLUS Acidoph/Bulgar (LACTINEX/FLORANEX) TAB PO SCH ×3 (06:16→17:44)
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
[2016-11-22 09:45] VITALS: BP 161/75
[2016-11-22 09:50] LABS: MEAN PLATELET VOLUME 9.2 FL (7.4-10.4); RED BLOOD COUNT 3.66 10^6/uL (4.35-5.85); RED CELL DISTRIBUTION WIDTH 17.9 % (10.0-14.5); WHITE BLOOD COUNT 9.4 10^3/uL (4.3-11.0)
[2016-11-22] MEDS: lisINopril 20 MG (ZESTRIL) TAB PO SCH (09:56)
[2016-11-22] MEDS: ASPIRIN E.C. 81 MG (ECOTRIN) TAB PO SCH (09:56)
[2016-11-22] MEDS: DOCUSATE SODIUM 100 MG (COLACE) CAP PO SCH ×2 (09:56→21:32)
[2016-11-22] MEDS: AMIODARONE 200 MG (CORDARONE) TAB PO SCH (09:56)
[2016-11-22] MEDS: aCETylcysteine 20% (MUCOMYST) 30ML SOLN VIAL PO SCH ×2 (10:00→21:31)
[2016-11-22 10:03] LABS: CALCIUM 8.7 MG/DL (8.5-10.1); CREATININE SERUM 1.98 MG/DL (0.60-1.30); POTASSIUM 4.4 MMOL/L (3.6-5.0)
[2016-11-22] MEDS: NS IV 1000 ML 1,000 ML IV SCH (10:40)
[2016-11-22] MEDS: MUPIROCIN 2% OINT 22 GM (BACTROBAN) TUBE TOP SCH ×2 (10:58→21:34)
[2016-11-22] MEDS: DICLOFENAC 1% GEL 100 GM (VOLTAREN) TUBE TOP SCH ×4 (10:58→21:34)
--- NOTE | 2016-11-22 12:09 | Physical Therapy Daily Note ---
PT Daily Note-Current Subjective Patient is slightly agitated this a.m., but agrees to PT. Pain Numeric Pain Scale: 0-No Pain Location: No Pain Reported Mental Status Patient Orientation: Confused Attachments: IV Transfers Functional [place] Measure 0=Not Assessed/NA 4=Minimal Assistance 1=Total Assistance 5=Supervision or Setup 2=Maximal Assistance 6=Modified [place] 3=Moderate Assistance 7=Complete IndependenceIRFPAI Quality Coding Scale 6 Independent with activity with or without an assistive device 5 Patient requires set up or clean up by helper. Patient completes activity by themselves 4 Supervision or touching assist (CGA). [place] provide cues , steadying assist 3 The helper provides less than half the effort to complete the activity 2 The helper provides more than half the effort to complete the activity 1 Dependent. The helper does all the effort to complete an activity 7 Patient refused to complete or attempt activity 9 The patient did not perform the activity before the current illness or injury 88 Not attempted due to Medical conditions or safety concerns Transfers (B, C, W/C) (FIM): 4 Scootin Rollin Roll Left to Right (QC): 5 Supine to/from Sit: 5 Sit to/from Stand: 4 Sit to Lying (QC): 5 Sit to Stand (QC): 4 Chair/Adr-js-Exkul Xfer(QC): 4 Bed to/from Chair: 4 Car Transfer (QC): 4 for safety secondary to patient is impulsive and unsafe Gait Training Does the Patient Walk?: Yes Gait (FIM): 4 Distance (FIM): 3=150 ft Distance: 300' x 3 Walk 10 feet (QC): 4 Walk 50 ft with 2 Turns(QC): 4 Walk 150 ft (QC): 4 Walking 10ft/uneven surface-QC: 4 Gait Level of Assist: 4 Gait Persons Needed: 1 Gait Assistive Device: FWW unaware of safety concerns; slightly unsteady on this date. Stair Training Stair Training: Handrails/: 2 handrails Stairs (FIM): 4 #of Steps: 8 1 Step (curb) (QC): 4 4 Steps (QC): 4 12 Steps (QC): 88 Stairs: Pattern: Reciprocal Level of Assist: 4 CGA for safety; patient is inconsistent with step to or reciprocal pattern Balance Picking up an Object (QC): 4 Exercises Supine Ex: Ankle pumps, Quad Set, Heel Slides, Straight leg raise, Hip abd/add Supine Reps: 15 (2# wt) Seated Therapy Exercises: Ankle pumps, Long arc quads Seated Reps: 15 Assessment Patient tolerates treatment well and requires time to recover secondary to increase SOA and overall fatigue. Spouse present during treatment. PT Short Term Goals Short Term Goals Time Frame: November 15, 2016 Gait (FIM): 5 Gait Distance Comment: 300' Gait Level of Assist: 5 Gait Assistive Device: FWW PT Freezer Operator Goals Freezer Operator Goals PT Freezer Operator Goals Time Frame: Nov 29, 2016 Transfers (B,C,W/C) (FIM): 6 Sit to Lying (QC): 6 Lying-Sitting on Side/Bed(QC): 6 Sit to Stand (QC): 6 Rollin Roll Left to Right (QC): 6 Car Transfer (QC): 4 Gait (FIM): 6 Distance: 400' Walk 10 feet (QC): 6 Walk 10ft-Uneven Surface(QC): 6 Walk 50ft with 2 Turns (QC): 6 Walk 150 ft (QC): 6 Gait Assistive Device: FWW Stairs (FIM): 5 # of Steps: 12 1 Step (curb) (QC): 4 4 Steps (QC): 4 12 Steps (QC): 4 Stairs Level Of Assist: 5 Picking up an Object (QC): 4 PT Plan Treatment/Plan Treatment Plan: Continue Plan of Care Treatment Plan: Bed Mobility, Education, Functional Activity Amanda, Functional Strength, Group Therapy, Gait, Safety, Therapeutic Exercise, Transfers Treatment Duration: Nov 29, 2016 Visits Per Week: 10-11 Minutes/Day (M-F): 60-90 Minutes/Day (Sat/Glez): 15-30 Time/GCodes Time In: 1055 Time Out: 1155 Total Billed Treatment Time: 60 Total Billed Treatment 1 visit EX x 2 30 min GT x 2 30 min MCKINLEY DOMÍNGUEZ PT November 22, 2016 12:09
--- NOTE | 2016-11-22 13:23 | Occupational Ther Daily Note ---
OT Current Status-Daily Note Subjective Pt in bed with family present. Agrees to treatment. Pt reports being sore "all over," but does not rate pain. Mental Status/Objective Functional [place] Measure 0=Not Assessed/NA 4=Minimal Assistance 1=Total Assistance 5=Supervision or Setup 2=Maximal Assistance 6=Modified [place] 3=Moderate Assistance 7=Complete [place] ADL-Treatment Functional [place] Measure 0=Not Assessed/NA 4=Minimal Assistance 1=Total Assistance 5=Supervision or Setup 2=Maximal Assistance 6=Modified [place] 3=Moderate Assistance 7=Complete IndependenceIRFPAI Quality Coding Scale 6 Independent with activity with or without an assistive device 5 Patient requires set up or clean up by helper. Patient completes activity by themselves 4 Supervision or touching assist (CGA). [place] provide cues , steadying assist 3 The helper provides less than half the effort to complete the activity 2 The helper provides more than half the effort to complete the activity 1 Dependent. The helper does all the effort to complete an activity 7 Patient refused to complete or attempt activity 9 The patient did not perform the activity before the current illness or injury 88 Not attempted due to Medical conditions or safety concerns Other Treatment Supine to sit with supervision. Sit to stand with supervision. Gait to therapy gym with FWW. Pt requires CGA for balance and cues for safety with FWW use. Pt completed UE activity with arm bike x15 minutes to increase overall strength and activity tolerance needed for ADLs and transfers. Pt completed task at 10 hernández resistance. Multiple rest breaks taken during activity. Increased time for task completion. Pt completed fine motor task with nuts and bolts to increase strength and fine motor coordination. Pt has mild difficulty at times placing nut on bolt, but is able to do so without assistance. Pt moves slowly and requires increased time to complete activity. Pt performed bilateral UE exercises to increase strength for functional task completion. Pt performed biceps curls, wrist flex/ext, and forward press x15 reps with dowel sanchez. Graded clothespin activity completed with bilateral hands to increase nutrition services aide/pinch strength. Increased time required. Pt takes rest breaks as needed throughout treatment. Pt in therapy gym for PT after session. OT Short Term Goals Short Term Goals Time Frame: November 22, 2016 Lower Body Dressing(FIM): 5 Shower Transfer(FIM): 5 Additional Short Term Goals: 2-Verbalize Understanding, 3-ImproveStrength/Amanda 1=Demonstrate adherence to instructed precautions during ADL tasks. 2=Patient will verbalize/demonstrate understanding of assistive devices/ modifications for ADL. 3=Patient will improve strength/tolerance for activity to enable patient to perform ADL's. OT Tunnel Heading Supervisor Goals [facility] Goals Time Frame: Nov 29, 2016 Eating (FIM): 6 Eating (QC): 6 Groomin Oral Hygiene (QC): 6 Bathing(FIM): 6 Shower/Bathe Self (QC): 6 Upper Body Dressing(FIM): 6 Upper Body Dressing (QC): 6 Lower Body Dressing(FIM): 6 Lower Body Dressing (QC): 6 On/Off Footwear (QC): 6 Toileting(FIM): 6 Toileting Hygiene (QC): 6 Toilet/Commode Transfer(FIM): 6 Toilet/Commode Transfer (QC): 6 Shower Transfer(FIM): 6 Additional Goals: 2-Verbalize Understanding, 3-ImproveStrength/Amanda 1=Demonstrate adherence to instructed precautions during ADL tasks. 2=Patient will verbalize/demonstrate understanding of assistive devices/ modifications for ADL. 3=Patient will improve strength/tolerance for activity to enable patient to perform ADL's. OT Education/Plan Problem List/Assessment Pt would benefit from skilled OT to increase his independence with basic self care to allow him to safely return home to live with his and to decrease caregiver burden. Discharge Recommendations Plan/Recommendations: Continue POC Treatment Plan/Plan of Care Patient would benefit from OT for education, treatment and training to promote independence in ADL's, mobility, safety and/or upper extremity function for ADL' s. Plan of Care: ADL Retraining, Functional Mobility, Group Exercise/Act as Ind ( education, exercise, activ tolerance, socialization, funct activities), UE Funct Exercise/Act, UE Neuromus Re-Ed/Coord Treatment Duration: Nov 29, 2016 Visits Per Week: 10-11 Minutes/Day (M-F): 75-90 Minutes/Day (Sat/Glez): PRN Agreement: Yes Rehab Potential: Fair Time/GCodes Start Time: 13:00 Stop Time: 14:00 Total Time Billed (hr/min): 60 Billed Treatment Time 1 visit, EXx4(60minutes) FUNMILAYO BAIRD OT November 22, 2016 13:23
--- NOTE | 2016-11-22 14:21 | Occupational Ther Daily Note ---
OT Current Status-Daily Note Subjective Pt seen in room, in bed, reluctantly agreeable to OT. No pain mentioned. Appearance Asleep but easily awakened, looks fatigued Mental Status/Objective Functional [place] Measure 0=Not Assessed/NA 4=Minimal Assistance 1=Total Assistance 5=Supervision or Setup 2=Maximal Assistance 6=Modified [place] 3=Moderate Assistance 7=Complete [place] ADL-Treatment Pt able to move from supine to sit EOB and to lie down without help. Pt impulsively stood up, saying, "I've got to go to the bathroom." and started walking to the bathroom without his walker or gait belt. Close SBA for safety toilet transfer, with grab bar. close SBA to stand to pull pants up and down. Pt able to wipe himself. Tall toilet, grab bars, FWW. Pt returned to sit EOB, took recovery rest break lying down. Sat EOB to don socks, stood to put shirt on with close SBA, setup. Pt took recovery breaks between each sock and before shirt. Pt impulsively ripped bandaid off L arm, tearing skin. Nursing notified and applied dressings. Pt was unhappy that he wasn't going home today. Pt left in bed, 4 rails up, bed alarm in place, all needs met. Functional [place] Measure 0=Not Assessed/NA 4=Minimal Assistance 1=Total Assistance 5=Supervision or Setup 2=Maximal Assistance 6=Modified [place] 3=Moderate Assistance 7=Complete IndependenceIRFPAI Quality Coding Scale 6 Independent with activity with or without an assistive device 5 Patient requires set up or clean up by helper. Patient completes activity by themselves 4 Supervision or touching assist (CGA). [place] provide cues , steadying assist 3 The helper provides less than half the effort to complete the activity 2 The helper provides more than half the effort to complete the activity 1 Dependent. The helper does all the effort to complete an activity 7 Patient refused to complete or attempt activity 9 The patient did not perform the activity before the current illness or injury 88 Not attempted due to Medical conditions or safety concerns Upper Body (FIM): 5 Lower Body Dressing (FIM): 5 On/Off Footwear (QC): 5 Toileting (FIM): 5 Toilet/Commode Transfer (FIM): 5 Education OT Patient Education: Modified ADL techniques, Purpose of tx/functional activities, Safety issues Teaching Recipient: Patient Teaching Methods: Discussion Response to Teaching: Verbalize Understanding, Reinforcement Needed OT Short Term Goals Short Term Goals Time Frame: November 22, 2016 Lower Body Dressing(FIM): 5 Shower Transfer(FIM): 5 Additional Short Term Goals: 2-Verbalize Understanding, 3-ImproveStrength/Amanda 1=Demonstrate adherence to instructed precautions during ADL tasks. 2=Patient will verbalize/demonstrate understanding of assistive devices/ modifications for ADL. 3=Patient will improve strength/tolerance for activity to enable patient to perform ADL's. OT Leather Stamper Goals Leather Stamper Goals Time Frame: Nov 29, 2016 Eating (FIM): 6 Eating (QC): 6 Groomin Oral Hygiene (QC): 6 Bathing(FIM): 6 Shower/Bathe Self (QC): 6 Upper Body Dressing(FIM): 6 Upper Body Dressing (QC): 6 Lower Body Dressing(FIM): 6 Lower Body Dressing (QC): 6 On/Off Footwear (QC): 6 Toileting(FIM): 6 Toileting Hygiene (QC): 6 Toilet/Commode Transfer(FIM): 6 Toilet/Commode Transfer (QC): 6 Shower Transfer(FIM): 6 Additional Goals: 2-Verbalize Understanding, 3-ImproveStrength/Amanda 1=Demonstrate adherence to instructed precautions during ADL tasks. 2=Patient will verbalize/demonstrate understanding of assistive devices/ modifications for ADL. 3=Patient will improve strength/tolerance for activity to enable patient to perform ADL's. OT Education/Plan Problem List/Assessment Pt would benefit from skilled OT to increase his independence with basic self care to allow him to safely return home to live with his and to decrease caregiver burden. Discharge Recommendations Plan/Recommendations: Continue POC Treatment Plan/Plan of Care Patient would benefit from OT for education, treatment and training to promote independence in ADL's, mobility, safety and/or upper extremity function for ADL' s. Plan of Care: ADL Retraining, Functional Mobility, Group Exercise/Act as Ind ( education, exercise, activ tolerance, socialization, funct activities), UE Funct Exercise/Act, UE Neuromus Re-Ed/Coord Treatment Duration: Nov 29, 2016 Visits Per Week: 10-11 Minutes/Day (M-F): 75-90 Minutes/Day (Sat/Glez): PRN Agreement: Yes Rehab Potential: Fair Time/GCodes Start Time: 08:40 Stop Time: 09:15 Total Time Billed (hr/min): 35 Billed Treatment Time Visit, ADL 35 min BERNARDA GTZ OT November 22, 2016 14:21
--- NOTE | 2016-11-22 14:38 | Physical Therapy Daily Note ---
PT Daily Note-Current Subjective Patient just complete with OT and agrees to PT. Pain Numeric Pain Scale: 0-No Pain Location: No Pain Reported Mental Status Patient Orientation: Person, Time, Situation Attachments: IV Transfers Functional [place] Measure 0=Not Assessed/NA 4=Minimal Assistance 1=Total Assistance 5=Supervision or Setup 2=Maximal Assistance 6=Modified [place] 3=Moderate Assistance 7=Complete IndependenceIRFPAI Quality Coding Scale 6 Independent with activity with or without an assistive device 5 Patient requires set up or clean up by helper. Patient completes activity by themselves 4 Supervision or touching assist (CGA). [place] provide cues , steadying assist 3 The helper provides less than half the effort to complete the activity 2 The helper provides more than half the effort to complete the activity 1 Dependent. The helper does all the effort to complete an activity 7 Patient refused to complete or attempt activity 9 The patient did not perform the activity before the current illness or injury 88 Not attempted due to Medical conditions or safety concerns Transfers (B, C, W/C) (FIM): 5 Scootin Rollin Roll Left to Right (QC): 5 Supine to/from Sit: 6 Sit to/from Stand: 5 Sit to Lying (QC): 5 Sit to Stand (QC): 5 Chair/Fat-rx-Nqxzw Xfer(QC): 5 Gait Training Does the Patient Walk?: Yes Gait (FIM): 5 Distance (FIM): 3=150 ft Distance: 200' x 4 Walk 10 feet (QC): 5 Walk 50 ft with 2 Turns(QC): 5 Walk 150 ft (QC): 5 Walking 10ft/uneven surface-QC: 5 Gait Level of Assist: 5 Gait Persons Needed: 1 Gait Assistive Device: FWW close SBA with gait belt in place for safety. Patient had no episodes of LOB during p.m. session Assessment Patient returned to room and in bed with needs met. Patient ambulated on all terrains, inside and outside, with minimal difficulty. PT Short Term Goals Short Term Goals Time Frame: November 15, 2016 Gait (FIM): 5 Gait Distance Comment: 300' Gait Level of Assist: 5 Gait Assistive Device: FWW PT Financial Services Agent Goals Financial Services Agent Goals PT [facility] Goals Time Frame: Nov 29, 2016 Transfers (B,C,W/C) (FIM): 6 Sit to Lying (QC): 6 Lying-Sitting on Side/Bed(QC): 6 Sit to Stand (QC): 6 Rollin Roll Left to Right (QC): 6 Car Transfer (QC): 4 Gait (FIM): 6 Distance: 400' Walk 10 feet (QC): 6 Walk 10ft-Uneven Surface(QC): 6 Walk 50ft with 2 Turns (QC): 6 Walk 150 ft (QC): 6 Gait Assistive Device: FWW Stairs (FIM): 5 # of Steps: 12 1 Step (curb) (QC): 4 4 Steps (QC): 4 12 Steps (QC): 4 Stairs Level Of Assist: 5 Picking up an Object (QC): 4 PT Plan Treatment/Plan Treatment Plan: Continue Plan of Care Treatment Plan: Bed Mobility, Education, Functional Activity Amanda, Functional Strength, Group Therapy, Gait, Safety, Therapeutic Exercise, Transfers Treatment Duration: Nov 29, 2016 Visits Per Week: 10-11 Minutes/Day (M-F): 60-90 Minutes/Day (Sat/Glez): 15-30 Time/GCodes Time In: 1405 Time Out: 1435 Total Billed Treatment Time: 30 Total Billed Treatment 1 visit GT x 2 30 min MCKINLEY DOMÍNGUEZ PT November 22, 2016 14:38
[2016-11-22 18:03] VITALS: BP 146/72
[2016-11-22] MEDS: ATORVASTATIN 40 MG (LIPITOR) TABLET PO SCH (21:32)
[2016-11-22] MEDS: FENOFIBRATE 134 MG (LOFIBRA) CAPSULE PO SCH (21:32)
[2016-11-22] MEDS: GLUCOSAMINE 1000 MG PO SCH (21:32)
[2016-11-22] MEDS: inSUlin DETERMIR 1 UNIT/0.01 ML (LEVEMIR) CHARGE PER UNIT SQ SCH (21:38)
[2016-11-23] MEDS: NS IV 1000 ML 1,000 ML IV SCH ×2 (00:23→12:48)
[2016-11-23] MEDS: ONDANSETRON 8 MG (ZOFRAN) ORAL DISSOLVE TAB PO SCH ×4 (00:24→23:52)
[2016-11-23 05:17] LABS: CALCIUM 8.7 MG/DL (8.5-10.1); CREATININE SERUM 1.46 MG/DL (0.60-1.30); POTASSIUM 3.9 MMOL/L (3.6-5.0)
[2016-11-23 05:38] VITALS: BP 162/72
[2016-11-23] MEDS: aCETylcysteine 20% (MUCOMYST) 30ML SOLN VIAL PO SCH ×2 (05:48→20:01)
[2016-11-23] MEDS: OMEGA 3 (FISH OIL) 1000 MG CAP PO SCH ×2 (06:02→17:11)
[2016-11-23] MEDS: LACTOBACILLUS Acidoph/Bulgar (LACTINEX/FLORANEX) TAB PO SCH ×3 (06:02→17:11)
[2016-11-23] MEDS: inSUlin (REGULAR) HUMAN 1 UNIT/0.01 ML (CHARGE PER UNIT) SC SCH ×4 (06:02→20:10)
[2016-11-23] MEDS: MULTIVIT W/MINERALS TAB (THERAGRAN M) PO SCH (06:02)
[2016-11-23] MEDS: CALCIUM CARB + VIT D 600 MG (CALCARB + D) TAB PO SCH (06:02)
[2016-11-23] MEDS: DOCUSATE SODIUM 100 MG (COLACE) CAP PO SCH ×2 (08:41→20:01)
[2016-11-23] MEDS: ASPIRIN E.C. 81 MG (ECOTRIN) TAB PO SCH (08:41)
[2016-11-23] MEDS: AMIODARONE 200 MG (CORDARONE) TAB PO SCH (08:42)
[2016-11-23] MEDS: lisINopril 20 MG (ZESTRIL) TAB PO SCH (08:42)
[2016-11-23] MEDS: MUPIROCIN 2% OINT 22 GM (BACTROBAN) TUBE TOP SCH ×2 (08:42→20:01)
[2016-11-23] MEDS: DICLOFENAC 1% GEL 100 GM (VOLTAREN) TUBE TOP SCH ×4 (08:43→20:02)
--- NOTE | 2016-11-23 09:46 | Progress Note (SOAP) ---
Objective Exam Vital Signs Date Time Temp Pulse Resp B/P (MAP) Pulse Ox O2 Delivery O2 Flow Rate FiO2 11/23/16 05:38 96.7 60 16 162/72 95 11/22/16 18:03 98.2 62 18 146/72 96 I & O 11/23/16 07:00 Intake Total 2000 ml Balance 2000 ml Capillary Refill : Results Lab Laboratory Tests 11/22/16 11:04: Glucometer 203H 11/22/16 17:07: Glucometer 180H 11/22/16 21:27: Glucometer 164H 11/23/16 04:35: Sodium Level 139, Potassium Level 3.9, Chloride Level 110H, Carbon Dioxide Level 21, Anion Gap 8, Blood Urea Nitrogen 27H, Creatinine 1.46H, Estimat Glomerular Filtration Rate 47, BUN/Creatinine Ratio 18, Glucose Level 107H, Calcium Level 8.7 Assessment/Plan Assessment/Plan Assess & Plan/Chief Complaint PNEUMONIA LUNG CANCER COPD WEAKNESS FALLING EPISODES AT HOME ARF RIGHT SHOULDER PAIN PNEUMONIA WITH LUNG CANCER WITH COPD - REPEAT CT SCAN WAS INCONCLUSIVE, WILL NEED TO REPEAT THE SCAN CANNOT GET SCAN DONE TODAY - CHANGED ANTIBIOTICS, MONITOR SYMPTOMS, CONTINUE WITH BREATHING TREATMENTS, SUPPORTIVE CARE. WEAKNESS - WITH FALLING EPISODES AT HOME - PHYSICAL THERAPY TO CONTINUE WITH TREATMENT, STRENGTHENING WITH PLANS FOR PATIENT TO GO HOME WITH HIS FAMILY THE FAMILY REPORTS THAT THEY WILL NOT HAVE HIM GO BACK TO A [facility] DUE TO HOW HE WAS TREATED AT THE LAST FACILITY. ARF -STABLE - REPEAT LABS TOMORROW MORNING. RIGHT SHOULDER PAIN - CONTINUE WITH PAIN MEDICATIONS, AND USE VOLTAREN GEL TO SHOULDER. HE HAS MENTIONED THAT IF THE CANCER IS WORSE, HE IS DONE WITH CHEMOTHERAPY AND WANTS TO "GO HOME TO " AND HIS FAMILY WOULD BE INTERESTED IN HOSPICE FOR THEIR FATHER IF THAT IS THE CASE. Clinical Quality Measures DVT/VTE Risk/Contraindication: Risk Factor Score Per Nursin RFS Level Per Nursing on Admit: 3=High RAPHAEL ROJAS MD November 23, 2016 09:45
--- NOTE | 2016-11-23 09:51 | Physical Therapy Daily Note ---
PT Daily Note-Current Subjective Pt Supine in bed asleep upon arrival. Pt reports feeling tired/fatigued but this is normal for pt. Pt agrees to PT to try to get home. Mental Status Patient Orientation: Person, Place, Situation Attachments: IV Transfers Functional [place] Measure 0=Not Assessed/NA 4=Minimal Assistance 1=Total Assistance 5=Supervision or Setup 2=Maximal Assistance 6=Modified [place] 3=Moderate Assistance 7=Complete IndependenceIRFPAI Quality Coding Scale 6 Independent with activity with or without an assistive device 5 Patient requires set up or clean up by helper. Patient completes activity by themselves 4 Supervision or touching assist (CGA). [place] provide cues , steadying assist 3 The helper provides less than half the effort to complete the activity 2 The helper provides more than half the effort to complete the activity 1 Dependent. The helper does all the effort to complete an activity 7 Patient refused to complete or attempt activity 9 The patient did not perform the activity before the current illness or injury 88 Not attempted due to Medical conditions or safety concerns Transfers (B, C, W/C) (FIM): 5 Scootin Rollin Roll Left to Right (QC): 5 Supine to/from Sit: 5 Sit to/from Stand: 5 Sit to Lying (QC): 5 Sit to Stand (QC): 5 Chair/Hwx-ve-Trptd Xfer(QC): 5 Bed to/from Chair: 5 Weight Bearing Weight Bearing Restriction: Full Weight Bearing Location Restriction: LE Bilateral Gait Training Does the Patient Walk?: Yes Gait (FIM): 5 Distance (FIM): 3=150 ft Distance: 200' Walk 10 feet (QC): 5 Walk 50 ft with 2 Turns(QC): 4 Walk 150 ft (QC): 4 Walking 10ft/uneven surface-QC: 4 Gait Level of Assist: 4 Gait Persons Needed: 1 Gait Assistive Device: FWW Pt fatigues easy and needs occasional CGA to steady when off balance. Wheelchair Training Does the Pt Use a Wheelchair?: No Stair Training Stair Training: Handrails/: 1 handrail Stairs (FIM): 3 #of Steps: 8 1 Step (curb) (QC): 5 4 Steps (QC): 5 12 Steps (QC): 88 Stairs: Pattern: Step to Level of Assist: 5 Pt is fatigued after 8 stairs so didn't attempt 12. Balance Picking up an Object (QC): 88 Special Test Comments Due to balance, not safe to attempt. Treatments Pt transferred from Supine to EOB at SBA for safety then EOB to Standing using FWW at A. Pt uses restroom before leaving room for tx. Pt ambulates using FWW at [facility]-S[facility]. Pt completes walking on varying surface for at least 10', completes 2 sets of stairs as well as ambulating in hallway using FWW at A with CGA occasional for steadying. Pt returns to room to rest and complete transfers/bed mobility. Pt lays Supine in bed at end of tx and Dr Ayala has just visted to advise that pt will not be leaving today. Hopefully, CT scan and discharge tomorrow. Pt has all needs met at end of tx. Assessment Current Status: Fair Progress Pt continues to fatigue easy and have safety concerns/balance deficits. PT Short Term Goals Short Term Goals Time Frame: November 15, 2016 Gait (FIM): 5 Gait Distance Comment: 300' Gait Level of Assist: 5 Gait Assistive Device: FWW PT Group Home Goals Group Home Goals PT Type Copy Examiner Goals Time Frame: Nov 29, 2016 Transfers (B,C,W/C) (FIM): 6 Sit to Lying (QC): 6 Lying-Sitting on Side/Bed(QC): 6 Sit to Stand (QC): 6 Rollin Roll Left to Right (QC): 6 Car Transfer (QC): 4 Gait (FIM): 6 Distance: 400' Walk 10 feet (QC): 6 Walk 10ft-Uneven Surface(QC): 6 Walk 50ft with 2 Turns (QC): 6 Walk 150 ft (QC): 6 Gait Assistive Device: FWW Stairs (FIM): 5 # of Steps: 12 1 Step (curb) (QC): 4 4 Steps (QC): 4 12 Steps (QC): 4 Stairs Level Of Assist: 5 Picking up an Object (QC): 4 PT Plan Problem List Problem List: Activity Tolerance, Functional Strength, Safety, Balance, Gait, Transfer Treatment/Plan Treatment Plan: Continue Plan of Care Treatment Plan: Bed Mobility, Education, Functional Activity Amanda, Functional Strength, Group Therapy, Gait, Safety, Therapeutic Exercise, Transfers Treatment Duration: Nov 29, 2016 Visits Per Week: 10-11 Minutes/Day (M-F): 60-90 Minutes/Day (Sat/Glez): 15-30 Safety Risks/Education Patient Education: Gait Training, Transfer Techniques, Correct Positioning, Disease Process, Safety Issues Teaching Recipient: Patient Teaching Methods: Discussion Response to Teaching: Verbalize Understanding Time/GCodes Time In: 900 Time Out: 1000 Total Billed Treatment Time: 60 Total Billed Treatment visit, GT (15m), FA x2 (30m) & EX (15m) JERICA MESSER PTA November 23, 2016 09:51
--- NOTE | 2016-11-23 11:21 | Occupational Ther Daily Note ---
OT Current Status-Daily Note Subjective Pt lying in bed sleeping. Difficult to wake and required encouragement to wake and participate in therapy. No c/o pain only fatigue. Pt eventually agreed to therapy. Mental Status/Objective Patient Orientation: Person, Place, Time, Situation Functional [place] Measure 0=Not Assessed/NA 4=Minimal Assistance 1=Total Assistance 5=Supervision or Setup 2=Maximal Assistance 6=Modified [place] 3=Moderate Assistance 7=Complete [place] Attachments: Other-See Comments (PICC) ADL-Treatment Functional [place] Measure 0=Not Assessed/NA 4=Minimal Assistance 1=Total Assistance 5=Supervision or Setup 2=Maximal Assistance 6=Modified [place] 3=Moderate Assistance 7=Complete IndependenceIRFPAI Quality Coding Scale 6 Independent with activity with or without an assistive device 5 Patient requires set up or clean up by helper. Patient completes activity by themselves 4 Supervision or touching assist (CGA). [place] provide cues , steadying assist 3 The helper provides less than half the effort to complete the activity 2 The helper provides more than half the effort to complete the activity 1 Dependent. The helper does all the effort to complete an activity 7 Patient refused to complete or attempt activity 9 The patient did not perform the activity before the current illness or injury 88 Not attempted due to Medical conditions or safety concerns Eating (FIM): 6 (Dentures. Pt is able to complete set up and use regular utensils to cut food and feed self.) Eating (QC): 6 (Dentures. Pt is able to complete set up and use regular utensils to cut food and feed self.) Grooming (FIM): 5 (Pt requires SBA standing at sink due to unsteadiness/ balance. Pt is able to use and set up and use grooming tools.) Oral Hygiene (QC): 4 (Pt requires SBA standing at sink due to unsteadiness/ balance. Pt is able to use and set up and use oral hygiene tools.) Bathing (FIM): 4 (Using shower bench, hand held shower and grabbars pt is able to complete own bathing with CGA. Pt tends to gliding pilot instructor shower instead of using shower bench. Pt is unsteady and LOB multiple times. Pt is instructed/ educated and encouraged to use shower bench for safety. Pt chooses to continue with standing.) Shower/Bathe Self (QC): 4 (Using shower bench, hand held shower and grabbars pt is able to complete own bathing with CGA. Pt tends to gliding pilot instructor shower instead of using shower bench. Pt is unsteady and LOB multiple times. Pt is instructed/educated and encouraged to use shower bench for safety. Pt chooses to continue with standing.) Upper Body (FIM): 5 (After set up, pt is able to complete dressing.) Upper Body Dressing (QC): 5 (After set up, pt is able to complete dressing.) Lower Body Dressing (FIM): 5 (After set up, pt is able to complete dressing. Pt takes increased time with donning lower body clothing due to fatigue. Pt requires rest breaks after placing one leg into pants/underpants then extended breaks after donning each sock. SBA in standing due to unsteadiness when hiking pants over hips.) Lower Body Dressing (QC): 4 (After set up, pt is able to complete dressing. Pt takes increased time with donning lower body clothing due to fatigue. Pt requires rest breaks after placing one leg into pants/underpants then extended breaks after donning each sock. SBA in standing due to unsteadiness when hiking pants over hips.) On/Off Footwear (QC): 5 (Dons/doff footwear after set up. Requires lengthy recovery breaks after each foot.) Toileting (FIM): 5 (Pt is able to complete toileting. Hygiene pt sits on toilet to complete then SBA to manipulate clothing.) Toileting Hygiene (QC): 4 (Pt is able to complete toileting. Hygiene pt sits on toilet to complete then SBA to manipulate clothing.) Transfers (B, C, W/C) (FIM): 4 (CGA or close SBA with transfers due to unsteadiness.) Toilet/Commode Transfer (FIM): 4 (CGA or close SBA with transfers due to unsteadiness.) Toilet Transfer (QC): 4 (CGA or close SBA with transfers due to unsteadiness.) Shower Transfer(FIM): 4 (CGA or close SBA with transfers due to unsteadiness. Shower bench and grabbar used.) Pt takes increased time to complete all tasks. Frequent lengthy recovery breaks taken by pt after each exertion. Pt requires constant encouragement to participate in therapy since all he wants to do is sleep. Discussed with pt's how pt is completing ADLs and the reason for SBA/CGA due to decreased activity tolerance and LOB. Pt's stated that she knew this and would just bathe him if he couldn't get into the tub/shower or if he couldn't do it. After therapy, pt lying in bed with call light/phone in reach. All needs met in room. Education OT Patient Education: Instructions to caregiver, Safety issues, Transfer techniques Teaching Recipient: Patient Teaching Methods: Discussion Response to Teaching: Verbalize Understanding OT Short Term Goals Short Term Goals Time Frame: November 22, 2016 Lower Body Dressing(FIM): 5 Shower Transfer(FIM): 5 Additional Short Term Goals: 2-Verbalize Understanding, 3-ImproveStrength/Amanda 1=Demonstrate adherence to instructed precautions during ADL tasks. 2=Patient will verbalize/demonstrate understanding of assistive devices/ modifications for ADL. 3=Patient will improve strength/tolerance for activity to enable patient to perform ADL's. OT Halfway Goals Receiver Bulk System Goals Time Frame: Nov 29, 2016 Eating (FIM): 6 (met-11/23/2016) Eating (QC): 6 (met-11/23/2016) Groomin (not met) Oral Hygiene (QC): 6 (not met) Bathing(FIM): 6 (not met) Shower/Bathe Self (QC): 6 (not met) Upper Body Dressing(FIM): 6 (not met) Upper Body Dressing (QC): 6 (not met) Lower Body Dressing(FIM): 6 (not) Lower Body Dressing (QC): 6 (not met) On/Off Footwear (QC): 6 (not met) Toileting(FIM): 6 (not met) Toileting Hygiene (QC): 6 (not met) Toilet/Commode Transfer(FIM): 6 (not met) Toilet/Commode Transfer (QC): 6 (not met) Shower Transfer(FIM): 6 (not met) Additional Goals: 2-Verbalize Understanding, 3-ImproveStrength/Amanda 1=Demonstrate adherence to instructed precautions during ADL tasks. 2=Patient will verbalize/demonstrate understanding of assistive devices/ modifications for ADL. 3=Patient will improve strength/tolerance for activity to enable patient to perform ADL's. OT Education/Plan Problem List/Assessment Pt would benefit from skilled OT to increase his independence with basic self care to allow him to safely return home to live with his and to decrease caregiver burden. Discharge Recommendations Plan/Recommendations: Continue POC Therapy D/C Recommendations: Home w/ Family Support, Occupational Therapy Home Care Treatment Plan/Plan of Care Patient would benefit from OT for education, treatment and training to promote independence in ADL's, mobility, safety and/or upper extremity function for ADL' s. Plan of Care: ADL Retraining, Functional Mobility, Group Exercise/Act as Ind ( education, exercise, activ tolerance, socialization, funct activities), UE Funct Exercise/Act, UE Neuromus Re-Ed/Coord Treatment Duration: Nov 29, 2016 Visits Per Week: 10-11 Minutes/Day (M-F): 75-90 Minutes/Day (Sat/Glez): PRN Agreement: Yes Rehab Potential: Fair Time/GCodes Start Time: 10:00 Stop Time: 11:30 Total Time Billed (hr/min): 90 Billed Treatment Time 1 visit-ADL 6 (90 min) ISABELA CAM November 23, 2016 11:21
[2016-11-23] MEDS: HYDROcodone/APAP 5 MG/325 MG (LORTAB) TAB PO PRN ×2 (12:46→22:27)
--- NOTE | 2016-11-23 16:12 | Physical Therapy Daily Note ---
PT Daily Note-Current Subjective Pt is sleeping sidelying upon arrival with Sp in room. Pt is hard to keep awake , very drowsy. Mental Status Patient Orientation: Person, Unable to Assess Transfers Functional [place] Measure 0=Not Assessed/NA 4=Minimal Assistance 1=Total Assistance 5=Supervision or Setup 2=Maximal Assistance 6=Modified [place] 3=Moderate Assistance 7=Complete IndependenceIRFPAI Quality Coding Scale 6 Independent with activity with or without an assistive device 5 Patient requires set up or clean up by helper. Patient completes activity by themselves 4 Supervision or touching assist (CGA). [place] provide cues , steadying assist 3 The helper provides less than half the effort to complete the activity 2 The helper provides more than half the effort to complete the activity 1 Dependent. The helper does all the effort to complete an activity 7 Patient refused to complete or attempt activity 9 The patient did not perform the activity before the current illness or injury 88 Not attempted due to Medical conditions or safety concerns Treatments Pt, Sp & PT go over pt ed items such as what home will be like when pt discharges as well as roadblocks ahead. PT advised how pt has completed tasks and what safety items Sp will want to watch for or try to prevent. Pt is sleeping sidelying at end of tx with all needs met. Assessment Current Status: Fair Progress Pt is fatigued and wants to go home. Pt and Sp a little nervous to go home though. PT Short Term Goals Short Term Goals Time Frame: November 15, 2016 Gait (FIM): 5 Gait Distance Comment: 300' Gait Level of Assist: 5 Gait Assistive Device: FWW PT Avid Editor Goals Avid Editor Goals PT Avid Editor Goals Time Frame: Nov 29, 2016 Transfers (B,C,W/C) (FIM): 6 Sit to Lying (QC): 6 Lying-Sitting on Side/Bed(QC): 6 Sit to Stand (QC): 6 Rollin Roll Left to Right (QC): 6 Car Transfer (QC): 4 Gait (FIM): 6 Distance: 400' Walk 10 feet (QC): 6 Walk 10ft-Uneven Surface(QC): 6 Walk 50ft with 2 Turns (QC): 6 Walk 150 ft (QC): 6 Gait Assistive Device: FWW Stairs (FIM): 5 # of Steps: 12 1 Step (curb) (QC): 4 4 Steps (QC): 4 12 Steps (QC): 4 Stairs Level Of Assist: 5 Picking up an Object (QC): 4 PT Plan Problem List Problem List: Activity Tolerance, Functional Strength, Safety, Balance, Gait Treatment/Plan Treatment Plan: Continue Plan of Care Treatment Plan: Bed Mobility, Education, Functional Activity Amanda, Functional Strength, Group Therapy, Gait, Safety, Therapeutic Exercise, Transfers Treatment Duration: Nov 29, 2016 Visits Per Week: 10-11 Minutes/Day (M-F): 60-90 Minutes/Day (Sat/Glez): 15-30 Safety Risks/Education Patient Education: Gait Training, Transfer Techniques, Reviewed Precautions, Correct Positioning, Disease Process, Safety Issues Teaching Recipient: Patient, Significant Other Teaching Methods: Discussion Response to Teaching: Verbalize Understanding Time/GCodes Time In: 1330 Time Out: 1400 Total Billed Treatment Time: 30 Total Billed Treatment visit, FA x2 (30m) JERICA MESSER PTA November 23, 2016 16:12
[2016-11-23 17:14] VITALS: BP 188/82
[2016-11-23] MEDS: GLUCOSAMINE 1000 MG PO SCH (20:01)
[2016-11-23] MEDS: ATORVASTATIN 40 MG (LIPITOR) TABLET PO SCH (20:01)
[2016-11-23] MEDS: FENOFIBRATE 134 MG (LOFIBRA) CAPSULE PO SCH (20:01)
[2016-11-23] MEDS: inSUlin DETERMIR 1 UNIT/0.01 ML (LEVEMIR) CHARGE PER UNIT SQ SCH (20:11)
[2016-11-24] MEDS: NS IV 1000 ML 1,000 ML IV SCH ×2 (01:48→09:14)
[2016-11-24 05:21] VITALS: BP 160/67
[2016-11-24] MEDS: LACTOBACILLUS Acidoph/Bulgar (LACTINEX/FLORANEX) TAB PO SCH ×3 (05:57→16:16)
[2016-11-24] MEDS: MULTIVIT W/MINERALS TAB (THERAGRAN M) PO SCH (06:00)
[2016-11-24] MEDS: OMEGA 3 (FISH OIL) 1000 MG CAP PO SCH ×2 (06:00→16:16)
[2016-11-24] MEDS: CALCIUM CARB + VIT D 600 MG (CALCARB + D) TAB PO SCH (06:00)
[2016-11-24 06:23] LABS: CALCIUM 8.8 MG/DL (8.5-10.1); CREATININE SERUM 1.32 MG/DL (0.60-1.30)
[2016-11-24] MEDS: inSUlin (REGULAR) HUMAN 1 UNIT/0.01 ML (CHARGE PER UNIT) SC SCH ×4 (06:34→21:04)
[2016-11-24] MEDS: HYDROcodone/APAP 5 MG/325 MG (LORTAB) TAB PO PRN ×2 (06:43→14:11)
[2016-11-24] MEDS: DICLOFENAC 1% GEL 100 GM (VOLTAREN) TUBE TOP SCH ×4 (06:43→20:04)
[2016-11-24] MEDS: AMIODARONE 200 MG (CORDARONE) TAB PO SCH (09:11)
[2016-11-24] MEDS: aCETylcysteine 20% (MUCOMYST) 30ML SOLN VIAL PO SCH ×2 (09:11→20:03)
[2016-11-24] MEDS: ASPIRIN E.C. 81 MG (ECOTRIN) TAB PO SCH (09:11)
[2016-11-24] MEDS: DOCUSATE SODIUM 100 MG (COLACE) CAP PO SCH ×2 (09:11→20:03)
[2016-11-24] MEDS: lisINopril 20 MG (ZESTRIL) TAB PO SCH (09:11)
[2016-11-24] MEDS: ONDANSETRON 8 MG (ZOFRAN) ORAL DISSOLVE TAB PO SCH ×3 (09:12→23:43)
[2016-11-24] MEDS: MUPIROCIN 2% OINT 22 GM (BACTROBAN) TUBE TOP SCH ×2 (09:15→20:04)
--- NOTE | 2016-11-24 09:35 | Progress Note (SOAP) ---
Objective Exam Vital Signs Date Time Temp Pulse Resp B/P (MAP) Pulse Ox O2 Delivery O2 Flow Rate FiO2 11/24/16 07:20 95 11/24/16 05:21 97.6 60 16 160/67 94 11/23/16 17:14 97.4 55 18 188/82 95 I & O 11/24/16 07:00 Intake Total 3250 ml Balance 3250 ml Capillary Refill : Results Lab Laboratory Tests 11/23/16 12:00: Glucometer 161H 11/23/16 16:44: Glucometer 179H 11/23/16 20:06: Glucometer 279H 11/24/16 05:40: Sodium Level 141, Potassium Level 4.0, Chloride Level 111H, Carbon Dioxide Level 23, Anion Gap 7, Blood Urea Nitrogen 22H, Creatinine 1.32H, Estimat Glomerular Filtration Rate 52, BUN/Creatinine Ratio 17, Glucose Level 72, Calcium Level 8.8 Assessment/Plan Assessment/Plan Assess & Plan/Chief Complaint PNEUMONIA LUNG CANCER COPD WEAKNESS FALLING EPISODES AT HOME ARF RIGHT SHOULDER PAIN PNEUMONIA WITH LUNG CANCER WITH COPD - REPEAT CT SCAN WAS INCONCLUSIVE, WILL NEED TO REPEAT THE SCAN CANNOT GET SCAN DONE TODAY - CHANGED ANTIBIOTICS, MONITOR SYMPTOMS, CONTINUE WITH BREATHING TREATMENTS, SUPPORTIVE CARE. WEAKNESS - WITH FALLING EPISODES AT HOME - PHYSICAL THERAPY TO CONTINUE WITH TREATMENT, STRENGTHENING WITH PLANS FOR PATIENT TO GO HOME WITH HIS FAMILY THE FAMILY REPORTS THAT THEY WILL NOT HAVE HIM GO BACK TO A [facility] DUE TO HOW HE WAS TREATED AT THE LAST FACILITY. ARF -STABLE - REPEAT LABS TOMORROW MORNING. RIGHT SHOULDER PAIN - CONTINUE WITH PAIN MEDICATIONS, AND USE VOLTAREN GEL TO SHOULDER. HE HAS MENTIONED THAT IF THE CANCER IS WORSE, HE IS DONE WITH CHEMOTHERAPY AND WANTS TO "GO HOME TO " AND HIS FAMILY WOULD BE INTERESTED IN HOSPICE FOR THEIR FATHER IF THAT IS THE CASE. Clinical Quality Measures DVT/VTE Risk/Contraindication: Risk Factor Score Per Nursin RFS Level Per Nursing on Admit: 3=High RAPHAEL ROJAS MD Nov 24, 2016 09:35
--- NOTE | 2016-11-24 09:56 | Physical Therapy Daily Note ---
PT Daily Note-Current Subjective Pt asleep sidelying in bed with Sp present upon arrival. Pt reluctantly agrees to participate and reports feeling tired. Mental Status Patient Orientation: Person, Place, Situation Transfers Functional [place] Measure 0=Not Assessed/NA 4=Minimal Assistance 1=Total Assistance 5=Supervision or Setup 2=Maximal Assistance 6=Modified [place] 3=Moderate Assistance 7=Complete IndependenceIRFPAI Quality Coding Scale 6 Independent with activity with or without an assistive device 5 Patient requires set up or clean up by helper. Patient completes activity by themselves 4 Supervision or touching assist (CGA). [place] provide cues , steadying assist 3 The helper provides less than half the effort to complete the activity 2 The helper provides more than half the effort to complete the activity 1 Dependent. The helper does all the effort to complete an activity 7 Patient refused to complete or attempt activity 9 The patient did not perform the activity before the current illness or injury 88 Not attempted due to Medical conditions or safety concerns Scootin Rollin Roll Left to Right (QC): 5 Supine to/from Sit: 5 Sit to/from Stand: 5 Sit to Lying (QC): 5 Sit to Stand (QC): 5 Weight Bearing Weight Bearing Restriction: Full Weight Bearing Location Restriction: LE Bilateral Gait Training Does the Patient Walk?: Yes Distance (FIM): 1=up to 49 ft Distance: 40' Walk 10 feet (QC): 5 Gait Level of Assist: 5 Gait Persons Needed: 1 Gait Assistive Device: FWW Pt walks with slow dionisio and drifts to the R, unsteady but will self-correct. Pt fatigues easy and needs rest break. Wheelchair Training Does the Pt Use a Wheelchair?: No Exercises Supine Ex: Bridging, Rolling Seated Therapy Exercises: Sit to stand Treatments Pt takes time to wake up and nursing gives meds including med & IV to assist kidneys for CT pt will receive shortly. Pt then sees Dr Ayala to advise about CT, when results might be read & possible discharge tomorrow. Pt then transfers from bed to standing using FWW at A to use restroom. Pt wants to rest so ambulates back to the bed. PT and pt go over safety items for home, continuing to work on Ex to keep strength up as well advise the discharge process and what can be expected if discharging tomorrow. Pt lays back in Supine position to sleep until next tx with all needs met at end of tx. Assessment Current Status: Fair Progress Pt continues to fatigue easy and need rest breaks. Pt wants to discharge and go home and has wanted to for days. PT Short Term Goals Short Term Goals Time Frame: November 15, 2016 Gait (FIM): 5 Gait Distance Comment: 300' Gait Level of Assist: 5 Gait Assistive Device: FWW PT Halfway Goals Information Scientist Goals PT Information Scientist Goals Time Frame: Nov 29, 2016 Transfers (B,C,W/C) (FIM): 6 Sit to Lying (QC): 6 Lying-Sitting on Side/Bed(QC): 6 Sit to Stand (QC): 6 Rollin Roll Left to Right (QC): 6 Car Transfer (QC): 4 Gait (FIM): 6 Distance: 400' Walk 10 feet (QC): 6 Walk 10ft-Uneven Surface(QC): 6 Walk 50ft with 2 Turns (QC): 6 Walk 150 ft (QC): 6 Gait Assistive Device: FWW Stairs (FIM): 5 # of Steps: 12 1 Step (curb) (QC): 4 4 Steps (QC): 4 12 Steps (QC): 4 Stairs Level Of Assist: 5 Picking up an Object (QC): 4 PT Plan Problem List Problem List: Activity Tolerance, Functional Strength, Safety, Balance, Gait Treatment/Plan Treatment Plan: Continue Plan of Care Treatment Plan: Bed Mobility, Education, Functional Activity Amanda, Functional Strength, Group Therapy, Gait, Safety, Therapeutic Exercise, Transfers Treatment Duration: Nov 29, 2016 Visits Per Week: 10-11 Minutes/Day (M-F): 60-90 Minutes/Day (Sat/Glez): 15-30 Safety Risks/Education Patient Education: Gait Training, Transfer Techniques, Correct Positioning, Safety Issues Teaching Recipient: Patient Teaching Methods: Discussion Response to Teaching: Verbalize Understanding Time/GCodes Time In: 900 Time Out: 1000 Total Billed Treatment Time: 60 Total Billed Treatment visit, FA x2 (35m), GT (10m) & EX (15m) JERICA MESSER SNOWMAKER Nov 24, 2016 09:56
[2016-11-24] MEDS ORDERED: NS 100 ML (IVPB) BAG IV ONE (10:00)
[2016-11-24] MEDS ORDERED: IOHEXOL 350 MG/ML 100 ML (OMNIPAQUE 350) VIAL IV ONE (10:00)
[2016-11-24] MEDS ORDERED: CATHETER FLUSH 10 ML SYR IV PRN (10:00)
--- NOTE | 2016-11-24 10:56 | Occupational Ther Daily Note ---
OT Current Status-Daily Note Subjective Pt lying in bed and alert. Pt agreed to therapy. No c/o pain. Mental Status/Objective Patient Orientation: Person, Place, Time, Situation Functional [place] Measure 0=Not Assessed/NA 4=Minimal Assistance 1=Total Assistance 5=Supervision or Setup 2=Maximal Assistance 6=Modified [place] 3=Moderate Assistance 7=Complete [place] Attachments: Other-See Comments (PICC) ADL-Treatment Functional [place] Measure 0=Not Assessed/NA 4=Minimal Assistance 1=Total Assistance 5=Supervision or Setup 2=Maximal Assistance 6=Modified [place] 3=Moderate Assistance 7=Complete IndependenceIRFPAI Quality Coding Scale 6 Independent with activity with or without an assistive device 5 Patient requires set up or clean up by helper. Patient completes activity by themselves 4 Supervision or touching assist (CGA). [place] provide cues , steadying assist 3 The helper provides less than half the effort to complete the activity 2 The helper provides more than half the effort to complete the activity 1 Dependent. The helper does all the effort to complete an activity 7 Patient refused to complete or attempt activity 9 The patient did not perform the activity before the current illness or injury 88 Not attempted due to Medical conditions or safety concerns Other Treatment Pt waiting on nrsg to place IV for CT scan. Pt was able to demonstrate good bed mobility by rolling side to side and ability to stay in sidelying then scooting up in bed. Pt has difficulty with R UE shldr ROM and it is difficult for pt to lift or pull with R UE, pain with this movement. Pt is able to transfer from supine to sitting by self. Then transfer into w/c from bed with SBA. After therapy, pt going to CT scan. OT Short Term Goals Short Term Goals Time Frame: November 22, 2016 Lower Body Dressing(FIM): 5 Shower Transfer(FIM): 5 Additional Short Term Goals: 2-Verbalize Understanding, 3-ImproveStrength/Amanda 1=Demonstrate adherence to instructed precautions during ADL tasks. 2=Patient will verbalize/demonstrate understanding of assistive devices/ modifications for ADL. 3=Patient will improve strength/tolerance for activity to enable patient to perform ADL's. OT Long-Term Goals Long-Term Goals Time Frame: Nov 29, 2016 Eating (FIM): 6 (met-11/23/2016) Eating (QC): 6 (met-11/23/2016) Groomin (not met) Oral Hygiene (QC): 6 (not met) Bathing(FIM): 6 (not met) Shower/Bathe Self (QC): 6 (not met) Upper Body Dressing(FIM): 6 (not met) Upper Body Dressing (QC): 6 (not met) Lower Body Dressing(FIM): 6 (not) Lower Body Dressing (QC): 6 (not met) On/Off Footwear (QC): 6 (not met) Toileting(FIM): 6 (not met) Toileting Hygiene (QC): 6 (not met) Toilet/Commode Transfer(FIM): 6 (not met) Toilet/Commode Transfer (QC): 6 (not met) Shower Transfer(FIM): 6 (not met) Additional Goals: 2-Verbalize Understanding, 3-ImproveStrength/Amanda 1=Demonstrate adherence to instructed precautions during ADL tasks. 2=Patient will verbalize/demonstrate understanding of assistive devices/ modifications for ADL. 3=Patient will improve strength/tolerance for activity to enable patient to perform ADL's. OT Education/Plan Problem List/Assessment Pt would benefit from skilled OT to increase his independence with basic self care to allow him to safely return home to live with his and to decrease caregiver burden. Discharge Recommendations Plan/Recommendations: Continue POC Treatment Plan/Plan of Care Patient would benefit from OT for education, treatment and training to promote independence in ADL's, mobility, safety and/or upper extremity function for ADL' s. Plan of Care: ADL Retraining, Functional Mobility, Group Exercise/Act as Ind ( education, exercise, activ tolerance, socialization, funct activities), UE Funct Exercise/Act, UE Neuromus Re-Ed/Coord Treatment Duration: Nov 29, 2016 Visits Per Week: 10-11 Minutes/Day (M-F): 75-90 Minutes/Day (Sat/Glez): PRN Agreement: Yes Rehab Potential: Fair Time/GCodes Start Time: 10:25 Stop Time: 10:55 Total Time Billed (hr/min): 30 Billed Treatment Time 1 visit-FA 2 (30 min) ISABELA CAM Nov 24, 2016 10:56
--- NOTE | 2016-11-24 12:02 | Occupational Ther Daily Note ---
OT Current Status-Daily Note Subjective Pt back from CT scan sitting in w/c in room. Pt agreed to therapy. No c/o pain at this time, fatigue only. Mental Status/Objective Patient Orientation: Person, Place, Time, Situation Functional [place] Measure 0=Not Assessed/NA 4=Minimal Assistance 1=Total Assistance 5=Supervision or Setup 2=Maximal Assistance 6=Modified [place] 3=Moderate Assistance 7=Complete [place] Attachments: IV, Other-See Comments (PICC) ADL-Treatment Functional [place] Measure 0=Not Assessed/NA 4=Minimal Assistance 1=Total Assistance 5=Supervision or Setup 2=Maximal Assistance 6=Modified [place] 3=Moderate Assistance 7=Complete IndependenceIRFPAI Quality Coding Scale 6 Independent with activity with or without an assistive device 5 Patient requires set up or clean up by helper. Patient completes activity by themselves 4 Supervision or touching assist (CGA). [place] provide cues , steadying assist 3 The helper provides less than half the effort to complete the activity 2 The helper provides more than half the effort to complete the activity 1 Dependent. The helper does all the effort to complete an activity 7 Patient refused to complete or attempt activity 9 The patient did not perform the activity before the current illness or injury 88 Not attempted due to Medical conditions or safety concerns Grooming (FIM): 5 (Sitting at sink in w/c, pt is able to complete grooming skills by self.) Pt requires frequent and lengthy recovery breaks during each task or exercise completed. Other Treatment Pt was transported to therapy gym via w/c. Pt requested to use w/c instead of ambulating. Pt completed UE dowel sanchez exercises. Pt able to complete bicep curls with 2# attached 3 sets 10 reps with lengthy recovery breaks between sets. Pt attempted to complete full UE shldr flexion exercises with 2# wt attached, unable to lift off of knees. Wt taken off and pt started to complete bicep curls again and was reminded to keep arms straight and lift up to 90*, pt attempted to lift to full ROM and was in pain with movement. DUMONT instructed again to lift to 90* or less to decrease pain and increase movement in B shldrs. Pt then maneuvered w/c with assist to keep straight through door for 20 feet to room, half way there pt started to use feet to help propel w/c. Pt then was transported to large shower room to work on stepping into tub. With CGA pt was able to step into/out of tub using wall for stabilization. Pt does not have grabbars in tub at home, has tub seat. Pt was transported back to room with w/c. Pt transferred from w/c to bed with SBA. Pt laid down in bed by self using grabbars. After therapy, pt lying in bed with call light/phone in reach. All needs met in room. OT Short Term Goals Short Term Goals Time Frame: November 22, 2016 Lower Body Dressing(FIM): 5 Shower Transfer(FIM): 5 Additional Short Term Goals: 2-Verbalize Understanding, 3-ImproveStrength/Amanda 1=Demonstrate adherence to instructed precautions during ADL tasks. 2=Patient will verbalize/demonstrate understanding of assistive devices/ modifications for ADL. 3=Patient will improve strength/tolerance for activity to enable patient to perform ADL's. OT Pocket Maker Goals Senior Care Goals Time Frame: Nov 29, 2016 Eating (FIM): 6 (met-11/23/2016) Eating (QC): 6 (met-11/23/2016) Groomin (not met) Oral Hygiene (QC): 6 (not met) Bathing(FIM): 6 (not met) Shower/Bathe Self (QC): 6 (not met) Upper Body Dressing(FIM): 6 (not met) Upper Body Dressing (QC): 6 (not met) Lower Body Dressing(FIM): 6 (not) Lower Body Dressing (QC): 6 (not met) On/Off Footwear (QC): 6 (not met) Toileting(FIM): 6 (not met) Toileting Hygiene (QC): 6 (not met) Toilet/Commode Transfer(FIM): 6 (not met) Toilet/Commode Transfer (QC): 6 (not met) Shower Transfer(FIM): 6 (not met) Additional Goals: 2-Verbalize Understanding, 3-ImproveStrength/Amanda 1=Demonstrate adherence to instructed precautions during ADL tasks. 2=Patient will verbalize/demonstrate understanding of assistive devices/ modifications for ADL. 3=Patient will improve strength/tolerance for activity to enable patient to perform ADL's. OT Education/Plan Problem List/Assessment Pt would benefit from skilled OT to increase his independence with basic self care to allow him to safely return home to live with his and to decrease caregiver burden. Discharge Recommendations Plan/Recommendations: Continue POC Treatment Plan/Plan of Care Patient would benefit from OT for education, treatment and training to promote independence in ADL's, mobility, safety and/or upper extremity function for ADL' s. Plan of Care: ADL Retraining, Functional Mobility, Group Exercise/Act as Ind ( education, exercise, activ tolerance, socialization, funct activities), UE Funct Exercise/Act, UE Neuromus Re-Ed/Coord Treatment Duration: Nov 29, 2016 Visits Per Week: 10-11 Minutes/Day (M-F): 75-90 Minutes/Day (Sat/Glez): PRN Agreement: Yes Rehab Potential: Fair Time/GCodes Start Time: 11:15 Stop Time: 12:15 Total Time Billed (hr/min): 60 Billed Treatment Time 1 visit-EX 2 (30 min) FA 2 (30 min) ISABELA CAM Nov 24, 2016 12:02
--- NOTE | 2016-11-24 13:21 | Diagnostic Imaging Report ---
PROCEDURE: CT chest with contrast only. TECHNIQUE: Multiple contiguous axial images were obtained through the chest after administration of intravenous contrast. INDICATION: Lung cancer. TECHNIQUE: 75 mL of Omnipaque 350 is administered intravenously. COMPARISON: 11/07/16. FINDINGS: There is increasing consolidation in the left lower lung compared to the previous exam. This is probably hyperexpanded left upper lobe after probably partial left lower lobe pneumonectomy with postsurgical changes and overall volume loss in the left lung seen. The left lower pulmonary vein has been ligated. There is a 1.4 x 1 x 1 cm thrombus seen within the remaining portion of the vein near its confluence with the left atrium. Although harder to see on the previous exam, it appears to be present on the prior study without change. There is an increasing effusion on the left side, now small to moderate and partially loculated anteriorly. There is minimal patchy consolidation along the anterior aspect of the right upper lobe with the rest of the right lung demonstrating hyperexpansion and no significant abnormality otherwise. The thoracic aorta and the central pulmonary arteries appear normally opacified. There is no pericardial effusion. There is no mediastinal mass or significantly enlarged lymph nodes. No hilar lymphadenopathy is seen. The osseous structures appear grossly unremarkable. IMPRESSION: 1. There is a 1.4 cm thrombus seen within the lower left pulmonary vein stump near its confluence of the left atrium. 2. Increasing consolidation in the remaining left lung, probably related to pneumonia. 3. Increasing small to moderate left effusion. The findings were discussed with Dr. Mendez by Dr. George at the time of dictation Dictated by: Dictated on workstation # [id number]
--- NOTE | 2016-11-24 14:12 | Physical Therapy Daily Note ---
PT Daily Note-Current Subjective Pt laying Supine in bed upon arrival. Pt agrees to walking for PT. Mental Status Patient Orientation: Person, Place, Situation Transfers Functional [place] Measure 0=Not Assessed/NA 4=Minimal Assistance 1=Total Assistance 5=Supervision or Setup 2=Maximal Assistance 6=Modified [place] 3=Moderate Assistance 7=Complete IndependenceIRFPAI Quality Coding Scale 6 Independent with activity with or without an assistive device 5 Patient requires set up or clean up by helper. Patient completes activity by themselves 4 Supervision or touching assist ([facility]). [place] provide cues , steadying assist 3 The helper provides less than half the effort to complete the activity 2 The helper provides more than half the effort to complete the activity 1 Dependent. The helper does all the effort to complete an activity 7 Patient refused to complete or attempt activity 9 The patient did not perform the activity before the current illness or injury 88 Not attempted due to Medical conditions or safety concerns Scootin Rollin Roll Left to Right (QC): 5 Supine to/from Sit: 5 Sit to/from Stand: 5 Sit to Lying (QC): 5 Sit to Stand (QC): 5 Weight Bearing Weight Bearing Restriction: Full Weight Bearing Location Restriction: LE Bilateral Gait Training Does the Patient Walk?: Yes Distance (FIM): 3=150 ft Distance: 175' Walk 10 feet (QC): 5 Walk 50 ft with 2 Turns(QC): 4 Walk 150 ft (QC): 4 Gait Level of Assist: 4 Gait Persons Needed: 1 Gait Assistive Device: FWW Pt continues to have safety concerns occasionally with balance and VC given for keeping FWW on ground and to watch where he is ambulating although pt gets distracted easy and doesn't adhere to VC given. Pt fatigues easy, needs rest breaks Wheelchair Training Does the Pt Use a Wheelchair?: No Treatments Pt transfers from supine in bed to standing using FWW at [facility]. Pt ambulated in hallway using FWW at [facility] for safety. Pt, Sp & PT again talked about safety concerns for home and instructed on how to walk, transfer and continue Ex at home. Pt lays supine in bed at end of tx with all needs met. Assessment Pt continues to have safety concerns and needs redirection to remember how to transfer and ambulation safely. PT Short Term Goals Short Term Goals Time Frame: November 15, 2016 Gait (FIM): 5 Gait Distance Comment: 300' Gait Level of Assist: 5 Gait Assistive Device: FWW PT Thread Machine Operator Goals Half-Way Goals PT Half-Way Goals Time Frame: Nov 29, 2016 Transfers (B,C,W/C) (FIM): 6 Sit to Lying (QC): 6 Lying-Sitting on Side/Bed(QC): 6 Sit to Stand (QC): 6 Rollin Roll Left to Right (QC): 6 Car Transfer (QC): 4 Gait (FIM): 6 Distance: 400' Walk 10 feet (QC): 6 Walk 10ft-Uneven Surface(QC): 6 Walk 50ft with 2 Turns (QC): 6 Walk 150 ft (QC): 6 Gait Assistive Device: FWW Stairs (FIM): 5 # of Steps: 12 1 Step (curb) (QC): 4 4 Steps (QC): 4 12 Steps (QC): 4 Stairs Level Of Assist: 5 Picking up an Object (QC): 4 PT Plan Problem List Problem List: Activity Tolerance, Functional Strength, Safety, Balance, Gait, Transfer Treatment/Plan Treatment Plan: Continue Plan of Care Treatment Plan: Bed Mobility, Education, Functional Activity Amanda, Functional Strength, Group Therapy, Gait, Safety, Therapeutic Exercise, Transfers Treatment Duration: Nov 29, 2016 Visits Per Week: 10-11 Minutes/Day (M-F): 60-90 Minutes/Day (Sat/Glez): 15-30 Safety Risks/Education Patient Education: Gait Training, Transfer Techniques Teaching Recipient: Patient, Significant Other Teaching Methods: Discussion Response to Teaching: Verbalize Understanding, Reinforcement Needed Time/GCodes Time In: 1335 Time Out: 1405 Total Billed Treatment Time: 30 Total Billed Treatment visit, FA (15m) & GT (15m) JERICA MESSER [employer]HALT PLANT OPERATOR Nov 24, 2016 14:12
[2016-11-24] MEDS ORDERED: NS IV 1000 ML 0 ML ONE (15:05)
[2016-11-24] MEDS ORDERED: APIXABAN 5 MG (ELIQUIS) TABLET ONE (16:07)
[2016-11-24] MEDS: APIXABAN 5 MG (ELIQUIS) TABLET PO SCH (16:16)
--- NOTE | 2016-11-24 17:51 | PM & R (SOAP) Progress Note ---
Subjective Subjective/Events-last exam Patient was seen in his room this evening Therapy and DR Mcginnis notes reviewed.Patient SBA for transfers Endurance improved Appreciate CT chest resultsPatient eupneic at rest with 02 off Review of Systems Neurological: Weakness Objective Exam Last Set of Vital Signs Vital Signs Date Time Temp Pulse Resp B/P (MAP) Pulse Ox O2 Delivery O2 Flow Rate FiO2 11/24/16 14:41 97.6 11/24/16 07:20 95 11/24/16 05:21 60 16 160/67 Capillary Refill : I&O Intake and Output 11/24/16 00:00 Intake Total 2850 ml Balance 2850 ml Intake Oral 1050 ml IV Total 1800 ml # Voids 7 # Bowel Movements 2 General: Alert, Oriented X3, Cooperative, No Acute Distress HEENT: Atraumatic, PERRLA, EOMI, Mucous Memb Moist/Mutual Neck: Supple, No JVD Lungs: Other ( diminished breath sounds left base) Heart: Regular Rate Abdomen: Normal Bowel Sounds, Soft, No Tenderness Extremities: No Edema Skin: Other (skin tear rt forearm) Neuro: Other (Tingling in hands Limited AROM rt shoulder to 90- degrees decreased coordination rt leg with gait Strength RLE 4/5 Left 4/5 proximal and 5 /5 distal) Results Lab Laboratory Tests 11/21/16 20:16: Glucometer 230H 11/22/16 05:17: Glucometer 111H 11/22/16 09:42: White Blood Count 9.4, Red Blood Count 3.66L, Hemoglobin 10.0L, Hematocrit 32L, Mean Corpuscular Volume 86, Mean Corpuscular Hemoglobin 27, Mean Corpuscular Hemoglobin Concent 32, Red Cell Distribution Width 17.9H, Platelet Count 438H, Mean Platelet Volume 9.2, Sodium Level 137, Potassium Level 4.4, Chloride Level 108H, Carbon Dioxide Level 22, Anion Gap 7, Blood Urea Nitrogen 23H, Creatinine 1.98H, Estimat Glomerular Filtration Rate 33, BUN/Creatinine Ratio 12, Glucose Level 255H, Calcium Level 8.7 11/22/16 11:04: Glucometer 203H 11/22/16 17:07: Glucometer 180H 11/22/16 21:27: Glucometer 164H 11/23/16 04:35: Sodium Level 139, Potassium Level 3.9, Chloride Level 110H, Carbon Dioxide Level 21, Anion Gap 8, Blood Urea Nitrogen 27H, Creatinine 1.46H, Estimat Glomerular Filtration Rate 47, BUN/Creatinine Ratio 18, Glucose Level 107H, Calcium Level 8.7 11/23/16 12:00: Glucometer 161H 11/23/16 16:44: Glucometer 179H 11/23/16 20:06: Glucometer 279H 11/24/16 05:40: Sodium Level 141, Potassium Level 4.0, Chloride Level 111H, Carbon Dioxide Level 23, Anion Gap 7, Blood Urea Nitrogen 22H, Creatinine 1.32H, Estimat Glomerular Filtration Rate 52, BUN/Creatinine Ratio 17, Glucose Level 72, Calcium Level 8.8 11/24/16 11:12: Glucometer 117H 11/24/16 16:16: Glucometer 144H Assessment/Plan Assessment 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 Check U/A-See orders-done negative Team Conference held yesterday-See report for full functional update and POC and ELOS Discharge pending -Will f/u with SW re details tomorrow. JAREK MOCK MD Nov 24, 2016 17:51
[2016-11-24 18:00] VITALS: BP 177/73
[2016-11-24] MEDS: ATORVASTATIN 40 MG (LIPITOR) TABLET PO SCH (20:03)
[2016-11-24] MEDS: FENOFIBRATE 134 MG (LOFIBRA) CAPSULE PO SCH (20:03)
[2016-11-24] MEDS: GLUCOSAMINE 1000 MG PO SCH (20:04)
[2016-11-24] MEDS: inSUlin DETERMIR 1 UNIT/0.01 ML (LEVEMIR) CHARGE PER UNIT SQ SCH (21:04)
[2016-11-25] MEDS: HYDROcodone/APAP 5 MG/325 MG (LORTAB) TAB PO PRN ×3 (00:50→13:13)
[2016-11-25 05:22] VITALS: BP 172/69
[2016-11-25] MEDS: inSUlin (REGULAR) HUMAN 1 UNIT/0.01 ML (CHARGE PER UNIT) SC SCH ×4 (05:57→20:35)
[2016-11-25] MEDS: LACTOBACILLUS Acidoph/Bulgar (LACTINEX/FLORANEX) TAB PO SCH ×3 (05:57→16:59)
[2016-11-25] MEDS: CALCIUM CARB + VIT D 600 MG (CALCARB + D) TAB PO SCH (06:01)
[2016-11-25] MEDS: MULTIVIT W/MINERALS TAB (THERAGRAN M) PO SCH (06:01)
[2016-11-25] MEDS: OMEGA 3 (FISH OIL) 1000 MG CAP PO SCH ×2 (06:01→16:59)
--- NOTE | 2016-11-25 07:25 | PM & R (SOAP) Progress Note ---
Subjective Subjective/Events-last exam Patient was seen in his room this AM 02 off Patient eupneic at rest Endurance and alertness improved Patient SBA for transfers Objective Exam Last Set of Vital Signs Vital Signs Date Time Temp Pulse Resp B/P (MAP) Pulse Ox O2 Delivery O2 Flow Rate FiO2 11/25/16 05:22 97.3 54 18 172/69 96 Capillary Refill : I&O Intake and Output 11/25/16 00:00 Intake Total 3400 ml Balance 3400 ml Intake Oral 1400 ml IV Total 2000 ml # Voids 12 # Bowel Movements 2 General: Alert, Oriented X3, Cooperative, No Acute Distress HEENT: Atraumatic, PERRLA, EOMI, Mucous Memb Moist/[place] Neck: Supple, No JVD Lungs: Other ( diminished breath sounds left base) Heart: Regular Rate Abdomen: Normal Bowel Sounds, Soft, No Tenderness Extremities: No Edema Skin: Other (skin tear rt forearm) Neuro: Other (Tingling in hands Limited AROM rt shoulder to 90- degrees decreased coordination rt leg with gait Strength RLE 4/5 Left 4/5 proximal and 5 /5 distal) Results Lab Laboratory Tests 11/22/16 09:42: White Blood Count 9.4, Red Blood Count 3.66L, Hemoglobin 10.0L, Hematocrit 32L, Mean Corpuscular Volume 86, Mean Corpuscular Hemoglobin 27, Mean Corpuscular Hemoglobin Concent 32, Red Cell Distribution Width 17.9H, Platelet Count 438H, Mean Platelet Volume 9.2, Sodium Level 137, Potassium Level 4.4, Chloride Level 108H, Carbon Dioxide Level 22, Anion Gap 7, Blood Urea Nitrogen 23H, Creatinine 1.98H, Estimat Glomerular Filtration Rate 33, BUN/Creatinine Ratio 12, Glucose Level 255H, Calcium Level 8.7 11/22/16 11:04: Glucometer 203H 11/22/16 17:07: Glucometer 180H 11/22/16 21:27: Glucometer 164H 11/23/16 04:35: Sodium Level 139, Potassium Level 3.9, Chloride Level 110H, Carbon Dioxide Level 21, Anion Gap 8, Blood Urea Nitrogen 27H, Creatinine 1.46H, Estimat Glomerular Filtration Rate 47, BUN/Creatinine Ratio 18, Glucose Level 107H, Calcium Level 8.7 11/23/16 12:00: Glucometer 161H 11/23/16 16:44: Glucometer 179H 11/23/16 20:06: Glucometer 279H 11/24/16 05:40: Sodium Level 141, Potassium Level 4.0, Chloride Level 111H, Carbon Dioxide Level 23, Anion Gap 7, Blood Urea Nitrogen 22H, Creatinine 1.32H, Estimat Glomerular Filtration Rate 52, BUN/Creatinine Ratio 17, Glucose Level 72, Calcium Level 8.8 11/24/16 11:12: Glucometer 117H 11/24/16 16:16: Glucometer 144H 11/24/16 20:59: Glucometer 290H 11/25/16 05:49: Glucometer 59*L 11/25/16 06:12: Glucometer 78 Assessment/Plan Assessment 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 Check U/A-See orders-done negative Team Conference held 11-23-16-See report for full functional update and POC and ELOS Discharge pending -Will f/u with SW re details.. Rehab progress appears to have plateaued out JAREK MOCK MD Nov 25, 2016 07:25
[2016-11-25] MEDS: APIXABAN 5 MG (ELIQUIS) TABLET PO SCH ×2 (08:27→20:35)
[2016-11-25] MEDS: ONDANSETRON 8 MG (ZOFRAN) ORAL DISSOLVE TAB PO SCH ×3 (08:28→23:05)
[2016-11-25] MEDS: DICLOFENAC 1% GEL 100 GM (VOLTAREN) TUBE TOP SCH ×4 (08:28→20:36)
[2016-11-25] MEDS: lisINopril 20 MG (ZESTRIL) TAB PO SCH (08:28)
[2016-11-25] MEDS: DOCUSATE SODIUM 100 MG (COLACE) CAP PO SCH ×2 (08:28→20:35)
[2016-11-25] MEDS: ASPIRIN E.C. 81 MG (ECOTRIN) TAB PO SCH (08:28)
[2016-11-25] MEDS: AMIODARONE 200 MG (CORDARONE) TAB PO SCH (08:28)
[2016-11-25] MEDS: MUPIROCIN 2% OINT 22 GM (BACTROBAN) TUBE TOP SCH ×2 (08:29→20:36)
--- NOTE | 2016-11-25 11:38 | Physical Therapy Daily Note ---
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 Says he is just so tired Pain Numeric Pain Scale: 0-No Pain Appearance laying down, slow moving Mental Status slow to respond but follows all commands today Transfers Functional [place] Measure 0=Not Assessed/NA 4=Minimal Assistance 1=Total Assistance 5=Supervision or Setup 2=Maximal Assistance 6=Modified [place] 3=Moderate Assistance 7=Complete IndependenceIRFPAI Quality Coding Scale 6 Independent with activity with or without an assistive device 5 Patient requires set up or clean up by helper. Patient completes activity by themselves 4 Supervision or touching assist (CGA). [place] provide cues , steadying assist 3 The helper provides less than half the effort to complete the activity 2 The helper provides more than half the effort to complete the activity 1 Dependent. The helper does all the effort to complete an activity 7 Patient refused to complete or attempt activity 9 The patient did not perform the activity before the current illness or injury 88 Not attempted due to Medical conditions or safety concerns Transfers (B, C, W/C) (FIM): 5 Scootin Rollin Supine to/from Sit: 6 Sit to/from Stand: 6 Bed to/from Chair: 5 Gait Training Does the Patient Walk?: Yes Gait (FIM): 5 Distance (FIM): 3=150 ft (200,150) Gait Level of Assist: 5 Gait Persons Needed: 1 Gait Assistive Device: FWW Stair Training Stair Training: Handrails/: 2 handrails Stairs (FIM): 5 #of Steps: 4 Stairs: Pattern: Reciprocal SBA Exercises Supine Ex: Ankle pumps, Quad Set, Rolling, Glut sets, Heel Slides, Short Arc Quads, Scooting, Straight leg raise, Hip abd/add Supine Reps: [address] Ayala present with pt. and family as well as this PACKAGING MECHANIC for meeting RE: DC plans, pts. status as well as possibilities for Hospice etc. This PACKAGING MECHANIC sharing that at this time pt. needs SBA for stairs and SBA for TRFs and gait, fatigue and lethargy inhibit pt. Assessment Current Status: Good Progress today it was noted that pt. had audible breathing and when asked c/o some SOB after exertion. O2 sats >90% on rm air PT Short Term Goals Short Term Goals Time Frame: November 15, 2016 Gait (FIM): 5 Gait Distance Comment: 300' Gait Level of Assist: 5 Gait Assistive Device: FWW PT Bevel Operator Goals Bevel Operator Goals PT Assisted Goals Time Frame: Nov 29, 2016 Transfers (B,C,W/C) (FIM): 6 Sit to Lying (QC): 6 Lying-Sitting on Side/Bed(QC): 6 Sit to Stand (QC): 6 Rollin Roll Left to Right (QC): 6 Car Transfer (QC): 4 Gait (FIM): 6 Distance: 400' Walk 10 feet (QC): 6 Walk 10ft-Uneven Surface(QC): 6 Walk 50ft with 2 Turns (QC): 6 Walk 150 ft (QC): 6 Gait Assistive Device: FWW Stairs (FIM): 5 # of Steps: 12 1 Step (curb) (QC): 4 4 Steps (QC): 4 12 Steps (QC): 4 Stairs Level Of Assist: 5 Picking up an Object (QC): 4 PT Plan Treatment/Plan Treatment Plan: Continue Plan of Care Treatment Plan: Bed Mobility, Education, Functional Activity Amanda, Functional Strength, Group Therapy, Gait, Safety, Therapeutic Exercise, Transfers Treatment Duration: Nov 29, 2016 Visits Per Week: 10-11 Minutes/Day (M-F): 60-90 Minutes/Day (Sat/Glez): 15-30 Safety Risks/Education Patient Education: Gait Training, Transfer Techniques, Steps Teaching Recipient: Patient Teaching Methods: Demonstration, Discussion Response to Teaching: Verbalize Understanding, Return Demonstration, Reinforcement Needed Time/GCodes Time In: 1100 Time Out: 1200 Total Billed Treatment Time: 60 Total Billed Treatment 1,GT15m,EX20m,FA25m G Codes Necessary: ESTHELA Dalton PACKAGING MECHANIC Nov 25, 2016 11:38
[2016-11-25] MEDS ORDERED: HYDR-3729 PO (12:10)
[2016-11-25] MEDS ORDERED: DOCU100C37 PO (12:10)
[2016-11-25] MEDS ORDERED: APIX5TAB PO (12:10)
[2016-11-25] MEDS ORDERED: IPRA3AMP INH (12:10)
[2016-11-25] MEDS ORDERED: DICL100G18 TOP (12:10)
[2016-11-25] MEDS ORDERED: NEBU1KIT3 MC (12:10)
[2016-11-25] MEDS ORDERED: APIX2.5T PO (12:10)
[2016-11-25] MEDS ORDERED: WALK1EAC23 MC (12:10)
[2016-11-25] MEDS ORDERED: shower chair (12:10)
[2016-11-25] MEDS ORDERED: [UNRECOGNIZED DRUG - CODE] MC (12:10)
--- NOTE | 2016-11-25 12:15 | Discharge Inst-Complex ---
PDI Med Rec & Follow Up Appt. New Medications: Apixaban (Eliquis) 2.5 Mg Tablet 2.5 MG PO BID for 30 Days, #60 TAB 3 Refills start on 12/02/16 Miscellaneous Medical Supply (Hand Heavy Equipment Engine Mechanic) 1 Each Each 1 EACH MC DAILY for Weakness, #2 use while in tub/shower Nebulizer (Compact Compressor Nebulizer) 1 Each Each 1 EACH MC Q2H PRN for DYSPNEA, #1 use with nebulizer Walker (Ultra-Light Rollator) 1 Each Each 1 EACH MC continuous for Weakness, #1 4 wheeled walker with a seat [shower chair] () DAILY, #1 shower chair or tub/shower combo chair - family to measure tub and shower to see if one will fit Apixaban (Eliquis) 5 Mg Tablet 5 MG PO BID for 7 Days, #14 TAB use this medication x 7 days then start on 2.5mg twice daily. Diclofenac Sodium (Voltaren) 100 Gm Gel..gram. 0 GM TOP QID for 30 Days, #3 TUBE Docusate Sodium (Docusate Sodium) 100 Mg Capsule 100 MG PO BID for 30 Days, #60 CAP Ipratropium/Albuterol Sulfate (Iprat-Albut 0.5-3(2.5) mg/3 ml) 3 Ml Ampul.neb 3 ML INH RTQ4HR PRN for SOA for 30 Days, #30 EACH 1 Refill Continued Medications: Amiodarone HCl (Amiodarone HCl) 200 Mg Tablet 200 MG PO DAILY, TAB Aspirin (Low Dose Aspirin) 81 Mg Tablet.dr 81 MG PO DAILY Atorvastatin Calcium (Atorvastatin Calcium) 40 Mg Tablet 40 MG PO HS Fenofibrate Nanocrystallized (Fenofibrate) 145 Mg Tablet 145 MG PO DAILY Fish Oil/Borage/Flax/Om3,6,9#1 ([place] 3-6-9 1,200 mg Softgel) 1,200 Mg Capsule 1200 MG PO BID, CAP Glipizide (Glipizide) 5 Mg Tablet 2.5 MG PO BID, TAB TAKES 1/2 OF A (5 MG) TABLET Glucosamine HCl/Chondr Glez A Na (Osteo Bi-Flex Caplet) 1 Each Tablet 1 TAB PO HS, TAB Hydrocodone/Acetaminophen (Lortab 5-325 mg Tablet) 1 Each Tablet 1-2 TAB PO EVERY 4-6 HOURS PRN for PAIN-MODERATE for 30 Days, #120 TAB (This prescription has been renewed) Lisinopril (Lisinopril) 40 Mg Tablet 40 MG PO DAILY Metformin HCl (Metformin HCl) 500 Mg Tablet 1000 MG PO BID, TAB TAKE 2 (500MG) TABS Metoprolol Succinate (Metoprolol Succinate) 25 Mg Tab.er.24h 25 MG PO DAILY Multivitamin (Multi-Vitamin Daily) 1 Each Tablet 1 TAB PO DAILY, TAB Ondansetron HCl (Ondansetron HCl) 8 Mg Tablet 8 MG PO Q8H PRN for NAUSEA/VOMITING-1ST LINE Discontinued Medications: Calcium Carbonate/Vitamin D3 (Os-Igor 500+D3 Caplet) 1 Each Tablet 1 TAB PO DAILY, TAB Tramadol HCl (Tramadol HCl) 50 Mg Tablet 50 MG PO TID PRN for PAIN-BREAKTHROUGH, TAB Prescription: Other (rx for lortab on chart, medical equiptment copy on chart - originals given to family) Activity, Diet and PDI Resume Normal Activity: Yes Discharge Diet: ADA Diet Drink 6-8 Glasses of Fluid/Day: Yes Driving Instructions: No Driving/Refer to Avoid ALL Tobacco Products: Smoking of Any Kind, Second Hand Smoke Symptoms to Reoprt to : Fever Over 101 Degrees F, Cough Up/Vomit Blood Comment: contact hospice for acute concerns - nursing staff should come out to evaluate [place] in an acute setting and call doctor for further instructions. For Problems or Questions: Contact Your Physician RAPHAEL ROJAS MD Nov 25, 2016 12:15
--- NOTE | 2016-11-25 12:33 | Progress Note (SOAP) ---
Objective Exam Vital Signs Date Time Temp Pulse Resp B/P (MAP) Pulse Ox O2 Delivery O2 Flow Rate FiO2 11/25/16 05:22 97.3 54 18 172/69 96 11/24/16 18:00 98.3 49 16 177/73 95 11/24/16 14:41 97.6 I & O 11/25/16 07:00 Intake Total 2000 ml Balance 2000 ml Capillary Refill : Results Lab Laboratory Tests 11/24/16 16:16: Glucometer 144H 11/24/16 20:59: Glucometer 290H 11/25/16 05:49: Glucometer 59*L 11/25/16 06:12: Glucometer 78 11/25/16 12:05: Glucometer 144H Assessment/Plan Assessment/Plan Assess & Plan/Chief Complaint PNEUMONIA LUNG CANCER COPD WEAKNESS FALLING EPISODES AT HOME ARF RIGHT SHOULDER PAIN PNEUMONIA WITH LUNG CANCER WITH COPD - REPEAT CT SCAN WAS INCONCLUSIVE, WILL NEED TO REPEAT THE SCAN CANNOT GET SCAN DONE TODAY - CHANGED ANTIBIOTICS, MONITOR SYMPTOMS, CONTINUE WITH BREATHING TREATMENTS, SUPPORTIVE CARE. WEAKNESS - WITH FALLING EPISODES AT HOME - PHYSICAL THERAPY TO CONTINUE WITH TREATMENT, STRENGTHENING WITH PLANS FOR PATIENT TO GO HOME WITH HIS FAMILY THE FAMILY REPORTS THAT THEY WILL NOT HAVE HIM GO BACK TO A INTERMEDIATE DUE TO HOW HE WAS TREATED AT THE LAST FACILITY. ARF -STABLE - REPEAT LABS TOMORROW MORNING. RIGHT SHOULDER PAIN - CONTINUE WITH PAIN MEDICATIONS, AND USE VOLTAREN GEL TO SHOULDER. HE HAS MENTIONED THAT IF THE CANCER IS WORSE, HE IS DONE WITH CHEMOTHERAPY AND WANTS TO "GO HOME TO " AND HIS FAMILY WOULD BE INTERESTED IN HOSPICE FOR THEIR FATHER IF THAT IS THE CASE. Clinical Quality Measures DVT/VTE Risk/Contraindication: Risk Factor Score Per Nursin RFS Level Per Nursing on Admit: 3=High RAPHAEL ROJAS MD Nov 25, 2016 12:33
--- NOTE | 2016-11-25 13:42 | Occupational Ther Daily Note ---
OT Current Status-Daily Note Mental Status/Objective Functional [place] Measure 0=Not Assessed/NA 4=Minimal Assistance 1=Total Assistance 5=Supervision or Setup 2=Maximal Assistance 6=Modified [place] 3=Moderate Assistance 7=Complete [place] ADL-Treatment Functional [place] Measure 0=Not Assessed/NA 4=Minimal Assistance 1=Total Assistance 5=Supervision or Setup 2=Maximal Assistance 6=Modified [place] 3=Moderate Assistance 7=Complete IndependenceIRFPAI Quality Coding Scale 6 Independent with activity with or without an assistive device 5 Patient requires set up or clean up by helper. Patient completes activity by themselves 4 Supervision or touching assist (CGA). [place] provide cues , steadying assist 3 The helper provides less than half the effort to complete the activity 2 The helper provides more than half the effort to complete the activity 1 Dependent. The helper does all the effort to complete an activity 7 Patient refused to complete or attempt activity 9 The patient did not perform the activity before the current illness or injury 88 Not attempted due to Medical conditions or safety concerns Eating (FIM): 6 ((Dentures. Pt is able to complete set up and use regular utensils to cut food and feed self.)) Eating (QC): 6 ((Dentures. Pt is able to complete set up and use regular utensils to cut food and feed self.)) Grooming (FIM): 5 ((Pt requires SBA standing at sink due to unsteadiness/ balance. Pt is able to use and set up and use grooming tools.)) Oral Hygiene (QC): 4 (Oral Hygiene (QC): 4 (Pt requires SBA standing at sink due to unsteadiness/balance. Pt is able to use and set up and use oral hygiene tools.)) Bathing (FIM): 4 ( (Using shower bench, hand held shower and grabbars pt is able to complete own bathing with CGA. Pt tends to quality control engineer shower instead of using shower bench. Pt is unsteady and LOB multiple times. Pt is instructed/ educated and encouraged to use shower bench for safety. Pt chooses to continue with standing.)) Shower/Bathe Self (QC): 4 ( (Using shower bench, hand held shower and grabbars pt is able to complete own bathing with CGA. Pt tends to quality control engineer shower instead of using shower bench. Pt is unsteady and LOB multiple times. Pt is instructed/educated and encouraged to use shower bench for safety. Pt chooses to continue with standing.)) Upper Body (FIM): 5 ( (After set up, pt is able to complete dressing.)) Upper Body Dressing (QC): 5 (Upper Body (FIM): 5 (After set up, pt is able to complete dressing.)) Lower Body Dressing (FIM): 5 (5 (After set up, pt is able to complete dressing. Pt takes increased time with donning lower body clothing due to fatigue. Pt requires rest breaks after placing one leg into pants/underpants then extended breaks after donning each sock. SBA in standing due to unsteadiness when hiking pants over hips.)) Lower Body Dressing (QC): 4 (5 (After set up, pt is able to complete dressing. Pt takes increased time with donning lower body clothing due to fatigue. Pt requires rest breaks after placing one leg into pants/underpants then extended breaks after donning each sock. SBA in standing due to unsteadiness when hiking pants over hips.)) On/Off Footwear (QC): 5 ((Dons/doff footwear after set up. Requires lengthy recovery breaks after each foot.)) Toileting (FIM): 5 ((Pt is able to complete toileting. Hygiene pt sits on toilet to complete then SBA to manipulate clothing.)) Toileting Hygiene (QC): 4 ((Pt is able to complete toileting. Hygiene pt sits on toilet to complete then SBA to manipulate clothing.)) Transfers (B, C, W/C) (FIM): 4 ((CGA or close SBA with transfers due to unsteadiness.)) Toilet/Commode Transfer (FIM): 4 ((CGA or close SBA with transfers due to unsteadiness.)) Toilet Transfer (QC): 4 ((CGA or close SBA with transfers due to unsteadiness.) ) Shower Transfer(FIM): 4 (Shower Transfer(FIM): 4 (CGA or close SBA with transfers due to unsteadiness. Shower bench and grabbar used.)Pt takes increased time to complete all tasks. Frequent lengthy recovery breaks taken by pt after each exertion. Pt requires constant encouragement to participate in therapy since all he wants to do is sleep. Discussed with pt's how pt is completing ADLs and the reason for SBA/CGA due to decreased activity tolerance and LOB. Pt's stated that she knew this and would just bathe him if he couldn't get into the tub/shower or if he couldn't do it. After therapy, pt lying in bed with call light/phone in reach. All needs met in room. ) After therapy, pt lying in bed with call light/phone in reach. All needs met in room. OT Short Term Goals Short Term Goals Time Frame: November 22, 2016 Lower Body Dressing(FIM): 5 Shower Transfer(FIM): 5 Additional Short Term Goals: 2-Verbalize Understanding, 3-ImproveStrength/Amanda 1=Demonstrate adherence to instructed precautions during ADL tasks. 2=Patient will verbalize/demonstrate understanding of assistive devices/ modifications for ADL. 3=Patient will improve strength/tolerance for activity to enable patient to perform ADL's. OT Intermediate Goals Manager Auto Goals Time Frame: Nov 29, 2016 Eating (FIM): 6 (met-11/23/2016) Eating (QC): 6 (met-11/23/2016) Groomin (not met) Oral Hygiene (QC): 6 (not met) Bathing(FIM): 6 (not met) Shower/Bathe Self (QC): 6 (not met) Upper Body Dressing(FIM): 6 (not met) Upper Body Dressing (QC): 6 (not met) Lower Body Dressing(FIM): 6 (not) Lower Body Dressing (QC): 6 (not met) On/Off Footwear (QC): 6 (not met) Toileting(FIM): 6 (not met) Toileting Hygiene (QC): 6 (not met) Toilet/Commode Transfer(FIM): 6 (not met) Toilet/Commode Transfer (QC): 6 (not met) Shower Transfer(FIM): 6 (not met) Additional Goals: 2-Verbalize Understanding, 3-ImproveStrength/Amanda 1=Demonstrate adherence to instructed precautions during ADL tasks. 2=Patient will verbalize/demonstrate understanding of assistive devices/ modifications for ADL. 3=Patient will improve strength/tolerance for activity to enable patient to perform ADL's. OT Education/Plan Problem List/Assessment Pt would benefit from skilled OT to increase his independence with basic self care to allow him to safely return home to live with his and to decrease caregiver burden. Discharge Recommendations Plan/Recommendations: Continue POC Treatment Plan/Plan of Care Patient would benefit from OT for education, treatment and training to promote independence in ADL's, mobility, safety and/or upper extremity function for ADL' s. Plan of Care: ADL Retraining, Functional Mobility, Group Exercise/Act as Ind ( education, exercise, activ tolerance, socialization, funct activities), UE Funct Exercise/Act, UE Neuromus Re-Ed/Coord Treatment Duration: Nov 29, 2016 Visits Per Week: 10-11 Minutes/Day (M-F): 75-90 Minutes/Day (Sat/Glez): PRN Agreement: Yes Rehab Potential: Fair Time/GCodes Start Time: 10:00 Stop Time: 11:00 Total Time Billed (hr/min): 60 Billed Treatment Time 1 visit-ADL 4(60 min) ISABELA CAM Nov 25, 2016 13:42
--- NOTE | 2016-11-25 14:38 | Occupational Ther Daily Note ---
OT Current Status-Daily Note Subjective Pt alert, lying in bed. present in room. Pt agreed to therapy. No c/o pain. Mental Status/Objective Patient Orientation: Person, Place, Time, Situation Functional [place] Measure 0=Not Assessed/NA 4=Minimal Assistance 1=Total Assistance 5=Supervision or Setup 2=Maximal Assistance 6=Modified [place] 3=Moderate Assistance 7=Complete [place] Attachments: IV PICC ADL-Treatment Functional [place] Measure 0=Not Assessed/NA 4=Minimal Assistance 1=Total Assistance 5=Supervision or Setup 2=Maximal Assistance 6=Modified [place] 3=Moderate Assistance 7=Complete IndependenceIRFPAI Quality Coding Scale 6 Independent with activity with or without an assistive device 5 Patient requires set up or clean up by helper. Patient completes activity by themselves 4 Supervision or touching assist (CGA). [place] provide cues , steadying assist 3 The helper provides less than half the effort to complete the activity 2 The helper provides more than half the effort to complete the activity 1 Dependent. The helper does all the effort to complete an activity 7 Patient refused to complete or attempt activity 9 The patient did not perform the activity before the current illness or injury 88 Not attempted due to Medical conditions or safety concerns Other Treatment Pt was able to go from supine to sitting EOB by self. Pt transferred from bed to w/c with SBA. Pt maneuvered w/c through doorways to increase arm strength. Pt had difficulty staying awake throughout treatment. Pt transferred back to bed with SBA. After therapy, pt lying in bed with call light/phone in reach. All needs met in room. OT Short Term Goals Short Term Goals Time Frame: November 22, 2016 Lower Body Dressing(FIM): 5 Shower Transfer(FIM): 5 Additional Short Term Goals: 2-Verbalize Understanding, 3-ImproveStrength/Amanda 1=Demonstrate adherence to instructed precautions during ADL tasks. 2=Patient will verbalize/demonstrate understanding of assistive devices/ modifications for ADL. 3=Patient will improve strength/tolerance for activity to enable patient to perform ADL's. OT Usp Goals Usp Goals Time Frame: Nov 29, 2016 Eating (FIM): 6 (met-11/23/2016) Eating (QC): 6 (met-11/23/2016) Groomin (not met) Oral Hygiene (QC): 6 (not met) Bathing(FIM): 6 (not met) Shower/Bathe Self (QC): 6 (not met) Upper Body Dressing(FIM): 6 (not met) Upper Body Dressing (QC): 6 (not met) Lower Body Dressing(FIM): 6 (not) Lower Body Dressing (QC): 6 (not met) On/Off Footwear (QC): 6 (not met) Toileting(FIM): 6 (not met) Toileting Hygiene (QC): 6 (not met) Toilet/Commode Transfer(FIM): 6 (not met) Toilet/Commode Transfer (QC): 6 (not met) Shower Transfer(FIM): 6 (not met) Additional Goals: 2-Verbalize Understanding, 3-ImproveStrength/Amanda 1=Demonstrate adherence to instructed precautions during ADL tasks. 2=Patient will verbalize/demonstrate understanding of assistive devices/ modifications for ADL. 3=Patient will improve strength/tolerance for activity to enable patient to perform ADL's. OT Education/Plan Problem List/Assessment Pt would benefit from skilled OT to increase his independence with basic self care to allow him to safely return home to live with his and to decrease caregiver burden. Discharge Recommendations Plan/Recommendations: Continue POC Treatment Plan/Plan of Care Patient would benefit from OT for education, treatment and training to promote independence in ADL's, mobility, safety and/or upper extremity function for ADL' s. Plan of Care: ADL Retraining, Functional Mobility, Group Exercise/Act as Ind ( education, exercise, activ tolerance, socialization, funct activities), UE Funct Exercise/Act, UE Neuromus Re-Ed/Coord Treatment Duration: Nov 29, 2016 Visits Per Week: 10-11 Minutes/Day (M-F): 75-90 Minutes/Day (Sat/Glez): PRN Agreement: Yes Rehab Potential: Fair Time/GCodes Start Time: 14:00 Stop Time: 14:30 Total Time Billed (hr/min): 30 Billed Treatment Time 1 visit-EX 2 (30 min) ISABELA CAM Nov 25, 2016 14:38
--- NOTE | 2016-11-25 15:03 | Physical Therapy Daily Note ---
PT Daily Note-Current Subjective Pt. lying down in bed head at foot of bed. Awakens to speak with therapist a little. Agrees to discuss safety at home ideas Pain Numeric Pain Scale: 0-No Pain Mental Status pt. closes eyes off and on during educ session Transfers Functional [place] Measure 0=Not Assessed/NA 4=Minimal Assistance 1=Total Assistance 5=Supervision or Setup 2=Maximal Assistance 6=Modified [place] 3=Moderate Assistance 7=Complete IndependenceIRFPAI Quality Coding Scale 6 Independent with activity with or without an assistive device 5 Patient requires set up or clean up by helper. Patient completes activity by themselves 4 Supervision or touching assist (CGA). [place] provide cues , steadying assist 3 The helper provides less than half the effort to complete the activity 2 The helper provides more than half the effort to complete the activity 1 Dependent. The helper does all the effort to complete an activity 7 Patient refused to complete or attempt activity 9 The patient did not perform the activity before the current illness or injury 88 Not attempted due to Medical conditions or safety concerns sup to sit at EOB x2 Mod I Treatments discussed safety at home, stairs and car TRFs as well as gait with FWW about home and possibly in yard Assessment Current Status: Fair Progress PT Short Term Goals Short Term Goals Time Frame: November 15, 2016 Gait (FIM): 5 Gait Distance Comment: 300' Gait Level of Assist: 5 Gait Assistive Device: FWW PT Fci Goals Automatic Buffing Wheel Former Goals PT Automatic Buffing Wheel Former Goals Time Frame: Nov 29, 2016 Transfers (B,C,W/C) (FIM): 6 Sit to Lying (QC): 6 Lying-Sitting on Side/Bed(QC): 6 Sit to Stand (QC): 6 Rollin Roll Left to Right (QC): 6 Car Transfer (QC): 4 Gait (FIM): 6 Distance: 400' Walk 10 feet (QC): 6 Walk 10ft-Uneven Surface(QC): 6 Walk 50ft with 2 Turns (QC): 6 Walk 150 ft (QC): 6 Gait Assistive Device: FWW Stairs (FIM): 5 # of Steps: 12 1 Step (curb) (QC): 4 4 Steps (QC): 4 12 Steps (QC): 4 Stairs Level Of Assist: 5 Picking up an Object (QC): 4 PT Plan Treatment/Plan Treatment Plan: Continue Plan of Care Treatment Plan: Bed Mobility, Education, Functional Activity Amanda, Functional Strength, Group Therapy, Gait, Safety, Therapeutic Exercise, Transfers Treatment Duration: Nov 29, 2016 Visits Per Week: 10-11 Minutes/Day (M-F): 60-90 Minutes/Day (Sat/Glez): 15-30 Safety Risks/Education Patient Education: Gait Training, Transfer Techniques, Steps, Reviewed Precautions, Correct Positioning, Disease Process, Safety Issues Teaching Recipient: Patient Teaching Methods: Discussion Response to Teaching: Verbalize Understanding, Return Demonstration Time/GCodes Time In: 1430 Time Out: 1500 Total Billed Treatment Time: 30 Total Billed Treatment 1,educ 1:1 30m G Codes Necessary: ESTHELA Dalton BRAND MARKETING COORDINATOR Nov 25, 2016 15:03
[2016-11-25 18:33] VITALS: BP 178/76
[2016-11-25] MEDS: GLUCOSAMINE 1000 MG PO SCH (20:35)
[2016-11-25] MEDS: ATORVASTATIN 40 MG (LIPITOR) TABLET PO SCH (20:35)
[2016-11-25] MEDS: FENOFIBRATE 134 MG (LOFIBRA) CAPSULE PO SCH (20:35)
[2016-11-25] MEDS: inSUlin DETERMIR 1 UNIT/0.01 ML (LEVEMIR) CHARGE PER UNIT SQ SCH (20:36)
[2016-11-26 05:05] VITALS: BP 168/79
[2016-11-26] MEDS: MULTIVIT W/MINERALS TAB (THERAGRAN M) PO SCH (06:16)
[2016-11-26] MEDS: CALCIUM CARB + VIT D 600 MG (CALCARB + D) TAB PO SCH (06:16)
[2016-11-26] MEDS: OMEGA 3 (FISH OIL) 1000 MG CAP PO SCH (06:16)
[2016-11-26] MEDS: LACTOBACILLUS Acidoph/Bulgar (LACTINEX/FLORANEX) TAB PO SCH ×2 (06:16→10:13)
[2016-11-26] MEDS: inSUlin (REGULAR) HUMAN 1 UNIT/0.01 ML (CHARGE PER UNIT) SC SCH ×2 (06:17→12:04)
[2016-11-26 08:23] VITALS: BP 146/69
[2016-11-26] MEDS: APIXABAN 5 MG (ELIQUIS) TABLET PO SCH (08:31)
[2016-11-26] MEDS: DOCUSATE SODIUM 100 MG (COLACE) CAP PO SCH (08:31)
[2016-11-26] MEDS: ASPIRIN E.C. 81 MG (ECOTRIN) TAB PO SCH (08:31)
[2016-11-26] MEDS: lisINopril 20 MG (ZESTRIL) TAB PO SCH (08:31)
[2016-11-26] MEDS: AMIODARONE 200 MG (CORDARONE) TAB PO SCH (08:31)
[2016-11-26] MEDS: ONDANSETRON 8 MG (ZOFRAN) ORAL DISSOLVE TAB PO SCH (08:33)
[2016-11-26] MEDS: MUPIROCIN 2% OINT 22 GM (BACTROBAN) TUBE TOP SCH (09:46)
[2016-11-26] MEDS: DICLOFENAC 1% GEL 100 GM (VOLTAREN) TUBE TOP SCH ×2 (09:46→12:04)
[2016-11-26] MEDS: HYDROcodone/APAP 5 MG/325 MG (LORTAB) TAB PO PRN (12:36)
[2016-11-26 14:40] VITALS: BP 146/69
--- NOTE | 2016-11-28 14:23 | Therapy Team Discharge Summary ---
Therapy Discharge Summary Discharge Recommendations Date of Discharge Nov 26, 2016 at 14:40 Therapy D/C Recommendations: Home w/ Family Support, Occupational Therapy Home Care Occupational Therapy Pt was seen for skilled OT to increase his independence in basic self care to allow him to return home to live with family. Pt was admitted to ARU after acute care stay for weakness, after lung cancer surgery. On admission he was fatigued and needed setup for eating and grooming, supervision for bathing, dressing, toileting. He required frequent rest breaks and all ADLs took longer than usual. He also was impulsive and showed decreased balance during ADLs. By discharge he was modified independent with eating, supervision with grooming, dressing. He needed min assist to [facility] for bathing and toilet transfers. Equipment used included FWW, shower bench, grab bars, hand held shower. He might need a shower chair and BSC for home. Pt discharged home on hospice care, with family support. See tx plan for goals met PT Long-Term Goals Long-Term Goals PT Paid Search Manager Goals Time Frame: Nov 29, 2016 Transfers (B,C,W/C) (FIM): 6 Roll Left to Right (QC): 6 Sit to Lying (QC): 6 Lying-Sitting on Side/Bed(QC): 6 Sit to Stand (QC): 6 Car Transfer (QC): 4 Gait (FIM): 6 Distance: 400' Walk 10 feet (QC): 6 Walk 10ft-Uneven Surface(QC): 6 Walk 50ft with 2 Turns (QC): 6 Walk 150 ft (QC): 6 Gait Assistive Device: FWW Stairs (FIM): 5 # of Steps: 12 1 Step (curb) (QC): 4 4 Steps (QC): 4 12 Steps (QC): 4 Stairs Level Of Assist: 5 Picking up an Object (QC): 4 OT Long-Term Goals Paid Search Manager Goals Time Frame: Nov 29, 2016 Eating (FIM): 6 (met-11/23/2016) Eating (QC): 6 (met-11/23/2016) Oral Hygiene (QC): 6 (not met) Grooming(FIM): 6 (not met) Bathing(FIM): 6 (not met) Shower/Bathe Self (QC): 6 (not met) Upper Body Dressing(FIM): 6 (not met) Upper Body Dressing (QC): 6 (not met) Lower Body Dressing(FIM): 6 (not) Lower Body Dressing (QC): 6 (not met) On/Off Footwear (QC): 6 (not met) Toileting(FIM): 6 (not met) Toileting Hygiene (QC): 6 (not met) Toilet/Commode Transfer(FIM): 6 (not met) Toilet/Commode Transfer (QC): 6 (not met) Shower Transfer(FIM): 6 (not met) Additional Goals: 2-Verbalize Understanding, 3-ImproveStrength/Amanda 1=Demonstrate adherence to instructed precautions during ADL tasks. 2=Patient will verbalize/demonstrate understanding of assistive devices/ modifications for ADL. 3=Patient will improve strength/tolerance for activity to enable patient to perform ADL's. BERNARDA GTZ OT Nov 28, 2016 14:23
== END 2016-11-26 14:40 | disposition hospice, home (50) | DRG 73 ==
LOC: ENPENDDIS 11-26 09:00
PROVIDERS: ADMIT Physical Medicine & Rehabilitation; ATTEND Physical Medicine & Rehabilitation
DX: G62.0 Drug-induced polyneuropathy (principal); T45.1X5D Adverse effect of antineoplastic and immunosuppressive drugs, subsequent encounter; C34.32 Malignant neoplasm of lower lobe, left bronchus or lung; C79.9 Secondary malignant neoplasm of unspecified site; J44.0 Chronic obstructive pulmonary disease with (acute) lower respiratory infection; J18.9 Pneumonia, unspecified organism; R29.6 Repeated falls; E11.9 Type 2 diabetes mellitus without complications; M47.816 Spondylosis without myelopathy or radiculopathy, lumbar region; Z66 Do not resuscitate; M25.511 Pain in right shoulder; I10 Essential (primary) hypertension; E78.00 Pure hypercholesterolemia, unspecified; F17.210 Nicotine dependence, cigarettes, uncomplicated; R35.0 Frequency of micturition; D64.9 Anemia, unspecified; Z79.84 Long term (current) use of oral hypoglycemic drugs; N17.9 Acute kidney failure, unspecified
CPT/HCPCS: 36415; 71020; 71260; 73521; 80048; 80053; 81000; 82962; 85025; 85027; 94640; 94760